=== PATIENT | female | born 1935 | race Caucasian/White ===

== ENCOUNTER 2020-08-24 15:41 | Inpatient (IN) ==
[2020-08-24] MEDS ORDERED: ONDANSETRON INJ 2 MG/ML 2 ML VIAL IV STA (16:42)
[2020-08-24] MEDS ORDERED: ACETAMINOPHEN 325 MG TAB PO STA (16:42)
[2020-08-24] MEDS ORDERED: SODIUM CHLORIDE 0.9% 1000ML 1,000 ML IV SCH (16:45)
[2020-08-24 17:00] LABS: Basophils # (auto) 0.01 K/uL (0-0.2); Basophils % (auto) 0.1 %; Eosinophils # (auto) 0.01 K/uL (0-0.5); Eosinophils % (auto) 0.1 %; Hematocrit (blood only) 38.6 % (37-47); Hemoglobin 11.7 g/dL (12.0-16.0); Immature Granulocytes # (auto) 0.02 K/uL (0.00-0.02); Immature Granulocytes % (auto) 0.2 %; Lymphocytes # (auto) 1.06 K/uL (1.2-3.4); Lymphocytes % (auto) 9.2 %; Mean Corpuscular Hemoglobin 29.3 pg (25-34); Mean Corpuscular Hgb Conc 30.3 g/dL (32-36); Mean Corpuscular Volume 96.7 fL (80-100); Mean Platelet Volume 11.4 fL (7.4-10.4); Monocytes # (auto) 2.38 K/uL (0.11-0.59); Monocytes % (auto) 20.6 %; Neutrophils # (auto) 8.05 K/uL (1.4-6.5); Neutrophils % (auto) 69.8 %; Platelet Count 205 K/uL (130-400); RDW Standard Deviation 49.8 fL (36.4-46.3); Red Blood Count 3.99 M/uL (4.2-5.4); White Blood Count 11.53 K/uL (4.8-10.8)
[2020-08-24 17:09] LABS: Albumin Level 3.1 gm/dl (3.4-5.0); BUN Creatinine Ratio 53.6 (10-20); Blood Urea Nitrogen 35 mg/dl (7-18); Calcium 8.6 mg/dl (8.5-10.1); Carbon Dioxide 35 mmol/L (21-32); Chloride 102 mmol/L (98-107); Creatinine Clr Calc Pharmacy 44.8 ml/min; Est GFR (African American) 93.4 ml/min; Est GFR (Non-African American) 80.6 ml/min; Glucose 103 mg/dl (70-99); Magnesium 2.4 mg/dl (1.8-2.4); Potassium 4.4 mmol/L (3.5-5.1); Sodium 139 mmol/L (136-145)
[2020-08-24 17:21] LABS: Alanine Aminotransferase 27 U/L (12-78); Albumin Globulin Ratio 0.7 (0.9-2); Alkaline Phosphatase 91 U/L (45-117); Aspartate Aminotransferase 29 U/L (15-37); Bilirubin,Total 0.4 mg/dl (0.2-1); Globulin 4.3 gm/dl (2.5-4.0); Thyroid Stimulating Hormone 0.439 uIu/ml (0.300-4.500); Total Protein 7.4 gm/dl (6.4-8.2); Troponin I < 0.015 ng/ml (0-0.045)
--- NOTE | 2020-08-24 17:33 | XRay Report ---
SINGLE VIEW CHEST CLINICAL HISTORY: Generalized weakness. FINDINGS: An AP, portable, upright chest radiograph is obtained. No prior studies are available for c omparison at the time of dictation. The heart is enlarged noting atherosclerotic calcification of th e thoracic aorta. There is prominence of the pulmonary vasculature. There is a large hiatal hernia. T here are small pleural effusions with bibasilar consolidation. Apical scarring is observed. No pneumo thorax is seen. The skeletal structures are osteopenic. The bony thorax is grossly intact. IMPRESSION: 1. Cardiomegaly with prominence of the pulmonary vasculature. Correlate clinically for mild congestiv e failure. 2. Small pleural effusions with bibasilar consolidation. This likely represents atelectasis and clini carlos alberto correlation will be required. ACT 112: Negative or not required by law. Electronically signed by: Brown Byers M.D. 08/24/2020 5:32 PM
[2020-08-24] MEDS ORDERED: OPTIRAY 350 500ml IV ONE (21:34)
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
[2020-08-24] MEDS ORDERED: NITROGLYCERIN SL 0.4 MG/TAB TAB SL PRN ×2 (22:52)
[2020-08-24] MEDS ORDERED: POLYETHYLENE (MIRALAX) 17 GM PACK PO PRN (22:52)
[2020-08-24] MEDS ORDERED: IPRATROPIUM BROMIDE HFA INHALER INH PRN (22:52)
[2020-08-24] MEDS ORDERED: ACETAMINOPHEN 325 MG TAB PO PRN (22:52)
[2020-08-25] MEDS: HEPARIN SOD 5,000 UNIT/0.5 ML VIAL SQ SCH ×4 (00:42→21:01)
[2020-08-25] MEDS: DOCUSATE SODIUM 100 MG CAP PO SCH ×3 (00:42→20:47)
[2020-08-25] MEDS: PROPRANOLOL HCL 20 MG TAB PO SCH ×3 (00:42→20:48)
[2020-08-25] MEDS: DICLOFENAC SOD 1% GEL 100 GM TUBE EXT SCH ×3 (00:49→20:49)
[2020-08-25 01:51] LABS: Appearance Urine Clear (Clear); Bilirubin Urine Negative (Negative); Blood Urine 1+ (Negative); Color Urine Yellow; Glucose Urine UA Negative (Negative); Ketones Urine Negative (Negative); Leukocyte Esterase Urine Negative (Negative); Nitrite Urine Negative (Negative); Protein Urine 1+ (Negative); Specific Gravity Urine <= 1.005 (1.000-1.030); Urobilinogen Urine Negative (Negative); pH Urine 5.5 (4.5-7.5)
[2020-08-25 02:01] LABS: Epithelial Cell Urine >30 /lpf (0-5)
[2020-08-25 02:02] LABS: RBC Urine 0-4 /hpf (0-4); WBC Urine 0-5 /hpf (0-5)
[2020-08-25 02:03] LABS: Bacteria Urine Negative (Negative)
--- NOTE | 2020-08-25 03:49 | History and Physical Report ---
DATE OF ADMISSION: 08/24/2020 CHIEF COMPLAINT: COVID positive. 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 The patient was seen in the PCP outpatient office yesterday for chest congestion for 3 weeks. The patient has 3 weeks of shortness of breath with thick phlegm production. She is on home oxygen, but she is more tired than usual as per the Epic notes. She has two caregivers at home. Outpatient labs showed BNP was elevated and also COVID came back positive, so she was sent to the hospital. With the COVID positive, she will not have any caregivers at home and so as she has to live alone at home, we were called for admission. The patient is a very poor historian, very hard of hearing. She complains of only some chest discomfort when taking deep breath. Denies any other complaints. Could not get any kind of history from the patient and tried to call the daughter twice and it is going to voicemail. The patient is saturating fine on [address] of the chest was done, there is no PE and there are no obvious infiltrates. Resting comfortably and hemodynamically stable. ALLERGIES: PENICILLINS. PAST MEDICAL HISTORY: As mentioned above. PAST SURGICAL HISTORY: No significant past surgical history. MEDICATIONS: The patient is on Tylenol 325 mg p.o. q.i.d. p.r.n., aspirin 81 mg p.o. daily, atorvastatin 80 mg p.o. daily, ____ as directed, vitamin D 25 mcg p.o. daily, diclofenac sodium 1 g topical b.i.d., Colace 100 mg p.o. b.i.d., ferrous sulfate 325 mg p.o. daily, Breo Ellipta 1 inhalation daily, Lasix 20 mg p.o. daily, ipratropium bromide 2 puffs inhalation q.i.d. p.r.n., DuoNebs q 6 hours p.r.n., isosorbide mononitrate 30 mg p.o. daily, nitroglycerin 0.4 mg sublingual p.r.n., MiraLax 17 grams p.o. daily, prednisone 5 mg p.o. daily, propranolol 20 mg p.o. b.i.d. FAMILY HISTORY: Significant for father had cancer, brother has diabetes. SOCIAL HISTORY: Currently lives alone, but has caregivers, . Former smoker, quit in 1996. No alcohol use, no drug use. REVIEW OF SYSTEMS: As per HPI. Rest of the review of systems could not be obtained as the patient is very hard of hearing, poor historian. PHYSICAL EXAMINATION: VITAL SIGNS: Temperature 36.5, pulse 87, respiratory rate 22, blood pressure 120/75, oxygen 94% on 2 liters. HEENT: Atraumatic. Pupils equal, round, reactive to light. Oral mucosa moist. NECK: No JVD, no neck masses. CARDIOVASCULAR: S1, S2 heard, regular rate and rhythm, no murmur, no gallop. RESPIRATORY SYSTEM: Normal AP diameter. No accessory muscle use. No wheezing, no crackles. ABDOMEN: Soft, bowel sounds present, nontender, nondistended. CENTRAL NERVOUS SYSTEM: Cranial nerves II-XII grossly intact, nonfocal. EXTREMITIES: Mild pedal edema present, no erythema seen. LABORATORY DATA: WBC 11.5, hemoglobin 11.7, hematocrit 38.6, platelets 205. Sodium 139, potassium 4.4, chloride 102, bicarbonate 35, BUN 35, creatinine 0.6, serum glucose 103, lactate 0.8, calcium 8.6, magnesium 2.4, total bilirubin 0.4, AST 29, ALT 27, alkaline phosphatase 91. Troponin I less than 0.015. TSH 0.4. IMAGING DATA: Chest x-ray, cardiomegaly with prominence of the pulmonary vasculature, small pleural effusion with bibasilar consolidation. CT of the chest, no PE, no obvious infiltrates. EKG: Normal sinus rhythm at a rate of 82, right bundle branch block seen. ASSESSMENT AND PLAN: This is an 85-year-old female who presents with ongoing shortness of breath and chest congestion, went to PCP's office because of ongoing chest congestion for 3 weeks and shortness of breath and was found to be COVID positive and elevated BNP. 1. COVID positive: The patient's respiratory status is baseline. CT chest, no PE, no obvious infiltrates. Will do COVID precautions and monitor. Currently does not meet criteria for any remdesivir or steroids.Will follow inflammatory markers. 2. Possible congestive heart failure: BNP elevated as outpatient. Lower extremity edema. Will repeat the BNP in the a.m. No obvious congestion on the chest x-ray or CT scan.Lasix was started out patient. Consult cardiology in the a.m. for further recommendations.Echo as per cardiology. 3. History of chronic obstructive pulmonary disease: Continue her home inhalers and home oxygenation. 4. History of coronary artery disease: Continue home medications of aspirin, statin. 5. History of rheumatoid arthritis: On chronic prednisone. 6. Hyperlipidemia: Continue statin. 7. 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 8. Deep venous thrombosis prophylaxis: , heparin subQ. DISPOSITION: Closely monitor in the tele floor. Level 1 full code. Expect to discharge home and PT and OT prior to discharge. Social service to help with discharge planning. CODE STATUS: Full code ____ as per the daughter. MTDTrae
[2020-08-25 06:39] LABS: D Dimer 880 ug/L FEU (0-500)
[2020-08-25 07:17] LABS: C Reactive Protein 4.26 mg/dl (0-0.29); Ferritin 1725.9 ng/ml (8-388); Troponin I 0.046 ng/ml (0-0.045)
--- NOTE | 2020-08-25 07:33 | CT Scan Report ---
CT ANGIOGRAM OF THE CHEST CLINICAL HISTORY: PE COMPARISON STUDY: No previous studies for comparison. TECHNIQUE: Following the IV administration of mL of Optiray, CT angiogram of the thorax was performed from the thoracic inlet to the lung bases utilizing the pulmonary embolus protocol. Images are revie wed in the axial, sagittal, and coronal planes. IV contrast was administered without complication. NH P imaging was performed. A dose lowering technique was utilized adhering to the principles of ALARA. CT DOSE: 253.51 mGy.cm FINDINGS: There is adequate opacification within main pulmonary artery however evaluation of the peripheral bra nches is limited due to respiratory motion artifact. No evidence of central pulmonary embolus. Minimal dilatation of the main pulmonary artery is seen. Fo ur-chamber cardiomegaly is seen. Right atrium is enlarged. There is flattening of the interventricula r septum which could be seen in elevated pressure within right ventricle. Heavy calcifications of the mitral annulus are seen. No pericardial effusion. Severe coronary calcifications No pathologically enlarged axillary mediastinal or hilar lymph nodes were visualized. There is mild ectasia of ascending and descending portion of thoracic aorta measuring up to 4 cm with in its ascending portion and up to 3.1 cm within its distending aspect. 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 Aorta is tortuous. Trachea, mainstem bronchi and right upper and lower lobes bronchi are patent. There is significant fo carlos alberto narrowing of the left upper lobe bronchus which might be due to expiratory phase. Mild diffuse pe ribronchial cuffing is seen bilaterally. Bilateral hemidiaphragms are elevated. No pleural effusions are visualized. Mild diffuse septal thickening is seen. Mild atelectasis is seen within left lower lobe. Right middle lobe almost completely collapsed. Few patchy groundglass opacities are seen within the right upper and lower lobes which might represen t infectious/inflammatory etiology. Limited evaluation of upper abdominal viscera shows mild dilatation of bilateral renal collecting sys tem. Osseous structures are diffusely demineralized. Multilevel compression fracture deformities of the T4 -L1, likely chronic. Deformity of the sternum likely related to old trauma. IMPRESSION: 1. No evidence of central pulmonary embolus. Evaluation of peripheral branches of the pulmonary cassie ry is slightly limited due to respiratory motion artifact. 2. Few patchy areas of groundglass attenuation within right lung might represent infectious/inflamma tory etiology. Follow-up evaluation with CT of the chest without IV contrast in 4-6 weeks is recommen ded to document resolution. 3. Atelectasis within right middle lobe and right lower lobe. 4. Four-chamber cardiomegaly. Flattened appearance of the interventricular septum could be seen in e levated pressure within the right ventricle. Please correlate above-mentioned findings with prior his tory of heart failure and cardiology evaluation. 5. Mild dilatation of bilateral renal collection system without definite hydronephrosis. Please maru elate above-mentioned findings was prior history. 6. Multilevel compression fracture deformity of the thoracic spine, severe osteopenia. 7. 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 Atherosclerosis. ACT 112: Positive. There are findings on this exam that require communication between the performing entity and the patient following Patient Test Result Information Act ([place] Act 112) guidelines. The above report was generated using voice recognition software. It may contain grammatical, syntax o r spelling errors. Electronically signed by: Alisson Escobar DO 08/25/2020 9:54 AM
[2020-08-25 08:38] LABS: Basophils # (auto) 0.01 K/uL (0-0.2); Basophils % (auto) 0.1 %; Eosinophils # (auto) 0.01 K/uL (0-0.5); Eosinophils % (auto) 0.1 %; Hematocrit (blood only) 41.2 % (37-47); Hemoglobin 12.1 g/dL (12.0-16.0); Immature Granulocytes # (auto) 0.08 K/uL (0.00-0.02); Immature Granulocytes % (auto) 0.9 %; Lymphocytes % (auto) 5.7 %; Mean Corpuscular Hemoglobin 29.7 pg (25-34); Mean Corpuscular Hgb Conc 29.4 g/dL (32-36); Mean Platelet Volume 11.5 fL (7.4-10.4); Monocytes # (auto) 1.28 K/uL (0.11-0.59); Monocytes % (auto) 14.6 %; Neutrophils % (auto) 78.6 %; Platelet Count 234 K/uL (130-400); RDW Coefficient of Variation 14.3 % (11.5-14.5); RDW Standard Deviation 53.4 fL (36.4-46.3); Red Blood Count 4.08 M/uL (4.2-5.4); White Blood Count 8.78 K/uL (4.8-10.8)
--- NOTE | 2020-08-25 09:07 | Pulmonary Consultation ---
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 I do not have PFTs or outpatient records available to review so I am unclear how the diagnosis of COPD was made. She was admitted with a positive Covid test but is not hypoxemic and CT scan does not demonstrate patchy infiltrates consistent with a viral pneumonia. Recommendations: 1. Positive Covid test: Continue current care. No indication for additional testing or adjuvants at this point time. 2. COPD: Again I am unclear if the patient actually has obstructive lung disease. There is no evidence of significant emphysematous changes on her CT scan. Can continue inhalers as long as they are offering her a clinical benefit. 3. Pulmonary hypertension: Recommend continued diuresis as long as assist kidney function. Defer to the primary service. Suspect this is WHO class II and III. Would not recommend pulmonary vasodilators. Given her advanced age, I do not think additional intervention other than diuresis is warranted at the current time. 4. Would strongly recommend addressing CODE STATUS. Her restrictive lung disease would place her at an increased risk for progressive respiratory failure sure that full code would be appropriate in this elderly kyphotic patient. Pulmonary will sign off at this point time. Feel free to contact us with any additional questions History of Present Illness Attending Physician: Kishor Culver MD History of Present Illness Asked by the hospitalist to evaluate with Covid pneumonia and chronic hypoxemic respiratory failure. History is obtained from review of electronic medical record. Patient is an 85-year-old female with severe kyphosis admitted with a positive Covid test. Patient likely has restrictive lung disease due to her thoracic cage abnormalities and is on oxygen reported history of COPD as well as pulmonary hypertension but I do not have records available to review from that. She was seen in her primary's office with complaints of chest congestion and 3 weeks of shortness of breath with chronic phlegm production. Outpatient labs showed an elevated BNP and a positive Covid test and the patient was referred to the hospital. She was not hypoxemic did not qualify for remdesivir dexamethasone. Pulmonary was consulted for management of her chronic respiratory issues. History from the patient is difficult to do to her hearing deficits Allergies Allergy/AdvReac Type Severity Reaction Status Date / Time Penicillins Allergy Unknown RASH Verified 08/24/20 16:19 Home Medications Medication Instructions Recorded Confirmed Type acetaminophen [Tylenol] 325 mg PO QID PRN 08/24/20 08/24/20 History aspirin [Aspir-Low] 81 mg PO DAILY 08/24/20 08/24/20 History atorvastatin 80 mg PO DAILY 08/24/20 08/24/20 History azithromycin 250 - 500 mg PO UD 08/24/20 08/24/20 History cholecalciferol (vitamin D3) 25 mcg PO DAILY 08/24/20 08/24/20 History [Vitamin D3] diclofenac sodium [Voltaren] 0 g TOPICAL BID 08/24/20 08/24/20 History docusate sodium 100 mg PO BID 08/24/20 08/24/20 History ferrous sulfate [iron] 325 mg PO DAILY 08/24/20 08/24/20 History fluticasone furoate-vilanterol 1 ea INHALATION DAILY 08/24/20 08/24/20 History [Breo Ellipta] furosemide 20 mg PO DAILY 08/24/20 08/24/20 History ipratropium bromide 2 puff INHALATION QID PRN 08/24/20 08/24/20 History ipratropium-albuterol 3 ml INHALATION Q6 PRN 08/24/20 08/24/20 History isosorbide mononitrate 30 mg PO DAILY 08/24/20 08/24/20 History nitroglycerin [Nitrostat] 0.4 mg SUBLINGUAL UD PRN 08/24/20 08/24/20 History polyethylene glycol 3350 [Miralax] 17 g PO DAILY PRN 08/24/20 08/24/20 History prednisone 5 mg PO DAILY 08/24/20 08/24/20 History prednisone 10 mg PO .TAPER UD 08/24/20 08/24/20 History propranolol 20 mg PO BID 08/24/20 08/24/20 History Patient History Medical History (Updated 08/25/20 @ 09:21 by Claudy Rees MD) CAD (coronary artery disease) Chronic respiratory failure with hypoxia, on home O2 therapy COPD (chronic obstructive pulmonary disease) Essential tremor Hearing loss Osteoporosis Overactive bladder Rheumatoid arthritis Vitamin D deficiency Social History (Updated 08/24/20 @ 21:50 by Vivian Seo MD) Preferred Language: Taiwanese Communication Ability: Very RED [employer]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 No additions or deletions Physical Exam Constitutional: + thin and + frail appearing Severe kyphosis Neck: trachea midline, no thyromegaly Respiratory: Coarse breath sounds bilaterally Cardiovascular: RRR, no murmur, no edema Gastrointestinal (Abdomen): normal bowel sounds, soft, nontender, no hepatosplenomegaly Musculoskeletal: Extremities: extremities normal to inspection Skin: no rashes, warm and dry Neurologic: Nonfocal exam Lymphatic: no cervical lymphadenopathy Results & Data Results & Data ([facility]) Vital Signs (Past 12 Hours) Vital Signs Temp Pulse Resp BP BP Pulse Ox 08/25/20 08:09 36.9 C 18 117/89 93 08/25/20 03:10 37.1 C 22 131/72 98 08/24/20 22:52 36.5 C 22 128/75 94 08/24/20 22:20 85 08/24/20 22:00 87 23 137/72 93 08/24/20 21:50 89 28 H 92 08/24/20 21:46 90 29 H 88 L 08/24/20 21:45 121/73 92 08/24/20 21:20 96 08/24/20 21:15 113/63 95 08/24/20 21:10 96 Laboratory Results 08/25/20 07:[address] of the chest 08/24/[address] ANGIOGRAM OF THE CHEST CLINICAL HISTORY: PE COMPARISON STUDY: No previous studies for comparison. TECHNIQUE: Following the IV administration of mL of Optiray, CT angiogram of the thorax was performed from the thoracic inlet to the lung bases utilizing the pulmonary embolus protocol. Images are reviewed in the axial, sagittal, and coronal planes. IV contrast was administered without complication. MIP imaging was performed. A dose lowering technique was utilized adhering to the principles of ALARA. CT DOSE: 253.51 mGy.cm FINDINGS: There is adequate opacification within main pulmonary artery however evaluation of the peripheral branches is limited due to respiratory motion artifact. No evidence of central pulmonary embolus. Minimal dilatation of the main pulmonary artery is seen. Four-chamber cardiomegaly is seen. Right atrium is enlarged. There is flattening of the interventricular septum which could be seen in elevated pressure within right ventricle. Heavy calcifications of the mitral annulus are seen. No pericardial effusion. Severe coronary calcifications No pathologically enlarged axillary mediastinal or hilar lymph nodes were visualized. There is mild ectasia of ascending and descending portion of thoracic aorta m easuring up to 4 cm within its ascending portion and up to 3.1 cm within its distending aspect. 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 Aorta is tortuous. Trachea, mainstem bronchi and right upper and lower lobes bronchi are patent. There is significant focal narrowing of the left upper lobe bronchus which might be due to expiratory phase. Mild diffuse peribronchial cuffing is seen bilaterally. Bilateral hemidiaphragms are elevated. No pleural effusions are visualized. Mild diffuse septal thickening is seen. Mild atelectasis is seen within left lower lobe. Right middle lobe almost completely collapsed. Few patchy groundglass opacities are seen within the right upper and lower lobes which might represent infectious/inflammatory etiology. Limited evaluation of upper abdominal viscera shows mild dilatation of bilateral renal collecting system. 1. Osseous structures are diffusely demineralized. Multilevel compression fracture deformities of the T4-L1, likely chronic. Deformity of the sternum likely related to old trauma. IMPRESSION: 1. No evidence of central pulmonary embolus. Evaluation of peripheral branches of the pulmonary artery is slightly limited due to respiratory motion artifact. 2. Few patchy areas of groundglass attenuation within right lung might represent infectious/inflammatory etiology. Follow-up evaluation with CT of the chest without IV contrast in 4-6 weeks is recommended to document resolution. 3. Atelectasis within right middle lobe and right lower lobe. 4. Four-chamber cardiomegaly. Flattened appearance of the interventricular septum could be seen in elevated pressure within the right ventricle. Please correlate above-mentioned findings with prior history of heart failure and cardiology evaluation. 5. Mild dilatation of bilateral renal collection system without definite hydronephrosis. Please correlate above-mentioned findings was prior history. 6. Multilevel compression fracture deformity of the thoracic spine, severe osteopenia. 7. 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 Atherosclerosis. PG Care Time/CCT Total # of Minutes Spent Total Time Spent with Patient: Total time spent is greater than 50% in coordination of care (as documented) at patient's floor/unit and/or counseling patient: Coding Level of Care Code 32816 Initial Inpt Care Lvl 3 Diagnoses Chronic respiratory failure with hypoxia, on home O2 therapy J96.11; Z99.81 COVID-19 U07.1 Pulmonary hypertension I27.20
[2020-08-25] MEDS: ATORVASTATIN 40 MG TAB PO SCH (09:15)
[2020-08-25] MEDS: FERROUS SULFATE 325 MG TAB PO SCH (09:16)
[2020-08-25] MEDS: FUROSEMIDE 20 MG TAB PO SCH (09:16)
[2020-08-25] MEDS: CHOLECALCIFEROL 1,000 UNITS 25 MCG TAB PO SCH (09:16)
[2020-08-25] MEDS: predniSONE 5 MG TAB PO SCH (09:16)
[2020-08-25] MEDS: ASPIRIN 81 MG ECTAB PO SCH (09:16)
[2020-08-25] MEDS: ISOSORBIDE MONO EXTENDED REL 30 MG TABCR PO SCH (09:16)
[2020-08-25] MEDS: FLUTICASONE/VILANTEROL 200/25MCG 14 PUFFS/INHALER INH SCH (09:17)
--- NOTE | 2020-08-25 09:21 | Ultrasound Report ---
BILATERAL LOWER EXTREMITY VENOUS DOPPLER HISTORY: Bilateral leg edema, r/o dvt COMPARISON STUDY: None. FINDINGS: There is normal compressibility, flow, and augmentation within the bilateral lower extremit y deep venous systems. IMPRESSION: No DVT within the right or left lower extremity. ACT 112: Negative or not required by law. Electronically signed by: Herbie Perkins M.D. 08/25/2020 9:20 AM
[2020-08-25 09:30] LABS: Albumin Level 3.2 gm/dl (3.4-5.0); BUN Creatinine Ratio 60.6 (10-20); Calcium 8.5 mg/dl (8.5-10.1); Creatinine Clr Calc Pharmacy 49.1 ml/min; Est GFR (African American) 96.9 ml/min; Est GFR (Non-African American) 83.6 ml/min; Potassium 4.8 mmol/L (3.5-5.1)
[2020-08-25 09:33] LABS: Albumin Globulin Ratio 0.8 (0.9-2); Bilirubin,Total 0.5 mg/dl (0.2-1); Globulin 3.9 gm/dl (2.5-4.0); Total Protein 7.1 gm/dl (6.4-8.2)
[2020-08-25] MEDS ORDERED: FUROSEMIDE 20 MG in SYRINGE 0 ML IV ONE (10:14)
--- NOTE | 2020-08-25 10:32 | Cardiology Consultation ---
Date of Consultation August 25, 2020 Assessment & Plan (1) Acute and chronic respiratory failure ([id number]): Patient is a very fragile elderly female admitted with worsening respiratory status and general decline times several weeks. Laboratory static disease now reflect elevated BNP and positive Covid testing Patient has underlying chronic obstructive lung disease O2 dependent with associated pulmonary hypertension Patient with complaints of orthopnea and increasing O2 demands, dyspnea. Oxygen increased to 3 L during examination Suspect mild congestive heart failure superimposed on acute respiratory issues. Echocardiogram will be completed to assess mitral insufficiency and overall LV systolic function Single dose of furosemide IV ordered ultimate goals maintain negative urine outs We will need treatment of underlying pulmonary issues Patient has nonrevascularized single-vessel coronary disease prior prior cardiac catheterization 2018. Will expect component of demand based ischemia, elevated troponin with current illness. We will continue propanolol as ordered for both tremor and cardioprotective effect. EKG without acute changes right bundle branch block chronically present Patient will need to be followed closely with realistic expectations given fragile condition (2) COVID-19: (3) CAD (coronary artery disease): (4) COPD (chronic obstructive pulmonary disease): History of Present Illness Reason for Consultation: Possible heart failure Requesting Physician: Dr Rivera Attending Physician: Kishor Culver MD History of Present Illness Patient is an 85-year-old elderly fragile female with underlying issues which include 1. Chronic obstructive lung disease O2 dependent (2 L nasal cannula) 2. Atherosclerotic coronary disease with acute inferior myocardial infarction 12/24/2017 with single-vessel disease and acute intervention of the proximal right coronary artery with residual severe disease mid vessel managed medically 3. Acute pulmonary embolus 09/10/2018, provoked following lower extremity fracture 4. Echocardiogram 2018 inferior posterior wall motion normality with preserved overall ejection fraction, moderate mitral insufficiency, pulmonary hypertension 5. Chronic right bundle branch block Patient is referred now after hospitalization with several week decline. Had traumatic injury to her chest in early August recent symptoms of increasing cough weakness and fatigue. Sputum production of thick secretions. Was initially begun on prednisone antibiotics and low-dose diuretic as an outpatient with laboratory studies however returning positive for Covid as well. BNP elevated Patient is referred now for further assessment. Patient fair historian with difficulties communicating due to hearing loss. Dyspneic this morning with orthopnea, shortness of breath when not sitting upright. Has mild chest tenderness but no chest tightness, or angina. Currently afebrile. No arrhythmias. No bleeding difficulties Chest x-ray reveals increased interstitial markings, CT scan without pulmonary embolus Does admit to poor appetite and at least 10 pound weight loss over the last years time Allergies Allergy/AdvReac Type Severity Reaction Status Date / Time Penicillins Allergy Unknown RASH Verified 08/24/20 16:19 Home Medications Medication Instructions Recorded Confirmed Type acetaminophen [Tylenol] 325 mg PO QID PRN 08/24/20 08/24/20 History aspirin [Aspir-Low] 81 mg PO DAILY 08/24/20 08/24/20 History atorvastatin 80 mg PO DAILY 08/24/20 08/24/20 History azithromycin 250 - 500 mg PO UD 08/24/20 08/24/20 History cholecalciferol (vitamin D3) 25 mcg PO DAILY 08/24/20 08/24/20 History [Vitamin D3] diclofenac sodium [Voltaren] 0 g TOPICAL BID 08/24/20 08/24/20 History docusate sodium 100 mg PO BID 08/24/20 08/24/20 History ferrous sulfate [iron] 325 mg PO DAILY 08/24/20 08/24/20 History fluticasone furoate-vilanterol 1 ea INHALATION DAILY 08/24/20 08/24/20 History [Breo Ellipta] furosemide 20 mg PO DAILY 08/24/20 08/24/20 History ipratropium bromide 2 puff INHALATION QID PRN 08/24/20 08/24/20 History ipratropium-albuterol 3 ml INHALATION Q6 PRN 08/24/20 08/24/20 History isosorbide mononitrate 30 mg PO DAILY 08/24/20 08/24/20 History nitroglycerin [Nitrostat] 0.4 mg SUBLINGUAL UD PRN 08/24/20 08/24/20 History polyethylene glycol 3350 [Miralax] 17 g PO DAILY PRN 08/24/20 08/24/20 History prednisone 5 mg PO DAILY 08/24/20 08/24/20 History prednisone 10 mg PO .TAPER UD 08/24/20 08/24/20 History propranolol 20 mg PO BID 08/24/20 08/24/20 History Patient History Medical History CAD (coronary artery disease) Chronic respiratory failure with hypoxia, on home O2 therapy COPD (chronic obstructive pulmonary disease) Essential tremor Hearing loss Osteoporosis Overactive bladder Rheumatoid arthritis Vitamin D deficiency Social History Preferred Language: Faroese Communication Ability: Very [place] [employer] Sales [employer] Required: No Beliefs That Will Affect Care: None marital status: / Current Living Situation: Alone Current Living Situation Comment: Pt states lives at assisted living apartment: [address] current occupational status: retired Other Information That Helps Us Care for You: No Feels Safe at Home: Yes Safety Concerns: Feels Safe At This Time Assistive Devices: Oxygen - Continuous and Walker Assistive Devices Comment: Walker Review of Systems Review of Systems: All systems reviewed & are unremarkable except as noted in HPI & below Physical Exam Constitutional: + thin, + cachectic and + frail appearing Eyes: PERRL, conjunctivae normal, anicteric sclerae ENMT: external ear and nose normal, oropharynx normal Neck: trachea midline, no thyromegaly Respiratory: + respiratory distress (Mild) Auscultation: + diminished lung sounds Cardiovascular: Rate/Rhythm: regular rate and regular rhythm Heart Sounds: normal S1 and normal S2; no gallop Palpation: normal PMI Vessels: normal carotid upstroke and radial pulses present; no JVD Extremities: + edema (1+) Chest (Breasts): Additional Comments: Ecchymosis across the left chest and breast Gastrointestinal (Abdomen): normal bowel sounds, soft, nontender, no hepatosplenomegaly Musculoskeletal: No cyanosis or clubbing Skin: Ecchymosis right middle fingertip Psychiatric: A+Ox3, euthymic affect Results & Data ([facility]) Vital Signs (Past 12 Hours) Vital Signs Temp Pulse Resp BP Pulse Ox 08/25/20 09:00 85 08/25/20 08:09 36.9 C 18 117/89 93 08/25/20 03:10 37.1 C 22 131/72 98 08/24/20 22:52 36.5 C 22 128/75 94 08/24/20 22:20 85 Laboratory Results Laboratory Results - last 24 hr 08/24/20 08/24/20 08/24/20 15:54 15:54 17:06 WBC 11.53 H RBC 3.99 L Hgb 11.7 L Hct 38.6 MCV 96.7 MCH 29.3 MCHC 30.3 L RDW Std Deviation 49.8 H RDW Coeff of Levi 14.0 Plt Count 205 MPV 11.4 H Immature Gran % (Auto) 0.2 Neut % (Auto) 69.8 Lymph % (Auto) 9.2 Levy % (Auto) 20.6 Eos % (Auto) 0.1 Baso % (Auto) 0.1 Neut # (Auto) 8.05 H Lymph # (Auto) 1.06 L Levy # (Auto) 2.38 H Eos # (Auto) 0.01 Baso # (Auto) 0.01 Immature Gran # (Auto) 0.02 D-Dimer Sodium 139 Potassium 4.4 Chloride 102 Carbon Dioxide 35 H Anion Gap 3.0 BUN 35 H Creatinine 0.66 Est Cr Clr Drug Dosing 44.8 Est GFR ( Amer) 93.4 Est GFR (Non-Af Amer) 80.6 BUN/Creatinine Ratio 53.6 H Glucose 103 H Lactate 0.8 Calcium 8.6 Magnesium 2.4 Ferritin Total Bilirubin 0.4 AST 29 ALT 27 Alkaline Phosphatase 91 Lactate Dehydrogenase Troponin I < 0.015 C-Reactive Protein NT-Pro-B Natriuret Pep Total Protein 7.4 Albumin 3.1 L Globulin 4.3 H Albumin/Globulin Ratio 0.7 L Procalcitonin TSH 0.439 Specimen Hemolysis Urine Color Urine Appearance Urine pH Ur Specific [place] Urine Protein Urine Glucose (UA) Urine Ketones Urine Blood Urine Nitrite Urine Bilirubin Urine Urobilinogen Ur Leukocyte Esterase Urine RBC Urine WBC Ur Epithelial Cells Urine Bacteria 08/25/20 08/25/20 08/25/20 05:51 05:51 05:51 WBC RBC Hgb Hct MCV MCH MCHC RDW Std Deviation RDW Coeff of Levi Plt Count MPV Immature Gran % (Auto) Neut % (Auto) Lymph % (Auto) Levy % (Auto) Eos % (Auto) Baso % (Auto) Neut # (Auto) Lymph # (Auto) Levy # (Auto) Eos # (Auto) Baso # (Auto) Immature Gran # (Auto) D-Dimer 880 H* Sodium Potassium Chloride Carbon Dioxide Anion Gap BUN Creatinine Est Cr Clr Drug Dosing Est GFR ( Amer) Est GFR (Non-Af Amer) BUN/Creatinine Ratio Glucose Lactate Calcium Magnesium Ferritin 1725.9 H Total Bilirubin AST ALT Alkaline Phosphatase Lactate Dehydrogenase 200 Troponin I 0.046 H* C-Reactive Protein 4.26 H NT-Pro-B Natriuret Pep 3741 H Total Protein Albumin Globulin Albumin/Globulin Ratio Procalcitonin TSH Specimen Hemolysis Urine Color Urine Appearance Urine pH Ur Specific [place] Urine Protein Urine Glucose (UA) Urine Ketones Urine Blood Urine Nitrite Urine Bilirubin Urine Urobilinogen Ur Leukocyte Esterase Urine RBC Urine WBC Ur Epithelial Cells Urine Bacteria 08/25/20 08/25/20 08/25/20 05:51 07:49 08:48 WBC 8.78 RBC 4.08 L Hgb 12.1 Hct 41.2 MCV 101.0 H MCH 29.7 MCHC 29.4 L RDW Std Deviation 53.4 H RDW Coeff of Levi 14.3 Plt Count 234 MPV 11.5 H Immature Gran % (Auto) 0.9 Neut % (Auto) 78.6 Lymph % (Auto) 5.7 Levy % (Auto) 14.6 Eos % (Auto) 0.1 Baso % (Auto) 0.1 Neut # (Auto) 6.90 H Lymph # (Auto) 0.50 L Levy # (Auto) 1.28 H Eos # (Auto) 0.01 Baso # (Auto) 0.01 Immature Gran # (Auto) 0.08 H D-Dimer Sodium 139 Potassium 4.8 Chloride 102 Carbon Dioxide 37 H Anion Gap 0 L BUN 36 H Creatinine 0.59 L Est Cr Clr Drug Dosing 49.1 Est GFR ( Amer) 96.9 Est GFR (Non-Af Amer) 83.6 BUN/Creatinine Ratio 60.6 H Glucose 164 H Lactate Calcium 8.5 Magnesium Ferritin Total Bilirubin 0.5 AST 48 H ALT 46 Alkaline Phosphatase 132 H Lactate Dehydrogenase Troponin I C-Reactive Protein NT-Pro-B Natriuret Pep Total Protein 7.1 Albumin 3.2 L Globulin 3.9 Albumin/Globulin Ratio 0.8 L Procalcitonin 0.10 TSH Specimen Hemolysis Urine Color Urine Appearance Urine pH Ur Specific [place] Urine Protein Urine Glucose (UA) Urine Ketones Urine Blood Urine Nitrite Urine Bilirubin Urine Urobilinogen Ur Leukocyte Esterase Urine RBC Urine WBC Ur Epithelial Cells Urine Bacteria 08/25/20 Unknown WBC RBC Hgb Hct MCV MCH MCHC RDW Std Deviation RDW Coeff of Levi Plt Count MPV Immature Gran % (Auto) Neut % (Auto) Lymph % (Auto) Levy % (Auto) Eos % (Auto) Baso % (Auto) Neut # (Auto) Lymph # (Auto) Levy # (Auto) Eos # (Auto) Baso # (Auto) Immature Gran # (Auto) D-Dimer Sodium Potassium Chloride Carbon Dioxide Anion Gap BUN Creatinine Est Cr Clr Drug Dosing Est GFR ( Amer) Est GFR (Non-Af Amer) BUN/Creatinine Ratio Glucose Lactate Calcium Magnesium Ferritin Total Bilirubin AST ALT Alkaline Phosphatase Lactate Dehydrogenase Troponin I C-Reactive Protein NT-Pro-B Natriuret Pep Total Protein Albumin Globulin Albumin/Globulin Ratio Procalcitonin TSH Specimen Hemolysis Urine Color Yellow Urine Appearance Clear Urine pH 5.5 Ur Specific [place] <= 1.005 Urine Protein 1+ H Urine Glucose (UA) Negative Urine Ketones Negative Urine Blood 1+ H Urine Nitrite Negative Urine Bilirubin Negative Urine Urobilinogen Negative Ur Leukocyte Esterase Negative Urine RBC 0-4 Urine WBC 0-5 Ur Epithelial Cells >30 H Urine Bacteria Negative ECG Additional Comments: 24-AUG-2020 15:49:30 [facility]-EDSTAT ROUTINE RETRIEVAL Normal sinus rhythm Right bundle branch block Inferior infarct , age undetermined Abnormal ECG In comparison to prior study is unchanged from 01/02/2019
[2020-08-25] MEDS: guaiFENesin 600 MG TABCR PO SCH ×2 (11:03→20:46)
--- NOTE | 2020-08-25 12:46 | Electrocardiogram Report ---
Test Reason : Blood Pressure : / mmHG Vent. Rate : 082 BPM Atrial Rate : 082 BPM P-R Int : 168 ms QRS Dur : 124 ms QT Int : 366 ms P-R-T Axes : 025 062 -16 degrees QTc Int : 427 ms Normal sinus rhythm Right bundle branch block Inferior infarct , age undetermined Abnormal ECG No previous ECGs available Confirmed by Robert Damon ([id number]) on 08/25/2020 12:46:30 PM Referred By: REFERRED SELF Confirmed By:Kang Damon
--- NOTE | 2020-08-25 17:29 | Hospitalist Progress Note ---
Date of Service August 25, 2020 Assessment & Plan (1) Acute and chronic respiratory failure ([id number]): per admitting service notes: ASSESSMENT AND PLAN: This is an 85-year-old female who presents with ongoing shortness of breath and chest congestion, went to PCP's office because of ongoing chest congestion for 3 weeks and shortness of breath and was found to be COVID positive and elevated BNP. 1. COVID positive: -- The patient's respiratory status is stable, at baseline [address] chest: Few patchy areas of groundglass attenuation within right lung might represent infectious/inflammatory etiology. Follow-up evaluation with CT of the chest without IV contrast in 4-6 weeks is recommended to document resolution. Atelectasis within right middle lobe and right lower lobe. -- Pulm consulted Decadron, Remdesivir not recommended at this time -- continue to monitor 2. 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 -- Lasix IV given monitor diuresis -- Echo: EF 60%, moderate to severe MR -- Cardiology SVC on board 3. History of chronic obstructive pulmonary disease: -- not in exacerbation Continue her home inhalers and home oxygenation. 4. History of coronary artery disease: Continue home medications of aspirin, statin. 5. History of rheumatoid arthritis: On chronic prednisone. 6. Hyperlipidemia: Continue statin. 7. 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 8. Deep venous thrombosis prophylaxis: , heparin subQ. DISPOSITION: pending may need to transition to SNF CODE STATUS: Full code as per the daughter. Admission and Anticipated Discharge Date Admission Date: August 24, 2020 Subjective ff up for Acute CHF, COVID 19 pneumonia, etc seen resting in bed, drowsy, occasionally open eyes and moves with verbal stimul i not in distress on 2 L NC discussed with RN patient oriented when alert today no other issues so far Review of Systems Review of Systems: All systems reviewed & are unremarkable except as noted in Subjective Physical Exam Physical Exam: General- drowsy, not in distress,breathing with no effort or accessory muscle use Eyes- anicteric Neck- no JVD Lungs- mild rales at the bases no wheezing Heart- normal rate, regular rhythm; no murmurs Abdomen- normal bowel sounds, nondistended, soft, nontender Extremities- mild pretibial edema, no calf tenderness Neuro- drowsy; no gross focal neurologic deficits Skin- warm & dry Results & Data Results & Data ([facility]) Vital Signs (Past 12 Hours) Vital Signs Temp Pulse Resp BP Pulse Ox 08/25/20 16:00 85 08/25/20 09:00 85 08/25/20 08:09 36.9 C 18 117/89 93 all noted and reviewed including below Laboratory Results Laboratory Results - last 24 hr 08/24/20 08/25/20 08/25/20 17:06 05:51 05:51 WBC RBC Hgb Hct MCV MCH MCHC RDW Std Deviation RDW Coeff of Levi Plt Count MPV Immature Gran % (Auto) Neut % (Auto) Lymph % (Auto) [place] % (Auto) Eos % (Auto) Baso % (Auto) Neut # (Auto) Lymph # (Auto) [place] # (Auto) Eos # (Auto) Baso # (Auto) Immature Gran # (Auto) D-Dimer 880 H* Sodium Potassium Chloride Carbon Dioxide Anion Gap BUN Creatinine Est Cr Clr Drug Dosing Est GFR ( Amer) Est GFR (Non-Af Amer) BUN/Creatinine Ratio Glucose Lactate 0.8 Calcium Ferritin 1725.9 H Total Bilirubin AST ALT Alkaline Phosphatase Lactate Dehydrogenase Troponin I 0.046 H* C-Reactive Protein 4.26 H NT-Pro-B Natriuret Pep 3741 H Total Protein Albumin Globulin Albumin/Globulin Ratio Procalcitonin Urine Color Urine Appearance Urine pH Ur Specific [place] Urine Protein Urine Glucose (UA) Urine Ketones Urine Blood Urine Nitrite Urine Bilirubin Urine Urobilinogen Ur Leukocyte Esterase Urine RBC Urine WBC Ur Epithelial Cells Urine Bacteria 08/25/20 08/25/20 08/25/20 05:51 05:51 07:49 WBC 8.78 RBC 4.08 L Hgb 12.1 Hct 41.2 MCV 101.0 H MCH 29.7 MCHC 29.4 L RDW Std Deviation 53.4 H RDW Coeff of Levi 14.3 Plt Count 234 MPV 11.5 H Immature Gran % (Auto) 0.9 Neut % (Auto) 78.6 Lymph % (Auto) 5.7 [place] % (Auto) 14.6 Eos % (Auto) 0.1 Baso % (Auto) 0.1 Neut # (Auto) 6.90 H Lymph # (Auto) 0.50 L [place] # (Auto) 1.28 H Eos # (Auto) 0.01 Baso # (Auto) 0.01 Immature Gran # (Auto) 0.08 H D-Dimer Sodium Potassium Chloride Carbon Dioxide Anion Gap BUN Creatinine Est Cr Clr Drug Dosing Est GFR ( Amer) Est GFR (Non-Af Amer) BUN/Creatinine Ratio Glucose Lactate Calcium Ferritin Total Bilirubin AST ALT Alkaline Phosphatase Lactate Dehydrogenase 200 Troponin I C-Reactive Protein NT-Pro-B Natriuret Pep Total Protein Albumin Globulin Albumin/Globulin Ratio Procalcitonin 0.10 Urine Color Urine Appearance Urine pH Ur Specific [place] Urine Protein Urine Glucose (UA) Urine Ketones Urine Blood Urine Nitrite Urine Bilirubin Urine Urobilinogen Ur Leukocyte Esterase Urine RBC Urine WBC Ur Epithelial Cells Urine Bacteria 08/25/20 08/25/20 08:48 Unknown WBC RBC Hgb Hct MCV MCH MCHC RDW Std Deviation RDW Coeff of Levi Plt Count MPV Immature Gran % (Auto) Neut % (Auto) Lymph % (Auto) [place] % (Auto) Eos % (Auto) Baso % (Auto) Neut # (Auto) Lymph # (Auto) [place] # (Auto) Eos # (Auto) Baso # (Auto) Immature Gran # (Auto) D-Dimer Sodium 139 Potassium 4.8 Chloride 102 Carbon Dioxide 37 H Anion Gap 0 L BUN 36 H Creatinine 0.59 L Est Cr Clr Drug Dosing 49.1 Est GFR ( Amer) 96.9 Est GFR (Non-Af Amer) 83.6 BUN/Creatinine Ratio 60.6 H Glucose 164 H Lactate Calcium 8.5 Ferritin Total Bilirubin 0.5 AST 48 H ALT 46 Alkaline Phosphatase 132 H Lactate Dehydrogenase Troponin I C-Reactive Protein NT-Pro-B Natriuret Pep Total Protein 7.1 Albumin 3.2 L Globulin 3.9 Albumin/Globulin Ratio 0.8 L Procalcitonin Urine Color Yellow Urine Appearance Clear Urine pH 5.5 Ur Specific [place] <= 1.005 Urine Protein 1+ H Urine Glucose (UA) Negative Urine Ketones Negative Urine Blood 1+ H Urine Nitrite Negative Urine Bilirubin Negative Urine Urobilinogen Negative Ur Leukocyte Esterase Negative Urine RBC 0-4 Urine WBC 0-5 Ur Epithelial Cells >30 H Urine Bacteria Negative
[2020-08-26] MEDS: ALBUT/IPRATROP 3MG/0.5MG NEB 3 ML VIAL INH PRN (04:58)
[2020-08-26] MEDS: HEPARIN SOD 5,000 UNIT/0.5 ML VIAL SQ SCH ×2 (06:30→21:01)
[2020-08-26 07:03] LABS: Basophils # (auto) 0.01 K/uL (0-0.2); Basophils % (auto) 0.1 %; Hematocrit (blood only) 41.1 % (37-47); Hemoglobin 11.8 g/dL (12.0-16.0); Immature Granulocytes # (auto) 0.03 K/uL (0.00-0.02); Immature Granulocytes % (auto) 0.4 %; Lymphocytes % (auto) 7.5 %; Mean Corpuscular Hemoglobin 28.8 pg (25-34); Mean Corpuscular Hgb Conc 28.7 g/dL (32-36); Mean Corpuscular Volume 100.2 fL (80-100); Mean Platelet Volume 10.8 fL (7.4-10.4); Monocytes # (auto) 1.53 K/uL (0.11-0.59); Monocytes % (auto) 19.2 %; Neutrophils % (auto) 72.8 %; Platelet Count 231 K/uL (130-400); RDW Coefficient of Variation 14.3 % (11.5-14.5); RDW Standard Deviation 52.5 fL (36.4-46.3); White Blood Count 7.97 K/uL (4.8-10.8)
[2020-08-26 07:20] LABS: Albumin Level 3.1 gm/dl (3.4-5.0); BUN Creatinine Ratio 71.1 (10-20); Calcium 8.6 mg/dl (8.5-10.1); Creatinine Clr Calc Pharmacy 53.1 ml/min; Est GFR (African American) 99.7 ml/min; Potassium 5.2 mmol/L (3.5-5.1)
[2020-08-26 07:23] LABS: Albumin Globulin Ratio 0.7 (0.9-2); Bilirubin,Total 0.7 mg/dl (0.2-1); Globulin 4.2 gm/dl (2.5-4.0); Total Protein 7.3 gm/dl (6.4-8.2)
[2020-08-26] MEDS: FUROSEMIDE 20 MG TAB PO SCH (08:43)
[2020-08-26] MEDS: guaiFENesin 600 MG TABCR PO SCH ×2 (08:43→21:01)
[2020-08-26] MEDS: predniSONE 5 MG TAB PO SCH (08:43)
[2020-08-26] MEDS: PROPRANOLOL HCL 20 MG TAB PO SCH ×2 (08:43→21:01)
[2020-08-26] MEDS: ATORVASTATIN 40 MG TAB PO SCH (08:43)
[2020-08-26] MEDS: ASPIRIN 81 MG ECTAB PO SCH (08:43)
[2020-08-26] MEDS: DOCUSATE SODIUM 100 MG CAP PO SCH ×2 (08:43→21:01)
[2020-08-26] MEDS: ISOSORBIDE MONO EXTENDED REL 30 MG TABCR PO SCH (08:43)
[2020-08-26] MEDS: FERROUS SULFATE 325 MG TAB PO SCH (08:43)
[2020-08-26] MEDS: CHOLECALCIFEROL 1,000 UNITS 25 MCG TAB PO SCH (08:43)
[2020-08-26] MEDS: DICLOFENAC SOD 1% GEL 100 GM TUBE EXT SCH ×2 (08:44→21:00)
[2020-08-26] MEDS: FLUTICASONE/VILANTEROL 200/25MCG 14 PUFFS/INHALER INH SCH (08:44)
--- NOTE | 2020-08-26 13:20 | Pulmonology Progress Note ---
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 I do not have PFTs or outpatient records available to review so I am unclear how the diagnosis of COPD was made. She was admitted with a positive Covid test but is not hypoxemic and CT scan does not demonstrate patchy infiltrates consistent with a viral pneumonia. Recommendations: 1. Positive Covid test: Continue current care. No indication for additional testing or adjuvants at this point time. 2. COPD: Again I am unclear if the patient actually has obstructive lung disease. There is no evidence of significant emphysematous changes on her CT scan. Can continue inhalers as long as they are offering her a clinical benefit. Suspect she may have more restrictive lung disease due to her thoracic cage abnormalities however I do not think diagnostic testing needs to be conducted as it is unlikely to roving changer. 3. Pulmonary hypertension: Recommend continued diuresis as long as supported by her kidney function. Defer to the primary service. Suspect this is WHO class II and III. Would not recommend pulmonary vasodilators. Given her advanced age, I do not think additional intervention other than diuresis is warranted at the current time. She also has moderate to severe severe MR noted on her echocardiogram which is likely contributing as well 4. Would strongly recommend addressing CODE STATUS. Per nursing, family has requested that should she deteriorate they would just want to bring her home and keep her comfortable. This is more in light with a palliative approach. I would agree with the family's assessment but will defer to the admitting hospitalist Pulmonary will sign off at this point time. Admission and Anticipated Discharge Date Admission Date: August 24, 2020 Subjective Patient is currently sleeping so I deferred waking her up. Please refer to hospitalist notes for details today. Discussed with the bedside nurse. The patient has been active previously. Apparently within the last several hours the patient was climbing over the bed rails and demanding that she be dismissed home. Her oxygen saturation on her baseline oxygen of 1 L/min was in the mid 90s. Review of Systems Review of Systems: Please refer to hospitalist note. Physical Exam Physical Exam: Exam was deferred as the patient is sleeping. She was observed for the window and appears to be sleeping comfortably without any respiratory distress. Results & Data Results & Data ([facility]) Vital Signs (Past 12 Hours) Vital Signs Temp Pulse Pulse Resp BP Pulse Ox 08/26/20 11:53 36.9 C 80 14 116/65 93 08/26/20 08:04 37.0 C 89 20 131/74 96 08/26/20 04:58 91 H 16 97 08/26/20 03:45 36.4 C L 87 35 H 129/76 96 Laboratory Results 08/26/20 06:28 08/26/20 06:28 Diagnostic Findings No new imaging PG Care Time/CCT Total # of Minutes Spent Total Time Spent with Patient: Total time spent is greater than 50% in coordination of care (as documented) at patient's floor/unit and/or counseling patient: Coding Level of Care Code 35896 Subseq Hosp Care Lvl 2 Diagnoses Chronic respiratory failure with hypoxia, on home O2 therapy J96.11; Z99.81 COVID-19 U07.1 Pulmonary hypertension I27.20
--- NOTE | 2020-08-26 19:07 | Hospitalist Progress Note ---
Date of Service August 26, 2020 Assessment & Plan (1) Acute and chronic respiratory failure ([id number]): per admitting service notes: ASSESSMENT AND PLAN: This is an 85-year-old female who presents with ongoing shortness of breath and chest congestion, went to PCP's office because of ongoing chest congestion for 3 weeks and shortness of breath and was found to be COVID positive and elevated BNP. 1. COVID positive: -- The patient's respiratory status is stable, at baseline [address] chest: Few patchy areas of groundglass attenuation within right lung might represent infectious/inflammatory etiology. Follow-up evaluation with CT of the chest without IV contrast in 4-6 weeks is recommended to document resolution. Atelectasis within right middle lobe and right lower lobe. -- Pulm consulted Decadron, Remdesivir not recommended at this time -- no respiratory distress at 3-4 L NC which is apparently her baseline 2. 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 -- Lasix IV given appears euvolemic now on Lasix 20mg PO daily -- Echo: EF 60%, moderate to severe MR -- Cardiology SVC on board 3. History of chronic obstructive pulmonary disease: -- not in exacerbation Continue her home inhalers and home oxygenation. 4. History of coronary artery disease: Continue home medications of aspirin, statin. 5. History of rheumatoid arthritis: On chronic prednisone. 6. Hyperlipidemia: Continue statin. 7. 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 8. Deep venous thrombosis prophylaxis: , heparin subQ. DISPOSITION: pending may need to transition to SNF CODE STATUS: Full code as per the daughter. Admission and Anticipated Discharge Date Admission Date: August 24, 2020 Subjective ff up for CHF exacerbation, COVID PNA discussed at length with SCAR Farrar patient had episodes of climbing out of bed, walking around bed, confused but would be reoriented at 3-4L NC poor appetite seen resting in bed, sleeping rousable with verbal stimuli but mostly opens eyes, turns to examiner not in respiratory distress no other issues per instrument maker and repairer of Systems Review of Systems: All systems reviewed & are unremarkable except as noted in Subjective Physical Exam Physical Exam: General- drowsy, not in distress, breathing with no effort or accessory muscle use Eyes- anicteric Neck- no JVD Lungs- clear BS Bilaterally Heart- normal rate, regular rhythm; no murmurs Abdomen- normal bowel sounds, nondistended, soft, nontender Extremities- no pretibial edema, no calf tenderness Neuro- drowsy; no gross focal neurologic deficits Skin- warm & dry Results & Data Results & Data ([facility]) Vital Signs (Past 12 Hours) Vital Signs Temp Pulse Resp BP Pulse Ox 08/26/20 15:10 36.8 C 87 18 146/72 H 96 08/26/20 11:53 36.9 C 80 14 116/65 93 08/26/20 08:04 37.0 C 89 20 131/74 96
[2020-08-27 07:21] LABS: Basophils # (auto) 0.01 K/uL (0-0.2); Basophils % (auto) 0.1 %; Hematocrit (blood only) 38.6 % (37-47); Hemoglobin 11.4 g/dL (12.0-16.0); Immature Granulocytes # (auto) 0.04 K/uL (0.00-0.02); Immature Granulocytes % (auto) 0.4 %; Lymphocytes # (auto) 0.67 K/uL (1.2-3.4); Mean Corpuscular Hemoglobin 29.2 pg (25-34); Mean Corpuscular Hgb Conc 29.5 g/dL (32-36); Mean Platelet Volume 10.7 fL (7.4-10.4); Monocytes % (auto) 15.6 %; Neutrophils # (auto) 7.38 K/uL (1.4-6.5); Neutrophils % (auto) 76.9 %; Platelet Count 233 K/uL (130-400); RDW Standard Deviation 50.8 fL (36.4-46.3)
[2020-08-27 08:18] LABS: Albumin Globulin Ratio 0.8 (0.9-2); BUN Creatinine Ratio 73.1 (10-20); Bilirubin,Total 0.9 mg/dl (0.2-1); Calcium 9.2 mg/dl (8.5-10.1); Creatinine Clr Calc Pharmacy 50.3 ml/min; Est GFR (Non-African American) 84.5 ml/min; Potassium 4.8 mmol/L (3.5-5.1)
[2020-08-27] MEDS ORDERED: Nursing to Pharmacy Communication SCH (09:00)
[2020-08-27] MEDS: DOCUSATE SODIUM 100 MG CAP PO SCH ×2 (09:12→20:30)
[2020-08-27] MEDS: ATORVASTATIN 40 MG TAB PO SCH (09:13)
[2020-08-27] MEDS: ASPIRIN 81 MG ECTAB PO SCH (09:13)
[2020-08-27] MEDS: CHOLECALCIFEROL 1,000 UNITS 25 MCG TAB PO SCH (09:13)
[2020-08-27] MEDS: guaiFENesin 600 MG TABCR PO SCH ×2 (09:14→20:31)
[2020-08-27] MEDS: FLUTICASONE/VILANTEROL 200/25MCG 14 PUFFS/INHALER INH SCH (09:14)
[2020-08-27] MEDS: HEPARIN SOD 5,000 UNIT/0.5 ML VIAL SQ SCH ×2 (09:14→20:31)
[2020-08-27] MEDS: FERROUS SULFATE 325 MG TAB PO SCH (09:14)
[2020-08-27] MEDS: ISOSORBIDE MONO EXTENDED REL 30 MG TABCR PO SCH (09:15)
[2020-08-27] MEDS: PROPRANOLOL HCL 20 MG TAB PO SCH ×2 (09:15→20:31)
[2020-08-27] MEDS: DICLOFENAC SOD 1% GEL 100 GM TUBE EXT SCH ×2 (09:15→20:30)
[2020-08-27] MEDS: predniSONE 5 MG TAB PO SCH (09:16)
--- NOTE | 2020-08-27 17:15 | Hospitalist Progress Note ---
Date of Service August 27, 2020 Assessment & Plan (1) Acute and chronic respiratory failure ([id number]): per admitting service notes: ASSESSMENT AND PLAN: This is an 85-year-old female who presents with ongoing shortness of breath and chest congestion, went to PCP's office because of ongoing chest congestion for 3 weeks and shortness of breath and was found to be COVID positive and elevated BNP. 1. COVID positive: -- The patient's respiratory status is stable overall CT chest: Few patchy areas of groundglass attenuation within right lung might represent infectious/inflammatory etiology. Follow-up evaluation with CT of the chest without IV contrast in 4-6 weeks is recommended to document resolution. Atelectasis within right middle lobe and right lower lobe. -- Pulm consulted Decadron, Remdesivir not recommended at this time -- no respiratory distress at 3-4 L NC but no respiratory distress, continue weaning efforts continue Incentive spirometer 2. 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 -- Lasix IV given appears euvolemic now on Lasix 20mg PO daily--> hold for now given elevated HCO3 -- Echo: EF 60%, moderate to severe MR -- Cardiology SVC on board 3. History of chronic obstructive pulmonary disease: -- not in exacerbation Continue her home inhalers and home oxygenation. 4. History of coronary artery disease: Continue home medications of aspirin, statin. 5. History of rheumatoid arthritis: On chronic prednisone. 6. Hyperlipidemia: Continue statin. 7. 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 8. Deep venous thrombosis prophylaxis: , heparin subQ. DISPOSITION: pending may need to transition to SNF CODE STATUS: Full code as per the daughter. Admission and Anticipated Discharge Date Admission Date: August 24, 2020 Subjective ff up for CHF, COVID 19 pneumonia etc seen sitting up in bed, comfortable, on 4L NC, not in distress alert, answers questions appropriately states she feels ok overall denies shortness of breath, has occasional cough no chest pain no other symptoms Review of Systems Review of Systems: All systems reviewed & are unremarkable except as noted in Subjective Physical Exam Physical Exam: General- oriented x 2, not in distress, speaks in sentences with no effort or accessory muscle use Eyes- anicteric Neck- no JVD Lungs- very mild rales at the bases no wheezing Heart- normal rate, regular rhythm; no murmurs Abdomen- normal bowel sounds, nondistended, soft, nontender Extremities- no pretibial edema, no calf tenderness Neuro- alert, oriented x 2; no gross focal neurologic deficits Skin- warm & dry Results & Data Results & Data ([facility]) Vital Signs (Past 12 Hours) Vital Signs Temp Pulse Pulse Resp BP Pulse Ox 08/27/20 16:00 84 08/27/20 15:14 37.1 C 76 18 113/64 98 08/27/20 11:30 36.6 C 86 20 131/60 90 08/27/20 08:14 36.9 C 88 18 126/68 936 H 08/27/20 07:49 85 08/27/20 07:08 37.4 C 71 16 94/49 L 94 all noted and reviewed including below Laboratory Results Laboratory Results - last 24 hr 08/27/20 08/27/20 07:00 07:00 WBC 9.60 RBC 3.90 L Hgb 11.4 L Hct 38.6 MCV 99.0 MCH 29.2 MCHC 29.5 L RDW Std Deviation 50.8 H RDW Coeff of Levi 14.0 Plt Count 233 MPV 10.7 H Immature Gran % (Auto) 0.4 Neut % (Auto) 76.9 Lymph % (Auto) 7.0 [place] % (Auto) 15.6 Eos % (Auto) 0.0 Baso % (Auto) 0.1 Neut # (Auto) 7.38 H Lymph # (Auto) 0.67 L [place] # (Auto) 1.50 H Eos # (Auto) 0.00 Baso # (Auto) 0.01 Immature Gran # (Auto) 0.04 H Sodium 140 Potassium 4.8 Chloride 98 Carbon Dioxide 41 H* Anion Gap 2.0 L BUN 41 H Creatinine 0.57 L Est Cr Clr Drug Dosing 50.3 Est GFR ( Amer) 98.0 Est GFR (Non-Af Amer) 84.5 BUN/Creatinine Ratio 73.1 H Glucose 109 H Calcium 9.2 Total Bilirubin 0.9 AST 25 ALT 27 Alkaline Phosphatase 109 Total Protein 7.0 Albumin 3.0 L Globulin 4.0 Albumin/Globulin Ratio 0.8 L
--- NOTE | 2020-08-27 18:02 | Electrocardiogram Report ---
Test Reason : Blood Pressure : / mmHG Vent. Rate : 092 BPM Atrial Rate : 092 BPM P-R Int : 166 ms QRS Dur : 122 ms QT Int : 374 ms P-R-T Axes : 022 106 -10 degrees QTc Int : 462 ms Normal sinus rhythm Right bundle branch block T wave abnormality, consider inferior ischemia Abnormal ECG When compared with ECG of 24-AUG-2020 15:49, QRS axis Shifted right Criteria for Inferior infarct are no longer Present Confirmed by Robert Damon ([id number]) on 08/27/2020 6:02:06 PM Referred By: REFERRED SELF Confirmed By:Kang Damon
[2020-08-28 06:50] LABS: Hematocrit (blood only) 40.5 % (37-47); Hemoglobin 11.8 g/dL (12.0-16.0); Immature Granulocytes # (auto) 0.02 K/uL (0.00-0.02); Immature Granulocytes % (auto) 0.2 %; Lymphocytes # (auto) 1.15 K/uL (1.2-3.4); Lymphocytes % (auto) 11.7 %; Mean Corpuscular Hemoglobin 29.6 pg (25-34); Mean Corpuscular Hgb Conc 29.1 g/dL (32-36); Mean Corpuscular Volume 101.8 fL (80-100); Mean Platelet Volume 10.5 fL (7.4-10.4); Monocytes # (auto) 0.63 K/uL (0.11-0.59); Monocytes % (auto) 6.4 %; Neutrophils # (auto) 8.07 K/uL (1.4-6.5); Neutrophils % (auto) 81.7 %; Platelet Count 245 K/uL (130-400); RDW Coefficient of Variation 14.1 % (11.5-14.5); RDW Standard Deviation 52.5 fL (36.4-46.3); Red Blood Count 3.98 M/uL (4.2-5.4); White Blood Count 9.87 K/uL (4.8-10.8)
[2020-08-28 07:18] LABS: Albumin Globulin Ratio 0.8 (0.9-2); Albumin Level 3.1 gm/dl (3.4-5.0); BUN Creatinine Ratio 83.8 (10-20); Bilirubin,Total 0.8 mg/dl (0.2-1); Calcium 9.2 mg/dl (8.5-10.1); Creatinine Clr Calc Pharmacy 54.8 ml/min; Est GFR (African American) 103.7 ml/min; Est GFR (Non-African American) 89.4 ml/min; Globulin 4.1 gm/dl (2.5-4.0); Potassium 5.1 mmol/L (3.5-5.1); Total Protein 7.2 gm/dl (6.4-8.2)
[2020-08-28] MEDS: FUROSEMIDE 20 MG TAB PO SCH (08:44)
[2020-08-28] MEDS: FLUTICASONE/VILANTEROL 200/25MCG 14 PUFFS/INHALER INH SCH (08:44)
[2020-08-28] MEDS: HEPARIN SOD 5,000 UNIT/0.5 ML VIAL SQ SCH ×2 (08:45→20:11)
[2020-08-28] MEDS: PROPRANOLOL HCL 20 MG TAB PO SCH ×2 (08:45→20:17)
[2020-08-28] MEDS: DOCUSATE SODIUM 100 MG CAP PO SCH ×2 (08:45→20:17)
[2020-08-28] MEDS: ATORVASTATIN 40 MG TAB PO SCH (08:46)
[2020-08-28] MEDS: predniSONE 5 MG TAB PO SCH (08:46)
[2020-08-28] MEDS: CHOLECALCIFEROL 1,000 UNITS 25 MCG TAB PO SCH (08:46)
[2020-08-28] MEDS: ASPIRIN 81 MG ECTAB PO SCH (08:46)
[2020-08-28] MEDS: FERROUS SULFATE 325 MG TAB PO SCH (08:47)
[2020-08-28] MEDS: guaiFENesin 600 MG TABCR PO SCH ×2 (08:47→20:17)
[2020-08-28] MEDS: ISOSORBIDE MONO EXTENDED REL 30 MG TABCR PO SCH (08:47)
[2020-08-28] MEDS: DICLOFENAC SOD 1% GEL 100 GM TUBE EXT SCH ×3 (08:47→20:19)
[2020-08-28] MEDS ORDERED: LEVALBUTEROL 1.25MG/0.5ML NEB NEB STA (16:48)
[2020-08-28] MEDS ORDERED: IPRATROPIUM BROMIDE NEB SOLN 0.02% 2.5 ML VIAL NEB STA (16:48)
--- NOTE | 2020-08-28 17:26 | XRay Report ---
XR chest 1V portable HISTORY: 85 years-old Female ff up for COVID pneumonia, CHF acute shortness of breath COMPARISON: Chest radiograph and CTA chest 08/24/2020 TECHNIQUE: Portable AP view the chest FINDINGS: Cardiac silhouette is enlarged. Calcified plaque with prominence of the thoracic aorta redemonstrated . Layering pleural effusions with right greater left bibasilar and right midlung consolidation. No pn eumothorax. Emphysema. Degenerative changes of the shoulders and spine. IMPRESSION: 1. Cardiomegaly with layering pleural effusions. 2. Right greater than left bibasilar and right midlung airspace opacities are new/progressed from com parison. Findings are suspicious for pneumonia. Asymmetric pulmonary edema considered less likely. ACT 112: Negative or not required by law. The above report was generated using voice recognition software. It may contain grammatical, syntax o r spelling errors. Electronically signed by: Jose Luis Velez M.D. 08/28/2020 5:25 PM
[2020-08-28] MEDS ORDERED: CONSULT PHARMACY STA (17:35)
[2020-08-28] MEDS ORDERED: FUROSEMIDE 40 MG in SYRINGE 0 ML IV ONE (17:45)
[2020-08-28] MEDS ORDERED: CEFEPIME CONSULT ACTIVE PRN (17:47)
--- NOTE | 2020-08-28 17:47 | Hospitalist Progress Note ---
Date of Service August 28, 2020 Assessment & Plan (1) Acute and chronic respiratory failure ([id number]): per admitting service notes: ASSESSMENT AND PLAN: This is an 85-year-old female who presents with ongoing shortness of breath and chest congestion, went to PCP's office because of ongoing chest congestion for 3 weeks and shortness of breath and was found to be COVID positive and elevated BNP. 1. COVID positive: CT chest: Few patchy areas of groundglass attenuation within right lung might represent infectious/inflammatory etiology. Follow-up evaluation with CT of the chest without IV contrast in 4-6 weeks is recommended to document resolution. Atelectasis within right middle lobe and right lower lobe. -- Pulm consulted Decadron, Remdesivir not recommended at this time -- remains at 3L NC repeat CXR showing increased pleural effusion--> lasix 40mg IV ordered, nebs ordered repeat CXR in AM, may need thoracentesis continue Incentive spirometer 2. 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 -- management of diuresis per above -- Echo: EF 60%, moderate to severe MR -- Cardiology SVC on board 3. History of chronic obstructive pulmonary disease: -- Continue her home inhalers 4. History of coronary artery disease: Continue home medications of aspirin, statin. 5. History of rheumatoid arthritis: On chronic prednisone. 6. Hyperlipidemia: Continue statin. 7. 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 8. Deep venous thrombosis prophylaxis: , heparin subQ. DISPOSITION: pending may need to transition to SNF CODE STATUS: Full code as per the daughter. Admission and Anticipated Discharge Date Admission Date: August 24, 2020 Subjective ff up for acute on chronic respiratory failure, etc seen sitting up in bed on 3 L NC 92% not in distress mostly confused but answers simple questions appropriately states breathing is ok no other symptoms per RN patient did not eat much breakfast and lunch no other symptoms Review of Systems Review of Systems: All systems reviewed & are unremarkable except as noted in Subjective Physical Exam Physical Exam: General- mostly confused, has very mild acc muscle use but not in distress, no effort when speaking Eyes- anicteric Neck- no JVD Lungs- (+) rales at the bases, no wheezing Heart- normal rate, regular rhythm; no murmurs Abdomen- normal bowel sounds, nondistended, soft, nontender Extremities- no pretibial edema, no calf tenderness Neuro- alert, not oriented; no new gross focal neurologic deficits Skin- warm & dry Results & Data Results & Data ([facility]) Vital Signs (Past 12 Hours) Vital Signs Temp Pulse Pulse Resp BP Pulse Ox 08/28/20 17:30 83 28 H 95 08/28/20 16:43 36.0 C L 84 25 H 119/67 94 08/28/20 12:46 36.6 C 87 18 136/75 99 08/28/20 11:30 37.1 C 86 20 134/67 94 08/28/20 07:57 37.4 C 89 20 143/73 H 98 all noted and reviewed including below Laboratory Results Laboratory Results - last 24 hr 08/28/20 08/28/20 06:25 06:25 WBC 9.87 RBC 3.98 L Hgb 11.8 L Hct 40.5 MCV 101.8 H MCH 29.6 MCHC 29.1 L RDW Std Deviation 52.5 H RDW Coeff of Levi 14.1 Plt Count 245 MPV 10.5 H Immature Gran % (Auto) 0.2 Neut % (Auto) 81.7 Lymph % (Auto) 11.7 [place] % (Auto) 6.4 Eos % (Auto) 0.0 Baso % (Auto) 0.0 Neut # (Auto) 8.07 H Lymph # (Auto) 1.15 L [place] # (Auto) 0.63 H Eos # (Auto) 0.00 Baso # (Auto) 0.00 Immature Gran # (Auto) 0.02 Sodium 142 Potassium 5.1 Chloride 100 Carbon Dioxide 42 H* Anion Gap 0 L BUN 40 H Creatinine 0.48 L Est Cr Clr Drug Dosing 54.8 Est GFR ( Amer) 103.7 Est GFR (Non-Af Amer) 89.4 BUN/Creatinine Ratio 83.8 H Glucose 100 H Calcium 9.2 Total Bilirubin 0.8 AST 24 ALT 25 Alkaline Phosphatase 110 Total Protein 7.2 Albumin 3.1 L Globulin 4.1 H Albumin/Globulin Ratio 0.8 L
[2020-08-28] MEDS: CEFEPIME 2,000 MG in SYRINGE 0 ML IV SCH (18:28)
[2020-08-28] MEDS ORDERED: NITROGLYCERIN SL 0.4 MG/TAB TAB SL STA (23:58)
[2020-08-29 00:50] LABS: Basophils # (auto) 0.01 K/uL (0-0.2); Basophils % (auto) 0.1 %; Eosinophils # (auto) 0.01 K/uL (0-0.5); Eosinophils % (auto) 0.1 %; Hemoglobin 12.2 g/dL (12.0-16.0); Immature Granulocytes # (auto) 0.04 K/uL (0.00-0.02); Immature Granulocytes % (auto) 0.5 %; Lymphocytes # (auto) 0.48 K/uL (1.2-3.4); Lymphocytes % (auto) 6.2 %; Mean Corpuscular Hemoglobin 29.6 pg (25-34); Mean Corpuscular Hgb Conc 29.8 g/dL (32-36); Mean Corpuscular Volume 99.5 fL (80-100); Mean Platelet Volume 10.5 fL (7.4-10.4); Monocytes # (auto) 1.07 K/uL (0.11-0.59); Monocytes % (auto) 13.9 %; Neutrophils # (auto) 6.08 K/uL (1.4-6.5); Neutrophils % (auto) 79.2 %; Platelet Count 242 K/uL (130-400); RDW Standard Deviation 50.9 fL (36.4-46.3); Red Blood Count 4.12 M/uL (4.2-5.4); White Blood Count 7.69 K/uL (4.8-10.8)
[2020-08-29 01:12] LABS: Partial Thromboplastin Ratio 3.2
[2020-08-29 01:22] LABS: Partial Thromboplastin Time 83.7 Seconds (21.0-31.0)
[2020-08-29 01:28] LABS: Albumin Globulin Ratio 0.8 (0.9-2); Albumin Level 3.1 gm/dl (3.4-5.0); BUN Creatinine Ratio 69.7 (10-20); Calcium 9.3 mg/dl (8.5-10.1); Creatinine Clr Calc Pharmacy 46.1 ml/min; Est GFR (Non-African American) 84.5 ml/min; Magnesium 2.1 mg/dl (1.8-2.4); Potassium 4.3 mmol/L (3.5-5.1); Total Protein 7.1 gm/dl (6.4-8.2); Troponin I 0.057 ng/ml (0-0.045)
--- NOTE | 2020-08-29 01:38 | Communication Note ---
Date of Service: August 29, 2020 Around midnight, patient complained of transient chest pain to RN. BP 130s, pulse rate 90s as per RN. EKG as per my interpretation: Rate 90, NSR, normal axis, RBBB, inferior infarct Troponin 0.057 AP NSTEMI History CAD as per records PCU transfer Initiate IV Heparin Continue patient's home aspirin, beta-lennie, nitro, statin Rx Notify cardiology of developments in a.m. Patient son updated of developments over the phone. ADDENDUM : 2:45 AM Patient noted to have difficulty of breathing by RN while waiting for PCU room availability. O2 sats 90s on 6 L Chest x-ray as per my interpretation : Pulmonary congestion right greater than left (increased from 08/28 film) AP Decompensated heart failure IV Lasix 1 dose now Will relay to AM provider.
[2020-08-29] MEDS ORDERED: LEVALBUTEROL TARTRATE 15 GM HFA.AER.AD INH STA (02:47)
[2020-08-29] MEDS ORDERED: dexAMETHasone 6 MG in SYRINGE 0 ML IV ONE (03:00)
[2020-08-29] MEDS ORDERED: FUROSEMIDE 20 MG in SYRINGE 0 ML IV ONE (03:00)
[2020-08-29 03:36] LABS: Base Excess ABG 17.3 mEq/L (-9-1.8); HCO3 ABG 47 mmol/L (19-24); Oxygen Saturation ABG 93.4 % (90-95); PCO2 ABG 83 mmHg (35-46); PO2 ABG 70 mmHg (80-95); pH ABG 7.37 (7.35-7.45)
[2020-08-29] MEDS ORDERED: Heparin IV Adult Wt-Based Low-Dose *NO* Bolus Protocol IV SCH (03:41)
[2020-08-29 04:03] LABS: Allen Test POS (Pos)
[2020-08-29 05:11] LABS: Hematocrit (blood only) 41.4 % (37-47); Hemoglobin 12.2 g/dL (12.0-16.0); Immature Granulocytes # (auto) 0.04 K/uL (0.00-0.02); Immature Granulocytes % (auto) 0.4 %; Lymphocytes # (auto) 0.71 K/uL (1.2-3.4); Lymphocytes % (auto) 6.9 %; Mean Corpuscular Hemoglobin 29.3 pg (25-34); Mean Corpuscular Volume 99.3 fL (80-100); Mean Platelet Volume 10.6 fL (7.4-10.4); Monocytes # (auto) 0.55 K/uL (0.11-0.59); Monocytes % (auto) 5.4 %; Neutrophils # (auto) 8.96 K/uL (1.4-6.5); Neutrophils % (auto) 87.3 %; Platelet Count 237 K/uL (130-400); RDW Standard Deviation 50.3 fL (36.4-46.3); Red Blood Count 4.17 M/uL (4.2-5.4); White Blood Count 10.26 K/uL (4.8-10.8)
[2020-08-29 05:14] LABS: Mean Corpuscular Hgb Conc 29.5 g/dL (32-36)
[2020-08-29 05:22] LABS: INR 1.1 (0.9-1.1); Partial Thromboplastin Ratio 1.2; Partial Thromboplastin Time 32.2 Seconds (21.0-31.0); Prothrombin Time 11.1 Seconds (9.0-12.0)
[2020-08-29] MEDS ORDERED: HEPARIN SODIUM/DEXTROSE 25,000 UNITS/500 ML BAG IV SCH (06:00)
[2020-08-29] MEDS: CEFEPIME 2,000 MG in SYRINGE 0 ML IV SCH ×2 (06:13→17:33)
[2020-08-29] MEDS ORDERED: LEVALBUTEROL TARTRATE 15 GM HFA.AER.AD INH SCH (07:00)
--- NOTE | 2020-08-29 09:08 | XRay Report ---
XR chest 1V portable HISTORY: Shortness of breath. COMPARISON: Chest 08/28/2020. FINDINGS: Slight progression of the bilateral perihilar airspace opacities, right greater than the le ft with diffuse interstitial/vascular thickening. Small bilateral pleural effusions are again noted. The heart remains enlarged. There are low lung volumes. No pneumothorax. IMPRESSION: 1. Slight progression of the bilateral airspace opacities which is concerning for a pneumonia. Asymme tric pulmonary edema could also have a similar appearance. 2. Cardiomegaly and small bilateral pleural effusions persist. ACT 112: Negative or not required by law. Electronically signed by: Herbie Perkins M.D. 08/29/2020 9:07 AM
[2020-08-29] MEDS: ATORVASTATIN 40 MG TAB PO SCH (09:36)
[2020-08-29] MEDS: ASPIRIN 81 MG ECTAB PO SCH (09:36)
[2020-08-29] MEDS: DICLOFENAC SOD 1% GEL 100 GM TUBE EXT SCH ×2 (09:37→21:24)
[2020-08-29] MEDS: CHOLECALCIFEROL 1,000 UNITS 25 MCG TAB PO SCH (09:37)
[2020-08-29] MEDS: DOCUSATE SODIUM 100 MG CAP PO SCH ×2 (09:38→21:23)
[2020-08-29] MEDS: FERROUS SULFATE 325 MG TAB PO SCH (09:38)
[2020-08-29] MEDS: FLUTICASONE/VILANTEROL 200/25MCG 14 PUFFS/INHALER INH SCH (09:39)
[2020-08-29] MEDS: guaiFENesin 600 MG TABCR PO SCH ×2 (09:40→21:22)
[2020-08-29] MEDS: ISOSORBIDE MONO EXTENDED REL 30 MG TABCR PO SCH (09:40)
[2020-08-29] MEDS: PROPRANOLOL HCL 20 MG TAB PO SCH ×2 (09:41→21:21)
[2020-08-29] MEDS ORDERED: FUROSEMIDE 40 MG in SYRINGE 0 ML IV ONE (10:00)
[2020-08-29] MEDS ORDERED: FUROSEMIDE 60 MG in SYRINGE 0 ML IV ONE (11:15)
--- NOTE | 2020-08-29 13:13 | Cardiology Progress Note ---
Date of Service August 29, 2020 Assessment & Plan (1) Acute and chronic respiratory failure ([id number]): Patient is a very fragile elderly female admitted with worsening respiratory status and general decline times several weeks. Laboratory static disease now reflect elevated BNP and positive Covid testing. Patient has underlying chronic obstructive lung disease O2 dependent with associated pulmonary hypertension. She has a severe kyphosis likely contributing to restrictive lung mechanics. EKG with findings of RBBB, anterior T wave inversions today unchanged compared to 08/24/20. Agree with stopping UF heparing infusion, I do not think she has suffered an acute thrombotic coronary event. CXR with increasing opacities, reflective of cardiac (or non cardiac) pulmonary edema. Increase furosemide to 60 mg IV daily. Continue positive pressure ventilation to help with CO2 retention. Consider resuming SQ heparin DVT prophylaxis dose. Prognosis is poor. Palliative care approach may be most prudent next step. (2) COVID-19: (3) CAD (coronary artery disease): (4) COPD (chronic obstructive pulmonary disease): Admission and Anticipated Discharge Date Admission Date: August 24, 2020 Subjective Patient seen in cardiology reassessment per the request of Dr Culver.She is somnolent, but not in acute distress. Review of Systems Review of Systems: Unobtainable due to reduced consciousness Physical Exam Physical Exam: Temp Pulse Resp BP Pulse Ox 36.5 C 85 20 131/69 93 08/29/20 11:37 08/29/20 11:37 08/29/20 11:37 08/29/20 11:37 08/29/20 11:37 Constitutional: + cachectic Respiratory: Auscultation: + diminished lung sounds (decreased BS bilatlerally to the mid lung govea ) Cardiovascular: Rate/Rhythm: regular rhythm Heart Sounds: no murmur Extremities: no edema Gastrointestinal (Abdomen): normal bowel sounds, soft, nontender, no hepatosplenomegaly Neurologic: lethargic Results & Data ([facility]) Vital Signs (Past 12 Hours) Vital Signs Temp Pulse Pulse Resp BP BP Pulse Ox 08/29/20 11:37 36.5 C 85 20 131/69 93 08/29/20 07:40 36.6 C 97 H 22 131/76 93 08/29/20 06:59 91 H 28 H 96 08/29/20 03:41 36.5 C 98 H 24 137/72 91 05/23/21 03:37 37.2 C 91 H 22 138/72 96 08/29/20 03:12 96 H 20 98 Pulse Ox 08/29/20 11:37 08/29/20 07:40 08/29/20 06:59 08/29/20 03:41 90 08/29/20 03:37 08/29/20 03:12 Laboratory Results Cardiac Enzymes 08/29/20 08/29/20 Range/Units 00:42 04:56 AST 22 (15-37) U/L Troponin I 0.057 H* 0.054 H* (0-0.045) ng/ml Coagulation 08/29/20 08/29/20 Range/Units 00:42 04:56 PT 11.1 (9.0-12.0) Seconds APTT 83.7 H* 32.2 H (21.0-31.0) Seconds CBC 08/29/20 08/29/20 Range/Units 00:42 04:56 WBC 7.69 10.26 (4.8-10.8) K/uL RBC 4.12 L 4.17 L (4.2-5.4) M/uL Hgb 12.2 12.2 (12.0-16.0) g/dL Hct 41.0 41.4 (37-47) % Plt Count 242 237 (130-400) K/uL Neut # (Auto) 6.08 8.96 H (1.4-6.5) K/uL Lymph # (Auto) 0.48 L 0.71 L (1.2-3.4) K/uL [place] # (Auto) 1.07 H 0.55 (0.11-0.59) K/uL Eos # (Auto) 0.01 0.00 (0-0.5) K/uL Baso # (Auto) 0.01 0.00 (0-0.2) K/uL Comprehensive Metabolic Panel 08/29/20 Range/Units 00:42 Sodium 140 (136-145) mmol/L Potassium 4.3 D (3.5-5.1) mmol/L Chloride 93 L (98-107) mmol/L Carbon Dioxide 48 H* (21-32) mmol/L BUN 40 H (7-18) mg/dl Creatinine 0.57 L (0.6-1.2) mg/dl Glucose 123 H (70-99) mg/dl Calcium 9.3 (8.5-10.1) mg/dl AST 22 (15-37) U/L ALT 23 (12-78) U/L Alkaline Phosphatase 107 (45-117) U/L Total Protein 7.1 (6.4-8.2) gm/dl Albumin 3.1 L (3.4-5.0) gm/dl Intake and Output 08/28/20 08/29/20 08/29/20 22:59 06:59 14:59 Intake Total 150 / 150 100.333 / 100.333 Output Total 1200 / 1851 350 / 1851 600 / 600 Balance -1050 / -1701 -350 / -1701 -499.667 / -499.667 Intake: IV 50.333 / 50.333 Heparin Sodium/Dextrose 25,000 50.333 / 50.333 units In 500 ml @ 500 UNITS/HR 10 mls/hr IV .Q24H [facility] Rx#: [id number] Oral 150 / 150 50 / 50 Output: Urine 350 / 650 Urine Amount (Catheter) 1200 / 1200 600 / 600 Cage/Indwelling 1200 / 1200 600 / 600
--- NOTE | 2020-08-29 16:36 | Hospitalist Progress Note ---
Date of Service August 29, 2020 Assessment & Plan (1) Acute and chronic respiratory failure ([id number]): per admitting service notes: ASSESSMENT AND PLAN: This is an 85-year-old female who presents with ongoing shortness of breath and chest congestion, went to PCP's office because of ongoing chest congestion for 3 weeks and shortness of breath and was found to be COVID positive and elevated BNP. 1. COVID positive: CT chest: Few patchy areas of groundglass attenuation within right lung might represent infectious/inflammatory etiology. Follow-up evaluation with CT of the chest without IV contrast in 4-6 weeks is recommended to document resolution. Atelectasis within right middle lobe and right lower lobe. -- Pulm consulted Decadron, Remdesivir not recommended at this time -- now on 5 L NC secondary to pleural effusion, CHF management per below 2. 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 -- management of diuresis per above -- Echo: EF 60%, moderate to severe MR -- Lasix 60mg IV one dose this AM ordered continue to monitor diuresis 3. History of chronic obstructive pulmonary disease: -- Continue her home inhalers 4. History of coronary artery disease: Continue home medications of aspirin, statin. 5. History of rheumatoid arthritis: On chronic prednisone. 6. Hyperlipidemia: Continue statin. 7. 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 8. Deep venous thrombosis prophylaxis: , heparin subQ. DISPOSITION: pending CODE STATUS: Full code as per the daughter. Admission and Anticipated Discharge Date Admission Date: August 24, 2020 Subjective ff up for acute on chronic respiratory failure, CHF, etc seen resting in chair, on 5 L NC, comfortable, speaking on her cellphone, talking to family member not in distress denies shortness of breath, chest pain ate most of breakfast per RN in charge no other symptoms Review of Systems Review of Systems: All systems reviewed & are unremarkable except as noted in Subjective Physical Exam Physical Exam: General- oriented x 2, not in distress, speaks in sentences with no effort or accessory muscle use Eyes- anicteric Neck- mild JVD Lungs- decreased breath sounds at the bases no wheezing Heart- normal rate, regular rhythm; no murmurs Abdomen- normal bowel sounds, nondistended, soft, nontender Extremities- no pretibial edema, no calf tenderness Neuro- alert, oriented x 1; no new gross focal neurologic deficits Skin- warm & dry Results & Data Results & Data ([facility]) Vital Signs (Past 12 Hours) Vital Signs Temp Pulse Resp BP Pulse Ox 08/29/20 16:30 36.5 C 89 20 144/68 H 93 08/29/20 11:37 36.5 C 85 20 131/69 93 08/29/20 07:40 36.6 C 97 H 22 131/76 93 08/29/20 06:59 91 H 28 H 96
--- NOTE | 2020-08-29 23:24 | Electrocardiogram Report ---
Test Reason : Blood Pressure : / mmHG Vent. Rate : 091 BPM Atrial Rate : 091 BPM P-R Int : 140 ms QRS Dur : 122 ms QT Int : 370 ms P-R-T Axes : 006 086 -30 degrees QTc Int : 455 ms Poor data quality, interpretation may be adversely affected Normal sinus rhythm Right bundle branch block Cannot rule out Inferior infarct , age undetermined T wave abnormality, consider inferior ischemia Abnormal ECG When compared with ECG of 25-AUG-2020 06:13, T wave inversion more evident in Anterior leads Confirmed by Ivan Zabala ([id number]) on 08/29/2020 11:23:48 PM Referred By: REFERRED SELF Confirmed By:Ivan Zabala
--- NOTE | 2020-08-29 23:48 | Electrocardiogram Report ---
Test Reason : Blood Pressure : / mmHG Vent. Rate : 083 BPM Atrial Rate : 083 BPM P-R Int : 152 ms QRS Dur : 144 ms QT Int : 384 ms P-R-T Axes : 013 069 -30 degrees QTc Int : 451 ms Normal sinus rhythm Right bundle branch block Cannot rule out Inferior infarct T wave abnormality, consider inferior ischemia Abnormal ECG When compared with ECG of 29-AUG-2020 00:25, No significant change Confirmed by Ivan Zabala ([id number]) on 08/29/2020 11:48:32 PM Referred By: REFERRED SELF Confirmed By:Ivan Zabala
[2020-08-30] MEDS ORDERED: METOPROLOL TARTRATE 1 MG/ML VIAL IV STA (01:39)
[2020-08-30] MEDS: CEFEPIME 2,000 MG in SYRINGE 0 ML IV SCH (05:14)
[2020-08-30 06:43] LABS: Calcium 8.9 mg/dl (8.5-10.1); Creatinine Clr Calc Pharmacy 48.1 ml/min; Est GFR (Non-African American) 87.1 ml/min; Magnesium 2.4 mg/dl (1.8-2.4); Potassium 4.6 mmol/L (3.5-5.1)
[2020-08-30 07:32] LABS: Basophils # (auto) 0.01 K/uL (0-0.2); Basophils % (auto) 0.1 %; Hematocrit (blood only) 39.5 % (37-47); Hemoglobin 12.2 g/dL (12.0-16.0); Immature Granulocytes # (auto) 0.03 K/uL (0.00-0.02); Immature Granulocytes % (auto) 0.3 %; Lymphocytes # (auto) 0.71 K/uL (1.2-3.4); Lymphocytes % (auto) 7.1 %; Mean Corpuscular Hemoglobin 29.3 pg (25-34); Mean Corpuscular Hgb Conc 30.9 g/dL (32-36); Mean Platelet Volume 11.1 fL (7.4-10.4); Monocytes # (auto) 0.84 K/uL (0.11-0.59); Monocytes % (auto) 8.4 %; Neutrophils # (auto) 8.38 K/uL (1.4-6.5); Neutrophils % (auto) 84.1 %; Platelet Count 220 K/uL (130-400); RDW Standard Deviation 48.3 fL (36.4-46.3); Red Blood Count 4.16 M/uL (4.2-5.4); White Blood Count 9.97 K/uL (4.8-10.8)
[2020-08-30] MEDS ORDERED: FUROSEMIDE 40 MG in SYRINGE 0 ML IV ONE (09:00)
[2020-08-30] MEDS: ATORVASTATIN 40 MG TAB PO SCH (09:47)
[2020-08-30] MEDS: ASPIRIN 81 MG ECTAB PO SCH (09:47)
[2020-08-30] MEDS: DOCUSATE SODIUM 100 MG CAP PO SCH ×2 (09:48→20:00)
[2020-08-30] MEDS: CHOLECALCIFEROL 1,000 UNITS 25 MCG TAB PO SCH (09:48)
[2020-08-30] MEDS: FERROUS SULFATE 325 MG TAB PO SCH (09:48)
[2020-08-30] MEDS: DICLOFENAC SOD 1% GEL 100 GM TUBE EXT SCH ×2 (09:48→20:00)
[2020-08-30] MEDS: ISOSORBIDE MONO EXTENDED REL 30 MG TABCR PO SCH (09:48)
[2020-08-30] MEDS: guaiFENesin 600 MG TABCR PO SCH ×2 (09:48→20:00)
[2020-08-30] MEDS: PROPRANOLOL HCL 20 MG TAB PO SCH ×2 (09:48→20:00)
[2020-08-30] MEDS: FLUTICASONE/VILANTEROL 200/25MCG 14 PUFFS/INHALER INH SCH (09:48)
--- NOTE | 2020-08-30 12:42 | XRay Report ---
XR chest 1V portable CLINICAL HISTORY: Pleural effusion. Follow-up study COMPARISON STUDY: 08/29/2020 FINDINGS: The heart remains enlarged. There is persistent aortic tortuosity/ectasia. There are persis tent bilateral pleural effusions with associated basilar airspace opacities, likely atelectatic.[Ther e are improving bilateral pulmonary airspace opacities. IMPRESSION: 1. Improving bilateral pulmonary airspace opacities 2. Persistent cardiomegaly and bilateral pleural effusions ACT 112: Negative or not required by law. Electronically signed by: Saud Chavez M.D. 08/30/2020 12:41 PM
--- NOTE | 2020-08-30 14:12 | Electrocardiogram Report ---
Test Reason : Blood Pressure : / mmHG Vent. Rate : 085 BPM Atrial Rate : 085 BPM P-R Int : 152 ms QRS Dur : 120 ms QT Int : 390 ms P-R-T Axes : 022 076 -28 degrees QTc Int : 464 ms Normal sinus rhythm Low voltage QRS Right bundle branch block Inferior infarct (cited on or before 24-AUG-2020) Abnormal ECG When compared with ECG of 29-AUG-2020 11:42, No significant change was found Confirmed by Ze Wynne ([id number]) on 08/30/2020 2:12:14 PM Referred By: REFERRED SELF Confirmed By:Ze Wynne
--- NOTE | 2020-08-30 17:42 | Hospitalist Progress Note ---
Date of Service August 30, 2020 Assessment & Plan (1) Acute and chronic respiratory failure ([id number]): per admitting service notes: ASSESSMENT AND PLAN: This is an 85-year-old female who presents with ongoing shortness of breath and chest congestion, went to PCP's office because of ongoing chest congestion for 3 weeks and shortness of breath and was found to be COVID positive and elevated BNP. 1. COVID positive: CT chest: Few patchy areas of groundglass attenuation within right lung might represent infectious/inflammatory etiology. Follow-up evaluation with CT of the chest without IV contrast in 4-6 weeks is recommended to document resolution. Atelectasis within right middle lobe and right lower lobe. -- Pulm consulted Decadron, Remdesivir not recommended at this time -- now on 5 L NC secondary to pleural effusion, CHF management per below 2. 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 -- management of diuresis per above -- Echo: EF 60%, moderate to severe MR -- seems to be responding to Lasix CXR with mild improvement -- Lasix 40mg IV one dose this AM ordered continue to monitor diuresis monitor renal function 3. History of chronic obstructive pulmonary disease: -- Continue her home inhalers 4. History of coronary artery disease: Continue home medications of aspirin, statin. 5. History of rheumatoid arthritis: On chronic prednisone. 6. Hyperlipidemia: Continue statin. 7. 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 8. Deep venous thrombosis prophylaxis: , heparin subQ. DISPOSITION: pending CODE STATUS: Full code as per the daughter. Admission and Anticipated Discharge Date Admission Date: August 24, 2020 Subjective ff up for CHF, COVID pneumonia seen resting in chair, not in distress on 5 L NC denies dyspnea, chest pain, cough has poor appetite today per RN no other symptoms Review of Systems Review of Systems: All systems reviewed & are unremarkable except as noted in Subjective Physical Exam Physical Exam: General- oriented x 2, not in distress, speaks in sentences with no effort or accessory muscle use Eyes- anicteric Neck- mild JVD Lungs- decreased breath sounds at the mid to base, R; decreased breath sounds at the base, L no wheezing Heart- normal rate, regular rhythm; (+) murmur Abdomen- normal bowel sounds, nondistended, soft, nontender Extremities- no pretibial edema, no calf tenderness Neuro- alert, oriented x 2; no gross focal neurologic deficits Skin- warm & dry Results & Data Results & Data ([facility]) Vital Signs (Past 12 Hours) Vital Signs Temp Pulse Pulse Pulse Resp BP Pulse Ox 08/30/20 17:10 90 08/30/20 16:27 36.6 C 90 19 129/65 90 08/30/20 11:44 36.5 C 84 22 118/74 92 08/30/20 08:00 36.5 C 77 85 18 135/72 90 all noted and reviewed including below Laboratory Results Laboratory Results - last 24 hr 08/30/20 08/30/20 08/30/20 05:45 05:45 05:45 WBC Cancelled 9.97 RBC Cancelled 4.16 L Hgb Cancelled 12.2 Hct Cancelled 39.5 MCV Cancelled 95.0 MCH Cancelled 29.3 MCHC Cancelled 30.9 L RDW Std Deviation Cancelled 48.3 H RDW Coeff of Levi Cancelled 14.0 Plt Count Cancelled 220 MPV Cancelled 11.1 H Immature Gran % (Auto) Cancelled 0.3 Neut % (Auto) Cancelled 84.1 Lymph % (Auto) Cancelled 7.1 Collier % (Auto) Cancelled 8.4 Eos % (Auto) Cancelled 0.0 Baso % (Auto) Cancelled 0.1 Neut # (Auto) Cancelled 8.38 H Lymph # (Auto) Cancelled 0.71 L Collier # (Auto) Cancelled 0.84 H Eos # (Auto) Cancelled 0.00 Baso # (Auto) Cancelled 0.01 Immature Gran # (Auto) Cancelled 0.03 H Absolute Nucleated RBC Cancelled Nucleated RBC % (auto) Cancelled Neutrophils % (Manual) Cancelled Band Neutrophils % Cancelled Lymphocytes % (Manual) Cancelled Prolymphocyte % Cancelled Reactive Lymphs % (Man) Cancelled Monocytes % (Manual) Cancelled Eosinophils % (Manual) Cancelled Basophils % (Manual) Cancelled Metamyelocytes % (Man) Cancelled Myelocytes % (Man) Cancelled Promyelocytes % (Man) Cancelled Blast Cells % (Manual) Cancelled Plasma Cell % (Manual) Cancelled Other Cells % Cancelled Nucleated RBC % Cancelled Neutrophils # (Manual) Cancelled Band Neutrophils # Cancelled Total Absolute Neuts Cancelled Lymphocytes # (Manual) Cancelled Prolymphocyte # Cancelled Reactive Lymphs # Cancelled Total Abs Lymphocytes Cancelled Monocytes # (Manual) Cancelled Eosinophils # (Manual) Cancelled Basophils # (Manual) Cancelled Metamyelocytes # (Man) Cancelled Myelocytes # (Manual) Cancelled Promyelocytes # (Man) Cancelled Blast Cells # (Man) Cancelled Plasma Cell # (Manual) Cancelled Other Cells # Cancelled Nucleated RBCs # (Man) Cancelled Hypersegmented Neuts Cancelled Hyposegmented Neuts Cancelled Hypogranular Neuts Cancelled Large Granular Lymphs Cancelled # Lrg Granular Lymphs Cancelled Hairy Cells Cancelled Smudge Cells Cancelled Toxic Granulation Cancelled Toxic Vacuolation Cancelled Dohle Bodies Cancelled Rika Rods Cancelled Platelet Estimate Cancelled Hypogranular Platelets Cancelled Clumped Platelets Cancelled Giant Platelets Cancelled Platelet Satelliting Cancelled RBC Morphology Cancelled Polychromasia Cancelled Hypochromasia Cancelled Poikilocytosis Cancelled Basophilic Stippling Cancelled Anisocytosis Cancelled Microcytosis Cancelled Macrocytosis Cancelled Spherocytes Cancelled Pappenheimer Bodies Cancelled Sickle Cells Cancelled Target Cells Cancelled Tear Drop Cells Cancelled Ovalocytes Cancelled Stomatocytes Cancelled [place] Bodies Cancelled Echinocytes Cancelled Acanthocytes (Spur) Cancelled Rouleaux Cancelled RBC Agglutinates Cancelled Schistocytes Cancelled RBC Morph Comment Cancelled Sezary Cell Cancelled Sodium 142 Potassium 4.6 Chloride 95 L Carbon Dioxide 43 H* Anion Gap 3.0 BUN 49 H Creatinine 0.52 L Est Cr Clr Drug Dosing 48.1 Est GFR ( Amer) 101.0 Est GFR (Non-Af Amer) 87.1 BUN/Creatinine Ratio 94.0 H Glucose 121 H Calcium 8.9 Magnesium 2.4 Procalcitonin 08/30/20 11:04 WBC RBC Hgb Hct MCV MCH MCHC RDW Std Deviation RDW Coeff of Levi Plt Count MPV Immature Gran % (Auto) Neut % (Auto) Lymph % (Auto) Collier % (Auto) Eos % (Auto) Baso % (Auto) Neut # (Auto) Lymph # (Auto) Collier # (Auto) Eos # (Auto) Baso # (Auto) Immature Gran # (Auto) Absolute Nucleated RBC Nucleated RBC % (auto) Neutrophils % (Manual) Band Neutrophils % Lymphocytes % (Manual) Prolymphocyte % Reactive Lymphs % (Man) Monocytes % (Manual) Eosinophils % (Manual) Basophils % (Manual) Metamyelocytes % (Man) Myelocytes % (Man) Promyelocytes % (Man) Blast Cells % (Manual) Plasma Cell % (Manual) Other Cells % Nucleated RBC % Neutrophils # (Manual) Band Neutrophils # Total Absolute Neuts Lymphocytes # (Manual) Prolymphocyte # Reactive Lymphs # Total Abs Lymphocytes Monocytes # (Manual) Eosinophils # (Manual) Basophils # (Manual) Metamyelocytes # (Man) Myelocytes # (Manual) Promyelocytes # (Man) Blast Cells # (Man) Plasma Cell # (Manual) Other Cells # Nucleated RBCs # (Man) Hypersegmented Neuts Hyposegmented Neuts Hypogranular Neuts Large Granular Lymphs # Lrg Granular Lymphs Hairy Cells Smudge Cells Toxic Granulation Toxic Vacuolation Dohle Bodies Rika Rods Platelet Estimate Hypogranular Platelets Clumped Platelets Giant Platelets Platelet Satelliting RBC Morphology Polychromasia Hypochromasia Poikilocytosis Basophilic Stippling Anisocytosis Microcytosis Macrocytosis Spherocytes Pappenheimer Bodies Sickle Cells Target Cells Tear Drop Cells Ovalocytes Stomatocytes [place] Bodies Echinocytes Acanthocytes (Spur) Rouleaux RBC Agglutinates Schistocytes RBC Morph Comment Sezary Cell Sodium Potassium Chloride Carbon Dioxide Anion Gap BUN Creatinine Est Cr Clr Drug Dosing Est GFR ( Amer) Est GFR (Non-Af Amer) BUN/Creatinine Ratio Glucose Calcium Magnesium Procalcitonin 0.13
[2020-08-31] MEDS ORDERED: ALBUMIN 25% 12.5 GM/50 ML VIAL IV ONE (06:08)
[2020-08-31 07:05] LABS: Basophils # (auto) 0.01 K/uL (0-0.2); Basophils % (auto) 0.1 %; Eosinophils # (auto) 0.01 K/uL (0-0.5); Eosinophils % (auto) 0.1 %; Hematocrit (blood only) 40.4 % (37-47); Hemoglobin 12.3 g/dL (12.0-16.0); Immature Granulocytes # (auto) 0.08 K/uL (0.00-0.02); Immature Granulocytes % (auto) 0.9 %; Lymphocytes # (auto) 0.49 K/uL (1.2-3.4); Lymphocytes % (auto) 5.4 %; Mean Corpuscular Hgb Conc 30.4 g/dL (32-36); Mean Corpuscular Volume 95.3 fL (80-100); Mean Platelet Volume 10.9 fL (7.4-10.4); Monocytes # (auto) 1.03 K/uL (0.11-0.59); Monocytes % (auto) 11.3 %; Neutrophils # (auto) 7.52 K/uL (1.4-6.5); Neutrophils % (auto) 82.2 %; Platelet Count 215 K/uL (130-400); RDW Coefficient of Variation 14.1 % (11.5-14.5); RDW Standard Deviation 48.6 fL (36.4-46.3); Red Blood Count 4.24 M/uL (4.2-5.4); White Blood Count 9.14 K/uL (4.8-10.8)
[2020-08-31 07:54] LABS: BUN Creatinine Ratio 109.2 (10-20); Calcium 9.1 mg/dl (8.5-10.1); Creatinine Clr Calc Pharmacy 56.4 ml/min; Est GFR (African American) 106.7 ml/min; Potassium 3.6 mmol/L (3.5-5.1)
[2020-08-31] MEDS: guaiFENesin 600 MG TABCR PO SCH ×2 (09:10→20:37)
[2020-08-31] MEDS: PROPRANOLOL HCL 20 MG TAB PO SCH ×2 (09:10→20:37)
[2020-08-31] MEDS: CHOLECALCIFEROL 1,000 UNITS 25 MCG TAB PO SCH (09:10)
[2020-08-31] MEDS: FERROUS SULFATE 325 MG TAB PO SCH (09:10)
[2020-08-31] MEDS: ATORVASTATIN 40 MG TAB PO SCH (09:10)
[2020-08-31] MEDS: DICLOFENAC SOD 1% GEL 100 GM TUBE EXT SCH ×2 (09:11→20:39)
[2020-08-31] MEDS: ASPIRIN 81 MG ECTAB PO SCH (09:11)
[2020-08-31] MEDS: FLUTICASONE/VILANTEROL 200/25MCG 14 PUFFS/INHALER INH SCH (09:11)
[2020-08-31] MEDS: ISOSORBIDE MONO EXTENDED REL 30 MG TABCR PO SCH (09:11)
[2020-08-31] MEDS: DOCUSATE SODIUM 100 MG CAP PO SCH ×2 (09:12→20:40)
[2020-08-31 15:22] LABS: Base Excess ABG 20.8 mEq/L (-9-1.8); HCO3 ABG 49 mmol/L (19-24); Oxygen Saturation ABG 88.1 % (90-95); PCO2 ABG 74 mmHg (35-46); PO2 ABG 49 mmHg (80-95); pH ABG 7.44 (7.35-7.45)
[2020-08-31 15:25] LABS: Allen Test Pos (Pos)
--- NOTE | 2020-08-31 17:39 | Hospitalist Progress Note ---
Date of Service August 31, 2020 Assessment & Plan (1) Acute and chronic respiratory failure ([id number]): per admitting service notes: ASSESSMENT AND PLAN: This is an 85-year-old female who presents with ongoing shortness of breath and chest congestion, went to PCP's office because of ongoing chest congestion for 3 weeks and shortness of breath and was found to be COVID positive and elevated BNP. 1. COVID positive: CT chest: Few patchy areas of groundglass attenuation within right lung might represent infectious/inflammatory etiology. Follow-up evaluation with CT of the chest without IV contrast in 4-6 weeks is recommended to document resolution. Atelectasis within right middle lobe and right lower lobe. -- Pulm consulted Decadron, Remdesivir not recommended -- now on 3 L NC secondary to pleural effusion, CHF management per below 2. 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 -- management of diuresis per above -- Echo: EF 60%, moderate to severe MR -- seems to be responding to Lasix CXR with mild improvement -- weaned off from 5 to 3L NC (uses 2L NC at home) -- Lasix 40mg IV daily ordered (3rd day) continue to monitor diuresis monitor renal function -- transition to PO Lasix once pleural effusion is better, back to 2L NC repeat CXR tomorrow 3. History of chronic obstructive pulmonary disease: -- Continue her home inhalers 4. History of coronary artery disease: Continue home medications of aspirin, statin. 5. History of rheumatoid arthritis: On chronic prednisone. 6. Hyperlipidemia: Continue statin. 7. 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 8. Deep venous thrombosis prophylaxis: , heparin subQ. DISPOSITION: pending may need to transition to SNF main specialty finishing utility person is patient's son Aren CODE STATUS: Full code plan of care discussed with patient's in detail and at length daily all questions answered he is understanding, agreeable, comfortable with the plan of care Admission and Anticipated Discharge Date Admission Date: August 24, 2020 Subjective Follow-up for COVID-19 pneumonia, pleural effusion, etc. Seen resting in bed side chair, on 3 L of nasal cannula Comfortable, not in distress, oriented x1-2 Denies shortness of breath, chest pain, headache, dizziness, palpitations Appetite is fair No other symptoms or issues per RN in charge Review of Systems Review of Systems: All systems reviewed & are unremarkable except as noted in Subjective Physical Exam Physical Exam: General- oriented x 1-2, not in distress, speaks in sentences with no effort or accessory muscle use Eyes- anicteric Neck-mild JVD Lungs-decreased breath sounds at the bases, no wheezing or crackles Good air entry Hematoma on the left chest wall improving Heart- normal rate, regular rhythm; no murmurs Abdomen- normal bowel sounds, nondistended, soft, nontender Extremities- no pretibial edema, no calf tenderness Neuro- alert, oriented x 1-2; no new gross focal neurologic deficits Skin- warm & dry Results & Data Results & Data ([facility]) Vital Signs (Past 12 Hours) Vital Signs Temp Pulse Pulse Pulse Resp BP Pulse Ox 08/31/20 15:23 36.5 C 83 18 114/68 95 08/31/20 14:15 80 148/72 H 95 08/31/20 11:33 36.6 C 75 18 108/58 L 97 08/31/20 07:57 36.6 C 76 26 H 133/73 94 08/31/20 07:05 74 all noted and reviewed including below
[2020-08-31] MEDS ORDERED: FUROSEMIDE 40 MG in SYRINGE 0 ML IV ONE (17:45)
[2020-09-01 07:13] LABS: BUN Creatinine Ratio 82.1 (10-20); Calcium 9.1 mg/dl (8.5-10.1); Creatinine Clr Calc Pharmacy 42.3 ml/min; Est GFR (African American) 96.9 ml/min; Est GFR (Non-African American) 83.6 ml/min; Potassium 3.4 mmol/L (3.5-5.1)
[2020-09-01] MEDS ORDERED: POTASSIUM CHLORIDE CRTAB 20 MEQ TABCR PO STA (08:21)
[2020-09-01] MEDS: CHOLECALCIFEROL 1,000 UNITS 25 MCG TAB PO SCH (08:32)
[2020-09-01] MEDS: guaiFENesin 600 MG TABCR PO SCH ×2 (08:32→21:31)
[2020-09-01] MEDS: FERROUS SULFATE 325 MG TAB PO SCH (08:32)
[2020-09-01] MEDS: ISOSORBIDE MONO EXTENDED REL 30 MG TABCR PO SCH (08:32)
[2020-09-01] MEDS: PROPRANOLOL HCL 20 MG TAB PO SCH ×2 (08:33→21:31)
[2020-09-01] MEDS: ATORVASTATIN 40 MG TAB PO SCH (08:33)
[2020-09-01] MEDS: DICLOFENAC SOD 1% GEL 100 GM TUBE EXT SCH ×2 (08:34→21:30)
[2020-09-01] MEDS: FLUTICASONE/VILANTEROL 200/25MCG 14 PUFFS/INHALER INH SCH (08:35)
[2020-09-01] MEDS: ASPIRIN 81 MG ECTAB PO SCH (08:36)
[2020-09-01] MEDS: DOCUSATE SODIUM 100 MG CAP PO SCH ×2 (08:37→21:31)
--- NOTE | 2020-09-01 11:23 | XRay Report ---
XR chest 1V portable CLINICAL HISTORY: ff up pleural effusion COMPARISON STUDY: August 30, 2020. FINDINGS: No definite pneumothorax seen however bilateral lung apices are not well seen due to overlying patien t's chin.. Bilateral pleural effusion is again seen, small to moderate and unchanged on the left. And slightly w orsened or redistributed on the right. Hazy opacities at the right hemithorax appears slightly worsened since prior. Cardiomediastinal silhouette is poorly seen due to surrounding opacities. Aorta is tortuous and calci fied. Severe calcifications of the mitral annulus are seen. Pulmonary vascular congestion are unchanged since prior.. Osseous structures: Severe diffuse osteopenia. Degenerative changes of the spine. IMPRESSION: 1. Interval worsening/redistribution of the right pleural effusion. 2. Small left pleural effusion associated with atelectasis/infiltrate at the left lower lung. 3. Unchanged pulmonary vascular congestion. 4. Atherosclerosis. ACT 112: Negative or not required by law. The above report was generated using voice recognition software. It may contain grammatical, syntax o r spelling errors. Electronically signed by: Alisson Escobar DO 09/01/2020 11:22 AM
[2020-09-01] MEDS: ALBUT/IPRATROP 3MG/0.5MG NEB 3 ML VIAL INH PRN (11:58)
--- NOTE | 2020-09-01 13:16 | Hospitalist Progress Note ---
Date of Service September 01, 2020 Assessment & Plan (1) Acute and chronic respiratory failure ([id number]): This is an 85-year-old female who presents with ongoing shortness of breath and chest congestion, Was sent in from PCP's office because of ongoing chest congestion for 3 weeks and shortness of breath and was found to be COVID positive and elevated BNP. 1. COVID positive: CT chest: Few patchy areas of groundglass attenuation within right lung might represent infectious/inflammatory etiology. Follow-up evaluation with CT of the chest without IV contrast in 4-6 weeks is recommended to document resolution. Atelectasis within right middle lobe and right lower lobe. Appreciate pulmonary input and recommendation No Decadron and/or remdesivir indicated Has been on 3 L NC secondary to pleural effusion, CHF 2. 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 Management of diuresis per above Echo: EF 60%, moderate to severe MR Appreciate cardiology input and recommendation Received intravenous Lasix While monitoring PRP Transition to PO Lasix once pleural effusion is better, back to 2L NC Repeat chest x-ray is showing worsening of the infection/CHF 3. History of chronic obstructive pulmonary disease: -- Continue her home inhalers 4. History of coronary artery disease: Continue home medications of aspirin, statin. 5. History of rheumatoid arthritis: On chronic prednisone. No acute arthritis 6. Hyperlipidemia: Continue statin. 7. 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 8. Deep venous thrombosis prophylaxis: , heparin subQ. 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 shortness of breath at rest She has been requiring 3 L of oxygen via nasal cannula to maintain saturation Denies any other symptoms Review of Systems Review of Systems: All systems reviewed and are unremarkable except as noted below Respiratory: + cough and + dyspnea Cardiovascular: no chest pain, no palpitations and no edema Physical Exam Physical Exam: Lying in bed with minimal shortness of breath at rest Constitutional: + ill appearing and + thin Eyes: PERRL, conjunctivae normal, anicteric sclerae ENMT: external ear and nose normal, oropharynx normal Neck: trachea midline, no thyromegaly Respiratory: + respiratory distress (Mild to moderate distress at rest) Auscultation: + diminished lung sounds (Right side more than the left), + crackles (Bibasilar crackles more on the right than the left) and + wheezes Cardiovascular: Rate/Rhythm: regular rate and regular rhythm Heart Sounds: + murmur (2/6 ESM over precordium) Extremities: no edema Gastrointestinal (Abdomen): Inspection/Auscultation: normal bowel sounds; abdomen not distended Percussion/Palpation: abdomen soft; abdomen nontender Musculoskeletal: No acute arthritis in any joint Neurologic: Generally weak and very deaf. Moving all limbs Lymphatic: no cervical or axillary lymphadenopathy Results & Data Results & Data ([facility]) Vital Signs (Past 12 Hours) Vital Signs Temp Pulse Pulse Pulse Resp BP Pulse Ox 09/01/20 11:59 88 18 93 09/01/20 11:16 28 H 09/01/20 11:11 36.7 C 87 22 101/57 L 90 09/01/20 08:00 78 09/01/20 07:25 36.4 C L 81 18 108/60 94 09/01/20 03:06 36.8 C 78 16 109/69 93 Laboratory Results [facility] 09/01/20 05:52 Sodium 139 Potassium 3.4 L Chloride 91 L Carbon Dioxide 51 H* BUN 48 H Creatinine 0.59 L Glucose 125 H Calcium 9.1 Medications Administered Current Inpatient Medications Acetaminophen (Acetaminophen 325 Mg Tab) 650 mg PO Q4H PRN PRN Reason: Pain or Fever Stop: 09/23/20 22:51 Albuterol (Albut/Ipratrop 3mg/0.5mg Neb 3 Ml Vial) 3 ml INH Q6 PRN PRN Reason: Shortness Of Breath Or Wheezing Stop: 09/23/20 22:51 Last Admin: 09/01/20 11:58 Dose: 3 ml Documented by: Aspirin (Aspirin 81 Mg Ectab) 81 mg PO DAILY [facility] Stop: 09/24/20 08:59 Last Admin: 09/01/20 08:36 Dose: 81 mg Documented by: Atorvastatin Calcium (Atorvastatin 40 Mg Tab) 80 mg PO DAILY [facility] Stop: 09/24/20 08:59 Last Admin: 09/01/20 08:33 Dose: 80 mg Documented by: Diclofenac Sodium (Diclofenac Sod 1% Gel 100 Gm Tube) 1 gm EXT BID [facility] Stop: 09/23/20 22:51 Last Admin: 09/01/20 08:34 Dose: 1 gm Documented by: Docusate Sodium (Docusate Sodium 100 Mg Cap) 100 mg PO BID [facility] Stop: 09/23/20 22:51 Last Admin: 09/01/20 08:37 Dose: 100 mg Documented by: Ferrous Sulfate (Ferrous Sulfate 325 Mg Tab) 325 mg PO DAILY [facility] Stop: 09/24/20 08:59 Last Admin: 09/01/20 08:32 Dose: 325 mg Documented by: Fluticasone/Vilanterol (Fluticasone/Vilanterol 200/25mcg 14 Puffs/Inhaler) 1 puffs INH DAILY [facility] Stop: 09/24/20 08:59 Last Admin: 09/01/20 08:35 Dose: 1 puffs Documented by: Guaifenesin (Guaifenesin 600 Mg Tabcr) 600 mg PO Q12 [facility] Stop: 09/24/20 08:59 Last Admin: 09/01/20 08:32 Dose: 600 mg Documented by: Ipratropium [place] (Ipratropium [place] Hfa Inhaler) 2 puffs INH QID PRN PRN Reason: Shortness Of Breath Or Wheezin Stop: 09/23/20 22:51 Isosorbide Mononitrate (Isosorbide [place] Extended Rel 30 Mg Tabcr) 30 mg PO DAILY [facility] Stop: 09/24/20 08:59 Last Admin: 09/01/20 08:32 Dose: 30 mg Documented by: Nitroglycerin (Nitroglycerin Sl 0.4 Mg/Tab Tab) 0.4 mg SL UD PRN PRN Reason: Chest Pain Stop: 09/23/20 22:51 Polyethylene Glycol (Polyethylene (Miralax) 17 Gm Pack) 17 gm PO DAILY PRN PRN Reason: Constipation Stop: 09/23/20 22:51 Propranolol HCl (Propranolol Hcl 20 Mg Tab) 20 mg PO BID [facility] Stop: 09/23/20 22:51 Last Admin: 09/01/20 08:33 Dose: 20 mg Documented by: Vitamin D (Cholecalciferol 1,000 Units 25 Mcg Tab) 1,000 units PO DAILY [facility] Stop: 09/24/20 08:59 Last Admin: 09/01/20 08:32 Dose: 1,000 units Documented by:
--- NOTE | 2020-09-01 17:18 | Pulmonology Progress Note ---
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 I do not have PFTs or outpatient records available to review so I am unclear how the diagnosis of COPD was made. She was admitted with a positive Covid test but is not hypoxemic and CT scan does not demonstrate patchy infiltrates consistent with a viral pneumonia. Chest x-ray 09/01/2020 personally viewed: Portable film, bilateral costophrenic and cardiophrenic angles are blunted, --Acute on chronic hypoxic hypercapnic respiratory failure Multifactorial Underlying severe MR and pulmonary hypertension also playing a role with bilateral pleural effusion Patient significant kyphoscoliosis may be leading to atelectasis lower lobes and VQ mismatch might be one of the lesion Hypercapnia is secondary to increased space ventilation as well as decrease in tidal volume again from kyphoscoliosis Continue with diuresis as tolerated Patient will clinically benefit from BiPAP/AVAPS machine given the severe kyphoscoliosis unrestrictive lung disease that the patient has Unfortunately I do not have PFTs. Continue with O2 supplementation to keep O2 saturation between 88-92% --Covid 19 PNA patient is out of the duration for remdesivir supportive care 2D echo 08/25/2020: EF 60-65%, moderate to severe MR, RVSP 41 -- Metabolic alkalosis Likely from diuresis Patient pH yesterday was 7.4 --Severe kyphoscoliosis Symptomatic treatment Patient likely restrictive lung disease from it as well Will benefit from BiPAP. 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 She refused to have any invasive procedures done. In a 85-year-old with severe kyphoscoliosis I do think doing any invasive procedure would be appropriate. Overall prognosis is guarded and would recommend palliative care consultation today please have goals of care and CODE STATUS Case was discussed with Dr. Ashutosh Pulmonary will follow peripherally. Please note the above document was generated using voice recognition software. It may contain grammatical, syntax or spelling errors.Any formal questions or concerns about the content, text or information contained within the body of t his dictation should be directly addressed to the provider for clarification. Admission and Anticipated Discharge Date Admission Date: August 24, 2020 Subjective Patient seen and examined at bedside. No acute distress. Patient was saturating 93% on 7 L nasal cannula at the time of examination. Please make note patient is very hard to hear. Review of Systems Review of Systems: All systems reviewed & are unremarkable except as noted in Subjective Physical Exam Physical Exam: Constitutional: No acute distress HEENT: EOMI, PERRLA, very hard to hear Respiratory system: Decreased air entry bilaterally, positive crackles bilateral lower lobes, no wheeze, no rhonchi CVS: S1-S2 positive, systolic murmur appreciated best at the apex. Abdomen: Soft, nontender, nondistended, positive bowel sounds x4 Extremities: +2 pulses bilaterally radialis/ dorsalis pedis, no cyanosis, +1 ankle edema Neuro: Awake alert oriented x3 Psych: Normal mood and affect G/U: Positive Cgae Musculoskeletal: Severe kyphoscoliosis Skin: no rashes, warm and dry Lymphatic: no cervical or axillary lymphadenopathy Results & Data Results & Data ([facility]) Vital Signs (Past 12 Hours) Vital Signs Temp Pulse Pulse Resp BP Pulse Ox 09/01/20 15:28 36.8 C 92 H 20 107/67 90 09/01/20 11:59 88 18 93 09/01/20 11:16 28 H 09/01/20 11:11 36.7 C 87 22 101/57 L 90 09/01/20 08:00 78 09/01/20 07:25 36.4 C L 81 18 108/60 94 08/31/20 06:44 09/01/20 05:52 PG Care Time/CCT Total # of Minutes Spent Total Time Spent with Patient: Total time spent is greater than 50% in coordination of care (as documented) at patient's floor/unit and/or counseling patient: Coding Level of Care Code 62446 Subseq Hosp Care Lvl 3 Diagnoses Chronic respiratory failure with hypoxia, on home O2 therapy J96.11; Z99.81 COVID-19 U07.1 Pulmonary hypertension I27.20
[2020-09-01] MEDS: acetaZOLAMIDE 250 MG in SYRINGE 0 ML IV SCH (18:39)
[2020-09-02] MEDS: acetaZOLAMIDE 250 MG in SYRINGE 0 ML IV SCH ×2 (06:27→17:53)
[2020-09-02] MEDS: metOLazone 5 MG TABLET PO SCH (07:19)
[2020-09-02] MEDS: FUROSEMIDE 20 MG in SYRINGE 0 ML IV SCH (07:19)
[2020-09-02] MEDS: PROPRANOLOL HCL 20 MG TAB PO SCH ×2 (07:20→22:10)
[2020-09-02] MEDS: ATORVASTATIN 40 MG TAB PO SCH (07:20)
[2020-09-02] MEDS: ISOSORBIDE MONO EXTENDED REL 30 MG TABCR PO SCH (07:20)
[2020-09-02] MEDS: guaiFENesin 600 MG TABCR PO SCH ×2 (07:20→22:04)
[2020-09-02] MEDS: ASPIRIN 81 MG ECTAB PO SCH (07:20)
[2020-09-02] MEDS: DICLOFENAC SOD 1% GEL 100 GM TUBE EXT SCH ×2 (07:21→22:03)
[2020-09-02] MEDS: FERROUS SULFATE 325 MG TAB PO SCH (07:21)
[2020-09-02] MEDS: CHOLECALCIFEROL 1,000 UNITS 25 MCG TAB PO SCH (07:21)
[2020-09-02] MEDS: DOCUSATE SODIUM 100 MG CAP PO SCH ×2 (07:22→23:01)
[2020-09-02] MEDS: FLUTICASONE/VILANTEROL 200/25MCG 14 PUFFS/INHALER INH SCH (07:22)
[2020-09-02 07:51] LABS: BUN Creatinine Ratio 68.8 (10-20); Calcium 9.2 mg/dl (8.5-10.1); Est GFR (African American) 79.1 ml/min; Est GFR (Non-African American) 68.3 ml/min; Potassium 3.9 mmol/L (3.5-5.1)
--- NOTE | 2020-09-02 09:55 | Pulmonology Progress Note ---
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 I do not have PFTs or outpatient records available to review so I am unclear how the diagnosis of COPD was made. She was admitted with a positive Covid test but is not hypoxemic and CT scan does not demonstrate patchy infiltrates consistent with a viral pneumonia. Chest x-ray 09/01/2020 personally viewed: Portable film, bilateral costophrenic and cardiophrenic angles are blunted, --Acute on chronic hypoxic hypercapnic respiratory failure Multifactorial Underlying severe MR and pulmonary hypertension also playing a role with bilateral pleural effusion Patient significant kyphoscoliosis may be leading to atelectasis lower lobes and VQ mismatch might be one of the lesion Hypercapnia is secondary to increased space ventilation as well as decrease in tidal volume again from kyphoscoliosis Continue with diuresis as tolerated Patient will clinically benefit from BiPAP/AVAPS machine given the severe kyphoscoliosis unrestrictive lung disease that the patient has Unfortunately I do not have PFTs. Continue with O2 supplementation to keep O2 saturation between 88-92% --Covid 19 PNA patient is out of the duration for remdesivir supportive care 2D echo 08/25/2020: EF 60-65%, moderate to severe MR, RVSP 41 -- Metabolic alkalosis Likely from diuresis Patient pH yesterday was 7.4 --Severe kyphoscoliosis Symptomatic treatment Patient likely restrictive lung disease from it as well Will benefit from BiPAP. 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 Recommend not to over oxygenate the patient. Patient is usually at 2-3 L O2 at home. I did speak with the patient regarding possible thoracentesis. She refused to have any invasive procedures done. In a 85-year-old with severe kyphoscoliosis I do think doing any invasive procedure would be appropriate. No further recommendations from pulmonary perspective. Please call directly with any questions. Please note the above document was generated using voice recognition software. It may contain grammatical, syntax or spelling errors.Any formal questions or concerns about the content, text or information contained within the body of this dictation should be directly addressed to the provider for clarification. Admission and Anticipated Discharge Date Admission Date: August 24, 2020 Subjective Patient seen and examined at bedside. No acute distress. No adverse events overnight. Patient was saturating 94% on 5 L nasal cannula went down to 4 L. Patient is very hard to hear. She denied any significant chest pain. Shortness of breath is improving. Denies any headache or dizziness. She was sleeping prior to examination. Review of Systems Review of Systems: All systems reviewed & are unremarkable except as noted in Subjective Physical Exam Physical Exam: Constitutional: No acute distress HEENT: EOMI, PERRLA, very hard to hear Respiratory system: Decreased air entry bilaterally, positive crackles bilateral lower lobes, no wheeze, no rhonchi CVS: S1-S2 positive, systolic murmur appreciated best at the apex. Abdomen: Soft, nontender, nondistended, positive bowel sounds x4 Extremities: +2 pulses bilaterally radialis/ dorsalis pedis, no cyanosis, +1 ankle edema Neuro: Awake alert oriented x3 Psych: Normal mood and affect G/U: Positive Cage Musculoskeletal: Severe kyphoscoliosis Skin: no rashes, warm and dry Lymphatic: no cervical or axillary lymphadenopathy Results & Data Results & Data ([facility]) Vital Signs (Past 12 Hours) Vital Signs Temp Pulse Pulse Resp BP BP Pulse Ox 09/02/20 08:00 82 09/02/20 07:18 36.8 C 82 22 105/67 97 09/02/20 04:01 36.4 C L 80 20 118/67 97 09/02/20 00:00 36.3 C L 81 16 114/68 98 08/31/20 06:44 09/02/20 06:51 PG Care Time/CCT Total # of Minutes Spent Total Time Spent with Patient: Total time spent is greater than 50% in coordination of care (as documented) at patient's floor/unit and/or counseling patient: Coding Level of Care Code 40220 Subseq Hosp Care Lvl 3 Diagnoses Chronic respiratory failure with hypoxia, on home O2 therapy J96.11; Z99.81 COVID-19 U07.1 Pulmonary hypertension I27.20
--- NOTE | 2020-09-02 17:14 | Hospitalist Progress Note ---
Date of Service September 02, 2020 Assessment & Plan (1) Acute and chronic respiratory failure ([id number]): This is an 85-year-old female who presents with ongoing shortness of breath and chest congestion, Was sent in from PCP's office because of ongoing chest congestion for 3 weeks and shortness of breath and was found to be COVID positive and elevated BNP. 1. COVID positive: CT chest: Few patchy areas of groundglass attenuation within right lung might represent infectious/inflammatory etiology. Follow-up evaluation with CT of the chest without IV contrast in 4-6 weeks is recommended to document resolution. Atelectasis within right middle lobe and right lower lobe. Appreciate pulmonary input and recommendation No Decadron and/or remdesivir indicated Has been receiving intravenous acetazolamide for high CO2 level likely secondary to use of diuretics Required more oxygen this morning but flow rate has been reduced since then 2. 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 Management of diuresis per above Echo: EF 60%, moderate to severe MR Appreciate cardiology input and recommendation Received intravenous Lasix While monitoring PRP Transition to PO Lasix once pleural effusion is better, back to 2L NC Repeat chest x-ray is showing worsening of the infection/CHF Has pleural effusion and the patient refused to have any aspiration Has been getting metolazone and Lasix for diuresis 3. History of chronic obstructive pulmonary disease: -- Continue her home inhalers 4. History of coronary artery disease: Continue home medications of aspirin, statin. 5. History of rheumatoid arthritis: On chronic prednisone. No acute arthritis 6. Hyperlipidemia: Continue statin. 7. 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 8. Deep venous thrombosis prophylaxis: , heparin subQ. 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 She has been requiring 3 L of oxygen via nasal cannula to maintain saturation Denies any other symptoms 09/02/2020 The patient was seen and examined in telemetry unit She has been stable and requiring less oxygen today She is very deaf and weak Denies any increase in symptoms Review of Systems Review of Systems: Other (Not obtainable due to severe deafness) Physical Exam Physical Exam: Lying in bed comfortably Constitutional: + ill appearing and + thin Eyes: PERRL, conjunctivae normal, anicteric sclerae ENMT: external ear and nose normal, oropharynx normal Neck: trachea midline, no thyromegaly Respiratory: + respiratory distress (Mild to moderate distress at rest) Auscultation: + diminished lung sounds (Right side more than the left), + crackles (Bibasilar crackles more on the right than the left) and + wheezes Cardiovascular: Rate/Rhythm: regular rate and regular rhythm Heart Sounds: + murmur (2/6 ESM over precordium) Extremities: no edema Gastrointestinal (Abdomen): Inspection/Auscultation: normal bowel sounds; abdomen not distended Percussion/Palpation: abdomen soft; abdomen nontender Musculoskeletal: No acute arthritis involving any joint Neurologic: Alert and awake and is very deaf. Generally very weak and lethargic. Has been moving all extremities Lymphatic: no cervical or axillary lymphadenopathy Results & Data Results & Data ([facility]) Vital Signs (Past 12 Hours) Vital Signs Temp Pulse Pulse Resp BP Pulse Ox 09/02/20 16:14 36.5 C 90 17 101/63 92 09/02/20 16:00 86 09/02/20 11:54 36.4 C L 83 18 101/57 L 95 09/02/20 08:00 82 09/02/20 07:18 36.8 C 82 22 105/67 97 Laboratory Results [facility] 09/02/20 06:51 Sodium 138 Potassium 3.9 Chloride 93 L Carbon Dioxide 50 H* BUN 54 H Creatinine 0.79 Glucose 128 H Calcium 9.2 Medications Administered Current Inpatient Medications Acetaminophen (Acetaminophen 325 Mg Tab) 650 mg PO Q4H PRN PRN Reason: Pain or Fever Stop: 09/23/20 22:51 Albuterol (Albut/Ipratrop 3mg/0.5mg Neb 3 Ml Vial) 3 ml INH Q6 PRN PRN Reason: Shortness Of Breath Or Wheezing Stop: 09/23/20 22:51 Last Admin: 09/01/20 11:58 Dose: 3 ml Documented by: Aspirin (Aspirin 81 Mg Ectab) 81 mg PO DAILY [facility] Stop: 09/24/20 08:59 Last Admin: 09/02/20 07:20 Dose: 81 mg Documented by: Atorvastatin Calcium (Atorvastatin 40 Mg Tab) 80 mg PO DAILY [facility] Stop: 09/24/20 08:59 Last Admin: 09/02/20 07:20 Dose: 80 mg Documented by: Diclofenac Sodium (Diclofenac Sod 1% Gel 100 Gm Tube) 1 gm EXT BID [facility] Stop: 09/23/20 22:51 Last Admin: 09/02/20 07:21 Dose: 1 gm Documented by: Docusate Sodium (Docusate Sodium 100 Mg Cap) 100 mg PO BID [facility] Stop: 09/23/20 22:51 Last Admin: 09/02/20 07:22 Dose: 100 mg Documented by: Ferrous Sulfate (Ferrous Sulfate 325 Mg Tab) 325 mg PO DAILY [facility] Stop: 09/24/20 08:59 Last Admin: 09/02/20 07:21 Dose: 325 mg Documented by: Fluticasone/Vilanterol (Fluticasone/Vilanterol 200/25mcg 14 Puffs/Inhaler) 1 puffs INH DAILY [facility] Stop: 09/24/20 08:59 Last Admin: 09/02/20 07:22 Dose: 1 puffs Documented by: Guaifenesin (Guaifenesin 600 Mg Tabcr) 600 mg PO Q12 [facility] Stop: 09/24/20 08:59 Last Admin: 09/02/20 07:20 Dose: 600 mg Documented by: Acetazolamide 250 mg/ Syringe 2.5 mls @ 5 mls/min IV Q12H [facility] Stop: 09/04/20 06:01 Last Admin: 09/02/20 06:27 Dose: 5 mls/min Documented by: Furosemide 20 mg/ Syringe 2 mls @ 4 mls/min IV DAILY [facility] Stop: 10/02/20 08:59 Last Admin: 09/02/20 07:19 Dose: 4 mls/min Documented by: Ipratropium [place] (Ipratropium [place] Hfa Inhaler) 2 puffs INH QID PRN PRN Reason: Shortness Of Breath Or Wheezin Stop: 09/23/20 22:51 Isosorbide Mononitrate (Isosorbide [place] Extended Rel 30 Mg Tabcr) 30 mg PO DAILY [facility] Stop: 09/24/20 08:59 Last Admin: 09/02/20 07:20 Dose: 30 mg Documented by: Metolazone (Metolazone 5 Mg Tablet) 5 mg PO DAILY@0830 [facility] Stop: 10/02/20 08:29 Last Admin: 09/02/20 07:19 Dose: 5 mg Documented by: Nitroglycerin (Nitroglycerin Sl 0.4 Mg/Tab Tab) 0.4 mg SL UD PRN PRN Reason: Chest Pain Stop: 09/23/20 22:51 Polyethylene Glycol (Polyethylene (Miralax) 17 Gm Pack) 17 gm PO DAILY PRN PRN Reason: Constipation Stop: 09/23/20 22:51 Propranolol HCl (Propranolol Hcl 20 Mg Tab) 20 mg PO BID [facility] Stop: 09/23/20 22:51 Last Admin: 09/02/20 07:20 Dose: 20 mg Documented by: Vitamin D (Cholecalciferol 1,000 Units 25 Mcg Tab) 1,000 units PO DAILY [facility] Stop: 09/24/20 08:59 Last Admin: 09/02/20 07:21 Dose: 1,000 units Documented by:
[2020-09-03 06:03] LABS: Basophils # (auto) 0.01 K/uL (0-0.2); Basophils % (auto) 0.1 %; Eosinophils # (auto) 0.07 K/uL (0-0.5); Eosinophils % (auto) 0.5 %; Immature Granulocytes # (auto) 0.09 K/uL (0.00-0.02); Immature Granulocytes % (auto) 0.7 %; Lymphocytes # (auto) 0.96 K/uL (1.2-3.4); Lymphocytes % (auto) 7.4 %; Mean Corpuscular Hemoglobin 28.8 pg (25-34); Mean Corpuscular Hgb Conc 29.3 g/dL (32-36); Mean Corpuscular Volume 98.6 fL (80-100); Mean Platelet Volume 11.5 fL (7.4-10.4); Monocytes % (auto) 12.3 %; Neutrophils # (auto) 10.33 K/uL (1.4-6.5); Platelet Count 211 K/uL (130-400); RDW Coefficient of Variation 13.9 % (11.5-14.5); RDW Standard Deviation 50.1 fL (36.4-46.3); Red Blood Count 4.16 M/uL (4.2-5.4); White Blood Count 13.06 K/uL (4.8-10.8)
[2020-09-03 06:40] LABS: BUN Creatinine Ratio 68.7 (10-20); Blood Urea Nitrogen 62 mg/dl (7-18); Calcium 9.4 mg/dl (8.5-10.1); Chloride 91 mmol/L (98-107); Creatinine Clr Calc Pharmacy 27.2 ml/min; Est GFR (African American) 67.6 ml/min; Est GFR (Non-African American) 58.3 ml/min; Glucose 129 mg/dl (70-99); Magnesium 2.6 mg/dl (1.8-2.4); Phosphorus 4.1 mg/dl (2.5-4.9); Potassium 3.8 mmol/L (3.5-5.1); Sodium 138 mmol/L (136-145)
[2020-09-03] MEDS: acetaZOLAMIDE 250 MG in SYRINGE 0 ML IV SCH ×2 (06:47→17:49)
[2020-09-03 06:54] LABS: Carbon Dioxide 49 mmol/L (21-32)
[2020-09-03] MEDS: guaiFENesin 600 MG TABCR PO SCH ×2 (09:08→20:44)
[2020-09-03] MEDS: PROPRANOLOL HCL 20 MG TAB PO SCH ×3 (09:08→20:51)
[2020-09-03] MEDS: ISOSORBIDE MONO EXTENDED REL 30 MG TABCR PO SCH (09:09)
[2020-09-03] MEDS: CHOLECALCIFEROL 1,000 UNITS 25 MCG TAB PO SCH (09:09)
[2020-09-03] MEDS: ATORVASTATIN 40 MG TAB PO SCH (09:09)
[2020-09-03] MEDS: ASPIRIN 81 MG ECTAB PO SCH (09:09)
[2020-09-03] MEDS: metOLazone 5 MG TABLET PO SCH (09:09)
[2020-09-03] MEDS: FERROUS SULFATE 325 MG TAB PO SCH (09:10)
[2020-09-03] MEDS: DICLOFENAC SOD 1% GEL 100 GM TUBE EXT SCH ×2 (09:10→20:41)
[2020-09-03] MEDS: FLUTICASONE/VILANTEROL 200/25MCG 14 PUFFS/INHALER INH SCH (09:12)
[2020-09-03] MEDS: DOCUSATE SODIUM 100 MG CAP PO SCH ×2 (09:13→20:44)
[2020-09-03] MEDS: FUROSEMIDE 20 MG in SYRINGE 0 ML IV SCH (09:58)
--- NOTE | 2020-09-03 16:25 | Hospitalist Progress Note ---
Date of Service September 03, 2020 Assessment & Plan (1) Acute and chronic respiratory failure ([id number]): This is an 85-year-old female who presents with ongoing shortness of breath and chest congestion, Was sent in from PCP's office because of ongoing chest congestion for 3 weeks and shortness of breath and was found to be COVID positive and elevated BNP. 1. COVID positive: CT chest: Few patchy areas of groundglass attenuation within right lung might represent infectious/inflammatory etiology. Follow-up evaluation with CT of the chest without IV contrast in 4-6 weeks is recommended to document resolution. Atelectasis within right middle lobe and right lower lobe. Appreciate pulmonary input and recommendation No Decadron and/or remdesivir indicated Has been receiving intravenous acetazolamide for high CO2 level likely secondary to use of diuretics Clinically little better today and requiring about 4 L of oxygen via nasal cannula to maintain saturation 2. 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 Management of diuresis per above Echo: EF 60%, moderate to severe MR Appreciate cardiology input and recommendation Received intravenous Lasix While monitoring PRP Transition to PO Lasix once pleural effusion is better, back to 2L NC Repeat chest x-ray is showing worsening of the infection/CHF Has pleural effusion and the patient refused to have any aspiration Has been getting metolazone and Lasix for diuresis We will continue current doses of Lasix and metolazone 3. History of chronic obstructive pulmonary disease: -- Continue her home inhalers 4. History of coronary artery disease: Continue home medications of aspirin, statin. 5. History of rheumatoid arthritis: On chronic prednisone. No acute arthritis 6. Hyperlipidemia: Continue statin. 7. 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 8. Deep venous thrombosis prophylaxis: , heparin subQ. 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 breath at rest She has been requiring 3 L of oxygen via nasal cannula to maintain saturation Denies any other symptoms 09/02/2020 The patient was seen and examined in telemetry unit She has been stable and requiring less oxygen today She is very deaf and weak Denies any increase in symptoms 09/03/2020 The patient was seen and examined in telemetry unit She remains stable and has been feeling a little better today She denies any more increasing shortness of breath Denies any pain and/or fever Review of Systems Review of Systems: Unobtainable due to cognitive status Physical Exam Physical Exam: Lying in bed comfortably Constitutional: + ill appearing and + thin Eyes: PERRL, conjunctivae normal, anicteric sclerae ENMT: external ear and nose normal, oropharynx normal Neck: trachea midline, no thyromegaly Respiratory: + respiratory distress (Mild to moderate distress at rest) Auscultation: + diminished lung sounds (Right side more than the left), + crackles (Bibasilar crackles more on the right than the left) and + wheezes Cardiovascular: Rate/Rhythm: regular rate and regular rhythm Heart Sounds: + murmur (2/6 ESM over precordium) Extremities: no edema Gastrointestinal (Abdomen): Inspection/Auscultation: normal bowel sounds; abdomen not distended Percussion/Palpation: abdomen soft; abdomen nontender Musculoskeletal: No acute arthritis in any joint Neurologic: Alert and awake. Very deaf, moving all extremities Lymphatic: no cervical or axillary lymphadenopathy Results & Data Results & Data ([facility]) Vital Signs (Past 12 Hours) Vital Signs Temp Pulse Pulse Pulse Resp BP Pulse Ox 09/03/20 16:19 36.6 C 77 20 88/53 L 91 09/03/20 16:16 94/56 L 09/03/20 10:49 36.8 C 77 19 124/67 97 09/03/20 07:58 36.5 C 82 19 113/65 98 09/03/20 07:00 73 09/03/20 06:43 82 104/63 Laboratory Results Short CBC 09/03/20 Range/Units 05:32 WBC 13.06 H (4.8-10.8) K/uL Hgb 12.0 (12.0-16.0) g/dL Hct 41.0 (37-47) % Plt Count 211 (130-400) K/uL BMP 09/03/20 05:32 Sodium 138 Potassium 3.8 Chloride 91 L Carbon Dioxide 49 H* BUN 62 H Creatinine 0.90 Glucose 129 H Calcium 9.4 Medications Administered Current Inpatient Medications Acetaminophen (Acetaminophen 325 Mg Tab) 650 mg PO Q4H PRN PRN Reason: Pain or Fever Stop: 09/23/20 22:51 Albuterol (Albut/Ipratrop 3mg/0.5mg Neb 3 Ml Vial) 3 ml INH Q6 PRN PRN Reason: Shortness Of Breath Or Wheezing Stop: 09/23/20 22:51 Last Admin: 09/01/20 11:58 Dose: 3 ml Documented by: Aspirin (Aspirin 81 Mg Ectab) 81 mg PO DAILY [facility] Stop: 09/24/20 08:59 Last Admin: 09/03/20 09:09 Dose: 81 mg Documented by: Atorvastatin Calcium (Atorvastatin 40 Mg Tab) 80 mg PO DAILY [facility] Stop: 09/24/20 08:59 Last Admin: 09/03/20 09:09 Dose: 80 mg Documented by: Diclofenac Sodium (Diclofenac Sod 1% Gel 100 Gm Tube) 1 gm EXT BID [facility] Stop: 09/23/20 22:51 Last Admin: 09/03/20 09:10 Dose: 1 gm Documented by: Docusate Sodium (Docusate Sodium 100 Mg Cap) 100 mg PO BID [facility] Stop: 09/23/20 22:51 Last Admin: 09/03/20 09:13 Dose: Not Given Documented by: Ferrous Sulfate (Ferrous Sulfate 325 Mg Tab) 325 mg PO DAILY [facility] Stop: 09/24/20 08:59 Last Admin: 09/03/20 09:10 Dose: 325 mg Documented by: Fluticasone/Vilanterol (Fluticasone/Vilanterol 200/25mcg 14 Puffs/Inhaler) 1 puffs INH DAILY [facility] Stop: 09/24/20 08:59 Last Admin: 09/03/20 09:12 Dose: 1 puffs Documented by: Guaifenesin (Guaifenesin 600 Mg Tabcr) 600 mg PO Q12 [facility] Stop: 09/24/20 08:59 Last Admin: 09/03/20 09:08 Dose: 600 mg Documented by: Acetazolamide 250 mg/ Syringe 2.5 mls @ 5 mls/min IV Q12H [facility] Stop: 09/04/20 06:01 Last Admin: 09/03/20 06:47 Dose: 5 mls/min Documented by: Furosemide 20 mg/ Syringe 2 mls @ 4 mls/min IV DAILY [facility] Stop: 10/02/20 08:59 Last Admin: 09/03/20 09:58 Dose: 4 mls/min Documented by: Ipratropium [place] (Ipratropium [place] Hfa Inhaler) 2 puffs INH QID PRN PRN Reason: Shortness Of Breath Or Wheezin Stop: 09/23/20 22:51 Isosorbide Mononitrate (Isosorbide [place] Extended Rel 30 Mg Tabcr) 30 mg PO DAILY [facility] Stop: 09/24/20 08:59 Last Admin: 09/03/20 09:09 Dose: 30 mg Documented by: Metolazone (Metolazone 5 Mg Tablet) 5 mg PO DAILY@0830 [facility] Stop: 10/02/20 08:29 Last Admin: 09/03/20 09:09 Dose: 5 mg Documented by: Nitroglycerin (Nitroglycerin Sl 0.4 Mg/Tab Tab) 0.4 mg SL UD PRN PRN Reason: Chest Pain Stop: 09/23/20 22:51 Polyethylene Glycol (Polyethylene (Miralax) 17 Gm Pack) 17 gm PO DAILY PRN PRN Reason: Constipation Stop: 09/23/20 22:51 Propranolol HCl (Propranolol Hcl 20 Mg Tab) 20 mg PO BID [facility] Stop: 09/23/20 22:51 Last Admin: 09/03/20 09:08 Dose: 20 mg Documented by: Vitamin D (Cholecalciferol 1,000 Units 25 Mcg Tab) 1,000 units PO DAILY [facility] Stop: 09/24/20 08:59 Last Admin: 09/03/20 09:09 Dose: 1,000 units Documented by:
[2020-09-04] MEDS ORDERED: Heparin IV Adult Wt-Based Low-Dose *NO* Bolus Protocol IV SCH (05:20)
[2020-09-04] MEDS ORDERED: SODIUM CHLORIDE 0.9% 500 ML IV SCH ×2 (05:30→06:00)
[2020-09-04] MEDS ORDERED: DIGOXIN 125 MCG in SYRINGE 9.5 ML IV SCH (05:45)
[2020-09-04 07:19] LABS: Hematocrit (blood only) 41.4 % (37-47); Hemoglobin 12.5 g/dL (12.0-16.0); Mean Corpuscular Hemoglobin 29.7 pg (25-34); Mean Corpuscular Hgb Conc 30.2 g/dL (32-36); Mean Corpuscular Volume 98.3 fL (80-100); Mean Platelet Volume 11.7 fL (7.4-10.4); Platelet Count 251 K/uL (130-400); RDW Coefficient of Variation 13.8 % (11.5-14.5); RDW Standard Deviation 49.3 fL (36.4-46.3); Red Blood Count 4.21 M/uL (4.2-5.4); White Blood Count 18.41 K/uL (4.8-10.8)
[2020-09-04 07:22] LABS: BUN Creatinine Ratio 86.1 (10-20); Calcium 9.6 mg/dl (8.5-10.1); Creatinine Clr Calc Pharmacy 35.1 ml/min; Est GFR (Non-African American) 77.7 ml/min; Magnesium 2.6 mg/dl (1.8-2.4); Potassium 2.9 mmol/L (3.5-5.1)
[2020-09-04 07:31] LABS: Bilirubin,Total 0.8 mg/dl (0.2-1)
[2020-09-04] MEDS: acetaZOLAMIDE 250 MG in SYRINGE 0 ML IV SCH (07:33)
[2020-09-04 07:39] LABS: Albumin Globulin Ratio 0.6 (0.9-2); Albumin Level 2.7 gm/dl (3.4-5.0); Globulin 4.3 gm/dl (2.5-4.0); Troponin I 0.047 ng/ml (0-0.045)
[2020-09-04 07:45] LABS: Basophils # (auto) 0.02 K/uL (0-0.2); Basophils % (auto) 0.1 %; Eosinophils # (auto) 0.12 K/uL (0-0.5); Eosinophils % (auto) 0.7 %; Immature Granulocytes # (auto) 0.11 K/uL (0.00-0.02); Immature Granulocytes % (auto) 0.6 %; Lymphocytes # (auto) 1.62 K/uL (1.2-3.4); Lymphocytes % (auto) 8.8 %; Monocytes # (auto) 1.16 K/uL (0.11-0.59); Monocytes % (auto) 6.3 %; Neutrophils # (auto) 15.38 K/uL (1.4-6.5); Neutrophils % (auto) 83.5 %
[2020-09-04] MEDS: HEPARIN SODIUM/DEXTROSE 25,000 UNITS/500 ML BAG IV SCH (08:04)
[2020-09-04 08:18] LABS: Partial Thromboplastin Ratio 0.9; Partial Thromboplastin Time 24.5 Seconds (21.0-31.0)
[2020-09-04] MEDS: POTASSIUM CHLORIDE / WTR 10 MEQ/100 ML PLCT IV SCH ×4 (08:25→11:34)
[2020-09-04] MEDS ORDERED: dilTIAZem HCl 5 MG/ML 5 ML VIAL IV STA (09:33)
[2020-09-04] MEDS: ASPIRIN 81 MG ECTAB PO SCH (11:20)
[2020-09-04] MEDS: CHOLECALCIFEROL 1,000 UNITS 25 MCG TAB PO SCH (11:21)
[2020-09-04] MEDS: ISOSORBIDE MONO EXTENDED REL 30 MG TABCR PO SCH (11:21)
[2020-09-04] MEDS: ATORVASTATIN 40 MG TAB PO SCH (11:21)
[2020-09-04] MEDS: FLUTICASONE/VILANTEROL 200/25MCG 14 PUFFS/INHALER INH SCH (11:21)
[2020-09-04] MEDS: DICLOFENAC SOD 1% GEL 100 GM TUBE EXT SCH ×2 (11:21→21:13)
[2020-09-04] MEDS: guaiFENesin 600 MG TABCR PO SCH ×2 (11:21→21:13)
[2020-09-04] MEDS: FERROUS SULFATE 325 MG TAB PO SCH (11:21)
[2020-09-04] MEDS: DOCUSATE SODIUM 100 MG CAP PO SCH ×2 (11:21→21:14)
[2020-09-04] MEDS ORDERED: METOPROLOL TARTRATE 1 MG/ML VIAL IV SCH (12:00)
--- NOTE | 2020-09-04 13:47 | Hospitalist Progress Note ---
Date of Service September 04, 2020 Assessment & Plan (1) Acute and chronic respiratory failure ([id number]): This is an 85-year-old female who presents with ongoing shortness of breath and chest congestion, Was sent in from PCP's office because of ongoing chest congestion for 3 weeks and shortness of breath and was found to be COVID positive and elevated BNP. 1. COVID positive: CT chest: Few patchy areas of groundglass attenuation within right lung might represent infectious/inflammatory etiology. Follow-up evaluation with CT of the chest without IV contrast in 4-6 weeks is recommended to document resolution. Atelectasis within right middle lobe and right lower lobe. Appreciate pulmonary input and recommendation No Decadron and/or remdesivir indicated Has been receiving intravenous acetazolamide for high CO2 level likely secondary to use of diuretics Clinically little better today and requiring about 4 L of oxygen via nasal cannula to maintain saturation Discussed with the infectious disease nurse and she can be out of isolation after 12 days of quarantine She will be taken out of quarantine tomorrow morning and will be visited by her granddaughter tomorrow at 2 PM 2. 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 She went into A. fib with RVR early this morning She has been started with intravenous heparin Received 1 dose of intravenous digoxin without any improvement of her heart rate Later on she received 10 mg of IV Cardizem and 2.5 mg of intravenous Lopressor Heart rate seems to be around 110s Her propranolol will be discontinued and replaced with Lopressor orally when appropriate 3. History of chronic obstructive pulmonary disease: -- Continue her home inhalers 4. History of coronary artery disease: Continue home medications of aspirin, statin. 5. History of rheumatoid arthritis: On chronic prednisone. No acute arthritis 6. Hyperlipidemia: Continue statin. 7. 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 8. Deep venous thrombosis prophylaxis: She was supposed to be on subcu heparin as a DVT prophylaxis but unfortunately she did not receive it for the last few days. She does not have any calf swelling to suggest any deep venous thrombosis She was started with intravenous heparin for atrial fibrillation Further anticoagulation will be discussed with the granddaughter tomorrow CODE STATUS: Full code DISPOSITION: pending may need to transition to SNF Discussed with the granddaughter and explained the current condition in detail The family members and the patient wants to go home pending further PT and OT evaluation She will be out of isolation on Sunday and the granddaughter can come and see her on Sunday morning Will take of the isolation tomorrow morning and the granddaughter will be visiting her from [place] at around 2 PM tomorrow We will discuss further management of her condition Admission and Anticipated Discharge Date Admission Date: August 24, 2020 Subjective 09/01/2020 The patient was seen and examined in telemetry and Covid room 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 fib with RVR last night and was noted to be very shortness of breath She was a started with intravenous heparin and received a dose of digoxin and her propranolol was continued This morning when I saw her she was not having any acute distress She was not able to hear anything and try to talk to Karie She complains to have some pain in the left forearm at the IV site which was taken care of Review of Systems Review of Systems: Unobtainable due to cognitive status Physical Exam Physical Exam: Lying in bed with minimal distress and shortness of breath Constitutional: + ill appearing and + thin Eyes: PERRL, conjunctivae normal, anicteric sclerae ENMT: external ear and nose normal, oropharynx normal Neck: trachea midline, no thyromegaly Respiratory: + respiratory distress (Mild to moderate distress at rest) Auscultation: + diminished lung sounds (Right side more than the left), + crackles (Bibasilar crackles more on the right than the left) and + wheezes Cardiovascular: Rate/Rhythm: + tachycardic and + irregularly irregular Heart Sounds: + murmur (2/6 ESM over precordium) Extremities: no edema Gastrointestinal (Abdomen): Inspection/Auscultation: normal bowel sounds; abdomen not distended Percussion/Palpation: abdomen soft; abdomen nontender Musculoskeletal: No acute arthritis in any joint Neurologic: Alert and awake. Very deaf. Responding to usual visual commands Lymphatic: no cervical or axillary lymphadenopathy Results & Data Results & Data ([facility]) Vital Signs (Past 12 Hours) Vital Signs Temp Pulse Pulse Pulse Resp BP BP 09/04/20 12:26 112 H 102/61 09/04/20 11:55 36.4 C L 115 H 20 104/62 09/04/20 11:45 132 H 103/56 L 09/04/20 11:37 126 H 20 103/56 L 09/04/20 11:00 111 H 22 105/67 09/04/20 10:49 102 H 09/04/20 08:51 37.0 C 148 H 22 109/62 09/04/20 07:00 144 H 09/04/20 04:50 147 H 94/52 L 09/04/20 04:35 36.7 C 161 H 24 90/42 L 09/04/20 04:11 36.9 C 89 22 109/68 Pulse Ox 09/04/20 12:26 94 09/04/20 11:55 95 09/04/20 11:45 09/04/20 11:37 94 09/04/20 11:00 93 09/04/20 10:49 09/04/20 08:51 95 09/04/20 07:00 09/04/20 04:50 92 09/04/20 04:35 83 L 09/04/20 04:11 90 Laboratory Results Short CBC 09/04/20 Range/Units 06:00 WBC 18.41 H (4.8-10.8) K/uL Hgb 12.5 (12.0-16.0) g/dL Hct 41.4 (37-47) % Plt Count 251 (130-400) K/uL BMP 09/04/20 06:00 Sodium 138 Potassium 2.9 L D Chloride 90 L Carbon Dioxide 43 H* BUN 61 H Creatinine 0.71 Glucose 136 H Calcium 9.6 Cardiac Enzymes 09/04/20 09/04/20 Range/Units 06:00 12:18 Troponin I 0.047 H* 0.512 H* (0-0.045) ng/ml Liver Function 09/04/20 Range/Units 06:00 Total Bilirubin 0.8 (0.2-1) mg/dl AST 32 (15-37) U/L ALT 21 (12-78) U/L Alkaline Phosphatase 108 (45-117) U/L Albumin 2.7 L (3.4-5.0) gm/dl Medications Administered Current Inpatient Medications Acetaminophen (Acetaminophen 325 Mg Tab) 650 mg PO Q4H PRN PRN Reason: Pain or Fever Stop: 09/23/20 22:51 Albuterol (Albut/Ipratrop 3mg/0.5mg Neb 3 Ml Vial) 3 ml INH Q6 PRN PRN Reason: Shortness Of Breath Or Wheezing Stop: 09/23/20 22:51 Last Admin: 09/01/20 11:58 Dose: 3 ml Documented by: Aspirin (Aspirin 81 Mg Ectab) 81 mg PO DAILY [facility] Stop: 09/24/20 08:59 Last Admin: 09/04/20 11:20 Dose: Not Given Documented by: Atorvastatin Calcium (Atorvastatin 40 Mg Tab) 80 mg PO DAILY [facility] Stop: 09/24/20 08:59 Last Admin: 09/04/20 11:21 Dose: Not Given Documented by: Diclofenac Sodium (Diclofenac Sod 1% Gel 100 Gm Tube) 1 gm EXT BID [facility] Stop: 09/23/20 22:51 Last Admin: 09/04/20 11:21 Dose: Not Given Documented by: Docusate Sodium (Docusate Sodium 100 Mg Cap) 100 mg PO BID [facility] Stop: 09/23/20 22:51 Last Admin: 09/04/20 11:21 Dose: Not Given Documented by: Ferrous Sulfate (Ferrous Sulfate 325 Mg Tab) 325 mg PO DAILY [facility] Stop: 09/24/20 08:59 Last Admin: 09/04/20 11:21 Dose: Not Given Documented by: Fluticasone/Vilanterol (Fluticasone/Vilanterol 200/25mcg 14 Puffs/Inhaler) 1 puffs INH DAILY [facility] Stop: 09/24/20 08:59 Last Admin: 09/04/20 11:21 Dose: Not Given Documented by: Guaifenesin (Guaifenesin 600 Mg Tabcr) 600 mg PO Q12 [facility] Stop: 09/24/20 08:59 Last Admin: 09/04/20 11:21 Dose: Not Given Documented by: Heparin Sodium/Dextrose (Heparin Sodium/Dextrose) 25,000 units in 500 mls @ 9 mls/hr IV .Q24H [facility]; Protocol Stop: 10/04/20 05:29 Last Admin: 09/04/20 08:04 Dose: 450 units/hr, 9 mls/hr Documented by: Ipratropium [place] (Ipratropium [place] Hfa Inhaler) 2 puffs INH QID PRN PRN Reason: Shortness Of Breath Or Wheezin Stop: 09/23/20 22:51 Isosorbide Mononitrate (Isosorbide [place] Extended Rel 30 Mg Tabcr) 30 mg PO DAILY [facility] Stop: 09/24/20 08:59 Last Admin: 09/04/20 11:21 Dose: Not Given Documented by: Metoprolol Tartrate (Metoprolol Tartrate 1 Mg/Ml Vial) 2.5 mg IV Q6 [facility] Stop: 10/04/20 11:59 Last Admin: 09/04/20 11:45 Dose: 2.5 mg Documented by: Nitroglycerin (Nitroglycerin Sl 0.4 Mg/Tab Tab) 0.4 mg SL UD PRN PRN Reason: Chest Pain Stop: 09/23/20 22:51 Polyethylene Glycol (Polyethylene (Miralax) 17 Gm Pack) 17 gm PO DAILY PRN PRN Reason: Constipation Stop: 09/23/20 22:51 Vitamin D (Cholecalciferol 1,000 Units 25 Mcg Tab) 1,000 units PO DAILY [facility] Stop: 09/24/20 08:59 Last Admin: 09/04/20 11:21 Dose: Not Given Documented by:
--- NOTE | 2020-09-04 15:09 | XRay Report ---
XR chest 1V portable CLINICAL HISTORY: CHF COMPARISON STUDY: Chest radiograph September 01, 2020. Chest CT August 24, 2020. FINDINGS: Cardiomegaly is noted with extensive mitral annular calcifications. Bilateral pleural effus ions persist. Evaluation is difficult given kyphotic positioning. There is no pneumothorax. Asymmetri c right lung airspace opacities persist. There is persistent pulmonary edema. IMPRESSION: No significant change in appearance of the chest. Persistent pulmonary edema, bilateral pleural effusions and asymmetric right lung airspace opacities. ACT 112: Negative or not required by law. Electronically signed by: Kamar Love M.D. 09/04/2020 3:08 PM
[2020-09-04 15:10] LABS: Partial Thromboplastin Ratio 1.3
--- NOTE | 2020-09-04 15:17 | Electrocardiogram Report ---
Test Reason : Blood Pressure : / mmHG Vent. Rate : 146 BPM Atrial Rate : 170 BPM P-R Int : 000 ms QRS Dur : 126 ms QT Int : 334 ms P-R-T Axes : 000 118 -72 degrees QTc Int : 520 ms Atrial fibrillation with rapid ventricular response Right bundle branch block Left posterior fascicular block Bifascicular block Inferior infarct (cited on or before 24-AUG-2020) ST and T wave abnormality, consider lateral ischemia and anterolateral ischemia Abnormal ECG When compared with ECG of 30-AUG-2020 05:27, Atrial fibrillation has replaced Sinus rhythm Vent. rate has increased BY 61 BPM Left posterior fascicular block is now Present ST now depressed in Anterolateral leads Confirmed by Yadiel Ramirez ([id number]) on 09/04/2020 3:17:14 PM Referred By: REFERRED SELF Confirmed By:Yadiel Ramirez
[2020-09-04] MEDS ORDERED: HEPARIN SOD (PORCINE) 1000 UNIT/ML IV ONE (15:28)
[2020-09-04] MEDS ORDERED: HEPARIN IV BOLUS 2,000 UNITS in SYRINGE 0 ML IV ONE (15:45)
[2020-09-04] MEDS ORDERED: cefTRIAXone SODIUM 1,000 MG in DEXTROSE 5% 50 ML IV SCH (16:00)
[2020-09-04] MEDS: DOXYCYCLINE HYCLATE 100 MG in DEXTROSE 5% 100 ML IV SCH (17:24)
[2020-09-04] MEDS: METOPROLOL TARTRATE 1 MG/ML VIAL IV SCH ×2 (17:35→23:05)
[2020-09-04 20:16] LABS: BUN Creatinine Ratio 84.1 (10-20); Creatinine Clr Calc Pharmacy 47.9 ml/min; Est GFR (Non-African American) 87.1 ml/min; Magnesium 2.3 mg/dl (1.8-2.4); Potassium 3.5 mmol/L (3.5-5.1); Troponin I 0.403 ng/ml (0-0.045)
[2020-09-04 22:01] LABS: Partial Thromboplastin Ratio 2.1
[2020-09-04 22:02] LABS: Partial Thromboplastin Time 55.7 Seconds (21.0-31.0)
[2020-09-05 05:06] LABS: BUN Creatinine Ratio 69.7 (10-20); Creatinine Clr Calc Pharmacy 41.6 ml/min; Est GFR (African American) 96.3 ml/min; Est GFR (Non-African American) 83.1 ml/min; Potassium 3.7 mmol/L (3.5-5.1)
[2020-09-05 05:10] LABS: Partial Thromboplastin Ratio 1.9
[2020-09-05 05:14] LABS: Partial Thromboplastin Time 50.7 Seconds (21.0-31.0)
[2020-09-05] MEDS: DOXYCYCLINE HYCLATE 100 MG in DEXTROSE 5% 100 ML IV SCH ×2 (05:44→17:58)
[2020-09-05] MEDS: METOPROLOL TARTRATE 1 MG/ML VIAL IV SCH ×2 (05:47→11:46)
[2020-09-05 07:18] LABS: Microcytosis Present
[2020-09-05] MEDS: HEPARIN SODIUM/DEXTROSE 25,000 UNITS/500 ML BAG IV SCH (08:11)
[2020-09-05] MEDS: ASPIRIN 81 MG ECTAB PO SCH (08:20)
[2020-09-05] MEDS: CHOLECALCIFEROL 1,000 UNITS 25 MCG TAB PO SCH (08:20)
[2020-09-05] MEDS: ATORVASTATIN 40 MG TAB PO SCH (08:20)
[2020-09-05] MEDS: FERROUS SULFATE 325 MG TAB PO SCH (08:20)
[2020-09-05] MEDS: ISOSORBIDE MONO EXTENDED REL 30 MG TABCR PO SCH (08:21)
[2020-09-05] MEDS: guaiFENesin 600 MG TABCR PO SCH ×2 (08:21→21:51)
[2020-09-05] MEDS: DICLOFENAC SOD 1% GEL 100 GM TUBE EXT SCH ×2 (08:22→21:50)
[2020-09-05] MEDS: FLUTICASONE/VILANTEROL 200/25MCG 14 PUFFS/INHALER INH SCH (08:23)
[2020-09-05] MEDS: DOCUSATE SODIUM 100 MG CAP PO SCH ×2 (08:24→21:51)
--- NOTE | 2020-09-05 10:04 | Hospitalist Progress Note ---
Date of Service September 05, 2020 Assessment & Plan (1) Acute and chronic respiratory failure ([id number]): This is an 85-year-old female who presents with ongoing shortness of breath and chest congestion, Was sent in from PCP's office because of ongoing chest congestion for 3 weeks and shortness of breath and was found to be COVID positive and elevated BNP. 1. COVID positive: CT chest: Few patchy areas of groundglass attenuation within right lung might represent infectious/inflammatory etiology. Follow-up evaluation with CT of the chest without IV contrast in 4-6 weeks is recommended to document resolution. Atelectasis within right middle lobe and right lower lobe. Appreciate pulmonary input and recommendation No Decadron and/or remdesivir indicated Has been receiving intravenous acetazolamide for high CO2 level likely secondary to use of diuretics Clinically little better today and requiring about 4 L of oxygen via nasal cannula to maintain saturation Discussed with the infectious disease nurse and she can be out of isolation after 12 days of quarantine She will be taken out of quarantine tomorrow morning and will be visited by her granddaughter tomorrow at 2 PM Symptomatically better and requiring 4 L of oxygen to maintain saturation 2. 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 Management of diuresis per above Echo: EF 60%, moderate to severe MR Appreciate cardiology input and recommendation Received intravenous Lasix Transition to PO Lasix once pleural effusion is better, back to 2L NC Repeat chest x-ray is showing worsening of the infection/CHF Has pleural effusion and the patient refused to have any aspiration Has been getting metolazone and Lasix for diuresis We will continue current doses of Lasix and metolazone She has had enough diuresis for the last couple of days-we will stop any metolazone and Lasix for now Chest x-ray showed persistent pulmonary edema, bilateral effusion and asymmetric right lung airspace opacities-same as before Will give small dose of intravenous Lasix today 2a. She went into A. fib with RVR early this morning She has been started with intravenous heparin Received 1 dose of intravenous digoxin without any improvement of her heart rate Later on she received 10 mg of IV Cardizem and 2.5 mg of intravenous Lopressor Heart rate seems to be around 110 Her troponin was mildly elevated at 0.5 likely secondary to demand ischemia with A. fib RVR and the third set came back with improvement at 0.4 She is back to sinus rhythm We will continue with her home dose of Inderal as before Plan to continue intravenous heparin for 48 hours then with regular prophylaxis 2b.Possible Pneumonia Intravenous ceftriaxone and doxycycline were added yesterday 09/04/2020 No fever and no chills Clinically a little bit better and chest x-ray did not show any lobar pneumonia Will change Ceftriaxone to Cefepime for broader overage Monitor CBC 3. History of chronic obstructive pulmonary disease: -- Continue her home inhalers 4. History of coronary artery disease: Continue home medications of aspirin, statin. 5. History of rheumatoid arthritis: On chronic prednisone. No acute arthritis 6. Hyperlipidemia: Continue statin. 7. 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 8. Deep venous thrombosis prophylaxis: She was supposed to be on subcu heparin as a DVT prophylaxis but unfortunately she did not receive it for the last few days. She does not have any calf swelling to suggest any deep venous thrombosis She was started with intravenous heparin for atrial fibrillation Further anticoagulation will be discussed with the granddaughter tomorrow Plan to continue intravenous heparin for 48 hours in total and then with regular prophylaxis CODE STATUS: Full code DISPOSITION: pending may need to transition to SNF Discussed with the granddaughter and explained the current condition in detail The family members and the patient wants to go home pending further PT and OT evaluation She is off the Covid precaution isolation as per CDC guideline Will be visited by her granddaughter sometime this afternoon Discussed with the daughter in detail-discussed about DNR and she will discuss this with the family members The patient wants to go home and the family members want her to be home Awaiting further improvement Admission and Anticipated Discharge Date Admission Date: August 24, 2020 Subjective 09/01/2020 The patient was seen and examined in telemetry and Covid room 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 fib with RVR last night and was noted to be very shortness of breath She was a started with intravenous heparin and received a dose of digoxin and her propranolol was continued This morning when I saw her she was not having any acute distress She was not able to hear anything and try to talk to Karie She complains to have some pain in the left forearm at the IV site which was taken care of 09/05/2020 The patient was seen and examined in telemetry unit She has been feeling much better today and ate her breakfast reasonably Remains deaf and asking when she can go home Minimal shortness of breath at rest Review of Systems Review of Systems: Unobtainable due to cognitive status Physical Exam Physical Exam: Lying in bed with minimal distress and shortness of breath Constitutional: + ill appearing and + thin Eyes: PERRL, conjunctivae normal, anicteric sclerae ENMT: external ear and nose normal, oropharynx normal Neck: trachea midline, no thyromegaly Respiratory: + respiratory distress (Mild to moderate distress at rest) Auscultation: + diminished lung sounds (Right side more than the left), + crac kles (Coarse crackles in the right lung mainly) and + wheezes Cardiovascular: Rate/Rhythm: regular rate and regular rhythm; not tachycardic Heart Sounds: + murmur (2/6 ESM over precordium) Extremities: no edema Gastrointestinal (Abdomen): Inspection/Auscultation: normal bowel sounds; abdomen not distended Percussion/Palpation: abdomen soft; abdomen nontender Musculoskeletal: No acute arthritis in any joint Neurologic: Alert and awake. Remains deaf. Generally weak and lethargic Lymphatic: no cervical or axillary lymphadenopathy Results & Data Results & Data ([facility]) Vital Signs (Past 12 Hours) Vital Signs Temp Pulse Pulse Pulse Pulse Resp BP 09/05/20 07:43 36.6 C 83 20 09/05/20 05:47 95 H 101/60 09/05/20 05:43 95 H 09/05/20 02:43 36.2 C L 82 19 09/04/20 23:05 93 H 124/60 09/04/20 22:54 37.0 C 93 H 22 09/04/20 22:20 86 BP Pulse Ox 09/05/20 07:43 102/59 L 96 09/05/20 05:47 05/30/21 05:43 101/60 93 09/05/20 02:43 108/58 L 96 09/04/20 23:05 09/04/20 22:54 124/60 90 09/04/20 22:20 Laboratory Results BMP 09/04/20 09/04/20 09/05/20 19:34 19:34 04:30 Sodium 135 L Cancelled 139 Potassium 3.5 D Cancelled 3.7 Chloride 95 L Cancelled 98 Carbon Dioxide 37 H Cancelled 40 H BUN 44 H Cancelled 42 H Creatinine 0.52 L Cancelled 0.60 Glucose 179 H Cancelled 121 H Calcium 9.0 Cancelled 9.0 Cardiac Enzymes 09/04/20 09/04/20 Range/Units 12:18 19:34 Troponin I 0.512 H* 0.403 H* (0-0.045) ng/ml Medications Administered Current Inpatient Medications Acetaminophen (Acetaminophen 325 Mg Tab) 650 mg PO Q4H PRN PRN Reason: Pain or Fever Stop: 09/23/20 22:51 Albuterol (Albut/Ipratrop 3mg/0.5mg Neb 3 Ml Vial) 3 ml INH Q6 PRN PRN Reason: Shortness Of Breath Or Wheezing Stop: 09/23/20 22:51 Last Admin: 09/01/20 11:58 Dose: 3 ml Documented by: Aspirin (Aspirin 81 Mg Ectab) 81 mg PO DAILY [facility] Stop: 09/24/20 08:59 Last Admin: 09/05/20 08:20 Dose: 81 mg Documented by: Atorvastatin Calcium (Atorvastatin 40 Mg Tab) 80 mg PO DAILY [facility] Stop: 09/24/20 08:59 Last Admin: 09/05/20 08:20 Dose: 80 mg Documented by: Diclofenac Sodium (Diclofenac Sod 1% Gel 100 Gm Tube) 1 gm EXT BID [facility] Stop: 09/23/20 22:51 Last Admin: 09/05/20 08:22 Dose: 1 gm Documented by: Docusate Sodium (Docusate Sodium 100 Mg Cap) 100 mg PO BID [facility] Stop: 09/23/20 22:51 Last Admin: 09/05/20 08:24 Dose: 100 mg Documented by: Ferrous Sulfate (Ferrous Sulfate 325 Mg Tab) 325 mg PO DAILY [facility] Stop: 09/24/20 08:59 Last Admin: 09/05/20 08:20 Dose: 325 mg Documented by: Fluticasone/Vilanterol (Fluticasone/Vilanterol 200/25mcg 14 Puffs/Inhaler) 1 puffs INH DAILY [facility] Stop: 09/24/20 08:59 Last Admin: 09/05/20 08:23 Dose: 1 puffs Documented by: Guaifenesin (Guaifenesin 600 Mg Tabcr) 600 mg PO Q12 [facility] Stop: 09/24/20 08:59 Last Admin: 09/05/20 08:21 Dose: 600 mg Documented by: Heparin Sodium/Dextrose (Heparin Sodium/Dextrose) 25,000 units in 500 mls @ 11 mls/hr IV .Q24H [facility]; Protocol Stop: 10/04/20 05:29 Last Titration: 09/05/20 08:12 Dose: 550 units/hr, 11 mls/hr Documented by: Ceftriaxone Sodium 1,000 mg/ (Dextrose) 50 mls @ 100 mls/hr IV Q24H [facility]; Protocol Stop: 09/11/20 15:59 Last Infusion: 09/04/20 16:59 Dose: Infused Documented by: Doxycycline Hyclate 100 mg/ (Dextrose) 110 mls @ 50 mls/hr IV Q12H [facility]; Protocol Stop: 09/11/20 16:59 Last Infusion: 09/05/20 08:00 Dose: Infused Documented by: Furosemide 20 mg/ Syringe 2 mls @ 4 mls/min IV 1030 [facility] Stop: 09/05/20 12:00 Ipratropium [place] (Ipratropium [place] Hfa Inhaler) 2 puffs INH QID PRN PRN Reason: Shortness Of Breath Or Wheezin Stop: 09/23/20 22:51 Isosorbide Mononitrate (Isosorbide [place] Extended Rel 30 Mg Tabcr) 30 mg PO DAILY [facility] Stop: 09/24/20 08:59 Last Admin: 09/05/20 08:21 Dose: 30 mg Documented by: Metoprolol Tartrate (Metoprolol Tartrate 1 Mg/Ml Vial) 5 mg IV Q6 [facility] Stop: 10/04/20 17:59 Last Admin: 09/05/20 05:47 Dose: 5 mg Documented by: Nitroglycerin (Nitroglycerin Sl 0.4 Mg/Tab Tab) 0.4 mg SL UD PRN PRN Reason: Chest Pain Stop: 09/23/20 22:51 Polyethylene Glycol (Polyethylene (Miralax) 17 Gm Pack) 17 gm PO DAILY PRN PRN Reason: Constipation Stop: 09/23/20 22:51 Vitamin D (Cholecalciferol 1,000 Units 25 Mcg Tab) 1,000 units PO DAILY [facility] Stop: 09/24/20 08:59 Last Admin: 09/05/20 08:20 Dose: 1,000 units Documented by:
[2020-09-05] MEDS ORDERED: FUROSEMIDE 20 MG in SYRINGE 0 ML IV SCH (10:30)
[2020-09-05] MEDS: CEFEPIME 1,000 MG in SYRINGE 0 ML IV SCH ×2 (11:35→18:29)
[2020-09-05] MEDS: PROPRANOLOL HCL 20 MG TAB PO SCH ×2 (11:49→21:51)
[2020-09-05] MEDS ORDERED: POTASSIUM CHLORIDE 20 MEQ/15 ML UDC PO STA (12:14)
[2020-09-06] MEDS: CEFEPIME 1,000 MG in SYRINGE 0 ML IV SCH ×2 (02:10→13:07)
[2020-09-06] MEDS: DOXYCYCLINE HYCLATE 100 MG in DEXTROSE 5% 100 ML IV SCH ×2 (04:33→18:19)
[2020-09-06 06:10] LABS: Basophils # (auto) 0.02 K/uL (0-0.2); Basophils % (auto) 0.1 %; Eosinophils % (auto) 0.7 %; Hematocrit (blood only) 35.4 % (37-47); Hemoglobin 10.7 g/dL (12.0-16.0); Immature Granulocytes # (auto) 0.24 K/uL (0.00-0.02); Immature Granulocytes % (auto) 1.6 %; Lymphocytes # (auto) 0.77 K/uL (1.2-3.4); Lymphocytes % (auto) 5.1 %; Mean Corpuscular Hemoglobin 28.8 pg (25-34); Mean Corpuscular Hgb Conc 30.2 g/dL (32-36); Mean Corpuscular Volume 95.2 fL (80-100); Mean Platelet Volume 11.4 fL (7.4-10.4); Monocytes # (auto) 1.97 K/uL (0.11-0.59); Monocytes % (auto) 13.1 %; Neutrophils # (auto) 11.95 K/uL (1.4-6.5); Neutrophils % (auto) 79.4 %; Platelet Count 261 K/uL (130-400); RDW Coefficient of Variation 13.9 % (11.5-14.5); RDW Standard Deviation 48.4 fL (36.4-46.3); Red Blood Count 3.72 M/uL (4.2-5.4); White Blood Count 15.05 K/uL (4.8-10.8)
[2020-09-06 06:32] LABS: Partial Thromboplastin Ratio 1.9
[2020-09-06 06:38] LABS: Partial Thromboplastin Time 49.5 Seconds (21.0-31.0)
[2020-09-06 06:45] LABS: BUN Creatinine Ratio 65.9 (10-20); Calcium 8.9 mg/dl (8.5-10.1); Creatinine Clr Calc Pharmacy 45.1 ml/min; Est GFR (African American) 96.3 ml/min; Est GFR (Non-African American) 83.1 ml/min; Magnesium 2.4 mg/dl (1.8-2.4); Phosphorus 2.5 mg/dl (2.5-4.9); Potassium 3.9 mmol/L (3.5-5.1)
[2020-09-06] MEDS: PROPRANOLOL HCL 20 MG TAB PO SCH ×2 (09:38→20:36)
[2020-09-06] MEDS: ASPIRIN 81 MG ECTAB PO SCH (09:38)
[2020-09-06] MEDS: CHOLECALCIFEROL 1,000 UNITS 25 MCG TAB PO SCH (09:39)
[2020-09-06] MEDS: ISOSORBIDE MONO EXTENDED REL 30 MG TABCR PO SCH (09:39)
[2020-09-06] MEDS: guaiFENesin 600 MG TABCR PO SCH ×2 (09:39→20:30)
[2020-09-06] MEDS: FERROUS SULFATE 325 MG TAB PO SCH (09:39)
[2020-09-06] MEDS: DICLOFENAC SOD 1% GEL 100 GM TUBE EXT SCH ×2 (09:39→20:30)
[2020-09-06] MEDS: ATORVASTATIN 40 MG TAB PO SCH (09:39)
[2020-09-06] MEDS: FLUTICASONE/VILANTEROL 200/25MCG 14 PUFFS/INHALER INH SCH (09:40)
[2020-09-06] MEDS: DOCUSATE SODIUM 100 MG CAP PO SCH ×2 (09:43→20:35)
--- NOTE | 2020-09-06 13:12 | Hospitalist Progress Note ---
Date of Service September 06, 2020 Assessment & Plan (1) Acute and chronic respiratory failure ([id number]): This is an 85-year-old female who presents with ongoing shortness of breath and chest congestion, Was sent in from PCP's office because of ongoing chest congestion for 3 weeks and shortness of breath and was found to be COVID positive and elevated BNP. 1. COVID positive: CT chest: Few patchy areas of groundglass attenuation within right lung might represent infectious/inflammatory etiology. Follow-up evaluation with CT of the chest without IV contrast in 4-6 weeks is recommended to document resolution. Atelectasis within right middle lobe and right lower lobe. Appreciate pulmonary input and recommendation No Decadron and/or remdesivir indicated Has been receiving intravenous acetazolamide for high CO2 level likely secondary to use of diuretics Clinically little better today and requiring about 4 L of oxygen via nasal cannula to maintain saturation Discussed with the infectious disease nurse and she can be out of isolation after 12 days of quarantine She will be taken out of quarantine tomorrow morning and will be visited by her granddaughter tomorrow at 2 PM Symptomatically better and requiring 4 L of oxygen to maintain saturation She is back to her baseline and requirement of oxygen 2. 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 Management of diuresis per above Echo: EF 60%, moderate to severe MR Appreciate cardiology input and recommendation Received intravenous Lasix Transition to PO Lasix once pleural effusion is better, back to 2L NC Repeat chest x-ray is showing worsening of the infection/CHF Has pleural effusion and the patient refused to have any aspiration Has been getting metolazone and Lasix for diuresis We will continue current doses of Lasix and metolazone She has had enough diuresis for the last couple of days-we will stop any m etolazone and Lasix for now Chest x-ray showed persistent pulmonary edema, bilateral effusion and asymmetric right lung airspace opacities-same as before Has been on negative balance and will not give any more Lasix today 2a. She went into A. fib with RVR early this morning She has been started with intravenous heparin Received 1 dose of intravenous digoxin without any improvement of her heart rate Later on she received 10 mg of IV Cardizem and 2.5 mg of intravenous Lopressor Heart rate seems to be around 110 Her troponin was mildly elevated at 0.5 likely secondary to demand ischemia with A. fib RVR and the third set came back with improvement at 0.4 She is back to sinus rhythm We will continue with her home dose of Inderal as before Plan to continue intravenous heparin for 48 hours then with regular prophylaxis Remains in sinus rhythm 2b.Possible Pneumonia Intravenous ceftriaxone and doxycycline were added yesterday 09/04/2020 No fever and no chills Clinically a little bit better and chest x-ray did not show any lobar pneumonia Will change Ceftriaxone to Cefepime for broader overage Monitor CBC-white cell count has been improving We will continue current antibiotic with cefepime and this doxycycline 3. History of chronic obstructive pulmonary disease: -- Continue her home inhalers 4. History of coronary artery disease: Continue home medications of aspirin, statin. 5. History of rheumatoid arthritis: On chronic prednisone. No acute arthritis 6. Hyperlipidemia: Continue statin. 7. 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 8. Deep venous thrombosis prophylaxis: She was supposed to be on subcu heparin as a DVT prophylaxis but unfortunately she did not receive it for the last few days. She does not have any calf swelling to suggest any deep venous thrombosis She was started with intravenous heparin for atrial fibrillation Further anticoagulation will be discussed with the granddaughter tomorrow Plan to continue intravenous heparin for 48 hours in total and then with regular prophylaxis Discussed about continued anticoagulation with the daughter-she will be deciding on that CODE STATUS: Full code Discussed about resuscitation status with the daughter and talked about possible DNR given her overall medical and physical condition DISPOSITION: pending may need to transition to SNF Discussed with the granddaughter and explained the current condition in detail The family members and the patient wants to go home pending further PT and OT evaluation She is off the Covid precaution isolation as per CDC guideline Will be visited by her granddaughter sometime this afternoon Discussed with the daughter in detail-discussed about DNR and she will discuss this with the family members The patient wants to go home and the family members want her to be home Awaiting further improvement Admission and Anticipated Discharge Date Admission Date: August 24, 2020 Subjective 09/01/2020 The patient was seen and examined in telemetry and Covid room 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 fib with RVR last night and was noted to be very shortness of breath She was a started with intravenous heparin and received a dose of digoxin and her propranolol was continued This morning when I saw her she was not having any acute distress She was not able to hear anything and try to talk to Karie She complains to have some pain in the left forearm at the IV site which was taken care of 09/05/2020 The patient was seen and examined in telemetry unit She has been feeling much better today and ate her breakfast reasonably Remains deaf and asking when she can go home Minimal shortness of breath at rest 09/06/2020 The patient was seen and examined in telemetry unit She remains weak and lethargic but does not have any acute distress Denies any significant symptoms Review of Systems Review of Systems: Unobtainable due to cognitive status Physical Exam Physical Exam: Lying in bed with minimal distress and shortness of breath Constitutional: + ill appearing and + thin Eyes: PERRL, conjunctivae normal, anicteric sclerae ENMT: external ear and nose normal, oropharynx normal Neck: trachea midline, no thyromegaly Respiratory: + respiratory distress (Mild to moderate distress at rest) Auscultation: + diminished lung sounds (Right side more than the left), + crackles (Coarse crackles in the right lung mainly) and + wheezes Cardiovascular: Rate/Rhythm: regular rate and regular rhythm; not tachycardic Heart Sounds: + murmur (2/6 ESM over precordium) Extremities: no edema Gastrointestinal (Abdomen): Inspection/Auscultation: normal bowel sounds; abdomen not distended Percussion/Palpation: abdomen soft; abdomen nontender Musculoskeletal: No acute arthritis in any joint Neurologic: Alert and awake. Extremely deaf Lymphatic: no cervical or axillary lymphadenopathy Results & Data Results & Data ([facility]) Vital Signs (Past 12 Hours) Vital Signs Temp Pulse Resp BP BP Pulse Ox 09/06/20 11:43 36.6 C 69 18 91/53 L 93 09/06/20 07:21 36.8 C 78 18 107/63 93 09/06/20 03:47 36.9 C 71 18 113/72 94 Laboratory Results Short CBC 09/06/20 Range/Units 05:28 WBC 15.05 H (4.8-10.8) K/uL Hgb 10.7 L (12.0-16.0) g/dL Hct 35.4 L (37-47) % Plt Count 261 (130-400) K/uL BMP 09/06/20 05:28 Sodium 137 Potassium 3.9 Chloride 95 L Carbon Dioxide 42 H* BUN 39 H Creatinine 0.60 Glucose 130 H Calcium 8.9 Medications Administered Current Inpatient Medications Acetaminophen (Acetaminophen 325 Mg Tab) 650 mg PO Q4H PRN PRN Reason: Pain or Fever Stop: 09/23/20 22:51 Albuterol (Albut/Ipratrop 3mg/0.5mg Neb 3 Ml Vial) 3 ml INH Q6 PRN PRN Reason: Shortness Of Breath Or Wheezing Stop: 09/23/20 22:51 Last Admin: 09/01/20 11:58 Dose: 3 ml Documented by: Aspirin (Aspirin 81 Mg Ectab) 81 mg PO QAM [facility] Stop: 10/06/20 08:59 Last Admin: 09/06/20 09:38 Dose: 81 mg Documented by: Atorvastatin Calcium (Atorvastatin 40 Mg Tab) 80 mg PO DAILY [facility] Stop: 09/24/20 08:59 Last Admin: 09/06/20 09:39 Dose: 80 mg Documented by: Diclofenac Sodium (Diclofenac Sod 1% Gel 100 Gm Tube) 1 gm EXT BID [facility] Stop: 09/23/20 22:51 Last Admin: 09/06/20 09:39 Dose: 1 gm Documented by: Docusate Sodium (Docusate Sodium 100 Mg Cap) 100 mg PO BID [facility] Stop: 09/23/20 22:51 Last Admin: 09/06/20 09:43 Dose: 100 mg Documented by: Ferrous Sulfate (Ferrous Sulfate 325 Mg Tab) 325 mg PO DAILY [facility] Stop: 09/24/20 08:59 Last Admin: 09/06/20 09:39 Dose: 325 mg Documented by: Fluticasone/Vilanterol (Fluticasone/Vilanterol 200/25mcg 14 Puffs/Inhaler) 1 puffs INH DAILY [facility] Stop: 09/24/20 08:59 Last Admin: 09/06/20 09:40 Dose: 1 puffs Documented by: Guaifenesin (Guaifenesin 600 Mg Tabcr) 600 mg PO Q12 [facility] Stop: 09/24/20 08:59 Last Admin: 09/06/20 09:39 Dose: 600 mg Documented by: Heparin Sodium/Dextrose (Heparin Sodium/Dextrose) 25,000 units in 500 mls @ 11 mls/hr IV .Q24H [facility]; Protocol Stop: 10/04/20 05:29 Last Titration: 09/06/20 06:44 Dose: 550 units/hr, 11 mls/hr Documented by: Doxycycline Hyclate 100 mg/ (Dextrose) 110 mls @ 50 mls/hr IV Q12H [facility]; Prot ocol Stop: 09/11/20 16:59 Last Infusion: 09/06/20 06:46 Dose: Infused Documented by: Cefepime HCl 1,000 mg/ Syringe 11.3 mls @ 5.5 mls/min IV Q8H [facility]; Protocol Stop: 09/12/20 10:59 Last Admin: 09/06/20 13:07 Dose: 5.5 mls/min Documented by: Ipratropium [place] (Ipratropium [place] Hfa Inhaler) 2 puffs INH QID PRN PRN Reason: Shortness Of Breath Or Wheezin Stop: 09/23/20 22:51 Isosorbide Mononitrate (Isosorbide [place] Extended Rel 30 Mg Tabcr) 30 mg PO DAILY [facility] Stop: 09/24/20 08:59 Last Admin: 09/06/20 09:39 Dose: 30 mg Documented by: Nitroglycerin (Nitroglycerin Sl 0.4 Mg/Tab Tab) 0.4 mg SL UD PRN PRN Reason: Chest Pain Stop: 09/23/20 22:51 Polyethylene Glycol (Polyethylene (Miralax) 17 Gm Pack) 17 gm PO DAILY PRN PRN Reason: Constipation Stop: 09/23/20 22:51 Propranolol HCl (Propranolol Hcl 20 Mg Tab) 20 mg PO BID [facility] Stop: 10/05/20 11:44 Last Admin: 09/06/20 09:38 Dose: 20 mg Documented by: Vitamin D (Cholecalciferol 1,000 Units 25 Mcg Tab) 1,000 units PO DAILY [facility] Stop: 09/24/20 08:59 Last Admin: 09/06/20 09:39 Dose: 1,000 units Documented by:
[2020-09-06] MEDS: ALBUT/IPRATROP 3MG/0.5MG NEB 3 ML VIAL INH PRN (16:25)
[2020-09-06] MEDS: HEPARIN SODIUM/DEXTROSE 25,000 UNITS/500 ML BAG IV SCH (18:47)
[2020-09-07] MEDS: DOXYCYCLINE HYCLATE 100 MG in DEXTROSE 5% 100 ML IV SCH (05:18)
[2020-09-07] MEDS ORDERED: CEFEPIME 1,000 MG in SYRINGE 0 ML IV SCH (06:00)
[2020-09-07 07:22] LABS: Partial Thromboplastin Ratio 1.7; Partial Thromboplastin Time 44.7 Seconds (21.0-31.0)
[2020-09-07 07:43] LABS: BUN Creatinine Ratio 57.1 (10-20); Creatinine Clr Calc Pharmacy 46.6 ml/min; Est GFR (African American) 97.4 ml/min; Potassium 3.8 mmol/L (3.5-5.1)
[2020-09-07] MEDS: PROPRANOLOL HCL 20 MG TAB PO SCH (08:51)
[2020-09-07] MEDS: guaiFENesin 600 MG TABCR PO SCH (08:51)
[2020-09-07] MEDS: CHOLECALCIFEROL 1,000 UNITS 25 MCG TAB PO SCH (08:51)
[2020-09-07] MEDS: ASPIRIN 81 MG ECTAB PO SCH (08:51)
[2020-09-07] MEDS: DICLOFENAC SOD 1% GEL 100 GM TUBE EXT SCH (08:51)
[2020-09-07] MEDS: ATORVASTATIN 40 MG TAB PO SCH (08:51)
[2020-09-07] MEDS: FERROUS SULFATE 325 MG TAB PO SCH (08:51)
[2020-09-07] MEDS: ISOSORBIDE MONO EXTENDED REL 30 MG TABCR PO SCH (08:51)
[2020-09-07] MEDS: FLUTICASONE/VILANTEROL 200/25MCG 14 PUFFS/INHALER INH SCH (08:52)
[2020-09-07] MEDS: DOCUSATE SODIUM 100 MG CAP PO SCH (09:09)
--- NOTE | 2020-09-07 11:50 | XRay Report ---
XR chest 1V portable CLINICAL HISTORY: pneumonia COMPARISON STUDY: 09/04/2020 FINDINGS: The heart remains enlarged. There are persistent bilateral pleural effusions with associate d right lung opacities.[ IMPRESSION: Stable findings. Persistent cardiomegaly, bilateral pleural effusions, and right lung opa [place] 112: Negative or not required by law. Electronically signed by: Saud Chavez M.D. 09/07/2020 11:49 AM
[2020-09-07 14:30] LABS: Partial Thromboplastin Ratio 1.5; Partial Thromboplastin Time 39.3 Seconds (21.0-31.0)
--- NOTE | 2020-09-07 15:07 | Hospitalist Progress Note ---
Date of Service September 07, 2020 Assessment & Plan (1) Acute and chronic respiratory failure ([id number]): This is an 85-year-old female who presents with ongoing shortness of breath and chest congestion, Was sent in from PCP's office because of ongoing chest congestion for 3 weeks and shortness of breath and was found to be COVID positive and elevated BNP. 1. COVID positive: CT chest: Few patchy areas of groundglass attenuation within right lung might represent infectious/inflammatory etiology. Follow-up evaluation with CT of the chest without IV contrast in 4-6 weeks is recommended to document resolution. Atelectasis within right middle lobe and right lower lobe. Appreciate pulmonary input and recommendation No Decadron and/or remdesivir indicated Has been receiving intravenous acetazolamide for high CO2 level likely secondary to use of diuretics Clinically little better today and requiring about 4 L of oxygen via nasal cannula to maintain saturation Discussed with the infectious disease nurse and she can be out of isolation after 12 days of quarantine She will be taken out of quarantine tomorrow morning and will be visited by her granddaughter tomorrow at 2 PM Symptomatically better and requiring 4 L of oxygen to maintain saturation She is back to her baseline and requirement of oxygen 2. 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 Management of diuresis per above Echo: EF 60%, moderate to severe MR Appreciate cardiology input and recommendation Received intravenous Lasix Transition to PO Lasix once pleural effusion is better, back to 2L [place] Repeat chest x-ray is showing worsening of the infection/CHF Has pleural effusion and the patient refused to have any aspiration Received metolazone and Lasix for diuresis She has had enough diuresis for the last couple of days She has had hypotension with A. fib and RVR and metolazone plus Lasix were discontinued Chest x-ray showed persistent pulmonary edema, bilateral effusion and asymmetric right lung airspace opacities-same as before She has been feeling much better and repeat x-ray today did show minimal improvement She will be discharged home this afternoon 2a. She went into A. fib with RVR early this morning She has been started with intravenous heparin Received 1 dose of intravenous digoxin without any improvement of her heart rate Later on she received 10 mg of IV Cardizem and 2.5 mg of intravenous Lopressor Heart rate seems to be around 110 Her troponin was mildly elevated at 0.5 likely secondary to demand ischemia with A. fib RVR and the third set came back with improvement at 0.4 She is back to sinus rhythm We will continue with her home dose of Inderal as before Plan to continue intravenous heparin for 48 hours then with regular prophylaxis Remains in sinus rhythm Discussed with medical office technician will give minimal dose of Eliquis of 2.5 mg twice daily on discharge 2b.Possible Pneumonia Intravenous ceftriaxone and doxycycline were added yesterday 09/04/2020 No fever and no chills Clinically a little bit better and chest x-ray did not show any lobar pneumonia Will change Ceftriaxone to Cefepime for broader overage Monitor CBC-white cell count has been improving We will continue current antibiotic with cefepime and this doxycycline She will be given Ceftin need and doxycycline suspension to finish the course of antibiotic 3. History of chronic obstructive pulmonary disease: -- Continue her home inhalers 4. History of coronary artery disease: Continue home medications of aspirin, statin. 5. History of rheumatoid arthritis: On chronic prednisone. No acute arthritis 6. Hyperlipidemia: Continue statin. 7. 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 8. Deep venous thrombosis prophylaxis: She was supposed to be on subcu heparin as a DVT prophylaxis but unfortunately she did not receive it for the last few days. She does not have any calf swelling to suggest any deep venous thrombosis She was started with intravenous heparin for atrial fibrillation Further anticoagulation will be discussed with the granddaughter tomorrow Plan to continue intravenous heparin for 48 hours in total and then with regular prophylaxis Discussed about continued anticoagulation with the daughter-she will be deciding on that She was given Eliquis 2.5 mg twice daily on discharge CODE STATUS: Full code Discussed about resuscitation status with the daughter and talked about possible DNR given her overall medical and physical condition DISPOSITION: pending may need to transition to SNF Discussed with the granddaughter and explained the current condition in detail The family members and the patient wants to go home pending further PT and OT evaluation She is off the Covid precaution isolation as per CDC guideline Will be visited by her granddaughter sometime this afternoon Discussed with the daughter in detail-discussed about DNR and she will discuss this with the family members The patient wants to go home and the family members want her to be home 09/07/2020 Detailed discussion about her condition was discussed with the daughter and the caregiver again today All of their relevant questions were answered Her condition seems to be stable to be discharged home today Admission and Anticipated Discharge Date Admission Date: August 24, 2020 Subjective 09/01/2020 The patient was seen and examined in telemetry and Covid room 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 fib with RVR last night and was noted to be very shortness of breath She was a started with intravenous heparin and received a dose of digoxin and her propranolol was continued This morning when I saw her she was not having any acute distress She was not able to hear anything and try to talk to Karie She complains to have some pain in the left forearm at the IV site which was taken care of 09/05/2020 The patient was seen and examined in telemetry unit She has been feeling much better today and ate her breakfast reasonably Remains deaf and asking when she can go home Minimal shortness of breath at rest 09/06/2020 The patient was seen and examined in telemetry unit She remains weak and lethargic but does not have any acute distress Denies any significant symptoms 09/07/2020 The patient was seen and examined in telemetry unit in presence of the senior web analyst and the daughter She is the best in her now She is out of bed on a chair without any acute distress She wants to go home Review of Systems Review of Systems: Unobtainable due to cognitive status Physical Exam Physical Exam: Sitting on a chair without any acute distress Constitutional: + ill appearing and + thin Eyes: PERRL, conjunctivae normal, anicteric sclerae ENMT: external ear and nose normal, oropharynx normal Neck: trachea midline, no thyromegaly Respiratory: + respiratory distress (Mild to moderate distress at rest) Auscultation: + diminished lung sounds (Right side more than the left), + crackles (Coarse crackles in the right lung mainly) and + wheezes Cardiovascular: Rate/Rhythm: regular rate and regular rhythm; not tachycardic Heart Sounds: + murmur (2/6 ESM over precordium) Extremities: no edema Gastrointestinal (Abdomen): Inspection/Auscultation: normal bowel sounds; abdomen not distended Percussion/Palpation: abdomen soft; abdomen nontender Musculoskeletal: No acute distress at rest Neurologic: Generally weak but remains very deaf Lymphatic: no cervical or axillary lymphadenopathy Results & Data Results & Data ([facility]) Vital Signs (Past 12 Hours) Vital Signs Temp Pulse Pulse Resp BP Pulse Ox 09/07/20 11:46 36.5 C 80 18 159/74 H 95 09/07/20 07:56 36.8 C 84 16 120/59 L 99 09/07/20 03:26 37.2 C 76 19 110/67 100 Laboratory Results [facility] 09/07/20 06:47 Sodium 135 L Potassium 3.8 Chloride 93 L Carbon Dioxide 42 H* BUN 33 H Creatinine 0.58 L Glucose 117 H Calcium 9.0 Medications Administered Current Inpatient Medications Acetaminophen (Acetaminophen 325 Mg Tab) 650 mg PO Q4H PRN PRN Reason: Pain or Fever Stop: 09/23/20 22:51 Last Admin: 09/06/20 20:35 Dose: 650 mg Documented by: Albuterol (Albut/Ipratrop 3mg/0.5mg Neb 3 Ml Vial) 3 ml INH Q6 PRN PRN Reason: Shortness Of Breath Or Wheezing Stop: 09/23/20 22:51 Last Admin: 09/06/20 16:25 Dose: 3 ml Documented by: Apixaban (Apixaban 2.5 Mg Tab) 2.5 mg PO BID [facility] Stop: 10/07/20 20:59 Aspirin (Aspirin 81 Mg Ectab) 81 mg PO QAM [facility] Stop: 10/06/20 08:59 Last Admin: 09/07/20 08:51 Dose: 81 mg Documented by: Atorvastatin Calcium (Atorvastatin 40 Mg Tab) 80 mg PO DAILY [facility] Stop: 09/24/20 08:59 Last Admin: 09/07/20 08:51 Dose: 80 mg Documented by: Carbamide Peroxide (Carbamide Peroxide 6.5% 15 Ml Btl) 2 drops OT BID [facility] Stop: 09/11/20 20:59 Cefdinir (Cefdinir 125 Mg/5 Ml 60 Ml Btl) 300 mg PO Q12 [facility] Stop: 09/14/20 20:59 Diclofenac Sodium (Diclofenac Sod 1% Gel 100 Gm Tube) 1 gm EXT BID [facility] Stop: 09/23/20 22:51 Last Admin: 09/07/20 08:51 Dose: 1 gm Documented by: Docusate Sodium (Docusate Sodium 100 Mg Cap) 100 mg PO BID [facility] Stop: 09/23/20 22:51 Last Admin: 09/07/20 09:09 Dose: 100 mg Documented by: Doxycycline Monohydrate (Doxycycline Susp 25 Mg/5 Ml 60ml) 100 mg PO BID [facility] Stop: 09/14/20 20:59 Ferrous Sulfate (Ferrous Sulfate 325 Mg Tab) 325 mg PO DAILY [facility] Stop: 09/24/20 08:59 Last Admin: 09/07/20 08:51 Dose: 325 mg Documented by: Fluticasone/Vilanterol (Fluticasone/Vilanterol 200/25mcg 14 Puffs/Inhaler) 1 puffs INH DAILY [facility] Stop: 09/24/20 08:59 Last Admin: 09/07/20 08:52 Dose: 1 puffs Documented by: Guaifenesin (Guaifenesin 600 Mg Tabcr) 600 mg PO Q12 [facility] Stop: 09/24/20 08:59 Last Admin: 09/07/20 08:51 Dose: 600 mg Documented by: Ipratropium [place] (Ipratropium [place] Hfa Inhaler) 2 puffs INH QID PRN PRN Reason: Shortness Of Breath Or Wheezin Stop: 09/23/20 22:51 Isosorbide Mononitrate (Isosorbide [place] Extended Rel 30 Mg Tabcr) 30 mg PO DAILY [facility] Stop: 09/24/20 08:59 Last Admin: 09/07/20 08:51 Dose: 30 mg Documented by: Nitroglycerin (Nitroglycerin Sl 0.4 Mg/Tab Tab) 0.4 mg SL UD PRN PRN Reason: Chest Pain Stop: 09/23/20 22:51 Polyethylene Glycol (Polyethylene (Miralax) 17 Gm Pack) 17 gm PO DAILY PRN PRN Reason: Constipation Stop: 09/23/20 22:51 Propranolol HCl (Propranolol Hcl 20 Mg Tab) 20 mg PO BID [facility] Stop: 10/05/20 11:44 Last Admin: 09/07/20 08:51 Dose: 20 mg Documented by: Vitamin D (Cholecalciferol 1,000 Units 25 Mcg Tab) 1,000 units PO DAILY [facility] Stop: 09/24/20 08:59 Last Admin: 09/07/20 08:51 Dose: 1,000 units Documented by:
[2020-09-07] MEDS: HEPARIN SODIUM/DEXTROSE 25,000 UNITS/500 ML BAG IV SCH (15:34)
[2020-09-07] MEDS ORDERED: DOXYCYCLINE SUSP 25 MG/5 ML 60ML PO SCH (18:00)
--- NOTE | 2020-09-07 18:34 | Discharge Summary ---
Date of Service September 07, 2020 Admission HPI Per Admitting Provider DICTATED BY: Paddy Rivera MD DATE OF ADMISSION: 08/24/2020 CHIEF COMPLAINT: COVID positive. 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 The patient was seen in the PCP outpatient office yesterday for chest congestion for 3 weeks. The patient has 3 weeks of shortness of breath with thick phlegm production. She is on home oxygen, but she is more tired than usual as per the [facility] notes. She has two caregivers at home. Outpatient labs showed BNP was elevated and also COVID came back positive, so she was sent to the hospital. With the COVID positive, she will not have any caregivers at home and so as she has to live alone at home, we were called for admission. The patient is a very poor historian, very hard of hearing. She complains of only some chest discomfort when taking deep breath. Denies any other complaints. Could not get any kind of history from the patient and tried to call the daughter twice and it is going to voicemail. The patient is saturating fine on [address] of the chest was done, there is no PE and there are no obvious infiltrates. Resting comfortably and hemodynamically stable. Admission Exam Per Admitting Provider VITAL SIGNS: Temperature 36.5, pulse 87, respiratory rate 22, blood pressure 120/75, oxygen 94% on 2 liters. HEENT: Atraumatic. Pupils equal, round, reactive to light. Oral mucosa moist. NECK: No JVD, no neck masses. CARDIOVASCULAR: S1, S2 heard, regular rate and rhythm, no murmur, no gallop. RESPIRATORY SYSTEM: Normal AP diameter. No accessory muscle use. No wheezing, no crackles. ABDOMEN: Soft, bowel sounds present, nontender, nondistended. CENTRAL NERVOUS SYSTEM: Cranial nerves II-XII grossly intact, nonfocal. EXTREMITIES: Mild pedal edema present, no erythema seen. Principal Diagnosis Acute on chronic respiratory failure, Covid 19 infection, possible bacterial pneumonia, COPD, acute on chronic diastolic CHF, paroxysmal atrial fibrillation, history of rheumatoid arthritis Discharge Exam Constitutional + ill appearing and + thin Eyes PERRL, conjunctivae normal, anicteric sclerae ENMT external ear and nose normal, oropharynx normal Neck trachea midline, no thyromegaly Respiratory + respiratory distress (Mild to moderate distress at rest) Auscultation: + diminished lung sounds (Right side more than the left), + crackles (Coarse crackles in the right lung mainly) and + wheezes Cardiovascular Rate/Rhythm: regular rate and regular rhythm; not tachycardic Heart Sounds: + murmur (2/6 ESM over precordium) Extremities: no edema Gastrointestinal (Abdomen) Inspection/Auscultation: normal bowel sounds; abdomen not distended Percussion/Palpation: abdomen soft; abdomen nontender Lymphatic no cervical or axillary lymphadenopathy Discharge Data Allergies Allergy/AdvReac Type Severity Reaction Status Date / Time Penicillins Allergy Unknown RASH Verified 08/24/20 16:19 Consultations 08/24/20 19:11 ED Decision to Admit Stat 08/25/20 08:00 Consult Cardiology Routine 08/25/20 08:02 Consult Pulmonology Routine Ordered Studies 08/24/20 20:13 CT angio chest PE protocol Urgent 08/25/20 07:48 US venous doppler [facility] Hospital Course (1) Acute and chronic respiratory failure ([id number]): This is an 85-year-old female who presents with ongoing shortness of breath and chest congestion, Was sent in from PCP's office because of ongoing chest congestion for 3 weeks and shortness of breath and was found to be COVID positive and elevated BNP. 1. COVID positive: CT chest: Few patchy areas of groundglass attenuation within right lung might represent infectious/inflammatory etiology. Follow-up evaluation with CT of the chest without IV contrast in 4-6 weeks is recommended to document resolution. Atelectasis within right middle lobe and right lower lobe. Appreciate pulmonary input and recommendation No Decadron and/or remdesivir indicated Has been receiving intravenous acetazolamide for high CO2 level likely secondary to use of diuretics Clinically little better today and requiring about 4 L of oxygen via nasal cannula to maintain saturation Discussed with the infectious disease nurse and she can be out of isolation after 12 days of quarantine She will be taken out of quarantine tomorrow morning and will be visited by her granddaughter tomorrow at 2 PM Symptomatically better and requiring 4 L of oxygen to maintain saturation She is back to her baseline and requirement of oxygen 2. 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 Management of diuresis per above Echo: EF 60%, moderate to severe MR Appreciate cardiology input and recommendation Received intravenous Lasix Transition to PO Lasix once pleural effusion is better, back to 2L NC Repeat chest x-ray is showing worsening of the infection/CHF Has pleural effusion and the patient refused to have any aspiration Received metolazone and Lasix for diuresis She has had enough diuresis for the last couple of days She has had hypotension with A. fib and RVR and metolazone plus Lasix were dis continued Chest x-ray showed persistent pulmonary edema, bilateral effusion and asymmetric right lung airspace opacities-same as before She has been feeling much better and repeat x-ray today did show minimal improvement She will be discharged home this afternoon 2a. She went into A. fib with RVR early this morning She has been started with intravenous heparin Received 1 dose of intravenous digoxin without any improvement of her heart rate Later on she received 10 mg of IV Cardizem and 2.5 mg of intravenous Lopressor Heart rate seems to be around 110 Her troponin was mildly elevated at 0.5 likely secondary to demand ischemia with A. fib RVR and the third set came back with improvement at 0.4 She is back to sinus rhythm We will continue with her home dose of Inderal as before Plan to continue intravenous heparin for 48 hours then with regular prophylaxis Remains in sinus rhythm Discussed with environmental restoration planner will give minimal dose of Eliquis of 2.5 mg twice daily on discharge 2b.Possible Pneumonia Intravenous ceftriaxone and doxycycline were added yesterday 09/04/2020 No fever and no chills Clinically a little bit better and chest x-ray did not show any lobar pneumonia Will change Ceftriaxone to Cefepime for broader overage Monitor CBC-white cell count has been improving We will continue current antibiotic with cefepime and this doxycycline She will be given Ceftin need and doxycycline suspension to finish the course of antibiotic 3. History of chronic obstructive pulmonary disease: -- Continue her home inhalers 4. History of coronary artery disease: Continue home medications of aspirin, statin. 5. History of rheumatoid arthritis: On chronic prednisone. No acute arthritis 6. Hyperlipidemia: Continue statin. 7. 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 8. Deep venous thrombosis prophylaxis: She was supposed to be on subcu heparin as a DVT prophylaxis but unfortunately she did not receive it for the last few days. She does not have any calf swelling to suggest any deep venous thrombosis She was started with intravenous heparin for atrial fibrillation Further anticoagulation will be discussed with the granddaughter tomorrow Plan to continue intravenous heparin for 48 hours in total and then with regular prophylaxis Discussed about continued anticoagulation with the daughter-she will be deciding on that She was given Eliquis 2.5 mg twice daily on discharge CODE STATUS: Full code Discussed about resuscitation status with the daughter and talked about possible DNR given her overall medical and physical condition DISPOSITION: pending may need to transition to SNF Discussed with the granddaughter and explained the current condition in detail The family members and the patient wants to go home pending further PT and OT evaluation She is off the Covid precaution isolation as per CDC guideline Will be visited by her granddaughter sometime this afternoon Discussed with the daughter in detail-discussed about DNR and she will discuss this with the family members The patient wants to go home and the family members want her to be home 09/07/2020 Detailed discussion about her condition was discussed with the daughter and the caregiver again today All of their relevant questions were answered Her condition seems to be stable to be discharged home today Total Time Total Time Spent Total Time Spent (In Minutes): 45 mnutes Total Time Includes: Examination of the Patient, Discharge Planning, Medication Reconciliation and Communication With Other Providers Discharge Plan Discharge Items Patient Disposition: Home - Home Health Services Reason For Visit: COVID ELEVATED BNP Discharge Diagnosis: Acute on chronic respiratory failure, Covid 19 infection, possible bacterial pneumonia, COPD, acute on chronic diastolic CHF, paroxysmal atrial fibrillation, history of rheumatoid arthritis Condition on Discharge: Fair Activity: As commented below Activity Comment: Needs assistance with ADL S Non-emergency contact: Primary Care Provider Call non-emergency contact if: you have any medication questions and your s ymptoms worsen Follow-up/Referrals: Brandy Camejo MD [Outside Practitioners] - (Date & Time 09/13/2020 12:00 PM Provider Ej Monsalve MD Department Family Medicine [facility] PLEASE NOTE THAT THIS IS A TELEPHONE APPOINTMENT. YOUR PROVIDER WILL CALL YOU AT YOUR APPOINTMENT TIME. IF YOU HAVE ANY QUESTIONS REGARDING THIS APPOINTMENT, PLEASE CALL ) Diet: Regular Fluids: 1500ml (6 cups) Addtl Attending Provider Instructions: Please take extreme precaution to avoid fall Concentrate on swallowing and take your time while eating Take your medications as prescribed Keep up with your follow-up appointments with your primary care doctor and other specialist Pending Studies at Discharge: No Stand-Alone Forms: My [facility] [employer], Smoking Cessation Medications and DC Order Prescriptions: New carbamide peroxide [Ear Drops (carbamide peroxide)] 6.5 % Drops 2 drp otic (ear) BID 5 Days Qty: 1 RF: 0 Eliquis 2.5 mg Tablet 2.5 mg PO BID 30 Days Qty: 60 RF: 0 cefdinir 125 mg/5 mL suspension for reconstitution 300 mg PO BID 7 Days Qty: 168 RF: 0 doxycycline calcium 50 mg/5 mL syrup 10 ml PO BID 7 Days Qty: 140 RF: 0 Continued acetaminophen [Tylenol] 325 mg Tablet 325 mg PO QID PRN (Reason: MOD PAIN) RF: 0 prednisone 10 mg tablet 10 mg PO .TAPER UD RF: 0 ipratropium-albuterol 0.5 mg-3 mg(2.5 mg base)/3 mL solution for nebulization 3 ml INHALATION Q6 PRN (Reason: Shortness Of Breath Or Wheezing) RF: 0 azithromycin 250 mg tablet 250 - 500 mg PO UD RF: 0 prednisone 5 mg tablet 5 mg PO DAILY RF: 0 ferrous sulfate [iron] 325 mg (65 mg iron) Tablet 325 mg PO DAILY RF: 0 diclofenac sodium [Voltaren] 1 % Gel 0 g TOPICAL BID RF: 0 atorvastatin 80 mg tablet 80 mg PO DAILY RF: 0 polyethylene glycol 3350 [Miralax] 17 gram Powder In Packet 17 g PO DAILY PRN (Reason: Constipation) RF: 0 isosorbide mononitrate 30 mg tablet extended release 24 hr 30 mg PO DAILY RF: 0 aspirin 81 mg Tablet,Delayed Release (Dr/Ec) 81 mg PO DAILY RF: 0 nitroglycerin [Nitrostat] 0.4 mg Tablet, Sublingual 0.4 mg sublingual UD PRN (Reason: Chest Pain) RF: 0 propranolol 20 mg tablet 20 mg PO BID RF: 0 docusate sodium 100 mg Tablet 100 mg PO BID RF: 0 ipratropium bromide 17 mcg/actuation Hfa Aerosol Inhaler 2 puff INHALATION QID PRN (Reason: Shortness Of Breath Or Wheezing) RF: 0 cholecalciferol (vitamin D3) [Vitamin D3] 25 mcg (1,000 unit) Tablet 25 mcg PO DAILY RF: 0 Breo Ellipta 200-25 mcg/dose blister with device 1 ea INHALATION DAILY RF: 0 furosemide 20 mg tablet 20 mg PO DAILY RF: 0 Discharge Orders: Discharge Order (Routine); Ordered 09/07/20 Ordered By: Tino Dumont/Other Patient Handouts: Chest and Lung Problems, Using an Oxygen Tank at Home Admission Data Admit Date/Time: 08/24/20 20:13 Attending Provider: Tino Boykin Admit Provider: Paddy Rievra Primary Care Provider: PCP,NO Other Providers: Shreya Segura I. ; Vanessa, ; Paddy Rivera ; Bigg Shankar ; Ezequiel Kelly ; Jakub Lizarraga ; Storm Mckeon ; Skyler Ambrocio ; Cuate Cordova ; Laney Sol ; Viviana Triplett ; Laxmi Johnson ; Bebeto Zarco ; Claudy Rees ; Kishor Culver ; Angelito Amos [facility] Other Interventions: Discharge Summary Assessment (RN) Last Done: 09/07/20 18:05
[2020-09-07] MEDS ORDERED: CEFDINIR 125 MG/5 ML 60 ML BTL PO SCH ×2 (21:00)
[2020-09-07] MEDS ORDERED: APIXABAN 2.5 MG TAB PO SCH (21:00)
[2020-09-07] MEDS ORDERED: CARBAMIDE PEROXIDE 6.5% 15 ML BTL OT SCH (21:00)
--- NOTE | 2020-09-15 08:34 | Coding Query ---
CODING QUERY To promote full compliance with coding requirements relating to patient care, provider participation is requested in all cases of lap machine tender uncertainty. Please assist us with the question(s) below: Coding Question(s): "COVID Pneumonia" is documented on chart but does not make Discharge Summary. Please clarify below: ( ) Patient with COVID Pneumonia ( ) COVID Pneumonia Ruled Out ( +) Other Please Explain Covid pneumonia was not ruled out ,considered but did not require any treatment. Thank you Raphael Jordan Principal Diagnosis: "that condition established after study, to be chiefly responsible for occasioning the admission of the patient to the hospital for care." Co-Existing Principal Diagnosis: "when two or more diagnoses equally meet the criteria for principal diagnosis as determined by the circumstances of admission, diagnostic work up, and/or therapy provided, and the Alphabetic Index, Tabular List, or another coding guideline does not provide sequencing direction, any one of the diagnoses may be sequenced first." "When the physician has documented what appears to be a current diagnosis in the body of the record, but has not included the diagnosis in the final diagnostic statement, the physician should be asked whether the diagnosis should be added." (Source Coding [facility] 2 QTR90. p3-4) FISH
--- NOTE | 2020-09-15 08:37 | Coding Query ---
PRESENT ON ADMISSION QUERY To promote full compliance with coding requirements relating to patient care, physician participation is requested in all cases of marketing proposal specialist uncertainty. Please assist us with the question(s) below: Please place an X within the parenthesis (x). The following diagnosis listed in this patient's medical record requires physician assistance to determine if they were present on admission (POA) or not. Please advise whether diagnosis was present on admission, not present on admission, or if it was clinically undetermined. 1. Possible Bacterial Pneumonia (on Discharge Summary) (+ ) Present On Admission ( ) Not Present On Admission ( ) Clinically Undetermined Documented in the chart. Thank you Raphael Jordan *Definition of the present on admission (POA)-Present on admission is defined as present at the time the order for inpatient admission occurs. Conditions that develop during an outpatient encounter prior to a written order for inpatient admission (including emergency department, observation, or outpatient surgery) are considered present on admission. FISH
== END 2020-09-07 18:29 | disposition home health service (06) | DRG 177 ==
LOC: ED 15:41 → 2S 20:13 → SUATTDRO 20:13 → 2S 22:07 → 3E 08-28 10:39 → 2S 08-29 03:40

== ENCOUNTER 2020-09-07 19:20 | Inpatient (IN) ==
--- NOTE | 2020-09-07 20:28 | Emergency Department Note ---
Impression & Plan Acute and chronic respiratory failure ([id number]), Breathlessness, COVID-19, COPD (chronic obstructive pulmonary disease) ED Provider Note Provider: Rodríguez Hoffman MD DATE OF SERVICE: 09/07/2020 CHIEF COMPLAINT: Hypoxia HISTORY OF PRESENT ILLNESS: Patient is a 85-year-old female history of pulmonary hypertension, COVID-19, COPD on chronic oxygen, recently discharged from here within the past 1 to 2 hours made with family on her 3 L nasal cannula oxygen to the car which became hypoxic. Family state her heart rate went in the 1 teens and her pulse ox went to the 60s and she appeared quite ill. Was immediately brought here to the emergency department. Patient was placed on oxygen mask in her pulse ox improved. Patient did not syncopized or actually fall. Denies any chest pain. Family and caregiver report that the patient appeared quite ill earlier. They are unsure that the portable oxygen is working well but they do here at making a whooshing sound. Reportedly the patient had done well at PT today. Patient states he is feeling better at this time. She was eager to go home she has been here in the hospital for 2 weeks and wishes to see her dog. No confusion is reported. REVIEW OF SYSTEMS: A total of 10 review of systems was obtained and negative except as stated above in the HPI. PAST MEDICAL HISTORY: As noted above MEDICATIONS: Reviewed medication list SOCIAL HISTORY: Lives at home in apartment with her Nate dog PHYSICAL EXAM: GENERAL: Patient here somewhat fatigued on the stretcher oxymask in place with family and nursing at bedside Head: normocephalic and atraumatic EYES: No injection, discharge or icterus. NECK: Trachea midline. Supple. ENT: Mucous membranes pink and moist. Pharynx without erythema or exudate. LUNGS: Airway patent. Diminished lower breath sounds with occasional wheeze, mild tachypnea HEART: Regular rate and rhythm. No significant tenderness. Some findings almost like pectus excavatum noted. ABDOMEN: Soft and non-tender, without guarding or rebound. SKIN: Acyanotic, warm, dry. EXTREMITIES: Without tenderness or swelling of the lower extremities. NEUROLOGICAL: No focal deficits although she is somewhat hard of hearing. No aphasia. No facial droop or slurred speech. EK bpm normal sinus rhythm without acute ST segment elevation. Inferior T wave inversions are noted with a QTC of 460. In comparison to September 04 of this year no longer in rapid atrial fibrillation and no longer with a right bundle branch block. CONTINUOUS CARDIAC MONITORING: was ordered and showed a heart rate of 70s and 80s bpm in normal sinus rhythm 1 view chest x-ray: No evidence of pneumothorax. Bilateral pleural effusion with cardiomegaly. Right-sided lung opacities are noted in comparison. Some earlier today given the rotation of this evening's x-ray do not see significant changes. Patient's laboratory studies and imaging reviewed. Differential includes Reactive airway disease, pneumonia, pneumothorax, COPD, CHF, infections, cardiac ischemia, pulmonary embolism, musculoskeletal, g astrointestinal, as well as other pathologies. IMPRESSION/MEDICAL DECISION MAKING: Reviewed medical record and associated extensive testing during admission with discharge this evening including chest x-ray from this morning (similar given rotation to repeat this evening). Patient is on 4 L nasal cannula oxygen and she desats into the high 80s but on a oxymask at 3 L the patient does better. Some component of mouth breathing may be contributing. Significant desaturations reported in the car and hypoxic in triage. Patient luckily did not suffer a fall. Patient denies chest pain. Low suspicion for acute PE or ACS. EKG does not show rapid A. fib or acute STEMI. Question if some of the exertion trying to transfer into the car because some desaturations and possible transient mucous plugging. Family does states that she did well in PT today per her report on her nasal cannula oxygen. Discussed with patient and family and caregiver at bedside that given her significant desaturation do not feel the going home at this time of night with this current event tonight would be in her best interest. Repeat blood work x- ray and testing was completed here but they were in agreement given the clinical history for further observation here overnight in the hospital. Stable anemia a nd white blood cell count. VBG shows hypercarbia but compensated and likely chronic. Not acidotic. Renal function is stable. Troponin slightly elevated but less than before and proBNP is also down trended from recent high at the beginning of last admission. Continues to be Covid positive likely contributing to some degree given her initial diagnosis just over 2 weeks ago. Patient with some coughing and secretion care by family was at bedside on later evaluation did desaturate quickly into the low 80s while her mask was briefly removed. Quickly replaced and she rebounded but seems quite brittle regarding her hypoxia. Hospitalist was contacted for further care in the hospital DIAGNOSIS: Shortness of breath, acute on chronic respiratory failure, COPD, COVID-19 DISPOSITION: Hospitalist will evaluate Patient was agreeable with this plan. Past Med/Surg History Medical History CAD (coronary artery disease) Chronic respiratory failure with hypoxia, on home O2 therapy COPD (chronic obstructive pulmonary disease) Essential tremor Hearing loss Osteoporosis Overactive bladder Rheumatoid arthritis Vitamin D deficiency Social History Smoking Status: Smoker, status unknown Hx Alcohol Use: No Hx Substance Use: No Preferred Language: Setswana Communication Ability: Effective Communication Ability Comment: [facility] [employer] Worker Required: No Beliefs That Will Affect Care: None marital status: / Current Living Situation: Alone Current Living Situation Comment: Lives in assisted living apartment ([place]) current occupational status: retired How many Children do You have: 3 Other Information That Helps Us Care for You: No Feels Safe at Home: Yes Safety Concerns: Feels Safe At This Time Assistive Devices: Oxygen - Continuous and Walker Allergies Allergies Allergy/AdvReac Type Severity Reaction Status Date / Time Penicillins Allergy Unknown RASH Verified 09/07/20 21:42 Home Meds Home Medications Medication Instructions Recorded Confirmed Breo Ellipta 1 ea INHALATION DAILY 08/24/20 09/07/20 acetaminophen [Tylenol] 325 mg PO QID PRN 08/24/20 09/07/20 aspirin 81 mg PO DAILY 08/24/20 09/07/20 atorvastatin 80 mg PO DAILY 08/24/20 09/07/20 cholecalciferol (vitamin D3) 25 mcg PO DAILY 08/24/20 09/07/20 [Vitamin D3] diclofenac sodium [Voltaren] 0 g TOPICAL BID 08/24/20 09/07/20 docusate sodium 100 mg PO BID 08/24/20 09/07/20 ferrous sulfate [iron] 325 mg PO DAILY 08/24/20 09/07/20 furosemide 20 mg PO DAILY 08/24/20 09/07/20 ipratropium bromide 2 puff INHALATION QID PRN 08/24/20 09/07/20 ipratropium-albuterol 3 ml INHALATION Q6 PRN 08/24/20 09/07/20 isosorbide mononitrate 30 mg PO DAILY 08/24/20 09/07/20 nitroglycerin [Nitrostat] 0.4 mg SUBLINGUAL UD PRN 08/24/20 09/07/20 polyethylene glycol 3350 [Miralax] 17 g PO DAILY PRN 08/24/20 09/07/20 prednisone 5 mg PO DAILY 08/24/20 09/07/20 prednisone 10 mg PO .TAPER UD 08/24/20 09/07/20 propranolol 20 mg PO BID 08/24/20 09/07/20 Previous Rx's Medication Instructions Recorded apixaban [Eliquis] 2.5 mg PO BID 30 Days #60 tab 09/07/20 carbamide peroxide [Ear Drops 2 drp OTIC (EAR) BID 5 Days #1 ea 09/07/20 (carbamide peroxide)] cefdinir 300 mg PO BID 7 Days #168 ml 09/07/20 doxycycline calcium 10 ml PO BID 7 Days #140 ml 09/07/20 Results & Data (ED) Vital Signs Vital Signs - 24 hr 09/07/20 19:29 09/07/20 20:34 09/07/20 21:00 Temperature 36.9 C Temperature Source Temporal Artery Scan Pulse Rate 85 90 83 Pulse Rate from SpO2 Sensor 91 H 83 Respiratory Rate 33 H 24 23 Respiratory Effort / Characteristics Labored Respiratory Depth Normal Blood Pressure 110/63 Blood Pressure Mean 78 Pulse Oximetry 74 L 93 93 Oxygen Delivery Method Nasal Cannula Oxygen Flow Rate 3 Sepsis Recent Fever Within 48 Hours No Sepsis New/Unexplained Change in Mental Status N/A Sepsis Action Taken by Nursing No Action Required 09/07/20 21:30 09/07/20 22:00 09/07/20 22:03 Temperature Temperature Source Pulse Rate 86 86 83 Pulse Rate from SpO2 Sensor 86 83 84 Respiratory Rate 22 24 20 Respiratory Effort / Characteristics Respiratory Depth Blood Pressure 124/67 Blood Pressure Mean 86 Pulse Oximetry 90 96 96 Oxygen Delivery Method Oxygen Flow Rate Sepsis Recent Fever Within 48 Hours Sepsis New/Unexplained Change in Mental Status Sepsis Action Taken by Nursing 09/07/20 22:30 09/07/20 23:00 09/07/20 23:25 Temperature Temperature Source Pulse Rate 87 86 Pulse Rate from SpO2 Sensor 84 83 Respiratory Rate 20 22 Respiratory Effort / Characteristics Respiratory Depth Blood Pressure Blood Pressure Mean Pulse Oximetry 95 93 Oxygen Delivery Method Oxymask Oxygen Flow Rate 3 Sepsis Recent Fever Within 48 Hours Sepsis New/Unexplained Change in Mental Status Sepsis Action Taken by Nursing 09/07/20 23:30 09/08/20 00:00 09/08/20 00:09 Temperature Temperature Source Pulse Rate 83 82 84 Pulse Rate from SpO2 Sensor 80 82 82 Respiratory Rate 23 Respiratory Effort / Characteristics Respiratory Depth Blood Pressure 112/64 Blood Pressure Mean 80 Pulse Oximetry 96 97 97 Oxygen Delivery Method Oxymask Oxymask Oxymask Oxygen Flow Rate 3 3 3 Sepsis Recent Fever Within 48 Hours Sepsis New/Unexplained Change in Mental Status Sepsis Action Taken by Nursing 09/08/20 01:00 09/08/20 01:25 09/08/20 01:38 Temperature Temperature Source Pulse Rate 79 77 Pulse Rate from SpO2 Sensor 79 77 Respiratory Rate 21 19 Respiratory Effort / Characteristics Respiratory Depth Blood Pressure 112/56 L 109/54 L Blood Pressure Mean 74 72 Pulse Oximetry 96 96 Oxygen Delivery Method Room Air Oxymask Oxymask Oxygen Flow Rate 3 3 Sepsis Recent Fever Within 48 Hours Sepsis New/Unexplained Change in Mental Status Sepsis Action Taken by Nursing Laboratory Data Result diagrams: 09/07/20 20:44 09/07/20 20:44 Lab Results 09/07/20 09/07/20 09/07/20 Range/Units 20:44 20:44 20:44 WBC 13.27 H (4.8-10.8) K/uL RBC 3.81 L (4.2-5.4) M/uL Hgb 11.3 L (12.0-16.0) g/dL Hct 36.2 L (37-47) % MCV 95.0 (80-100) fL MCH 29.7 (25-34) pg MCHC 31.2 L (32-36) g/dL RDW Std Deviation 47.4 H (36.4-46.3) fL RDW Coeff of Levi 13.7 (11.5-14.5) % Plt Count 333 (130-400) K/uL MPV 11.2 H (7.4-10.4) fL Immature Gran % (Auto) 1.8 % Neut % (Auto) 75.5 % Lymph % (Auto) 7.6 % Mclennan % (Auto) 14.1 % Eos % (Auto) 0.8 % Baso % (Auto) 0.2 % Neut # (Auto) 10.01 H (1.4-6.5) K/uL Lymph # (Auto) 1.01 L (1.2-3.4) K/uL Mclennan # (Auto) 1.87 H (0.11-0.59) K/uL Eos # (Auto) 0.11 (0-0.5) K/uL Baso # (Auto) 0.03 (0-0.2) K/uL Immature Gran # (Auto) 0.24 H (0.00-0.02) K/uL VBG pH (7.36-7.41) VBG pCO2 (38-50) mmHg VBG pO2 mmHg VBG HCO3 mmol/L VBG O2 Saturation % VBG Base Excess mEq/L Barometric Pressure mm/Hg Sodium 136 (136-145) mmol/L Potassium 4.3 (3.5-5.1) mmol/L Chloride 92 L (98-107) mmol/L Carbon Dioxide 41 H* (21-32) mmol/L Anion Gap 3.0 (3-11) BUN 41 H (7-18) mg/dl Creatinine 0.44 L (0.6-1.2) mg/dl Est Cr Clr Drug Dosing Not Reportable Est GFR ( Amer) 106.7 ml/min Est GFR (Non-Af Amer) 92.0 ml/min BUN/Creatinine Ratio 94.1 H (10-20) Glucose 114 H (70-99) mg/dl Lactate 1.2 (0.4-2.0) mmol/L Calcium 9.9 (8.5-10.1) mg/dl Magnesium 2.2 (1.8-2.4) mg/dl Total Bilirubin 0.7 (0.2-1) mg/dl AST 42 H (15-37) U/L ALT 31 (12-78) U/L Alkaline Phosphatase 115 (45-117) U/L Troponin I 0.077 H* (0-0.045) ng/ml NT-Pro-B Natriuret Pep 3338 H (0-1800) pg/ml Total Protein 7.0 (6.4-8.2) gm/dl Albumin 2.5 L (3.4-5.0) gm/dl Globulin 4.5 H (2.5-4.0) gm/dl Albumin/Globulin Ratio 0.6 L (0.9-2) Urine Color Urine Appearance (Clear) Urine pH (4.5-7.5) Ur Specific [place] (1.000-1.030) Urine Protein (Negative) Urine Glucose (UA) (Negative) Urine Ketones (Negative) Urine Blood (Negative) Urine Nitrite (Negative) Urine Bilirubin (Negative) Urine Urobilinogen (Negative) Ur Leukocyte Esterase (Negative) Urine WBC (Auto) (0-5) /hpf Urine RBC (Auto) (0-4) /hpf U Hyaline Cast (Auto) (0-5) /lpf U Epithel Cells (Auto) (0-5) /lpf Urine Bacteria (Auto) (Negative) COVID-19 Eval Order SARS-CoV-2 (PCR) (Negative) 09/07/20 09/07/20 09/07/20 Range/Units 20:44 21:00 22:04 WBC (4.8-10.8) K/uL RBC (4.2-5.4) M/uL Hgb (12.0-16.0) g/dL Hct (37-47) % MCV (80-100) fL MCH (25-34) pg MCHC (32-36) g/dL RDW Std Deviation (36.4-46.3) fL RDW Coeff of Levi (11.5-14.5) % Plt Count (130-400) K/uL MPV (7.4-10.4) fL Immature Gran % (Auto) % Neut % (Auto) % Lymph % (Auto) % Mclennan % (Auto) % Eos % (Auto) % Baso % (Auto) % Neut # (Auto) (1.4-6.5) K/uL Lymph # (Auto) (1.2-3.4) K/uL Mclennan # (Auto) (0.11-0.59) K/uL Eos # (Auto) (0-0.5) K/uL Baso # (Auto) (0-0.2) K/uL Immature Gran # (Auto) (0.00-0.02) K/uL VBG pH 7.43 H (7.36-7.41) VBG pCO2 71 H (38-50) mmHg VBG pO2 29 mmHg VBG HCO3 46 mmol/L VBG O2 Saturation 61.8 % VBG Base Excess 18.4 mEq/L Barometric Pressure 737.0 mm/Hg Sodium (136-145) mmol/L Potassium (3.5-5.1) mmol/L Chloride (98-107) mmol/L Carbon Dioxide (21-32) mmol/L Anion Gap (3-11) BUN (7-18) mg/dl Creatinine (0.6-1.2) mg/dl Est Cr Clr Drug Dosing Est GFR ( Amer) ml/min Est GFR (Non-Af Amer) ml/min BUN/Creatinine Ratio (10-20) Glucose (70-99) mg/dl Lactate (0.4-2.0) mmol/L Calcium (8.5-10.1) mg/dl Magnesium (1.8-2.4) mg/dl Total Bilirubin (0.2-1) mg/dl AST (15-37) U/L ALT (12-78) U/L Alkaline Phosphatase (45-117) U/L Troponin I (0-0.045) ng/ml NT-Pro-B Natriuret Pep (0-1800) pg/ml Total Protein (6.4-8.2) gm/dl Albumin (3.4-5.0) gm/dl Globulin (2.5-4.0) gm/dl Albumin/Globulin Ratio (0.9-2) Urine Color Yellow Urine Appearance Clear (Clear) Urine pH 7.5 (4.5-7.5) Ur Specific [place] 1.010 (1.000-1.030) Urine Protein Trace H (Negative) Urine Glucose (UA) Negative (Negative) Urine Ketones Negative (Negative) Urine Blood Negative (Negative) Urine Nitrite Negative (Negative) Urine Bilirubin Negative (Negative) Urine Urobilinogen Negative (Negative) Ur Leukocyte Esterase 2+ H (Negative) Urine WBC (Auto) 10-30 H (0-5) /hpf Urine RBC (Auto) 5-10 H (0-4) /hpf U Hyaline Cast (Auto) 1-5 (0-5) /lpf U Epithel Cells (Auto) >30 H (0-5) /lpf Urine Bacteria (Auto) Negative (Negative) COVID-19 Eval Order Covid19 at [facility] SARS-CoV-2 (PCR) (Negative) 09/07/20 Range/Units 22:04 WBC (4.8-10.8) K/uL RBC (4.2-5.4) M/uL Hgb (12.0-16.0) g/dL Hct (37-47) % MCV (80-100) fL MCH (25-34) pg MCHC (32-36) g/dL RDW Std Deviation (36.4-46.3) fL RDW Coeff of Levi (11.5-14.5) % Plt Count (130-400) K/uL MPV (7.4-10.4) fL Immature Gran % (Auto) % Neut % (Auto) % Lymph % (Auto) % Mclennan % (Auto) % Eos % (Auto) % Baso % (Auto) % Neut # (Auto) (1.4-6.5) K/uL Lymph # (Auto) (1.2-3.4) K/uL Mclennan # (Auto) (0.11-0.59) K/uL Eos # (Auto) (0-0.5) K/uL Baso # (Auto) (0-0.2) K/uL Immature Gran # (Auto) (0.00-0.02) K/uL VBG pH (7.36-7.41) VBG pCO2 (38-50) mmHg VBG pO2 mmHg VBG HCO3 mmol/L VBG O2 Saturation % VBG Base Excess mEq/L Barometric Pressure mm/Hg Sodium (136-145) mmol/L Potassium (3.5-5.1) mmol/L Chloride (98-107) mmol/L Carbon Dioxide (21-32) mmol/L Anion Gap (3-11) BUN (7-18) mg/dl Creatinine (0.6-1.2) mg/dl Est Cr Clr Drug Dosing Est GFR ( Amer) ml/min Est GFR (Non-Af Amer) ml/min BUN/Creatinine Ratio (10-20) Glucose (70-99) mg/dl Lactate (0.4-2.0) mmol/L Calcium (8.5-10.1) mg/dl Magnesium (1.8-2.4) mg/dl Total Bilirubin (0.2-1) mg/dl AST (15-37) U/L ALT (12-78) U/L Alkaline Phosphatase (45-117) U/L Troponin I (0-0.045) ng/ml NT-Pro-B Natriuret Pep (0-1800) pg/ml Total Protein (6.4-8.2) gm/dl Albumin (3.4-5.0) gm/dl Globulin (2.5-4.0) gm/dl Albumin/Globulin Ratio (0.9-2) Urine Color Urine Appearance (Clear) Urine pH (4.5-7.5) Ur Specific [place] (1.000-1.030) Urine Protein (Negative) Urine Glucose (UA) (Negative) Urine Ketones (Negative) Urine Blood (Negative) Urine Nitrite (Negative) Urine Bilirubin (Negative) Urine Urobilinogen (Negative) Ur Leukocyte Esterase (Negative) Urine WBC (Auto) (0-5) /hpf Urine RBC (Auto) (0-4) /hpf U Hyaline Cast (Auto) (0-5) /lpf U Epithel Cells (Auto) (0-5) /lpf Urine Bacteria (Auto) (Negative) COVID-19 Eval Order SARS-CoV-2 (PCR) POSITIVE A* (Negative) Discharge Plan Visit Data Chief Complaint: Respiratory Distress Stated Complaint: LOW O2 LEVELS ED Provider: Rodríguez Hoffman Discharge Problem: Acute and chronic respiratory failure ([id number]), Breathlessness, COVID-19, COPD (chronic obstructive pulmonary disease) Patient Disposition: Being Evaluated by Hospitalist Discharge Instructions Interventions: ED Discharge Assessment Last Done: 09/08/20 01:25 Discharge Problem: Acute and chronic respiratory failure ([id number]) Qualifiers: Respiratory failure complication: hypoxia Qualified Code(s): J96.21 - Acute and chronic respiratory failure with hypoxia COPD (chronic obstructive pulmonary disease) Qualifiers: COPD type: unspecified COPD Qualified Code(s): J44.9 - Chronic obstructive pulmonary disease, unspecified
[2020-09-07 20:55] LABS: Basophils # (auto) 0.03 K/uL (0-0.2); Basophils % (auto) 0.2 %; Eosinophils # (auto) 0.11 K/uL (0-0.5); Eosinophils % (auto) 0.8 %; Hematocrit (blood only) 36.2 % (37-47); Hemoglobin 11.3 g/dL (12.0-16.0); Immature Granulocytes # (auto) 0.24 K/uL (0.00-0.02); Immature Granulocytes % (auto) 1.8 %; Lymphocytes # (auto) 1.01 K/uL (1.2-3.4); Lymphocytes % (auto) 7.6 %; Mean Corpuscular Hemoglobin 29.7 pg (25-34); Mean Corpuscular Hgb Conc 31.2 g/dL (32-36); Mean Platelet Volume 11.2 fL (7.4-10.4); Monocytes # (auto) 1.87 K/uL (0.11-0.59); Monocytes % (auto) 14.1 %; Neutrophils # (auto) 10.01 K/uL (1.4-6.5); Neutrophils % (auto) 75.5 %; Platelet Count 333 K/uL (130-400); RDW Coefficient of Variation 13.7 % (11.5-14.5); RDW Standard Deviation 47.4 fL (36.4-46.3); Red Blood Count 3.81 M/uL (4.2-5.4); White Blood Count 13.27 K/uL (4.8-10.8)
[2020-09-07 21:02] LABS: Base Excess VBG 18.4 mEq/L; Oxygen Saturation VBG 61.8 %; pH VBG 7.43 (7.36-7.41)
[2020-09-07 21:17] LABS: Appearance Urine Clear (Clear); Bacteria Urine Automated Negative (Negative); Bilirubin Urine Negative (Negative); Blood Urine Negative (Negative); Color Urine Yellow; Epithelial Cell Urine Auto >30 /lpf (0-5); Glucose Urine UA Negative (Negative); Ketones Urine Negative (Negative); Leukocyte Esterase Urine 2+ (Negative); Nitrite Urine Negative (Negative); Urobilinogen Urine Negative (Negative); pH Urine 7.5 (4.5-7.5)
[2020-09-07 21:18] LABS: Protein Urine Trace (Negative)
[2020-09-07 21:19] LABS: Alanine Aminotransferase 31 U/L (12-78); Albumin Globulin Ratio 0.6 (0.9-2); Albumin Level 2.5 gm/dl (3.4-5.0); Alkaline Phosphatase 115 U/L (45-117); Aspartate Aminotransferase 42 U/L (15-37); BUN Creatinine Ratio 94.1 (10-20); Bilirubin,Total 0.7 mg/dl (0.2-1); Blood Urea Nitrogen 41 mg/dl (7-18); Calcium 9.9 mg/dl (8.5-10.1); Chloride 92 mmol/L (98-107); Est GFR (African American) 106.7 ml/min; Globulin 4.5 gm/dl (2.5-4.0); Glucose 114 mg/dl (70-99); Magnesium 2.2 mg/dl (1.8-2.4); NT Pro B Type Natriuretic Pept 3338 pg/ml (0-1800); Potassium 4.3 mmol/L (3.5-5.1); Sodium 136 mmol/L (136-145)
[2020-09-07 21:21] LABS: Carbon Dioxide 41 mmol/L (21-32); Troponin I 0.077 ng/ml (0-0.045)
[2020-09-08] MEDS ORDERED: ONDANSETRON INJ 2 MG/ML 2 ML VIAL IV PRN (02:23)
[2020-09-08] MEDS ORDERED: predniSONE 20 MG TAB PO STA (02:23)
[2020-09-08] MEDS ORDERED: POLYETHYLENE (MIRALAX) 17 GM PACK PO PRN (02:23)
[2020-09-08] MEDS ORDERED: IPRATROPIUM BROMIDE HFA INHALER INH PRN (02:23)
[2020-09-08] MEDS ORDERED: NITROGLYCERIN SL 0.4 MG/TAB TAB SL PRN ×2 (02:23)
--- NOTE | 2020-09-08 02:31 | History and Physical Report ---
DATE OF ADMISSION: 09/07/2020 CHIEF COMPLAINT: Hypoxia, respiratory distress. HISTORY OF PRESENT ILLNESS: This is an 85-year-old female with past medical history significant for chronic respiratory failure, on home oxygen, moderate COPD, hyperlipidemia, CAD, pulmonary hypertension, vitamin D deficiency, protein-calorie malnutrition, overactive bladder, female stress incontinence, senile osteoporosis, essential tremor, sensorineural hearing loss in both ears, rheumatoid arthritis involving multiple sites, history of PE, who was recently in the hospital for COVID pneumonia and also pneumonia. She was not treated with any remdesivir or Decadron as it was not indicated and after 12 days of quarantine, COVID restrictions were taken out. She was also treated for acute exacerbation of valvular CHF and she also went into rapid AFib, and diuretics were stopped and she was also treated for pneumonia with antibiotics Cefepime and discharged on Ceftin and doxycycline today .She was placed on Eliquis.But as soon as she went out of the hospital, as per daughter oxygen went down to 70s and never came up to 80s, so she was brought into the hospital. Currently saturating okay on 3 liters OxyMask. Hemodynamically stable. White count is 13.2, which was like 15 yesterday. Venous blood gas was okay. Rest of the labs were okay. Troponin 0.07, which is better than before. BNP is better than before. SARS-CoV-2 PCR is again positive. Chest x-ray is showing worsening infiltrates in the left lung. ALLERGIES: PENICILLIN. PAST MEDICAL HISTORY: As mentioned above. PAST SURGICAL HISTORY: No significant past surgical history. MEDICATIONS: The patient was discharged today on carbamide peroxide ear drops 2 drops b.i.d. for 5 days, Eliquis 2.5 mg p.o. b.i.d., cefdinir 300 mg p.o. b.i.d., doxycycline 10o mg p.o. b.i.d., Tylenol 325 mg p.o. t.i.d. p.r.n., prednisone 10 mg taper, DuoNebs q. 6 hours p.r.n., azithromycin 500 mg as directed, prednisone 5 mg daily, ferrous sulfate 325 mg p.o. daily, Voltaren b.i.d., atorvastatin 80 mg p.o. daily, MiraLax 17 g p.o. daily p.r.n., isosorbide mononitrate 30 mg p.o. daily, aspirin 81 mg p.o. daily, Nitrostat 0.4 mg sublingual p.r.n., propranolol 20 mg p.o. b.i.d., Colace 100 mg p.o. b.i.d., ipratropium bromide 2 puffs inhalation q.i.d. p.r.n., vitamin D 25 mcg p.o. daily, Breo Ellipta 1 inhalation daily, Lasix 20 mg p.o. daily. FAMILY HISTORY: Significant for father had cancer, brother has diabetes. SOCIAL HISTORY: , lives alone, has caregivers at home. Quit smoking in 1996. No alcohol use, no drug use. REVIEW OF SYSTEMS: As per HPI. Could not get complete review of systems as the patient is very hard of hearing. PHYSICAL EXAMINATION: GENERAL: The patient is alert and awake and oriented, not in acute distress. VITAL SIGNS: Temperature 36.9, pulse 86, respiratory rate 22, blood pressure 124/67, oxygen 93% on 3 liters OxyMask, she was 75% when she came in to the ER. HEENT: Pupils equal, round, and reactive to light. Oral mucosa moist. NECK: No JVD, no neck masses. CARDIOVASCULAR: S1, S2 heard, regular rate and rhythm, no murmur, no gallop. RESPIRATORY SYSTEM: Normal AP diameter. No accessory muscle use. Mild bibasilar crackles. ABDOMEN: Soft, bowel sounds present, nontender. No distention. CENTRAL NERVOUS SYSTEM: Cranial nerves II-XII grossly intact, nonfocal. EXTREMITIES: No edema, no erythema. LABORATORY DATA: WBC 13.2, hemoglobin 11.3, hematocrit 36.2, platelets 333. Venous blood gas, pH of 7.4, pCO2 of 71, pO2 of 29, bicarbonate of 46. Sodium 136, potassium 4.3, chloride 92, bicarbonate 41, BUN 41, creatinine 0.4, serum glucose 114, lactate 1.2, calcium 9.9, magnesium 2.2, total bilirubin 0.7, AST 42, ALT 31, alkaline phosphatase 115. Troponin 1 of 0.07. BNP 3300. Urinalysis, +2 leukocyte esterase. SARS-CoV-2 PCR positive. IMAGING DATA: Chest x-ray, bilateral pleural effusions and right lung opacities. EKG: Normal sinus rhythm at the rate of 83, no acute ST changes seen. ASSESSMENT AND PLAN: This is an 85-year-old female who was recently with COVID and also chronic respiratory failure and chronic obstructive pulmonary disease, who on discharge on driving home, she was hypoxic and brought in. 1. [id number] respiratory failure: Most likely secondary to ongoing pneumonia, recent COVID. Empirically started on cefepime and doxycycline. Follow the CT chest. Continue supportive care and monitor in the tele floor. 2. 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 On p.o. Lasix, which will continue. Will follow the CT scan results. If Significant pleural effusion will consider pulmonary for thoracocentesis. 3. History of atrial fibrillation: Last admission she went to rapid atrial fibrillation. We will monitor. Will continue her home dose propronolol and Eliquis. 4. History of chronic obstructive pulmonary disease: Continue home inhalers. 5. History of coronary artery disease: Continue home medication of aspirin and statin. 6. History of rheumatoid arthritis: On chronic prednisone. Currently placed on prednisone 20 mg, taper back to 5 mg home dose. 7. Hyperlipidemia: Continue statin. 8. History of tremors : On propranolol. 9. Deep venous thrombosis prophylaxis: On Eliquis. 10. Disposition: Closely monitor in the tele floor. Code status: Full code for now as daughter is freeman decided yet.. Disposition to be determined. Addendum: ct chest preliminary report possible aspiration. Changed abx to invanz. speech evaluation FISH
[2020-09-08] MEDS ORDERED: CONSULT PHARMACY PRN (02:41)
[2020-09-08] MEDS ORDERED: CEFEPIME 2,000 MG in SYRINGE 0 ML IV SCH ×2 (03:00→11:00)
[2020-09-08] MEDS: APIXABAN 2.5 MG TAB PO SCH ×3 (03:06→20:13)
[2020-09-08] MEDS: DOXYCYCLINE HYCLATE 100 MG in DEXTROSE 5% 100 ML IV SCH ×2 (03:06→15:51)
[2020-09-08] MEDS ORDERED: CEFEPIME CONSULT ACTIVE PRN ×2 (05:26→08:26)
[2020-09-08 06:46] LABS: Creatinine Clr Calc Pharmacy 71.2 ml/min; Est GFR (Non-African American) 98.3 ml/min
--- NOTE | 2020-09-08 07:01 | XRay Report ---
XR chest 1V portable CLINICAL HISTORY: Dyspnea COMPARISON STUDY: September 07, 2020 FINDINGS: Study is limited due to mild rotation and angulation. No definite pneumothorax seen however evaluation is limited because bilateral lung apices are obscure d by patient's chin.. Bilateral pleural effusion associated with atelectasis/infiltrates at bilateral bases are unchanged since recent prior study. Mild interval improvement in aeration of the right upp er lung. Cardiac silhouette is obscured by surrounding opacities and poorly seen. Pulmonary vasculature is indistinct.. Aorta is tortuous and calcified. Osseous structures: Diffuse osteopenia. Degenerative changes of the spine. IMPRESSION: 1. Stable bilateral pleural effusion associated with atelectasis/infiltrates at bilateral lower lung s. 2. Interval improvement in aeration of the right upper lung which could be due to improvement of the recently seen opacity/atelectasis. 3. Osteopenia 4. Atherosclerosis 5. Limited exam as detailed above. ACT 112: Negative or not required by law. The above report was generated using voice recognition software. It may contain grammatical, syntax o r spelling errors. Electronically signed by: Alisson Escobar DO 09/08/2020 7:00 AM
[2020-09-08] MEDS ORDERED: ERTAPENEM CONSULT ACTIVE PRN (07:29)
--- NOTE | 2020-09-08 08:00 | CT Scan Report ---
CT chest diagnostic wo con CLINICAL HISTORY: Pneumonia, congestive failure. COMPARISON STUDY: 08/24/2020 CT DOSE: 285.04 mGycm TECHNIQUE: CT of the thorax was performed from the thoracic inlet to the lung bases. Images are revi ewed in the axial, sagittal, and coronal planes. IV contrast was not administered for this examinatio n. A dose lowering technique was utilized adhering to the principles of ALARA. FINDINGS: Thyroid: There is a 19 mm right lobe thyroid nodule, similar to the prior study. Thoracic aorta: The thoracic aorta is normal in course and caliber, noting standard 3 vessel arch ananya justin. Heart: The heart is enlarged with coronary calcifications. Lungs and pleural spaces: There is no pneumothorax. There is right middle lobe and lower lobe atelect asis/consolidation. There is narrowing of the bronchus intermedius.. There is a small right pleural e ffusion. There are minor airspace opacities within the base the right upper lobe. Mediastinum: There is no evidence of pathologic mediastinal lymphadenopathy. Danielle: There is no evidence of pathologic hilar adenopathy given the limitations of a noncontrast stud y. Axilla: There is no evidence of pathologic axillary lymphadenopathy. Upper abdomen: There are bilateral renal cysts. There is nonspecific fullness of both renal collecti ng systems. The gallbladder appears mildly distended Skeletal structures: The bones are osteopenic. There are multiple thoracic vertebral body compression fractures. There is an old sternal fracture. IMPRESSION: 1. Narrowing of the bronchus intermedius with right middle lobe and right lower lobe atelectasis/cons olidation. 2. Minor airspace opacities within the base the right upper lobe 3. Small right pleural effusion 4. No evidence of pathologic adenopathy 5. Osteopenia with multiple thoracic vertebral body compression fractures. Old sternal fracture.. ACT 112: Negative or not required by law. Electronically signed by: Saud Chavez M.D. 09/08/2020 7:58 AM
[2020-09-08] MEDS: ERTAPENEM SODIUM 1,000 MG in SODIUM CHLORIDE 0.9% 50 ML IV SCH ×2 (08:21→08:26)
[2020-09-08] MEDS: ASPIRIN 81 MG ECTAB PO SCH (08:22)
[2020-09-08] MEDS: ATORVASTATIN 40 MG TAB PO SCH (08:22)
[2020-09-08] MEDS: CARBAMIDE PEROXIDE 6.5% 15 ML BTL OT SCH ×2 (08:22→20:13)
[2020-09-08] MEDS: CHOLECALCIFEROL 1,000 UNITS 25 MCG TAB PO SCH (08:23)
[2020-09-08] MEDS: DICLOFENAC SOD 1% GEL 100 GM TUBE EXT SCH ×2 (08:23→20:14)
[2020-09-08] MEDS: FLUTICASONE/VILANTEROL 200/25MCG 14 PUFFS/INHALER INH SCH (08:24)
[2020-09-08] MEDS: DOCUSATE SODIUM 100 MG CAP PO SCH ×2 (08:24→20:12)
[2020-09-08] MEDS: FERROUS SULFATE 325 MG TAB PO SCH (08:24)
[2020-09-08] MEDS: ISOSORBIDE MONO EXTENDED REL 30 MG TABCR PO SCH (08:24)
[2020-09-08] MEDS: FUROSEMIDE 20 MG TAB PO SCH (08:24)
[2020-09-08] MEDS: PROPRANOLOL HCL 20 MG TAB PO SCH ×2 (08:25→20:11)
[2020-09-08] MEDS: predniSONE 20 MG TAB PO SCH (08:25)
--- NOTE | 2020-09-08 08:51 | Electrocardiogram Report ---
Test Reason : Blood Pressure : / mmHG Vent. Rate : 083 BPM Atrial Rate : 083 BPM P-R Int : 162 ms QRS Dur : 122 ms QT Int : 392 ms P-R-T Axes : 060 034 -25 degrees QTc Int : 460 ms Poor data quality, interpretation may be adversely affected Normal sinus rhythm Right bundle branch block Old Inferior infarct (cited on or before 24-AUG-2020) Abnormal ECG When compared with ECG of 04-SEP-2020 05:01, Sinus rhythm has replaced Atrial fibrillation Vent. rate has decreased BY 63 BPM Left posterior fascicular block is no longer Present Confirmed by Vicente Wlash ([id number]) on 09/08/2020 8:50:56 AM Referred By: REFERRED SELF Confirmed By:Vicente Walsh
--- NOTE | 2020-09-08 15:11 | Fluoroscopy Report ---
FL video swallow HISTORY: assess for aspiration TECHNIQUE: Video fluoroscopic evaluation of swallowing was performed in the AP and lateral projection s by the speech pathology staff. The patient is fed nectar-thick and thin liquid barium, a barium coa diana wafer, and barium pudding. FLUOROSCOPY TIME: . NUMBER OF FLUOROSCOPY IMAGES: COMPARISON STUDY: None. FINDINGS: Prolonged retention of the contrast material is seen without definite aspiration. IMPRESSION: 1. No definite aspiration identified. 2. Please see the speech pathologist report for detailed findings and recommendations. ACT 112: Negative or not required by law. The above report was generated using voice recognition software. It may contain grammatical, syntax o r spelling errors. Electronically signed by: Alisson Escobar DO 09/08/2020 3:10 PM
[2020-09-08] MEDS: CEFEPIME 2,000 MG in SYRINGE 0 ML IV SCH (15:53)
--- NOTE | 2020-09-08 16:01 | Hospitalist Progress Note ---
Date of Service September 08, 2020 Assessment & Plan (1) Acute and chronic respiratory failure (pmnjv-po-fghjxfz): (2) COVID-19: (3) Pneumonia: per admitting service notes: ASSESSMENT AND PLAN: This is an 85-year-old female who was recently with COVID and also chronic respiratory failure and chronic obstructive pulmonary disease, who on discharge on driving home, she was hypoxic and brought in. 1. Hngjr-ev-pykqtan respiratory failure: Most likely secondary to ongoing pneumonia, recent COVID. Empirically started on cefepime and doxycycline. -- CT chest noted mostly pneumonia small pleural effusion -- continue Cefepime IV + Doxy PO Day 2 -- monitor closely 2. History of diastolic congestive heart failure with valvular heart disease: Last echo, EF of 60%, gxvvxygf-ne-amjeqa MR. -- continue PO Lasix 3. History of atrial fibrillation: Last admission she went to rapid atrial fibrillation. -- continue her home dose propronolol and Eliquis. 4. History of chronic obstructive pulmonary disease: Continue home inhalers. 5. History of coronary artery disease: Continue home medication of aspirin and statin. 6. History of rheumatoid arthritis: On chronic prednisone. Currently placed on prednisone 20 mg, taper back to 5 mg home dose. 7. Hyperlipidemia: Continue statin. 8. History of tremors : On propranolol. 9. Deep venous thrombosis prophylaxis: On Eliquis. 10. Disposition: Closely monitor in the tele floor. Code status: Full code for now as daughter is not decided yet. -- family deciding on transitioning to Rehab Admission and Anticipated Discharge Date Admission Date: September 07, 2020 Subjective ff up for hypoxia, COVID pneumonia, etc seen resting in bed, comfortable on 3 L nasal cannula not in distress denies dyspnea, cough, chest pain no other symptoms Review of Systems Review of Systems: All systems reviewed & are unremarkable except as noted in Subjective Physical Exam Physical Exam: General- oriented x 2, not in distress, speaks in sentences with no effort or accessory muscle use Head- atraumatic Eyes- PERRL, EOMI, anicteric ENT- oropharynx clear Neck- supple, no JVD, no adenopathy, no thyromegaly; carotids +2/2, no bruits appreciated Lungs- mild decreased breath sounds on the right mid to base clear on the left no wheezing Heart- normal rate, regular rhythm; (+) murmur holosystolic Abdomen- normal bowel sounds, nondistended, soft, nontender, no masses or hepatosplenomegaly Extremities- no pretibial edema, no calf tenderness; peripheral pulses intact Neuro- alert, oriented x 1; no new gross focal deficit compared to last admission Skin- warm & dry Results & Data Results & Data ([facility]) Vital Signs (Past 12 Hours) Vital Signs Temp Pulse Pulse Resp BP Pulse Ox 09/08/20 15:31 36.7 C 83 18 106/70 93 09/08/20 11:25 36.5 C 78 18 106/66 95 09/08/20 09:13 76 09/08/20 08:16 36.9 C 93 H 18 125/77 96 Laboratory Results Laboratory Results - last 24 hr 09/07/20 09/07/20 09/07/20 20:44 20:44 20:44 WBC 13.27 H RBC 3.81 L Hgb 11.3 L Hct 36.2 L MCV 95.0 MCH 29.7 MCHC 31.2 L RDW Std Deviation 47.4 H RDW Coeff of Levi 13.7 Plt Count 333 MPV 11.2 H Immature Gran % (Auto) 1.8 Neut % (Auto) 75.5 Lymph % (Auto) 7.6 Tyler % (Auto) 14.1 Eos % (Auto) 0.8 Baso % (Auto) 0.2 Neut # (Auto) 10.01 H Lymph # (Auto) 1.01 L Tyler # (Auto) 1.87 H Eos # (Auto) 0.11 Baso # (Auto) 0.03 Immature Gran # (Auto) 0.24 H VBG pH VBG pCO2 VBG pO2 VBG HCO3 VBG O2 Saturation VBG Base Excess Barometric Pressure Sodium 136 Potassium 4.3 Chloride 92 L Carbon Dioxide 41 H* Anion Gap 3.0 BUN 41 H Creatinine 0.44 L Est Cr Clr Drug Dosing Not Reportable Est GFR ( Amer) 106.7 Est GFR (Non-Af Amer) 92.0 BUN/Creatinine Ratio 94.1 H Glucose 114 H Lactate 1.2 Calcium 9.9 Magnesium 2.2 Total Bilirubin 0.7 AST 42 H ALT 31 Alkaline Phosphatase 115 Troponin I 0.077 H* NT-Pro-B Natriuret Pep 3338 H Total Protein 7.0 Albumin 2.5 L Globulin 4.5 H Albumin/Globulin Ratio 0.6 L Urine Color Urine Appearance Urine pH Ur Specific [place] Urine Protein Urine Glucose (UA) Urine Ketones Urine Blood Urine Nitrite Urine Bilirubin Urine Urobilinogen Ur Leukocyte Esterase Urine WBC (Auto) Urine RBC (Auto) U Hyaline Cast (Auto) U Epithel Cells (Auto) Urine Bacteria (Auto) COVID-19 Eval Order SARS-CoV-2 (PCR) 09/07/20 09/07/20 09/07/20 20:44 21:00 22:04 WBC RBC Hgb Hct MCV MCH MCHC RDW Std Deviation RDW Coeff of Levi Plt Count MPV Immature Gran % (Auto) Neut % (Auto) Lymph % (Auto) Tyler % (Auto) Eos % (Auto) Baso % (Auto) Neut # (Auto) Lymph # (Auto) Tyler # (Auto) Eos # (Auto) Baso # (Auto) Immature Gran # (Auto) VBG pH 7.43 H VBG pCO2 71 H VBG pO2 29 VBG HCO3 46 VBG O2 Saturation 61.8 VBG Base Excess 18.4 Barometric Pressure 737.0 Sodium Potassium Chloride Carbon Dioxide Anion Gap BUN Creatinine Est Cr Clr Drug Dosing Est GFR ( Amer) Est GFR (Non-Af Amer) BUN/Creatinine Ratio Glucose Lactate Calcium Magnesium Total Bilirubin AST ALT Alkaline Phosphatase Troponin I NT-Pro-B Natriuret Pep Total Protein Albumin Globulin Albumin/Globulin Ratio Urine Color Yellow Urine Appearance Clear Urine pH 7.5 Ur Specific [place] 1.010 Urine Protein Trace H Urine Glucose (UA) Negative Urine Ketones Negative Urine Blood Negative Urine Nitrite Negative Urine Bilirubin Negative Urine Urobilinogen Negative Ur Leukocyte Esterase 2+ H Urine WBC (Auto) 10-30 H Urine RBC (Auto) 5-10 H U Hyaline Cast (Auto) 1-5 U Epithel Cells (Auto) >30 H Urine Bacteria (Auto) Negative COVID-19 Eval Order Covid19 at [facility] SARS-CoV-2 (PCR) 09/07/20 09/08/20 22:04 06:03 WBC RBC Hgb Hct MCV MCH MCHC RDW Std Deviation RDW Coeff of Levi Plt Count MPV Immature Gran % (Auto) Neut % (Auto) Lymph % (Auto) Tyler % (Auto) Eos % (Auto) Baso % (Auto) Neut # (Auto) Lymph # (Auto) Tyler # (Auto) Eos # (Auto) Baso # (Auto) Immature Gran # (Auto) VBG pH VBG pCO2 VBG pO2 VBG HCO3 VBG O2 Saturation VBG Base Excess Barometric Pressure Sodium Potassium Chloride Carbon Dioxide Anion Gap BUN Creatinine 0.36 L Est Cr Clr Drug Dosing 71.2 Est GFR ( Amer) 114.0 Est GFR (Non-Af Amer) 98.3 BUN/Creatinine Ratio Glucose Lactate Calcium Magnesium Total Bilirubin AST ALT Alkaline Phosphatase Troponin I NT-Pro-B Natriuret Pep Total Protein Albumin Globulin Albumin/Globulin Ratio Urine Color Urine Appearance Urine pH Ur Specific [place] Urine Protein Urine Glucose (UA) Urine Ketones Urine Blood Urine Nitrite Urine Bilirubin Urine Urobilinogen Ur Leukocyte Esterase Urine WBC (Auto) Urine RBC (Auto) U Hyaline Cast (Auto) U Epithel Cells (Auto) Urine Bacteria (Auto) COVID-19 Eval Order SARS-CoV-2 (PCR) POSITIVE A* (1) Acute and chronic respiratory failure (hjqlp-io-jrcuxmi) Respiratory failure complication: hypoxia Qualified Code(s): J96.21 - Acute and chronic respiratory failure with hypoxia
[2020-09-09] MEDS: CEFEPIME 2,000 MG in SYRINGE 0 ML IV SCH ×2 (03:21→16:16)
[2020-09-09 07:38] LABS: Creatinine Clr Calc Pharmacy 39.1 ml/min; Est GFR (African American) 93.4 ml/min; Est GFR (Non-African American) 80.6 ml/min
[2020-09-09] MEDS: CHOLECALCIFEROL 1,000 UNITS 25 MCG TAB PO SCH (08:57)
[2020-09-09] MEDS: ATORVASTATIN 40 MG TAB PO SCH (08:57)
[2020-09-09] MEDS: ISOSORBIDE MONO EXTENDED REL 30 MG TABCR PO SCH (08:57)
[2020-09-09] MEDS: predniSONE 20 MG TAB PO SCH (08:57)
[2020-09-09] MEDS: APIXABAN 2.5 MG TAB PO SCH ×2 (08:57→21:18)
[2020-09-09] MEDS: DOXYCYCLINE HYCLATE 100 MG CAP PO SCH ×2 (08:57→21:17)
[2020-09-09] MEDS: ASPIRIN 81 MG ECTAB PO SCH (08:58)
[2020-09-09] MEDS: FUROSEMIDE 20 MG TAB PO SCH (08:58)
[2020-09-09] MEDS: FERROUS SULFATE 325 MG TAB PO SCH (08:58)
[2020-09-09] MEDS: DOCUSATE SODIUM 100 MG CAP PO SCH ×2 (08:58→21:16)
[2020-09-09] MEDS: CARBAMIDE PEROXIDE 6.5% 15 ML BTL OT SCH ×2 (08:58→21:18)
[2020-09-09] MEDS: PROPRANOLOL HCL 20 MG TAB PO SCH ×2 (08:58→21:17)
[2020-09-09] MEDS: DICLOFENAC SOD 1% GEL 100 GM TUBE EXT SCH ×2 (08:59→21:19)
[2020-09-09] MEDS: FLUTICASONE/VILANTEROL 200/25MCG 14 PUFFS/INHALER INH SCH (09:02)
--- NOTE | 2020-09-09 10:25 | Hospitalist Progress Note ---
Date of Service September 09, 2020 Assessment & Plan (1) Acute and chronic respiratory failure (sxitd-ny-xlkfvbn): (2) COVID-19: (3) Pneumonia: per admitting service notes: ASSESSMENT AND PLAN: This is an 85-year-old female who was recently with COVID and also chronic respiratory failure and chronic obstructive pulmonary disease, who on discharge on driving home, she was hypoxic and brought in. 1. Vzhyi-rv-berylqw respiratory failure: Most likely secondary to ongoing pneumonia, recent COVID. Empirically started on cefepime and doxycycline. -- CT chest noted mostly pneumonia small pleural effusion -- continue Cefepime IV + Doxy PO Day 3 -- monitor closely 2. History of diastolic congestive heart failure with valvular heart disease: Last echo, EF of 60%, klnhntkt-bl-pibrya MR. -- continue PO Lasix 3. History of atrial fibrillation: Last admission she went to rapid atrial fibrillation. -- continue her home dose propronolol and Eliquis. 4. History of chronic obstructive pulmonary disease: Continue home inhalers. 5. History of coronary artery disease: Continue home medication of aspirin and statin. 6. History of rheumatoid arthritis: On chronic prednisone. Currently placed on prednisone 20 mg, taper back to 5 mg home dose. 7. Hyperlipidemia: Continue statin. 8. History of tremors : On propranolol. 9. Deep venous thrombosis prophylaxis: On Eliquis. 10. Disposition: Closely monitor in the tele floor. Code status: Full code for now as daughter is not decided yet. -- family deciding on transitioning to Rehab Labs checked ROS-No Headache, No Visual Changes, No Nausea, No Vomiting, No Fever, No Chills, No Neck Pain or Stiffness, No Chest Pain, No Palpitations, No SOB, No HERNANDEZ, No Cough, No Sputum, No Wheezing, No Abdominal Pain, No Diarrhea, No Hematemesis, No Hemoptysis, No Unexpected Weight Loss, No Flank pain, No Melena, No Hematochezia, No Frequency, No Urgency, No Burning, No Hematuria, No Rashes, No Diaphoresis. Appetite is Normal Physical Exam Gen-AAO x 3, NAD, Afebrile, NISQUALLY Head-NCAT, EOMI, PERRLA, Anicteric Sclera, No Posterior Pharyngeal Erythema Neck-Supple, No JVD, No Thyromegaly, No Masses, No LAD, No Bruits Lungs-Clear to Auscultation Bilaterally, No Rales, No Rhonchi, No Wheezing, No Crepitus Chest-No S4, +S1, +S2, No S3, No Murmurs, No Rubs, No Gallops, No Ectopy Abdomen-Soft, Bowel Sounds Present, Non Tender, Non Distended, No Hepatomegaly, No Splenomegaly, No Palpable Masses, No Rebound, No Rigidity, No Guarding Musculoskeletal-Full Range of Motion Bilaterally, No CVAT Extremities-No Cyanosis, No Clubbing, No Edema Nuero-Cranial Nerves II-XII grossly intact, Motor WNL, DTRs WNL, Strength WNL, Non Focal Psych-Normal Mood Admission and Anticipated Discharge Date Admission Date: September 07, 2020 Results & Data Results & Data ([facility]) Vital Signs (Past 12 Hours) Vital Signs Temp Pulse Pulse Resp BP Pulse Ox 09/09/20 09:23 92 09/09/20 08:00 78 09/09/20 07:53 36.4 C L 79 20 118/64 100 09/09/20 03:30 36.4 C L 79 18 123/73 100 09/08/20 23:49 36.7 C 72 16 117/70 98 (1) Acute and chronic respiratory failure (ivkvp-cn-tokuind) Respiratory failure complication: hypoxia Qualified Code(s): J96.21 - Acute and chronic respiratory failure with hypoxia
[2020-09-09] MEDS: ACETAMINOPHEN 325 MG TAB PO PRN (21:30)
[2020-09-10] MEDS: CEFEPIME 2,000 MG in SYRINGE 0 ML IV SCH ×2 (04:00→15:45)
[2020-09-10 06:26] LABS: Basophils # (auto) 0.03 K/uL (0-0.2); Basophils % (auto) 0.3 %; Eosinophils # (auto) 0.07 K/uL (0-0.5); Eosinophils % (auto) 0.6 %; Hematocrit (blood only) 32.8 % (37-47); Immature Granulocytes # (auto) 0.14 K/uL (0.00-0.02); Immature Granulocytes % (auto) 1.2 %; Lymphocytes # (auto) 1.06 K/uL (1.2-3.4); Lymphocytes % (auto) 9.2 %; Mean Corpuscular Hemoglobin 28.9 pg (25-34); Mean Corpuscular Hgb Conc 30.5 g/dL (32-36); Mean Corpuscular Volume 94.8 fL (80-100); Mean Platelet Volume 11.2 fL (7.4-10.4); Monocytes # (auto) 1.94 K/uL (0.11-0.59); Monocytes % (auto) 16.8 %; Neutrophils # (auto) 8.34 K/uL (1.4-6.5); Neutrophils % (auto) 71.9 %; Platelet Count 293 K/uL (130-400); RDW Standard Deviation 48.1 fL (36.4-46.3); Red Blood Count 3.46 M/uL (4.2-5.4); White Blood Count 11.58 K/uL (4.8-10.8)
[2020-09-10 07:43] LABS: Albumin Globulin Ratio 0.5 (0.9-2); Albumin Level 2.3 gm/dl (3.4-5.0); Bilirubin,Total 0.5 mg/dl (0.2-1); Calcium 9.4 mg/dl (8.5-10.1); Creatinine Clr Calc Pharmacy 41.4 ml/min; Est GFR (African American) 94.3 ml/min; Est GFR (Non-African American) 81.4 ml/min; Globulin 4.3 gm/dl (2.5-4.0); Potassium 4.3 mmol/L (3.5-5.1); Total Protein 6.6 gm/dl (6.4-8.2)
[2020-09-10] MEDS: CARBAMIDE PEROXIDE 6.5% 15 ML BTL OT SCH ×2 (09:31→20:29)
[2020-09-10] MEDS: predniSONE 20 MG TAB PO SCH (09:32)
[2020-09-10] MEDS: ISOSORBIDE MONO EXTENDED REL 30 MG TABCR PO SCH (09:32)
[2020-09-10] MEDS: ATORVASTATIN 40 MG TAB PO SCH (09:32)
[2020-09-10] MEDS: ASPIRIN 81 MG ECTAB PO SCH (09:32)
[2020-09-10] MEDS: APIXABAN 2.5 MG TAB PO SCH ×2 (09:32→20:28)
[2020-09-10] MEDS: CHOLECALCIFEROL 1,000 UNITS 25 MCG TAB PO SCH (09:32)
[2020-09-10] MEDS: FUROSEMIDE 20 MG TAB PO SCH (09:32)
[2020-09-10] MEDS: DOXYCYCLINE HYCLATE 100 MG CAP PO SCH ×2 (09:32→20:27)
[2020-09-10] MEDS: FERROUS SULFATE 325 MG TAB PO SCH (09:32)
[2020-09-10] MEDS: DOCUSATE SODIUM 100 MG CAP PO SCH ×2 (09:33→20:28)
[2020-09-10] MEDS: PROPRANOLOL HCL 20 MG TAB PO SCH ×2 (09:33→20:27)
[2020-09-10] MEDS: FLUTICASONE/VILANTEROL 200/25MCG 14 PUFFS/INHALER INH SCH (09:33)
[2020-09-10] MEDS: DICLOFENAC SOD 1% GEL 100 GM TUBE EXT SCH ×2 (09:34→20:29)
[2020-09-10] MEDS: ACETAMINOPHEN 325 MG TAB PO PRN (10:06)
--- NOTE | 2020-09-10 16:02 | Critical Care Consultation ---
Date of Consultation September 10, 2020 Assessment & Plan (1) Acute and chronic respiratory failure (vakqg-ws-znrobtt): 85-year-old female with a past medical history of COPD, chronic hypoxic respiratory failure, rheumatoid arthritis on chronic prednisone and coronary artery disease presenting to the hospital due to right lower lobe pneumonia and hypoxemic respiratory failure. Right lower lobe pneumonia: Likely a component of aspiration pneumonia. Agree with continuing cefepime. Doxycycline can be discontinued. Recommend aspiration precautions. This was discussed with the patient's granddaughter at bedside. Recommend repositioning frequently to help promote mucociliary lucy milan. I do not think the patient would tolerate vest therapy and she would not be able to utilize a flutter valve effectively. Acute on chronic hypercapnic respiratory failure: Agree with BiPAP to be utilized anytime when sleeping. Patient was discussed with the granddaughter at bedside. 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 No PFTs available for review, but she does have an extensive smoking history of roughly 40 to 45 years. She is chronically on oxygen at home. Recent COVID-19 illness: No specific interventions required for this. Recommend a palliative care consultation. I had a lengthy discussion with the patient's granddaughter at bedside regarding her CODE STATUS. She indicated that she would like the patient to be a DNR/DNI in the event of worsening respiratory failure or cardiac arrest. We also discussed steps if the patient's condition were to worsen over time. The granddaughter is in agreement that the best approach would be to focus on the patient's comfort. She would like a phone call if this were to occur. Continue IV antibiotics through the weekend and reevaluate on Sunday. Thank you for the consultation. Please call with questions. (2) Pneumonia: (3) Pulmonary hypertension: (4) History of COVID-19: (5) Mitral regurgitation: History of Present Illness Reason for Consultation: Aspiration pneumonia Attending Physician: Elsa Taylor DO History of Present Illness 85-year-old female with a past medical history of chronic respiratory failure on oxygen, rheumatoid arthritis, history of pulmonary embolism and recent COVID-19 illness presenting to the hospital on 09/08/2020 due to hypoxia. She was discharged from the hospital on 09/07/2020 due to COVID-19 illness and a cute on chronic hypoxemic respiratory failure. She was seen by my colleague Dr. Ford on 09/02/2020. She is noted to have severe mitral regurgitation which is leading to secondary pulmonary hypertension. She has significant kyphoscoliosis. Palliative care consultation was recommended at that time. A CT of her chest was completed this admission which demonstrated narrowing of the bronchus intermedius with right middle lobe atelectasis/consolidation. Small right pleural effusion was noted. Videofluoroscopic swallow study completed without definitive evidence of aspiration. She is currently on cefepime and doxycycline. Patient was seen and examined today. The patient's granddaughter was available at bedside. The patient appears comfortable on 2 L of oxygen. She does have a mild, occasionally productive cough. She denies any fevers at present. Most of the history is obtained from the patient's granddaughter. Currently upon discharge from the hospital, she was desaturating in the parking lot and was brought back to the ER. She is fairly functional at baseline. She lives alone with limited assistance. She does have an extensive smoking history and quit smoking roughly 20 to 25 years ago. She started smoking at the age of 16. VBG completed this admission was as follows: 7.3/71. ABG 08/31/2020: 7.44/74/49 on 3 L of oxygen. Allergies Allergy/AdvReac Type Severity Reaction Status Date / Time Penicillins Allergy Unknown RASH Verified 09/07/20 21:42 Home Medications Medication Instructions Recorded Confirmed Type Breo Ellipta 1 ea INHALATION DAILY 08/24/20 09/07/20 History acetaminophen [Tylenol] 325 mg PO QID PRN 08/24/20 09/07/20 History aspirin 81 mg PO DAILY 08/24/20 09/07/20 History atorvastatin 80 mg PO DAILY 08/24/20 09/07/20 History cholecalciferol (vitamin D3) 25 mcg PO DAILY 08/24/20 09/07/20 History [Vitamin D3] diclofenac sodium [Voltaren] 0 g TOPICAL BID 08/24/20 09/07/20 History docusate sodium 100 mg PO BID 08/24/20 09/07/20 History ferrous sulfate [iron] 325 mg PO DAILY 08/24/20 09/07/20 History furosemide 20 mg PO DAILY 08/24/20 09/07/20 History ipratropium bromide 2 puff INHALATION QID PRN 08/24/20 09/07/20 History ipratropium-albuterol 3 ml INHALATION Q6 PRN 08/24/20 09/07/20 History isosorbide mononitrate 30 mg PO DAILY 08/24/20 09/07/20 History nitroglycerin [Nitrostat] 0.4 mg SUBLINGUAL UD PRN 08/24/20 09/07/20 History polyethylene glycol 3350 [Miralax] 17 g PO DAILY PRN 08/24/20 09/07/20 History prednisone 5 mg PO DAILY 08/24/20 09/07/20 History prednisone 10 mg PO .TAPER UD 08/24/20 09/07/20 History propranolol 20 mg PO BID 08/24/20 09/07/20 History apixaban [Eliquis] 2.5 mg PO BID 30 Days #60 tab 09/07/20 09/07/20 Rx carbamide peroxide [Ear Drops 2 drp OTIC (EAR) BID 5 Days #1 ea 09/07/20 09/07/20 Rx (carbamide peroxide)] cefdinir 300 mg PO BID 7 Days #168 ml 09/07/20 09/07/20 Rx doxycycline calcium 10 ml PO BID 7 Days #140 ml 09/07/20 09/07/20 Rx Patient History Medical History CAD (coronary artery disease) Chronic respiratory failure with hypoxia, on home O2 therapy COPD (chronic obstructive pulmonary disease) Essential tremor Hearing loss Osteoporosis Overactive bladder Rheumatoid arthritis Vitamin D deficiency Social History Smoking Status: Smoker, status unknown Hx Alcohol Use: No Hx Substance Use: No Preferred Language: Marshallese Communication Ability: Impaired Communication Ability Comment: [facility] Probate Judge Required: No Beliefs That Will Affect Care: None marital status: / Current Living Situation: Alone Current Living Situation Comment: Lives in assisted living apartment ([place]) current occupational status: retired How many Children do You have: 3 Other Information That Helps Us Care for You: No Feels Safe at Home: Yes Safety Concerns: Feels Safe At This Time Assistive Devices: Oxygen - Continuous and Walker Physical Exam Constitutional: + ill appearing and + frail appearing Respiratory: Decreased lung sounds in the right lower lobe. Cardiovascular: Rate/Rhythm: regular rate and regular rhythm Heart Sounds: + murmur Extremities: no edema Gastrointestinal (Abdomen): normal bowel sounds, soft, nontender, no hepatos plenomegaly Musculoskeletal: no cyanosis or clubbing, extremities motor strength 5/5 Skin: no rashes, warm and dry Neurologic: PERRL, EOMI, accommodation nl, no face palsy, no dysarthria Psychiatric: A+Ox3, euthymic affect Results & Data Results & Data ([facility]) Vital Signs (Past 12 Hours) Vital Signs Temp Pulse Pulse Resp BP Pulse Ox 09/10/20 12:05 97.7 F 72 18 93/55 L 97 09/10/20 08:12 97.7 F 76 18 110/64 100 09/10/20 08:00 71 09/10/20 05:07 97.5 F L 80 18 111/65 100 echo from 08/25/2020 with evidence of moderate to severe mitral regurgitation. Normal LVEF. Left atrium moderately dilated. Aortic valve sclerosis of moderate degree. Mild aortic regurgitation. RVSP pressures of 41 mmHg. Coding Level of Care Code 14428 Inpt Consult Level 5 Diagnoses Acute and chronic respiratory failure (emepf-qs-osngbat) J96.21 Respiratory failure complication: hypoxia Pneumonia J18.9 Pulmonary hypertension I27.20 History of COVID-19 Z86.16 Mitral regurgitation I34.0 (1) Acute and chronic respiratory failure (omudp-qt-ierngbl) Respiratory failure complication: hypoxia Qualified Code(s): J96.21 - Acute and chronic respiratory failure with hypoxia
--- NOTE | 2020-09-10 22:37 | Hospitalist Progress Note ---
Date of Service September 10, 2020 Assessment & Plan (1) Acute and chronic respiratory failure ([id number]): multifactorial etiology. BIPAP qHS. Cont cefepime in poss setting of aspiration. Appreciate pulmonology thoughts. (2) COVID-19: recently completed therapy and is at her baseline from an oxygen need standpint. (3) Pneumonia: Right lower lung pneumonia where despite recent covid status, this was considered to be partly aspiration pneumonia. Aspiration precautions. Cont cefepime and stop doxy based on pulmonary recommendations. Monitor clincial progress throughout the weekend. (4) PAF (paroxysmal atrial fibrillation): Cont Eliquis and propranolol per home regimen. Stable. (5) COPD (chronic obstructive pulmonary disease): chronic, stable, cont home inhalers., Has pulmonary hypertension. Cont chronic home oxygen at 2-3 LPM (6) Rheumatoid arthritis: chronic prednisone. (7) DVT prophylaxis: Eliquis DNR Dispo-uncertain at this time. Elsa Taylor DO [facility] Hospitalist. Admission and Anticipated Discharge Date Admission Date: September 07, 2020 Subjective 85 yo F s/p COVID-19 pneumonia, currently off isolation. Granddaughter is in the room. Patient is altered and somewhat [place]. Review of Systems Review of Systems: Unobtainable due to mental health condition Physical Exam Physical Exam: CONSTITUTIONAL: frail, elderly,, vitals as above, generally well-appearing EYES: normal conjunctivae, no scleral icterus ENT: external ear and nose normal, MMM RESPIRATORY: decreased breath sounds at the right base and some rhonchi on the left base. No rales or wheezes, normal respiratory effort CARDIOVASCULAR: regular rate and rhythm, S1 and 2 heard without murmurs, gallops or rubs, no JVD, no peripheral edema, GASTROINTESTINAL: soft, nontender, nondistended. MUSCULOSKELETAL: strength 5/5 throughout, head is normocephalic and atraumatic, neck supple, normal palpation of chest wall without tenderness SKIN: warm and dry NEUROLOGIC: CN 2-12 grossly intact, awake, no tremor PSYCHIATRIC: alert, somewhat cooperative but also very [place]. Results & Data Results & Data ([facility]) Vital Signs (Past 12 Hours) Vital Signs Temp Pulse Pulse Resp BP Pulse Ox 09/10/20 19:24 36.6 C 67 16 107/63 98 09/10/20 16:16 36.5 C 77 18 118/67 91 09/10/20 16:00 71 09/10/20 15:46 92 09/10/20 12:05 36.5 C 72 18 93/55 L 97 Laboratory Results Short CBC 09/10/20 Range/Units 05:48 WBC 11.58 H (4.8-10.8) K/uL Hgb 10.0 L (12.0-16.0) g/dL Hct 32.8 L (37-47) % Plt Count 293 (130-400) K/uL BMP 09/10/20 05:48 Sodium 139 Potassium 4.3 Chloride 94 L Carbon Dioxide 44 H* BUN 43 H Creatinine 0.64 Glucose 96 Calcium 9.4 Liver Function 09/10/20 Range/Units 05:48 Total Bilirubin 0.5 (0.2-1) mg/dl AST 66 H (15-37) U/L ALT 54 (12-78) U/L Alkaline Phosphatase 102 (45-117) U/L Albumin 2.3 L (3.4-5.0) gm/dl Medications Administered Current Inpatient Medications Acetaminophen (Acetaminophen 325 Mg Tab) 650 mg PO Q4H PRN PRN Reason: Pain or Fever Stop: 10/08/20 02:22 Last Admin: 09/10/20 10:06 Dose: 650 mg Documented by: Albuterol (Albut/Ipratrop 3mg/0.5mg Neb 3 Ml Vial) 3 ml INH Q6 PRN PRN Reason: Shortness Of Breath Or Wheezing Stop: 10/08/20 02:22 Apixaban (Apixaban 2.5 Mg Tab) 2.5 mg PO BID [facility] Stop: 10/08/20 02:22 Last Admin: 09/10/20 20:28 Dose: 2.5 mg Documented by: Aspirin (Aspirin 81 Mg Ectab) 81 mg PO DAILY [facility] Stop: 10/08/20 08:59 Last Admin: 09/10/20 09:32 Dose: 81 mg Documented by: Atorvastatin Calcium (Atorvastatin 40 Mg Tab) 80 mg PO DAILY [facility] Stop: 10/08/20 08:59 Last Admin: 09/10/20 09:32 Dose: 80 mg Documented by: Carbamide Peroxide (Carbamide Peroxide 6.5% 15 Ml Btl) 2 drops OT BID [facility] Stop: 09/12/20 08:59 Last Admin: 09/10/20 20:29 Dose: 2 drops Documented by: Diclofenac Sodium (Diclofenac Sod 1% Gel 100 Gm Tube) 1 gm EXT BID [facility] Stop: 10/08/20 08:59 Last Admin: 09/10/20 20:29 Dose: Not Given Documented by: Docusate Sodium (Docusate Sodium 100 Mg Cap) 100 mg PO BID [facility] Stop: 10/08/20 08:59 Last Admin: 09/10/20 20:28 Dose: 100 mg Documented by: Doxycycline Hyclate (Doxycycline Hyclate 100 Mg Cap) 100 mg PO BID [facility] Stop: 09/23/20 08:59 Last Admin: 09/10/20 20:27 Dose: 100 mg Documented by: Ferrous Sulfate (Ferrous Sulfate 325 Mg Tab) 325 mg PO DAILY [facility] Stop: 10/08/20 08:59 Last Admin: 09/10/20 09:32 Dose: 325 mg Documented by: Fluticasone/Vilanterol (Fluticasone/Vilanterol 200/25mcg 14 Puffs/Inhaler) 1 puffs INH DAILY [facility] Stop: 10/08/20 08:59 Last Admin: 09/10/20 09:33 Dose: 1 puffs Documented by: Furosemide (Furosemide 20 Mg Tab) 20 mg PO DAILY [facility] Stop: 10/08/20 08:59 Last Admin: 09/10/20 09:32 Dose: 20 mg Documented by: Cefepime HCl 2,000 mg/ Syringe 20 mls @ 5 mls/min IV Q12H [facility] Stop: 09/15/20 10:59 Last Admin: 09/10/20 15:45 Dose: 5 mls/min Documented by: Ipratropium [place] (Ipratropium [place] Hfa Inhaler) 2 puffs INH QID PRN PRN Reason: Shortness Of Breath Or Wheezing Stop: 10/08/20 02:22 Isosorbide Mononitrate (Isosorbide [place] Extended Rel 30 Mg Tabcr) 30 mg PO DAILY [facility] Stop: 10/08/20 08:59 Last Admin: 09/10/20 09:32 Dose: 30 mg Documented by: Miscellaneous Information (Cefepime Consult Active) 1 ea N/A UD PRN PRN Reason: Consult Stop: 10/08/20 08:25 Nitroglycerin (Nitroglycerin Sl 0.4 Mg/Tab Tab) 0.4 mg SL UD PRN PRN Reason: Chest Pain Stop: 10/08/20 02:22 Ondansetron HCl (Ondansetron Inj 2 Mg/Ml 2 Ml Vial) 4 mg IV Q6H PRN PRN Reason: Nausea Stop: 10/08/20 02:22 Polyethylene Glycol (Polyethylene (Miralax) 17 Gm Pack) 17 gm PO DAILY PRN PRN Reason: Constipation Stop: 10/08/20 02:22 Prednisone (Prednisone 20 Mg Tab) 20 mg PO DAILY [facility] Stop: 10/08/20 08:59 Last Admin: 09/10/20 09:32 Dose: 20 mg Documented by: Propranolol HCl (Propranolol Hcl 20 Mg Tab) 20 mg PO BID [facility] Stop: 10/08/20 08:59 Last Admin: 09/10/20 20:27 Dose: 20 mg Documented by: Vitamin D (Cholecalciferol 1,000 Units 25 Mcg Tab) 1,000 units PO DAILY [facility] Stop: 10/08/20 08:59 Last Admin: 09/10/20 09:32 Dose: 1,000 units Documented by: (1) Acute and chronic respiratory failure ([id number]) Respiratory failure complication: hypoxia Qualified Code(s): J96.21 - Acute and chronic respiratory failure with hypoxia (2) COPD (chronic obstructive pulmonary disease) COPD type: unspecified COPD Qualified Code(s): J44.9 - Chronic obstructive pulmonary disease, unspecified
[2020-09-11] MEDS: CEFEPIME 2,000 MG in SYRINGE 0 ML IV SCH ×2 (03:32→15:11)
[2020-09-11 05:50] LABS: Hematocrit (blood only) 31.5 % (37-47); Hemoglobin 9.5 g/dL (12.0-16.0); Mean Corpuscular Hgb Conc 30.2 g/dL (32-36); Platelet Count 267 K/uL (130-400); RDW Standard Deviation 49.1 fL (36.4-46.3); Red Blood Count 3.28 M/uL (4.2-5.4)
[2020-09-11 06:38] LABS: BUN Creatinine Ratio 77.4 (10-20); C Reactive Protein 1.07 mg/dl (0-0.29); Calcium 8.9 mg/dl (8.5-10.1); Creatinine Clr Calc Pharmacy 58.9 ml/min; Est GFR (African American) 105.9 ml/min; Est GFR (Non-African American) 91.4 ml/min; Potassium 4.4 mmol/L (3.5-5.1)
[2020-09-11] MEDS: ASPIRIN 81 MG ECTAB PO SCH (08:58)
[2020-09-11] MEDS: CHOLECALCIFEROL 1,000 UNITS 25 MCG TAB PO SCH (08:58)
[2020-09-11] MEDS: DOCUSATE SODIUM 100 MG CAP PO SCH ×2 (08:58→21:10)
[2020-09-11] MEDS: FERROUS SULFATE 325 MG TAB PO SCH (08:58)
[2020-09-11] MEDS: CARBAMIDE PEROXIDE 6.5% 15 ML BTL OT SCH ×2 (08:58→21:10)
[2020-09-11] MEDS: PROPRANOLOL HCL 20 MG TAB PO SCH ×2 (08:59→21:10)
[2020-09-11] MEDS: predniSONE 20 MG TAB PO SCH (08:59)
[2020-09-11] MEDS: DICLOFENAC SOD 1% GEL 100 GM TUBE EXT SCH ×3 (08:59→21:14)
[2020-09-11] MEDS: DOXYCYCLINE HYCLATE 100 MG CAP PO SCH (08:59)
[2020-09-11] MEDS: FUROSEMIDE 20 MG TAB PO SCH (08:59)
[2020-09-11] MEDS: ATORVASTATIN 40 MG TAB PO SCH (09:00)
[2020-09-11] MEDS: FLUTICASONE/VILANTEROL 200/25MCG 14 PUFFS/INHALER INH SCH (09:15)
[2020-09-11] MEDS: APIXABAN 2.5 MG TAB PO SCH ×2 (13:19→21:10)
[2020-09-11] MEDS: ISOSORBIDE MONO EXTENDED REL 30 MG TABCR PO SCH (13:19)
--- NOTE | 2020-09-11 22:15 | Hospitalist Progress Note ---
Date of Service September 11, 2020 Assessment & Plan (1) Acute and chronic respiratory failure ([id number]): multifactorial etiology-resolved to baseline oxygen needs. BIPAP qHS. Cont cefepime in poss setting of aspiration. Doxy stopped per pulmonary recommendations. (2) COVID-19: recently completed therapy and is at her baseline from an oxygen need standpoint. Cont supportive care and mobilizing her out of bed as able. (3) Pneumonia: Right lower lung pneumonia where despite recent covid status, this was considered to be partly aspiration pneumonia. Aspiration precautions. Cont abx. Monitor clinical progress throughout the weekend. (4) PAF (paroxysmal atrial fibrillation): Cont Eliquis and propranolol per home regimen. Stable. (5) COPD (chronic obstructive pulmonary disease): chronic, stable, cont home inhalers., Has pulmonary hypertension. Cont chronic home oxygen at 2-3 LPM (6) Rheumatoid arthritis: chronic prednisone. She was placed on 20mg daily and has been on this for several days, will taper her back to her home dose of 5mg PO daily. (7) DVT prophylaxis: Bryan DNR Dispo-uncertain at this time. She was evaluated by therapy and OK to retunr home with 30/10 care-no further PT services needed at this time. Appreciate nursing ambulating her TID as able. Elsa Taylor DO [facility] Hospitalist. Admission and Anticipated Discharge Date Admission Date: September 07, 2020 Subjective 85 yo F s/p COVID-19 pneumonia, currently off isolation. She is doing well overall and is not having any pain or other issues. She is on her baseline oxygen per home settings and denies any respiratory issues today. Still very weak and deconditioned and [place]. Oriented. Review of Systems Review of Systems: All systems reviewed & are unremarkable except as noted in Subjective Physical Exam Physical Exam: CONSTITUTIONAL: frail, elderly, vitals as above, generally well-appearing EYES: normal conjunctivae, no scleral icterus ENT: external ear and nose normal, MMM RESPIRATORY: Clear lungs to auscultation throughout. No rales or wheezes, normal respiratory effort CARDIOVASCULAR: regular rate and rhythm, S1 and 2 heard without murmurs, gallops or rubs, no JVD, no peripheral edema, GASTROINTESTINAL: soft, nontender, nondistended. MUSCULOSKELETAL: strength 5/5 throughout, head is normocephalic and atraumatic, neck supple, normal palpation of chest wall without tenderness SKIN: warm and dry NEUROLOGIC: CN 2-12 grossly intact, awake, no tremor PSYCHIATRIC: alert, oriented to person, place and time. Cooperative and hard of hearing. Results & Data Results & Data ([facility]) Vital Signs (Past 12 Hours) Vital Signs Temp Pulse Pulse Resp BP BP Pulse Ox 09/11/20 22:13 36.7 C 76 18 101/64 98 09/11/20 18:38 36.8 C 85 18 104/64 95 09/11/20 15:52 76 09/11/20 15:20 36.9 C 79 18 106/57 L 96 09/11/20 11:38 36.7 C 77 18 103/61 100 Laboratory Results Short CBC 09/11/20 Range/Units 05:23 WBC 12.20 H (4.8-10.8) K/uL Hgb 9.5 L (12.0-16.0) g/dL Hct 31.5 L (37-47) % Plt Count 267 (130-400) K/uL BMP 09/11/20 05:23 Sodium 138 Potassium 4.4 Chloride 96 L Carbon Dioxide 41 H* BUN 35 H Creatinine 0.45 L Glucose 94 Calcium 8.9 Medications Administered Current Inpatient Medications Acetaminophen (Acetaminophen 325 Mg Tab) 650 mg PO Q4H PRN PRN Reason: Pain or Fever Stop: 10/08/20 02:22 Last Admin: 09/10/20 10:06 Dose: 650 mg Documented by: Albuterol (Albut/Ipratrop 3mg/0.5mg Neb 3 Ml Vial) 3 ml INH Q6 PRN PRN Reason: Shortness Of Breath Or Wheezing Stop: 10/08/20 02:22 Apixaban (Apixaban 2.5 Mg Tab) 2.5 mg PO BID [facility] Stop: 10/08/20 02:22 Last Admin: 09/11/20 21:10 Dose: 2.5 mg Documented by: Aspirin (Aspirin 81 Mg Ectab) 81 mg PO DAILY [facility] Stop: 10/08/20 08:59 Last Admin: 09/11/20 08:58 Dose: 81 mg Documented by: Atorvastatin Calcium (Atorvastatin 40 Mg Tab) 80 mg PO DAILY [facility] Stop: 10/08/20 08:59 Last Admin: 09/11/20 09:00 Dose: 80 mg Documented by: Carbamide Peroxide (Carbamide Peroxide 6.5% 15 Ml Btl) 2 drops OT BID [facility] Stop: 09/12/20 08:59 Last Admin: 09/11/20 21:10 Dose: 2 drops Documented by: Diclofenac Sodium (Diclofenac Sod 1% Gel 100 Gm Tube) 1 gm EXT BID [facility] Stop: 10/08/20 08:59 Last Admin: 09/11/20 21:14 Dose: Not Given Documented by: Docusate Sodium (Docusate Sodium 100 Mg Cap) 100 mg PO BID [facility] Stop: 10/08/20 08:59 Last Admin: 09/11/20 21:10 Dose: 100 mg Documented by: Ferrous Sulfate (Ferrous Sulfate 325 Mg Tab) 325 mg PO DAILY [facility] Stop: 10/08/20 08:59 Last Admin: 09/11/20 08:58 Dose: 325 mg Documented by: Fluticasone/Vilanterol (Fluticasone/Vilanterol 200/25mcg 14 Puffs/Inhaler) 1 puffs INH DAILY [facility] Stop: 10/08/20 08:59 Last Admin: 09/11/20 09:15 Dose: 1 puffs Documented by: Furosemide (Furosemide 20 Mg Tab) 20 mg PO DAILY [facility] Stop: 10/08/20 08:59 Last Admin: 09/11/20 08:59 Dose: 20 mg Documented by: Cefepime HCl 2,000 mg/ Syringe 20 mls @ 5 mls/min IV Q12H [facility] Stop: 09/15/20 10:59 Last Admin: 09/11/20 15:11 Dose: 5 mls/min Documented by: Ipratropium [place] (Ipratropium [place] Hfa Inhaler) 2 puffs INH QID PRN PRN Reason: Shortness Of Breath Or Wheezing Stop: 10/08/20 02:22 Isosorbide Mononitrate (Isosorbide [place] Extended Rel 30 Mg Tabcr) 30 mg PO DAILY [facility] Stop: 10/08/20 08:59 Last Admin: 09/11/20 13:19 Dose: 30 mg Documented by: Miscellaneous Information (Cefepime Consult Active) 1 ea N/A UD PRN PRN Reason: Consult Stop: 10/08/20 08:25 Nitroglycerin (Nitroglycerin Sl 0.4 Mg/Tab Tab) 0.4 mg SL UD PRN PRN Reason: Chest Pain Stop: 10/08/20 02:22 Ondansetron HCl (Ondansetron Inj 2 Mg/Ml 2 Ml Vial) 4 mg IV Q6H PRN PRN Reason: Nausea Stop: 10/08/20 02:22 Polyethylene Glycol (Polyethylene (Miralax) 17 Gm Pack) 17 gm PO DAILY PRN PRN Reason: Constipation Stop: 10/08/20 02:22 Prednisone (Prednisone 20 Mg Tab) 20 mg PO DAILY [facility] Stop: 10/08/20 08:59 Last Admin: 09/11/20 08:59 Dose: 20 mg Documented by: Propranolol HCl (Propranolol Hcl 20 Mg Tab) 20 mg PO BID [facility] Stop: 10/08/20 08:59 Last Admin: 09/11/20 21:10 Dose: 20 mg Documented by: Vitamin D (Cholecalciferol 1,000 Units 25 Mcg Tab) 1,000 units PO DAILY [facility] Stop: 10/08/20 08:59 Last Admin: 09/11/20 08:58 Dose: 1,000 units Documented by: (1) Acute and chronic respiratory failure ([id number]) Respiratory failure complication: hypoxia Qualified Code(s): J96.21 - Acute and chronic respiratory failure with hypoxia (2) COPD (chronic obstructive pulmonary disease) COPD type: unspecified COPD Qualified Code(s): J44.9 - Chronic obstructive pulmonary disease, unspecified
[2020-09-12] MEDS: CEFEPIME 2,000 MG in SYRINGE 0 ML IV SCH ×2 (03:39→15:55)
[2020-09-12] MEDS: FLUTICASONE/VILANTEROL 200/25MCG 14 PUFFS/INHALER INH SCH (09:06)
[2020-09-12] MEDS: PROPRANOLOL HCL 20 MG TAB PO SCH ×2 (09:06→21:01)
[2020-09-12] MEDS: APIXABAN 2.5 MG TAB PO SCH ×2 (09:06→20:58)
[2020-09-12] MEDS: ASPIRIN 81 MG ECTAB PO SCH (09:07)
[2020-09-12] MEDS: ATORVASTATIN 40 MG TAB PO SCH (09:07)
[2020-09-12] MEDS: FUROSEMIDE 20 MG TAB PO SCH (09:08)
[2020-09-12] MEDS: ISOSORBIDE MONO EXTENDED REL 30 MG TABCR PO SCH (09:08)
[2020-09-12] MEDS: CHOLECALCIFEROL 1,000 UNITS 25 MCG TAB PO SCH (09:09)
[2020-09-12] MEDS: predniSONE 20 MG TAB PO SCH (09:09)
[2020-09-12] MEDS: FERROUS SULFATE 325 MG TAB PO SCH (09:09)
[2020-09-12] MEDS: DICLOFENAC SOD 1% GEL 100 GM TUBE EXT SCH ×2 (09:10→21:06)
[2020-09-12] MEDS: DOCUSATE SODIUM 100 MG CAP PO SCH ×2 (09:12→21:05)
--- NOTE | 2020-09-12 12:09 | Hospitalist Progress Note ---
Date of Service September 12, 2020 Assessment & Plan (1) Acute and chronic respiratory failure ([id number]): multifactorial etiology-resolved to baseline oxygen needs. BIPAP qHS-may consider discharge on Trilogy if family would like to pursue this as an option. Cont cefepime in poss setting of aspiration. Doxy stopped per pulmonary recommendations. (2) COVID-19: recently completed therapy and is at her baseline from an oxygen need standpoint. Cont supportive care and mobilizing her out of bed as able. (3) Pneumonia: Right lower lung pneumonia where despite recent covid status, this was considered to be partly aspiration pneumonia. Aspiration precautions. Cont abx for 7 day course. Monitor clinical progress throughout the weekend. Improved overall. (4) PAF (paroxysmal atrial fibrillation): Cont Eliquis and propranolol per home regimen. Stable. (5) COPD (chronic obstructive pulmonary disease): chronic, stable, cont home inhalers., Has pulmonary hypertension. Cont chronic home oxygen at 2-3 LPM (6) Rheumatoid arthritis: chronic prednisone. She was placed on 20mg daily and has been on this for several days, will taper her back to her home dose of 5mg PO daily. (7) DVT prophylaxis: Bryan DNR Dispo-uncertain at this time. She was evaluated by therapy and OK to return home with 24/7 care-no further PT services needed at this time. I did speak with her granddaughter by phone for about 30 minutes, who states that although she has multiple children they are unreliable to help. She is not POA. she lives in [place], it is difficult to provide 24/7 care. She is coming up with gaps in nursing care ordered for home. It may be a better and safer option to proceed with SNF placement with possible long-term transition into a fpc environment or other personal care. Appreciate case management assistance with this. Elsa Taylor DO [facility] Hospitalist. Admission and Anticipated Discharge Date Admission Date: September 07, 2020 Subjective 85 yo F s/p COVID-19 pneumonia, currently off isolation. She is doing well overall and is not having any pain or other issues. She is on her baseline oxygen per home settings and denies any respiratory issues today. Still very weak and deconditioned and [place]. Oriented. Review of Systems Review of Systems: Other most systems reviewed and negative, however, questioning is limited because of hearing issues. Physical Exam Physical Exam: CONSTITUTIONAL: frail, elderly, vitals as above, generally well-appearing EYES: normal conjunctivae, no scleral icterus ENT: external ear and nose normal, MMM RESPIRATORY: Clear lungs to auscultation throughout. No rales or wheezes, normal respiratory effort CARDIOVASCULAR: regular rate and rhythm, S1 and 2 heard without murmurs, gallops or rubs, no JVD, no peripheral edema, GASTROINTESTINAL: soft, nontender, nondistended. MUSCULOSKELETAL: strength 5/5 throughout, head is normocephalic and atraumatic, neck supple, normal palpation of chest wall without tenderness SKIN: warm and dry NEUROLOGIC: CN 2-12 grossly intact, awake, no tremor PSYCHIATRIC: alert, oriented to person, place and time. Cooperative and hard of hearing. Results & Data Results & Data ([facility]) Vital Signs (Past 12 Hours) Vital Signs Temp Pulse Pulse Resp BP Pulse Ox 09/12/20 11:10 36.5 C 76 18 106/63 96 09/12/20 07:27 73 09/12/20 06:44 36.6 C 73 16 120/58 L 98 09/12/20 03:50 36.6 C 73 16 113/67 98 Medications Administered Current Inpatient Medications Acetaminophen (Acetaminophen 325 Mg Tab) 650 mg PO Q4H PRN PRN Reason: Pain or Fever Stop: 10/08/20 02:22 Last Admin: 09/10/20 10:06 Dose: 650 mg Documented by: Albuterol (Albut/Ipratrop 3mg/0.5mg Neb 3 Ml Vial) 3 ml INH Q6 PRN PRN Reason: Shortness Of Breath Or Wheezing Stop: 10/08/20 02:22 Apixaban (Apixaban 2.5 Mg Tab) 2.5 mg PO BID [facility] Stop: 10/08/20 02:22 Last Admin: 09/12/20 09:06 Dose: 2.5 mg Documented by: Aspirin (Aspirin 81 Mg Ectab) 81 mg PO DAILY [facility] Stop: 10/08/20 08:59 Last Admin: 09/12/20 09:07 Dose: 81 mg Documented by: Atorvastatin Calcium (Atorvastatin 40 Mg Tab) 80 mg PO DAILY [facility] Stop: 10/08/20 08:59 Last Admin: 09/12/20 09:07 Dose: 80 mg Documented by: Diclofenac Sodium (Diclofenac Sod 1% Gel 100 Gm Tube) 1 gm EXT BID [facility] Stop: 10/08/20 08:59 Last Admin: 09/12/20 09:10 Dose: 1 gm Documented by: Docusate Sodium (Docusate Sodium 100 Mg Cap) 100 mg PO BID [facility] Stop: 10/08/20 08:59 Last Admin: 09/12/20 09:12 Dose: 100 mg Documented by: Ferrous Sulfate (Ferrous Sulfate 325 Mg Tab) 325 mg PO DAILY [facility] Stop: 10/08/20 08:59 Last Admin: 09/12/20 09:09 Dose: 325 mg Documented by: Fluticasone/Vilanterol (Fluticasone/Vilanterol 200/25mcg 14 Puffs/Inhaler) 1 puffs INH DAILY [facility] Stop: 10/08/20 08:59 Last Admin: 09/12/20 09:06 Dose: 1 puffs Documented by: Furosemide (Furosemide 20 Mg Tab) 20 mg PO DAILY [facility] Stop: 10/08/20 08:59 Last Admin: 09/12/20 09:08 Dose: 20 mg Documented by: Cefepime HCl 2,000 mg/ Syringe 20 mls @ 5 mls/min IV Q12H [facility] Stop: 09/15/20 10:59 Last Admin: 09/12/20 03:39 Dose: 5 mls/min Documented by: Ipratropium [place] (Ipratropium [place] Hfa Inhaler) 2 puffs INH QID PRN PRN Reason: Shortness Of Breath Or Wheezing Stop: 10/08/20 02:22 Isosorbide Mononitrate (Isosorbide [place] Extended Rel 30 Mg Tabcr) 30 mg PO DAILY [facility] Stop: 10/08/20 08:59 Last Admin: 09/12/20 09:08 Dose: 30 mg Documented by: Miscellaneous Information (Cefepime Consult Active) 1 ea N/A UD PRN PRN Reason: Consult Stop: 10/08/20 08:25 Nitroglycerin (Nitroglycerin Sl 0.4 Mg/Tab Tab) 0.4 mg SL UD PRN PRN Reason: Chest Pain Stop: 10/08/20 02:22 Ondansetron HCl (Ondansetron Inj 2 Mg/Ml 2 Ml Vial) 4 mg IV Q6H PRN PRN Reason: Nausea Stop: 10/08/20 02:22 Polyethylene Glycol (Polyethylene (Miralax) 17 Gm Pack) 17 gm PO DAILY PRN PRN Reason: Constipation Stop: 10/08/20 02:22 Prednisone (Prednisone 5 Mg Tab) 10 mg PO DAILY@1000 GRISELDA; Taper Stop: 10/16/20 09:59 Propranolol HCl (Propranolol Hcl 20 Mg Tab) 20 mg PO BID [facility] Stop: 10/08/20 08:59 Last Admin: 09/12/20 09:06 Dose: 20 mg Documented by: Vitamin D (Cholecalciferol 1,000 Units 25 Mcg Tab) 1,000 units PO DAILY [facility] Stop: 10/08/20 08:59 Last Admin: 09/12/20 09:09 Dose: 1,000 units Documented by: (1) Acute and chronic respiratory failure ([id number]) Respiratory failure complication: hypoxia Qualified Code(s): J96.21 - Acute and chronic respiratory failure with hypoxia (2) COPD (chronic obstructive pulmonary disease) COPD type: unspecified COPD Qualified Code(s): J44.9 - Chronic obstructive pulmonary disease, unspecified
--- NOTE | 2020-09-12 12:23 | Pulmonology Progress Note ---
Date of Service September 12, 2020 Assessment & Plan (1) Acute and chronic respiratory failure ([id number]): 85-year-old female with a past medical history of COPD, chronic hypoxic respiratory failure, rheumatoid arthritis on chronic prednisone and coronary artery disease presenting to the hospital due to right lower lobe pneumonia and hypoxemic respiratory failure. Right lower lobe pneumonia: Likely a component of aspiration pneumonia. Agree with continuing cefepime. Can transition to p.o. Augmentin upon discharge for a total of 7 days. Recommend aspiration precautions. Recommend repositioning frequently to help promote mucociliary clearance. I do not think the patient would tolerate vest therapy and she would not be able to utilize a flutter valve effectively. There is narrowing noted in the bronchus intermedius with atelectasis in the right middle lobe. Do not think that she would tolerate bronchoscopy at this time her advanced age, hypoxia and propensity towards delirium. Pleural effusion: The right pleural effusion is small and likely a simple parapneumonic pleural effusion. No indication for thoracentesis at this time. Acute on chronic hypercapnic respiratory failure: Agree with BiPAP to be utilized anytime when sleeping. Trilogy ventilator can be considered upon discharge. 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 No PFTs available for review, but she does have an extensive smoking history of roughly 40 to 45 years. She is chronically on oxygen at home. Recent COVID-19 illness: No specific interventions required for this. Recommend a palliative care consultation. Pulmonary will sign off. Please call with questions. Respiratory failure complication: hypoxia Qualified Code(s): J96.21 - Acute and chronic respiratory failure with hypoxia (2) Pneumonia: (3) Pulmonary hypertension: (4) History of COVID-19: (5) Mitral regurgitation: (6) Pleural effusion: Admission and Anticipated Discharge Date Admission Date: September 07, 2020 Subjective Patient seen and examined at bedside. Is intermittently confused. She is profoundly hard of hearing and thus review of systems is limited. She denies any shortness of breath at present. She would like to go home. She is asking for her granddaughter. Review of Systems Review of Systems: All systems reviewed & are unremarkable except as noted in HPI & below Physical Exam Constitutional: + ill appearing and + frail appearing Respiratory: Decreased lung sounds in the right lower lobe. Cardiovascular: Rate/Rhythm: regular rate and regular rhythm Heart Sounds: + murmur Extremities: no edema Gastrointestinal (Abdomen): normal bowel sounds, soft, nontender, no hepa tosplenomegaly Musculoskeletal: no cyanosis or clubbing, extremities motor strength 5/5 Skin: no rashes, warm and dry Neurologic: PERRL, EOMI, accommodation nl, no face palsy, no dysarthria Psychiatric: A+Ox3, euthymic affect Results & Data Results & Data ([facility]) Vital Signs (Past 12 Hours) Vital Signs Temp Pulse Pulse Resp BP Pulse Ox 09/12/20 11:10 97.7 F 76 18 106/63 96 09/12/20 07:27 73 09/12/20 06:44 97.9 F 73 16 120/58 L 98 09/12/20 03:50 97.9 F 73 16 113/67 98 Vital signs, labs and imaging. PG Care Time/CCT Total # of Minutes Spent Total Time Spent with Patient: Total time spent is greater than 50% in coordination of care (as documented) at patient's floor/unit and/or counseling patient: Coding Level of Care Code 80220 Subseq Hosp Care Lvl 3 Diagnoses Acute and chronic respiratory failure ([id number]) J96.21 Respiratory failure complication: hypoxia Pneumonia J18.9 Pulmonary hypertension I27.20 History of COVID-19 Z86.16 Mitral regurgitation I34.0 Pleural effusion J90
[2020-09-13] MEDS: CEFEPIME 2,000 MG in SYRINGE 0 ML IV SCH ×2 (03:45→15:18)
[2020-09-13] MEDS: PROPRANOLOL HCL 20 MG TAB PO SCH ×2 (08:00→21:02)
[2020-09-13] MEDS: CHOLECALCIFEROL 1,000 UNITS 25 MCG TAB PO SCH (08:00)
[2020-09-13] MEDS: ATORVASTATIN 40 MG TAB PO SCH (08:00)
[2020-09-13] MEDS: FUROSEMIDE 20 MG TAB PO SCH (08:00)
[2020-09-13] MEDS: ISOSORBIDE MONO EXTENDED REL 30 MG TABCR PO SCH (08:01)
[2020-09-13] MEDS: FLUTICASONE/VILANTEROL 200/25MCG 14 PUFFS/INHALER INH SCH (08:01)
[2020-09-13] MEDS: ASPIRIN 81 MG ECTAB PO SCH (08:01)
[2020-09-13] MEDS: FERROUS SULFATE 325 MG TAB PO SCH (08:01)
[2020-09-13] MEDS: APIXABAN 2.5 MG TAB PO SCH ×2 (08:02→21:03)
[2020-09-13] MEDS: DICLOFENAC SOD 1% GEL 100 GM TUBE EXT SCH ×2 (08:06→21:03)
[2020-09-13] MEDS: DOCUSATE SODIUM 100 MG CAP PO SCH ×2 (08:06→21:04)
[2020-09-13 08:12] LABS: Hematocrit (blood only) 31.9 % (37-47); Hemoglobin 9.7 g/dL (12.0-16.0); Mean Corpuscular Hemoglobin 28.8 pg (25-34); Mean Corpuscular Hgb Conc 30.4 g/dL (32-36); Mean Corpuscular Volume 94.7 fL (80-100); Mean Platelet Volume 10.8 fL (7.4-10.4); Platelet Count 255 K/uL (130-400); RDW Coefficient of Variation 14.2 % (11.5-14.5); RDW Standard Deviation 48.6 fL (36.4-46.3); Red Blood Count 3.37 M/uL (4.2-5.4); White Blood Count 13.77 K/uL (4.8-10.8)
[2020-09-13 08:46] LABS: BUN Creatinine Ratio 69.1 (10-20); C Reactive Protein 0.73 mg/dl (0-0.29); Calcium 8.8 mg/dl (8.5-10.1); Creatinine Clr Calc Pharmacy 60.9 ml/min; Est GFR (African American) 107.5 ml/min; Est GFR (Non-African American) 92.7 ml/min; Potassium 4.4 mmol/L (3.5-5.1)
--- NOTE | 2020-09-13 10:15 | Palliative Care Consultation ---
Date of Consultation September 13, 2020 Assessment & Plan (1) Palliative care encounter: I met with Sahra at bedside along with Trinity from [facility]. We talked about who she would want to make decisions for her if she were too sick to do that. She was very clear that she would want her granddaughter, Karie, to be her healthcare POA. She tells me that she would want Karie to take care of her. Sahra asked me if she was going to be ok. We talked about her having had some improvement but overall, she is still very sick. She said to me "When I go, I don't want needles or things, I want it to be quiet." She is DNR/DNI. She has said that she would like to return home after discharge. She does have caregivers at home though Karie says that there are gaps in care and that it is difficult for her to coordinate from her home in [place]. Karie and I discussed overall goal of her care being comfort. She would like her to be able to remain at home and possibly have antibiotics or fluids at home if indicated but overall goal is comfort. We discussed hospice care as additional support for Sahra at home. She would like to have hospice for her. We discussed POLST form and POLST completed per this discussion for DNR/DNI, comfort measures, determine antibiotics at time, trial of hydration if indicated. She will review and sign when she comes to visit Sahra later today. (2) Acute and chronic respiratory failure (wboat-cq-dhkiyga): Respiratory failure complication: hypoxia Qualified Code(s): J96.21 - Acute and chronic respiratory failure with hypoxia (3) COPD (chronic obstructive pulmonary disease): COPD type: unspecified COPD Qualified Code(s): J44.9 - Chronic obstructive pulmonary disease, unspecified (4) CAD (coronary artery disease): (5) History of COVID-19: (6) Pulmonary hypertension: History of Present Illness Reason for Consultation: goals of care Requesting Physician: Dr. Taylor Attending Physician: Solis Nayak MD History of Present Illness 85 yo lady who had been living on her own with caregivers. She has a history of COPD, CAD and pulmonary hypertension. She had been hospitalized previously with Covid 19 infection and pneumonia. She was discharged but returned with hypoxia which appears to be aspiration in addition to her previous covid infection and chronic respiratory failure with COPD. She was evaluated by speech therapy and is on a pureed diet with no straws. She is currently at her baseline O2 requirement of 2-3 LPM and denies feeling short of breath at rest. She is quite frail but has been evaluated by PT and is able to stand and pivot to commode with assistance. Allergies Allergy/AdvReac Type Severity Reaction Status Date / Time Penicillins Allergy Unknown RASH Verified 09/07/20 21:42 Home Medications Medication Instructions Recorded Confirmed Type Breo Ellipta 1 ea INHALATION DAILY 08/24/20 09/07/20 History acetaminophen [Tylenol] 325 mg PO QID PRN 08/24/20 09/07/20 History aspirin 81 mg PO DAILY 08/24/20 09/07/20 History atorvastatin 80 mg PO DAILY 08/24/20 09/07/20 History cholecalciferol (vitamin D3) 25 mcg PO DAILY 08/24/20 09/07/20 History [Vitamin D3] diclofenac sodium [Voltaren] 0 g TOPICAL BID 08/24/20 09/07/20 History docusate sodium 100 mg PO BID 08/24/20 09/07/20 History ferrous sulfate [iron] 325 mg PO DAILY 08/24/20 09/07/20 History furosemide 20 mg PO DAILY 08/24/20 09/07/20 History ipratropium bromide 2 puff INHALATION QID PRN 08/24/20 09/07/20 History ipratropium-albuterol 3 ml INHALATION Q6 PRN 08/24/20 09/07/20 History isosorbide mononitrate 30 mg PO DAILY 08/24/20 09/07/20 History nitroglycerin [Nitrostat] 0.4 mg SUBLINGUAL UD PRN 08/24/20 09/07/20 History polyethylene glycol 3350 [Miralax] 17 g PO DAILY PRN 08/24/20 09/07/20 History prednisone 5 mg PO DAILY 08/24/20 09/07/20 History prednisone 10 mg PO .TAPER UD 08/24/20 09/07/20 History propranolol 20 mg PO BID 08/24/20 09/07/20 History apixaban [Eliquis] 2.5 mg PO BID 30 Days #60 tab 09/07/20 09/07/20 Rx carbamide peroxide [Ear Drops 2 drp OTIC (EAR) BID 5 Days #1 ea 09/07/20 09/07/20 Rx (carbamide peroxide)] cefdinir 300 mg PO BID 7 Days #168 ml 09/07/20 09/07/20 Rx doxycycline calcium 10 ml PO BID 7 Days #140 ml 09/07/20 09/07/20 Rx Patient History Medical History CAD (coronary artery disease) Chronic respiratory failure with hypoxia, on home O2 therapy COPD (chronic obstructive pulmonary disease) Essential tremor Hearing loss History of COVID-19 Mitral regurgitation Osteoporosis Overactive bladder Pleural effusion Rheumatoid arthritis Vitamin D deficiency Social History Smoking Status: Smoker, status unknown Hx Alcohol Use: No Hx Substance Use: No Preferred Language: Tajik Communication Ability: Impaired Communication Ability Comment: [facility] [employer] Required: No Beliefs That Will Affect Care: None marital status: / Current Living Situation: Alone Current Living Situation Comment: Lives in assisted living apartment ([facility]) current occupational status: retired How many Children do You have: 3 Other Information That Helps Us Care for You: No Feels Safe at Home: Yes Safety Concerns: Feels Safe At This Time Assistive Devices: Walker Review of Systems Review of Systems: Bryan Symptom Assessment Scale Pain 0/3 Dyspnea 1/3 Nausea 0/3 Anorexia 2/3 Fatigue 2/3 Drowsiness 0/3 Palliative Performance Score 40% Physical Exam Constitutional: + cachectic and + frail appearing Eyes: visual impairment ENMT: Ears: + hearing impairment Respiratory: normal respiratory effort; no labored breathing Gastrointestinal (Abdomen): Percussion/Palpation: abdomen nontender Musculoskeletal: Extremities: + muscle atrophy Skin: warm and dry Neurologic: awake; not confused Psychiatric: Orientation: alert, oriented to person and oriented to place Results & Data ([facility]) Vital Signs (Past 12 Hours) Vital Signs Temp Pulse Resp BP BP Pulse Ox 09/13/20 07:35 98.1 F 88 18 118/60 97 09/12/20 22:22 97.7 F 71 16 100/58 L 98 PG Care Time/CCT Total # of Minutes Spent Total Time Spent with Patient: Total time spent is greater than 50% in coordination of care (as documented) at patient's floor/unit and/or counseling patient: total time 60 minutes with more than 50% of time spent on goals of care, POA, POLST, hospice, family education and support. Coding Level of Care Code 12377 Inpt Consult Level 3 Diagnoses Palliative care encounter Z51.5 Acute and chronic respiratory failure (qkhrw-dc-cwloigx) J96.21 Respiratory failure complication: hypoxia COPD (chronic obstructive pulmonary disease) J44.9 COPD type: unspecified COPD CAD (coronary artery disease) I25.10 History of COVID-19 Z86.16 Pulmonary hypertension I27.20
[2020-09-13] MEDS: predniSONE 5 MG TAB PO SCH (10:48)
--- NOTE | 2020-09-13 16:21 | Hospitalist Progress Note ---
Date of Service September 13, 2020 Assessment & Plan (1) Acute and chronic respiratory failure (dgobz-ec-iwnogez): Likely multifactorial. Patient is currently on 2 L of nasal cannula. Currently on cefepime for possible aspiration. Possibly needs trilogy at discharge. Palliative medicine has been consulted to discuss overall goals of care. (2) COVID-19: Remains afebrile. Currently on 2 L of nasal cannula. No significant respiratory symptoms. (3) Pneumonia: Right lower lung pneumonia where despite recent covid status, this was considered to be partly aspiration pneumonia. Aspiration precautions. Cont abx for 7 day course. (4) PAF (paroxysmal atrial fibrillation): Cont Eliquis and propranolol per home regimen. Stable. (5) COPD (chronic obstructive pulmonary disease): chronic, stable, cont home inhalers., Has pulmonary hypertension. Cont chronic home oxygen at 2-3 LPM (6) Rheumatoid arthritis: chronic prednisone. She was placed on 20mg daily and has been on this for several days, will taper her back to her home dose of 5mg PO daily. (7) DVT prophylaxis: Bryan DNR Dispo-uncertain at this time. Initially family wanted her to be placed. Now they are thinking possibly she can come home with 30/10 supervision. Admission and Anticipated Discharge Date Admission Date: September 07, 2020 Subjective Patient is awake and alert. Does not appear to be in any distress. She is very hard of hearing. Could not obtain full review of system. Denies any chest pain or shortness of breath. Review of Systems Review of Systems: Other Physical Exam Physical Exam: General: awake and alert HENT: NCAT, MMM, EOMI Eyes: PERRLA Neck: Supple, normal range of motion CVS: normal rate and rhythm Resp: b/l good breath sounds Abdomen: Soft, ND/NT, +BS Extremities: No c/c/e Neuro: face symmetric, no focal deficit Skin: warm and dry, no rashes/lesions/errythema MSK: normal ROM, no joint swelling/erythema Results & Data Results & Data ([facility]) Vital Signs (Past 12 Hours) Vital Signs Temp Pulse Resp BP BP Pulse Ox 09/13/20 15:27 37.2 C 86 18 117/67 95 09/13/20 07:35 36.7 C 88 18 118/60 97 (1) Acute and chronic respiratory failure (eoocl-km-cyhcajg) Respiratory failure complication: hypoxia Qualified Code(s): J96.21 - Acute and chronic respiratory failure with hypoxia (2) COPD (chronic obstructive pulmonary disease) COPD type: unspecified COPD Qualified Code(s): J44.9 - Chronic obstructive pulmonary disease, unspecified
[2020-09-14] MEDS: CEFEPIME 2,000 MG in SYRINGE 0 ML IV SCH ×2 (03:26→14:38)
[2020-09-14] MEDS: DOCUSATE SODIUM 100 MG CAP PO SCH ×2 (07:18→20:14)
[2020-09-14] MEDS: FLUTICASONE/VILANTEROL 200/25MCG 14 PUFFS/INHALER INH SCH (07:18)
[2020-09-14] MEDS: DICLOFENAC SOD 1% GEL 100 GM TUBE EXT SCH ×2 (07:18→20:12)
[2020-09-14] MEDS: predniSONE 5 MG TAB PO SCH (07:18)
[2020-09-14] MEDS: ISOSORBIDE MONO EXTENDED REL 30 MG TABCR PO SCH (07:18)
[2020-09-14] MEDS: ASPIRIN 81 MG ECTAB PO SCH (07:19)
[2020-09-14] MEDS: CHOLECALCIFEROL 1,000 UNITS 25 MCG TAB PO SCH (07:19)
[2020-09-14] MEDS: APIXABAN 2.5 MG TAB PO SCH ×2 (07:19→20:12)
[2020-09-14] MEDS: FUROSEMIDE 20 MG TAB PO SCH (07:19)
[2020-09-14] MEDS: PROPRANOLOL HCL 20 MG TAB PO SCH ×2 (07:19→20:12)
[2020-09-14] MEDS: ATORVASTATIN 40 MG TAB PO SCH (07:19)
[2020-09-14] MEDS: FERROUS SULFATE 325 MG TAB PO SCH (07:19)
--- NOTE | 2020-09-14 12:34 | Hospitalist Progress Note ---
Date of Service September 14, 2020 Assessment & Plan (1) Acute and chronic respiratory failure (vqkdh-cx-rixlhxe): Likely multifactorial. Patient is currently on 2 L of nasal cannula. Currently on cefepime for possible aspiration. Palliative medicine has been consulted and patient is to be discharged on comfort measures. As per care management, patient can be discharged tomorrow between 4-5 PM so home care can assist. (2) COVID-19: Remains afebrile. Currently on 2 L of nasal cannula. No significant respiratory symptoms. (3) Pneumonia: Right lower lung pneumonia where despite recent covid status, this was considered to be partly aspiration pneumonia. Aspiration precautions. Cont abx with 7 day course. (4) PAF (paroxysmal atrial fibrillation): Cont Eliquis and propranolol per home regimen. Stable. (5) COPD (chronic obstructive pulmonary disease): chronic, stable, cont home inhalers., Has pulmonary hypertension. Cont chronic home oxygen at 2-3 LPM (6) Rheumatoid arthritis: chronic prednisone. She was placed on 20mg daily and has been on this for several days, will taper her back to her home dose of 5mg PO daily. (7) DVT prophylaxis: Bryan DNR Dispo-patient to be discharged home tomorrow under comfort care. Admission and Anticipated Discharge Date Admission Date: September 07, 2020 Subjective Patient is resting comfortably. She is on 2 L of nasal cannula. Patient is very hard of hearing. Denies shortness of breath, chest pain, abdominal pain or any cough. Review of Systems Review of Systems: All systems reviewed & are unremarkable except as noted in HPI & below Physical Exam Physical Exam: General: awake and alert HENT: NCAT, MMM, EOMI Eyes: PERRLA Neck: Supple, normal range of motion CVS: normal rate and rhythm Resp: b/l good breath sounds Abdomen: Soft, ND/NT, +BS Extremities: No c/c/e Neuro: face symmetric, no focal deficit Skin: warm and dry, no rashes/lesions/errythema MSK: normal ROM, no joint swelling/erythema Results & Data Results & Data ([facility]) Vital Signs (Past 12 Hours) Vital Signs Temp Pulse Resp BP Pulse Ox 09/14/20 07:50 36.7 C 99 H 18 122/76 93 09/14/20 02:39 36.6 C 68 19 96/57 L 95 (1) Acute and chronic respiratory failure (wvjgc-ip-rhfksfg) Respiratory failure complication: hypoxia Qualified Code(s): J96.21 - Acute and chronic respiratory failure with hypoxia (2) COPD (chronic obstructive pulmonary disease) COPD type: unspecified COPD Qualified Code(s): J44.9 - Chronic obstructive pulmonary disease, unspecified
[2020-09-14] MEDS: ALBUT/IPRATROP 3MG/0.5MG NEB 3 ML VIAL INH PRN (18:23)
[2020-09-15] MEDS: CEFEPIME 2,000 MG in SYRINGE 0 ML IV SCH (03:55)
[2020-09-15] MEDS: DOCUSATE SODIUM 100 MG CAP PO SCH (07:17)
[2020-09-15] MEDS: PROPRANOLOL HCL 20 MG TAB PO SCH (07:17)
[2020-09-15] MEDS: FLUTICASONE/VILANTEROL 200/25MCG 14 PUFFS/INHALER INH SCH (07:17)
[2020-09-15] MEDS: predniSONE 5 MG TAB PO SCH (07:17)
[2020-09-15] MEDS: DICLOFENAC SOD 1% GEL 100 GM TUBE EXT SCH (07:17)
[2020-09-15] MEDS: FERROUS SULFATE 325 MG TAB PO SCH (07:18)
[2020-09-15] MEDS: FUROSEMIDE 20 MG TAB PO SCH (07:18)
[2020-09-15] MEDS: CHOLECALCIFEROL 1,000 UNITS 25 MCG TAB PO SCH (07:18)
[2020-09-15] MEDS: APIXABAN 2.5 MG TAB PO SCH (07:18)
[2020-09-15] MEDS: ASPIRIN 81 MG ECTAB PO SCH (07:18)
[2020-09-15] MEDS: ATORVASTATIN 40 MG TAB PO SCH (07:18)
[2020-09-15] MEDS: ISOSORBIDE MONO EXTENDED REL 30 MG TABCR PO SCH (07:19)
[2020-09-15] MEDS: ALBUT/IPRATROP 3MG/0.5MG NEB 3 ML VIAL INH PRN (09:09)
--- NOTE | 2020-09-15 11:23 | Discharge Summary ---
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 She was not treated with any remdesivir or Decadron as it was not indicated and after 12 days of quarantine, COVID restrictions were taken out. She was also treated for acute exacerbation of valvular CHF and she also went into rapid AFib, and diuretics were stopped and she was also treated for pneumonia with antibiotics Cefepime and discharged on Ceftin and doxycycline today .She was placed on Eliquis.But as soon as she went out of the hospital, as per daughter oxygen went down to 70s and never came up to 80s, so she was brought into the hospital. Currently saturating okay on 3 liters OxyMask. Hemodynamically stable. White count is 13.2, which was like 15 yesterday. Venous blood gas was okay. Rest of the labs were okay. Troponin 0.07, which is better than before. BNP is better than before. SARS-CoV-2 PCR is again positive. Chest x-ray is showing worsening infiltrates in the left lung. Admission Exam Per Admitting Provider GENERAL: The patient is alert and awake and oriented, not in acute distress. VITAL SIGNS: Temperature 36.9, pulse 86, respiratory rate 22, blood pressure 124/67, oxygen 93% on 3 liters OxyMask, she was 75% when she came in to the ER. HEENT: Pupils equal, round, and reactive to light. Oral mucosa moist. NECK: No JVD, no neck masses. CARDIOVASCULAR: S1, S2 heard, regular rate and rhythm, no murmur, no gallop. RESPIRATORY SYSTEM: Normal AP diameter. No accessory muscle use. Mild bibasilar crackles. ABDOMEN: Soft, bowel sounds present, nontender. No distention. CENTRAL NERVOUS SYSTEM: Cranial nerves II-XII grossly intact, nonfocal. EXTREMITIES: No edema, no erythema. Principal Diagnosis Acute on chronic hypoxic respiratory failure Recent COVID 19 infection Pneumonia, likely aspiration Paroxysmal Atrial Fibrillation Discharge Exam Constitutional + well hydrated; no acute distress Elderly woman Eyes PERRL, conjunctivae normal, anicteric sclerae ENMT +hearing deficits Respiratory On nasal oxygen at 2l/min Globally reduced breath sounds Cardiovascular Rate/Rhythm: regular rate and regular rhythm S1 S2 Gastrointestinal (Abdomen) normal bowel sounds, soft, nontender, no hepatosplenomegaly Musculoskeletal no cyanosis or clubbing, extremities motor strength 5/5 Neurologic PERRL, EOMI, accommodation nl, no face palsy, no dysarthria Psychiatric A+Ox3, euthymic affect Discharge Data Allergies Allergy/AdvReac Type Severity Reaction Status Date / Time Penicillins Allergy Unknown RASH Verified 09/07/20 21:42 Consultations 09/07/20 20:30 ED Decision to Admit Stat 09/10/20 11:55 Consult Pulmonology Routine 09/10/20 22:49 Consult Palliative Care Routine Ordered Studies 09/08/20 02:23 CT chest diagnostic wo con Urgent Thyroid: There is a 19 mm right lobe thyroid nodule, similar to the prior study. Thoracic aorta: The thoracic aorta is normal in course and caliber, noting standard 3 vessel arch anatomy. Heart: The heart is enlarged with coronary calcifications. Lungs and pleural spaces: There is no pneumothorax. There is right middle lobe and lower lobe atelectasis/consolidation. There is narrowing of the bronchus intermedius.. There is a small right pleural effusion. There are minor airspace opacities within the base the right upper lobe. Mediastinum: There is no evidence of pathologic mediastinal lymphadenopathy. Danielle: There is no evidence of pathologic hilar adenopathy given the limitations of a noncontrast study. Axilla: There is no evidence of pathologic axillary lymphadenopathy. Upper abdomen: There are bilateral renal cysts. There is nonspecific fullness of both renal collecting systems. The gallbladder appears mildly distended Skeletal structures: The bones are osteopenic. There are multiple thoracic vertebral body compression fractures. There is an old sternal fracture. IMPRESSION: 1. Narrowing of the bronchus intermedius with right middle lobe and right lower lobe atelectasis/consolidation. 2. Minor airspace opacities within the base the right upper lobe 3. Small right pleural effusion 4. No evidence of pathologic adenopathy 5. Osteopenia with multiple thoracic vertebral body compression fractures. Old sternal fracture. 09/08/20 14:00 FL video swallow Routine Prolonged retention of the contrast material is seen without definite aspiration. IMPRESSION: 1. No definite aspiration identified. 2. Please see the speech pathologist report for detailed findings and recommendations. Hospital Course (1) Acute and chronic respiratory failure (vdcwm-cy-abavfot): Likely multifactorial. Patient is currently on 2 L of nasal cannula. Completed antibiotic for aspiration pneumonia Was seen by Palliative medicine while inpatient and patient wants to be discharged on home hospice Discharged on home hospice (2) COVID-19: Recent COVID 19 pneumonia (3) Pneumonia: Right lower lung pneumonia This was considered to be partly aspiration pneumonia. Continue aspiration precautions. Completed antibiotics (4) PAF (paroxysmal atrial fibrillation): Cont Eliquis and propranolol per home regimen. Stable (5) COPD (chronic obstructive pulmonary disease): Chronic Cont home inhalers. Has pulmonary hypertension. Cont chronic home oxygen at 2-3 LPM (6) Rheumatoid arthritis: Chronic prednisone. Currently on 10mg daily. Taper to 5mg PO daily on discharge. Total Time Total Time Spent Total Time Spent (In Minutes): 40 Total Time Includes: Examination of the Patient, Discharge Planning, Medication Reconciliation and Communication With Other Providers Discharge Plan Discharge Items Patient Disposition: Hospice - Home Reason For Visit: Shortness of breath Discharge Diagnosis: Acute on chronic respiratory failure COVID 19 infection Pneumonia, likely aspiration Activity: As commented below Activity Comment: As tolerated Non-emergency contact: Primary Care Provider and [employer] Equipment Repairer Call non-emergency contact if: you have any medication questions and your symptoms worsen Follow-up/Referrals: Brandy Camejo MD [Primary Care Provider] - (Date & Time 09/20/2020 11:20 AM Provider Ej Monsalve MD Department Family Medicine [facility] ) Diet: Heart Healthy Diet Texture: Pureed (blended smooth) Diet Comment: With aspiration precautions Addtl Attending Provider Instructions: Mrs Sheldon. You came to the hospital for low oxygen level shortly after discharge for COVID 19 pneumonia. You were being managed for this. You have completed antibiotics treatment. You are being discharged on home hospice according to your request. Please follow up with Hospice agency for any healthcare concerns. It was a pleasure taking care of you. Pending Studies at Discharge: No Stand-Alone Forms: [facility] Medications and DC Order Prescriptions: Continued acetaminophen [Tylenol] 325 mg Tablet 325 mg PO QID PRN (Reason: MOD PAIN) RF: 0 ipratropium-albuterol 0.5 mg-3 mg(2.5 mg base)/3 mL solution for nebulization 3 ml INHALATION Q6 PRN (Reason: Shortness Of Breath Or Wheezing) RF: 0 prednisone 5 mg tablet 5 mg PO DAILY RF: 0 ferrous sulfate [iron] 325 mg (65 mg iron) Tablet 325 mg PO DAILY RF: 0 diclofenac sodium [Voltaren] 1 % Gel 0 g TOPICAL BID RF: 0 atorvastatin 80 mg tablet 80 mg PO DAILY RF: 0 polyethylene glycol 3350 [Miralax] 17 gram Powder In Packet 17 g PO DAILY PRN (Reason: Constipation) RF: 0 isosorbide mononitrate 30 mg tablet extended release 24 hr 30 mg PO DAILY RF: 0 aspirin 81 mg Tablet,Delayed Release (Dr/Ec) 81 mg PO DAILY RF: 0 nitroglycerin [Nitrostat] 0.4 mg Tablet, Sublingual 0.4 mg sublingual UD PRN (Reason: Chest Pain) RF: 0 propranolol 20 mg tablet 20 mg PO BID RF: 0 docusate sodium 100 mg Tablet 100 mg PO BID RF: 0 ipratropium bromide 17 mcg/actuation Hfa Aerosol Inhaler 2 puff INHALATION QID PRN (Reason: Shortness Of Breath Or Wheezing) RF: 0 cholecalciferol (vitamin D3) [Vitamin D3] 25 mcg (1,000 unit) Tablet 25 mcg PO DAILY RF: 0 Breo Ellipta 200-25 mcg/dose blister with device 1 ea INHALATION DAILY RF: 0 furosemide 20 mg tablet 20 mg PO DAILY RF: 0 carbamide peroxide [Ear Drops (carbamide peroxide)] 6.5 % Drops 2 drp otic (ear) BID 5 Days Qty: 1 RF: 0 Eliquis 2.5 mg Tablet 2.5 mg PO BID 30 Days Qty: 60 RF: 0 Discontinued prednisone 10 mg tablet 10 mg PO .TAPER UD RF: 0 cefdinir 125 mg/5 mL suspension for reconstitution 300 mg PO BID 7 Days Qty: 168 RF: 0 doxycycline calcium 50 mg/5 mL syrup 10 ml PO BID 7 Days Qty: 140 RF: 0 Discharge Orders: Discharge Order (Routine); Ordered 09/15/20 Ordered By: Shreya Dumont/Other Patient Handouts: Hospice The Importance of ..., Preventing Falls in the Home Admission Data Admit Date/Time: 09/07/20 22:51 Attending Provider: Shreya Segura I. Admit Provider: Paddy Rivera Primary Care Provider: Brandy Camejo Other Providers: Angelito Amos [facility] ; Paddy Rivera ; Blair Rubalcava ; Constance Jimenez ; [facility] ; Solis Nayak Other Interventions: Discharge Summary Assessment (RN) Last Done: 09/15/20 11:29
== END 2020-09-15 17:01 | disposition hospice, home (50) | DRG 177 ==
LOC: ED 19:20 → SUATTDRO 22:51 → 2S 22:51 → 2N 09-11 05:02 → 3N 09-15 09:56

== ENCOUNTER 2020-11-21 10:15 | Inpatient (IN) ==
[2020-11-21 10:38] LABS: Basophils # (auto) 0.01 K/uL (0-0.2); Basophils % (auto) 0.1 %; Eosinophils # (auto) 0.06 K/uL (0-0.5); Eosinophils % (auto) 0.6 %; Hematocrit (blood only) 32.5 % (37-47); Hemoglobin 9.8 g/dL (12.0-16.0); Immature Granulocytes # (auto) 0.03 K/uL (0.00-0.02); Immature Granulocytes % (auto) 0.3 %; Lymphocytes # (auto) 0.91 K/uL (1.2-3.4); Lymphocytes % (auto) 8.6 %; Mean Corpuscular Hemoglobin 28.9 pg (25-34); Mean Corpuscular Hgb Conc 30.2 g/dL (32-36); Mean Corpuscular Volume 95.9 fL (80-100); Mean Platelet Volume 10.4 fL (7.4-10.4); Monocytes # (auto) 1.29 K/uL (0.11-0.59); Monocytes % (auto) 12.2 %; Neutrophils # (auto) 8.27 K/uL (1.4-6.5); Neutrophils % (auto) 78.2 %; Platelet Count 288 K/uL (130-400); RDW Coefficient of Variation 13.6 % (11.5-14.5); RDW Standard Deviation 48.1 fL (36.4-46.3); Red Blood Count 3.39 M/uL (4.2-5.4); White Blood Count 10.57 K/uL (4.8-10.8)
[2020-11-21 10:49] LABS: INR 1.1 (0.9-1.1); Partial Thromboplastin Time 25.9 Seconds (21.0-31.0)
[2020-11-21 10:54] LABS: Albumin Level 2.6 gm/dl (3.4-5.0); BUN Creatinine Ratio 40.7 (10-20); Calcium 8.8 mg/dl (8.5-10.1); Creatinine Clr Calc Pharmacy 66.8 ml/min; Est GFR (Non-African American) 95.8 ml/min; Potassium 3.8 mmol/L (3.5-5.1)
--- NOTE | 2020-11-21 10:58 | XRay Report ---
XR chest 1V portable HISTORY: Atypical Chest Pain COMPARISON: Chest 09/07/2020. FINDINGS: No pneumothorax. There are low lung volumes. The heart remains enlarged. Mild elevation of the right hemidiaphragm, unchanged. Small bilateral pleural fusions bibasilar densities have improved . There is diffuse chronic interstitial thickening. No new focal lung consolidations. There is a tort uous and calcified thoracic aorta, unchanged. IMPRESSION: 1. Improvement in the bilateral pleural effusions and bibasilar densities. 2. Chronic interstitial thickening persists. ACT 112: Negative or not required by law. Electronically signed by: Herbie Perkins M.D. 11/21/2020 10:56 AM
[2020-11-21 11:05] LABS: Albumin Globulin Ratio 0.6 (0.9-2); Bilirubin,Total 0.5 mg/dl (0.2-1); Total Protein 6.6 gm/dl (6.4-8.2); Troponin I 0.083 ng/ml (0-0.045)
[2020-11-21] MEDS ORDERED: METOPROLOL TARTRATE 1 MG/ML VIAL IV STA ×2 (11:10→12:26)
[2020-11-21] MEDS ORDERED: SODIUM CHLORIDE 0.9% 1000ML 250 ML IV ONE (11:10)
[2020-11-21 11:54] LABS: Appearance Urine Clear (Clear); Bilirubin Urine Negative (Negative); Blood Urine Negative (Negative); Color Urine Yellow; Glucose Urine UA Negative (Negative); Ketones Urine Negative (Negative); Leukocyte Esterase Urine Negative (Negative); Nitrite Urine Negative (Negative); Protein Urine Negative (Negative); Specific Gravity Urine 1.009 (1.000-1.030); Urobilinogen Urine Negative (Negative)
[2020-11-21] MEDS: dilTIAZem HCl 5 MG/ML 5 ML VIAL IV STA ×2 (13:23→13:35)
[2020-11-21] MEDS ORDERED: STAT IV Infusion **Titration per Protocol STA (13:37)
[2020-11-21] MEDS ORDERED: dilTIAZem HCl 5 MG/ML 5 ML VIAL IV STA (13:37)
[2020-11-21] MEDS: dilTIAZem HCL 125 MG in DEXTROSE 5% 100 ML IV SCH (14:01)
[2020-11-21] MEDS ORDERED: ACETAMINOPHEN 325 MG TAB PO PRN (16:13)
[2020-11-21] MEDS ORDERED: POLYETHYLENE (MIRALAX) 17 GM PACK PO PRN (16:13)
--- NOTE | 2020-11-21 16:27 | History & Physical Report ---
Date of Service November 21, 2020 Assessment & Plan (1) Atrial fibrillation with RVR: Plan: -Admit to telemetry -Patient presenting from home with reports of worsening shortness of breath and lower extremity edema. Home health nurse found patient's heart rate to be el evated this morning. -In the ED, found to be in atrial fibrillation with RVR, rates in the 120s -Received Cardizem 10 mg IV and adenosine by EMS, metoprolol 5 mg IV x 2 doses in the ED -Heart rates remain elevated with borderline hypotension -Case discussed with cardiology, Dr. Shankar - will give additional Cardizem 10mg IV bolus followed by a drip -Patient anticoagulated on Eliquis -Electrolytes acceptable, check TSH -Update echo (2) Acute CHF: Plan: -Has lower extremity edema on exam -Likely secondary to A. fib with RVR -Hold on diuresing for now until BP improves -Echo 08/2020-EF 60 to 65%, mild aortic regurgitation, moderate to severe mitral regurgitation, mild tricuspid regurgitation (3) Elevated troponin: (4) CAD (coronary artery disease): Plan: -Appears stable, no reports of chest pain -Plan elevation likely demand ischemia in the setting of A. fib with RVR -Trend troponin -Continue statin -Hold isosorbide due to borderline hypotension (5) History of pulmonary embolism: Plan: -Anticoagulated on Eliquis (6) COPD (chronic obstructive pulmonary disease): (7) Chronic respiratory failure with hypoxia, on home O2 therapy: Plan: -No signs of acute exacerbation -Saturating well on chronic 1.5L O2 -Continue home inhalers (8) Rheumatoid arthritis: Plan: -On chronic prednisone (9) DVT prophylaxis: Plan: -Anticoagulated on Eliquis Admission and Anticipated Discharge Date Admission Date: November 21, 2020 History of Present Illness Chief Complaint: Shortness of breath Primary Care Provider: Brandy Hua MD 85-year-old female with PMH COPD, chronic hypoxic respiratory failure on 1.5L O2, CAD, pulmonary hypertension, regurgitation, rheumatoid arthritis on chronic prednisone, and other problems to below who presents the ED for evaluation of shortness of breath. Patient reports worsening shortness of breath for the past few days. She also has noted increasing lower extremity edema over the past couple of weeks. Patient's home health nurse evaluated her today and found her heart rate to be elevated, EMS was called and patient was brought to the ED for further evaluation. Patient denies chest pain and palpitations. No lightheadedness, dizziness, diaphoresis, syncopal events. She denies abdominal pain, nausea, vomiting, diarrhea. No other recent illnesses, fevers, chills. She denies urinary symptoms. Patient was found to be in atrial fibrillation with RVR. She received adenosine and Cardizem 10 mg IV by EMS. In the ED, she was given metoprolol 5 mg IV 2 doses. Heart rate remains elevated in the 120s. Troponin 0.083. Other labs unremarkable/at patient's baseline. Allergies Allergy/AdvReac Type Severity Reaction Status Date / Time Penicillins Allergy Unknown RASH Verified 11/21/20 12:08 Home Medications Medication Instructions Recorded Confirmed Type acetaminophen 325 mg tablet 325 mg PO QID PRN 08/24/20 11/21/20 History (Tylenol) atorvastatin 80 mg tablet 40 mg PO QPM 08/24/20 11/21/20 History cholecalciferol (vitamin D3) 25 25 mcg PO DAILY 08/24/20 11/21/20 History mcg (1,000 unit) tablet (Vitamin D3) docusate sodium 100 mg tablet 100 mg PO BID 08/24/20 11/21/20 History ferrous sulfate 325 mg (65 mg 325 mg PO DAILY 08/24/20 11/21/20 History iron) tablet (iron) fluticasone furoate 200 1 ea INHALATION DAILY 08/24/20 11/21/20 History mcg-vilanterol 25 mcg/dose inhalation powder (Breo Ellipta) furosemide 20 mg tablet 20 mg PO DAILY 08/24/20 11/21/20 History ipratropium 0.5 mg-albuterol 3 mg 3 ml INHALATION Q6 PRN 08/24/20 11/21/20 History (2.5 mg base)/3 mL nebulization soln ipratropium bromide 17 2 puff INHALATION QID PRN 08/24/20 11/21/20 History mcg/actuation HFA aerosol inhaler isosorbide mononitrate 30 mg 30 mg PO DAILY 08/24/20 11/21/20 History tablet,extended release 24 hr nitroglycerin 0.4 mg sublingual 0.4 mg SUBLINGUAL UD PRN 08/24/20 11/21/20 History tablet (Nitrostat) polyethylene glycol 3350 17 gram 17 g PO DAILY PRN 08/24/20 11/21/20 History oral powder packet (Miralax) prednisone 5 mg tablet 5 mg PO DAILY 08/24/20 11/21/20 History propranolol 20 mg tablet 20 mg PO BID 08/24/20 11/21/20 History apixaban 2.5 mg tablet (Eliquis) 2.5 mg PO BID 11/21/20 11/21/20 History Past Med/Surg History Medical History CAD (coronary artery disease) Chronic anticoagulation Chronic respiratory failure with hypoxia, on home O2 therapy COPD (chronic obstructive pulmonary disease) Essential tremor Hearing loss History of COVID-19 History of pulmonary embolism Mitral regurgitation Osteoporosis Overactive bladder PAF (paroxysmal atrial fibrillation) Pulmonary hypertension Rheumatoid arthritis Vitamin D deficiency Family History Brother Diabetes Social History Smoking Status: Former smoker Hx Alcohol Use: No Hx Substance Use: No Preferred Language: Moldovan Communication Ability: Effective Building Rental Manager Required: No Beliefs That Will Affect Care: None marital status: / Current Living Situation: Alone Current Living Situation Comment: Has personal care aids current occupational status: retired How many Children do You have: 3 Other Information That Helps Us Care for You: No Feels Safe at Home: Yes Safety Concerns: Feels Safe At This Time Assistive Devices: Oxygen - Continuous Review of Systems Review of Systems: ROS per HPI, all other systems reviewed and negative Physical Exam Constitutional: + ill appearing (Chronically) and + frail appearing Vitals as above Eyes: Left eye cataract ENMT: external ear and nose normal, oropharynx normal Ears: + hearing impairment Respiratory: normal respiratory effort; no respiratory distress Auscultation: + diminished lung sounds (Bilaterally) Cardiovascular: Rate/Rhythm: + tachycardic and + irregularly irregular Vessels: normal peripheral pulses Extremities: + edema (+2 pitting edema BLE) Gastrointestinal (Abdomen): normal bowel sounds, soft, nontender, no hepatosplenomegaly Musculoskeletal: no cyanosis or clubbing, extremities motor strength 5/5 Skin: no rashes, warm and dry Neurologic: PERRL, EOMI, accommodation nl, no face palsy, no dysarthria Psychiatric: A+Ox3, euthymic affect Results & Data Results & Data ([facility]) Vital Signs (Past 12 Hours) Vital Signs Temp Pulse Resp BP Pulse Ox 11/21/20 15:30 105 H 21 79/58 L 98 11/21/20 15:15 94 H 18 78/52 L 11/21/20 15:00 87 13 92/54 L 97 11/21/20 14:45 98 H 13 87/57 L 97 11/21/20 14:30 104 H 29 H 101/64 97 11/21/20 14:28 110 H 27 H 93/51 L 96 11/21/20 14:15 113 H 7 L 86/55 L 97 11/21/20 14:00 122 H 27 H 91/47 L 98 11/21/20 13:45 115 H 7 L 90/53 L 97 11/21/20 13:30 121 H 19 101/62 97 11/21/20 13:15 137 H 26 H 91/60 L 97 11/21/20 13:00 117 H 14 89/61 L 97 11/21/20 12:45 123 H 17 91/62 L 99 11/21/20 12:00 114 H 18 91/62 L 92 11/21/20 11:30 105 H 13 92/61 L 99 11/21/20 11:17 142 H 101/58 L 11/21/20 11:16 130 H 32 H 101/58 L 11/21/20 10:23 37.0 C 144 H 22 114/53 L 98 11/21/20 10:22 144 H 21 114/53 L 98 Laboratory Results Short CBC 11/21/20 Range/Units 10:29 WBC 10.57 (4.8-10.8) K/uL Hgb 9.8 L (12.0-16.0) g/dL Hct 32.5 L (37-47) % Plt Count 288 (130-400) K/uL BMP 11/21/20 10:29 Sodium 139 Potassium 3.8 Chloride 102 Carbon Dioxide 35 H BUN 16 Creatinine 0.39 L Glucose 115 H Calcium 8.8 Cardiac Enzymes 11/21/20 Range/Units 10:29 Troponin I 0.083 H* (0-0.045) ng/ml Liver Function 11/21/20 Range/Units 10:29 Total Bilirubin 0.5 (0.2-1) mg/dl AST 16 (15-37) U/L ALT 18 (12-78) U/L Alkaline Phosphatase 98 (45-117) U/L Albumin 2.6 L (3.4-5.0) gm/dl Urine 11/21/20 Range/Units 11:34 Urine Color Yellow Urine Appearance Clear (Clear) Urine pH 6.0 (4.5-7.5) Ur Specific Reading 1.009 (1.000-1.030) Urine Protein Negative (Negative) Urine Glucose (UA) Negative (Negative) Diagnostic Findings Chest X-Ray 11/21/20 10:29 XR chest 1V portable HISTORY: Atypical Chest Pain COMPARISON: Chest 09/07/2020. FINDINGS: No pneumothorax. There are low lung volumes. The heart remains enlarged. Mild elevation of the right hemidiaphragm, unchanged. Small bilateral pleural fusions bibasilar densities have improved. There is diffuse chronic int erstitial thickening. No new focal lung consolidations. There is a tortuous and calcified thoracic aorta, unchanged. IMPRESSION: 1. Improvement in the bilateral pleural effusions and bibasilar densities. 2. Chronic interstitial thickening persists. ACT 112: Negative or not required by law. Electronically signed by: Herbie Perkins M.D. 11/21/2020 10:56 AM Code Status & VTE Plan Code Status Patient is a DNR as per my discussion with her. VTE Prophylaxis Plan VTE Prophylaxis will be ordered: No Supervising Physician Co-Signing Physician Notes 85-year-old female with PMH of chronic hypoxic respiratory failure on 1.5 L oxygen at home, COPD, CAD, P HTN, RA on chronic prednisone presented to the ED 11/21 for evaluation of shortness of breath associated with bilateral lower leg swelling and found to have new onset A. fib with RVR. She is being managed in the floor for the following #. A. fib with RVRtelemetry, cardiology consult, trend troponin, echo, TSH, continue with Cardizem. Patient already on Eliquis for history of PE. #. Acute CHF: Clinically crackles and BLE 1-2+ edema, cardiology on board, evaluate for diuresis after she is out of hypertension secondary to A. fib. #. Elevated troponin, trend #. Chronic conditions: Resume home meds Upon examination: GENERAL: Alert and oriented x3. NAD, on RA. Frail looking, cachectic. HEENT: No pallor, no icterus. Pupils equal, round and reactive to light. Oral mucosa moist. NECK: No JVD, no neck masses. HEART: S1 and S2 heard. Regular rate and rhythm. No murmur, no gallop. RESPIRATORY SYSTEM: Normal AP diameter. No accessory muscle use. No wheezing, diffuse crackles more prominent bibasilarly ABDOMEN: Soft, bowel sounds present, nontender, no distention. CENTRAL NERVOUS SYSTEM: Alert and oriented x3. No facial droop. Speech is clear. Obeys simple commands. Moves extremities. EXTREMITIES: 1-2+ edema, no erythema seen. I have seen and examined the patient and have discussed the case with the provider above. I agree with the assessment and plan as stated. (1) COPD (chronic obstructive pulmonary disease) COPD type: unspecified COPD Qualified Code(s): J44.9 - Chronic obstructive pulmonary disease, unspecified
[2020-11-21 18:28] LABS: Thyroid Stimulating Hormone 1.06 uIu/ml (0.300-4.500); Troponin I 0.918 ng/ml (0-0.045)
[2020-11-21] MEDS: APIXABAN 2.5 MG TAB PO SCH (20:35)
[2020-11-21] MEDS: DOCUSATE SODIUM 100 MG CAP PO SCH (20:35)
[2020-11-21] MEDS: ATORVASTATIN 40 MG TAB PO SCH (20:35)
[2020-11-21 23:15] LABS: Troponin I 0.728 ng/ml (0-0.045)
[2020-11-21] MEDS ORDERED: FUROSEMIDE 20 MG in SYRINGE 0 ML IV ONE (23:52)
[2020-11-21] MEDS ORDERED: FUROSEMIDE 40 MG/4 ML VIAL IV ONE (23:53)
[2020-11-21] MEDS ORDERED: ALBUMIN 25% 12.5 GM/50 ML VIAL IV ONE (23:53)
[2020-11-21] MEDS ORDERED: POTASSIUM CHLORIDE CRTAB 20 MEQ TABCR PO STA (23:53)
[2020-11-22] MEDS: dilTIAZem HCL 125 MG in DEXTROSE 5% 100 ML IV SCH ×2 (02:08→12:45)
[2020-11-22 07:25] LABS: Hematocrit (blood only) 31.6 % (37-47); Hemoglobin 9.4 g/dL (12.0-16.0); Mean Corpuscular Hemoglobin 28.4 pg (25-34); Mean Corpuscular Hgb Conc 29.7 g/dL (32-36); Mean Corpuscular Volume 95.5 fL (80-100); Mean Platelet Volume 10.3 fL (7.4-10.4); Platelet Count 301 K/uL (130-400); RDW Coefficient of Variation 13.6 % (11.5-14.5); RDW Standard Deviation 47.9 fL (36.4-46.3); Red Blood Count 3.31 M/uL (4.2-5.4); White Blood Count 13.07 K/uL (4.8-10.8)
[2020-11-22 08:04] LABS: BUN Creatinine Ratio 40.2 (10-20); Calcium 8.7 mg/dl (8.5-10.1); Creatinine Clr Calc Pharmacy 67.1 ml/min; Est GFR (African American) 106.7 ml/min; Magnesium 2.1 mg/dl (1.8-2.4); Potassium 4.3 mmol/L (3.5-5.1)
--- NOTE | 2020-11-22 08:04 | Emergency Department Note ---
History of Present Illness General Chief complaint: Cardiac Assessment Source: patient, EMS and RN notes reviewed Mode of arrival: EMS Limitations: no limitations History of Present Illness Provider complaint: Chest tightness, shortness of breath This patient is an eight 5-year-old female who presents the emergency department with planes of chest pain and shortness of breath. Patient took her pulse at the time and it was noted to be greater than 130. She contacted her home health nurse who referred her to the emergency department for further evaluation. Patient was sent in by EMS. Paramedics gave the patient IV adenosine which "slow the heart rate enough to see the A. fib." Per my medical command, the p atient was given IV Cardizem 10 mg. The patient remained in rapid atrial fibrillation but is a noted to be somewhat hypotensive. She did receive IV normal saline solution 250 mL bolus x2 in route. She has a history of atrial fibrillation, COPD, CAD, PE and is on home oxygen. Patient denies any recent fevers, chills, abdominal pain, vomiting or diarrhea. She denies any urinary symptoms. Patient states she did choke on her rice crispies this morning, but this is not uncommon. Home Medications Medication Instructions Recorded Confirmed Type acetaminophen 325 mg tablet 325 mg PO QID PRN 08/24/20 11/21/20 History (Tylenol) atorvastatin 80 mg tablet 40 mg PO QPM 08/24/20 11/21/20 History cholecalciferol (vitamin D3) 25 25 mcg PO DAILY 08/24/20 11/21/20 History mcg (1,000 unit) tablet (Vitamin D3) docusate sodium 100 mg tablet 100 mg PO BID 08/24/20 11/21/20 History ferrous sulfate 325 mg (65 mg 325 mg PO DAILY 08/24/20 11/21/20 History iron) tablet (iron) fluticasone furoate 200 1 ea INHALATION DAILY 08/24/20 11/21/20 History mcg-vilanterol 25 mcg/dose inhalation powder (Breo Ellipta) furosemide 20 mg tablet 20 mg PO DAILY 08/24/20 11/21/20 History ipratropium 0.5 mg-albuterol 3 mg 3 ml INHALATION Q6 PRN 08/24/20 11/21/20 History (2.5 mg base)/3 mL nebulization soln ipratropium bromide 17 2 puff INHALATION QID PRN 08/24/20 11/21/20 History mcg/actuation HFA aerosol inhaler isosorbide mononitrate 30 mg 30 mg PO DAILY 08/24/20 11/21/20 History tablet,extended release 24 hr nitroglycerin 0.4 mg sublingual 0.4 mg SUBLINGUAL UD PRN 08/24/20 11/21/20 History tablet (Nitrostat) polyethylene glycol 3350 17 gram 17 g PO DAILY PRN 08/24/20 11/21/20 History oral powder packet (Miralax) prednisone 5 mg tablet 5 mg PO DAILY 08/24/20 11/21/20 History propranolol 20 mg tablet 20 mg PO BID 08/24/20 11/21/20 History apixaban 2.5 mg tablet (Eliquis) 2.5 mg PO BID 11/21/20 11/21/20 History Allergies Allergy/AdvReac Type Severity Reaction Status Date / Time Penicillins Allergy Unknown RASH Verified 11/21/20 12:08 Past Med/Surg History Medical History CAD (coronary artery disease) Chronic anticoagulation Chronic respiratory failure with hypoxia, on home O2 therapy COPD (chronic obstructive pulmonary disease) Essential tremor Hearing loss History of COVID-19 History of pulmonary embolism Mitral regurgitation Osteoporosis Overactive bladder PAF (paroxysmal atrial fibrillation) Pulmonary hypertension Rheumatoid arthritis Vitamin D deficiency Family History Brother Diabetes Social History Smoking Status: Former smoker Hx Alcohol Use: No Hx Substance Use: No Preferred Language: Japanese Communication Ability: Effective Frame Bander Required: No Beliefs That Will Affect Care: None marital status: / Current Living Situation: Alone Current Living Situation Comment: Has personal care aids current occupational status: retired How many Children do You have: 5 Other Information That Helps Us Care for You: No Feels Safe at Home: Yes Safety Concerns: Feels Safe At This Time Assistive Devices: Walker Review of Systems See HPI for pertinent positives & negatives. and A total of 10 systems reviewed and were otherwise negative Physical Exam Vital Signs Vital Signs - 24 hr 11/21/20 10:22 11/21/20 10:23 11/21/20 11:16 Temperature 37.0 C Temperature Source Oral Pulse Rate 144 H 144 H 130 H Pulse Rate from SpO2 Sensor 153 H Pulse Rhythm Regular Pulse Strength Normal Respiratory Rate 21 22 32 H Respiratory Effort / Characteristics Labored Respiratory Pattern Regular Blood Pressure 114/53 L 114/53 L 101/58 L Blood Pressure Mean 73 73 72 Blood Pressure Position Sitting Pulse Oximetry 98 98 Oxygen Delivery Method Nasal Cannula Oxygen Flow Rate 2 Sepsis Recent Fever Within 48 Hours No Sepsis New/Unexplained Change in Mental Status No Sepsis Action Taken by Nursing No Action Required 11/21/20 11:17 11/21/20 11:30 11/21/20 12:00 Temperature Temperature Source Pulse Rate 142 H 105 H 114 H Pulse Rate from SpO2 Sensor 115 H 103 H Pulse Rhythm Pulse Strength Respiratory Rate 13 18 Respiratory Effort / Characteristics Respiratory Pattern Blood Pressure 101/58 L 92/61 L 91/62 L Blood Pressure Mean 71 71 Blood Pressure Position Pulse Oximetry 99 92 Oxygen Delivery Method Oxygen Flow Rate Sepsis Recent Fever Within 48 Hours Sepsis New/Unexplained Change in Mental Status Sepsis Action Taken by Nursing 11/21/20 12:45 11/21/20 13:00 Temperature Temperature Source Pulse Rate 123 H 117 H Pulse Rate from SpO2 Sensor 121 H 129 H Pulse Rhythm Pulse Strength Respiratory Rate 17 14 Respiratory Effort / Characteristics Respiratory Pattern Blood Pressure 91/62 L 89/61 L Blood Pressure Mean 71 70 Blood Pressure Position Pulse Oximetry 99 97 Oxygen Delivery Method Nasal Cannula Oxygen Flow Rate 2 Sepsis Recent Fever Within 48 Hours Sepsis New/Unexplained Change in Mental Status Sepsis Action Taken by Nursing Vital signs reviewed. General: Well-appearing 85 yo female, in no significant distress. HEENT: No scleral icterus, PERRLA, neck supple. Atraumatic. Cardiovascular: Rapid and irregular, systolic ejection murmur Pulmonary: Clear to auscultation bilaterally, normal work of breathing. Abdomen: Soft, nontender, nondistended, positive bowel sounds. Musculoskeletal: Atraumatic, no peripheral edema. Neurologic: Patient awake alert and oriented x 3 Skin: Warm, dry, no rash Course Administered Medications Amiodarone HCl (Amiodarone 200 Mg Tab) 200 mg PO TIDM [facility] Stop: 12/24/20 11:59 Last Admin: 11/25/20 15:56 Dose: 200 mg Documented by: [id number] Admin: 11/25/20 11:45 Dose: 200 mg Documented by: [id number] Admin: 11/25/20 07:19 Dose: 200 mg Documented by: [id number] Admin: 11/24/20 17:01 Dose: 200 mg Documented by: [id number] Admin: 11/24/20 10:44 Dose: 200 mg Documented by: [id number] Apixaban (Apixaban 2.5 Mg Tab) 2.5 mg PO BID [facility] Stop: 12/21/20 20:59 Last Admin: 11/25/20 20:41 Dose: 2.5 mg Documented by: [id number] Admin: 11/25/20 07:21 Dose: 2.5 mg Documented by: [id number] Admin: 11/24/20 21:08 Dose: 2.5 mg Documented by: [id number] Admin: 11/24/20 07:16 Dose: 2.5 mg Documented by: [id number] Admin: 11/23/20 20:24 Dose: 2.5 mg Documented by: [id number] Admin: 11/23/20 08:37 Dose: 2.5 mg Documented by: [id number] Admin: 11/22/20 20:59 Dose: 2.5 mg Documented by: [id number] Admin: 11/22/20 08:37 Dose: 2.5 mg Documented by: [id number] Admin: 11/21/20 20:35 Dose: 2.5 mg Documented by: [id number] Atorvastatin Calcium (Atorvastatin 40 Mg Tab) 40 mg PO QPM [facility] Stop: 12/21/20 20:59 Last Admin: 11/25/20 20:41 Dose: 40 mg Documented by: [id number] Admin: 11/24/20 21:08 Dose: 40 mg Documented by: [id number] Admin: 11/23/20 20:24 Dose: 40 mg Documented by: [id number] Admin: 11/22/20 20:59 Dose: 40 mg Documented by: [id number] Admin: 11/21/20 20:35 Dose: 40 mg Documented by: [id number] Clindamycin HCl (Clindamycin Hcl 150 Mg Cap) 150 mg PO Q6 [facility] Stop: 11/26/20 17:59 Last Admin: 11/26/20 05:09 Dose: Not Given Documented by: [id number] Admin: 11/25/20 23:39 Dose: 150 mg Documented by: [id number] Admin: 11/25/20 11:45 Dose: 150 mg Documented by: [id number] Admin: 11/25/20 11:45 Dose: 150 mg Documented by: [id number] Admin: 11/25/20 06:11 Dose: 150 mg Documented by: [id number] Admin: 11/25/20 02:37 Dose: 150 mg Documented by: [id number] Admin: 11/24/20 17:01 Dose: 150 mg Documented by: [id number] Docusate Sodium (Docusate Sodium 100 Mg Cap) 100 mg PO BID GRISELDA Stop: 12/21/20 20:59 Last Admin: 11/25/20 20:41 Dose: 100 mg Documented by: [id number] Admin: 11/25/20 07:22 Dose: 100 mg Documented by: [id number] Admin: 11/24/20 21:08 Dose: 100 mg Documented by: [id number] Admin: 11/24/20 07:17 Dose: 100 mg Documented by: [id number] Admin: 11/23/20 20:24 Dose: 100 mg Documented by: [id number] Admin: 11/23/20 08:37 Dose: 100 mg Documented by: [id number] Admin: 11/22/20 20:59 Dose: 100 mg Documented by: [id number] Admin: 11/22/20 08:41 Dose: 100 mg Documented by: [id number] Admin: 11/21/20 20:35 Dose: 100 mg Documented by: [id number] Ferrous Sulfate (Ferrous Sulfate 325 Mg Tab) 325 mg PO DAILY [facility] Stop: 12/22/20 08:59 Last Admin: 11/25/20 07:20 Dose: 325 mg Documented by: [id number] Admin: 11/24/20 07:18 Dose: 325 mg Documented by: [id number] Admin: 11/23/20 08:37 Dose: 325 mg Documented by: [id number] Admin: 11/22/20 08:37 Dose: 325 mg Documented by: [id number] Fluticasone/Vilanterol (Fluticasone/Vilanterol 200/25mcg 14 Puffs/Inhaler) 1 p uffs INH DAILY GR[facility]ELDA Stop: 12/22/20 08:59 Last Admin: 11/25/20 07:22 Dose: 1 puffs Documented by: [id number] Admin: 11/24/20 07:19 Dose: 1 puffs Documented by: [id number] Admin: 11/23/20 08:37 Dose: 1 puffs Documented by: [id number] Admin: 11/22/20 08:37 Dose: 1 puffs Documented by: [id number] Lactobacillus Acidoph/Casei/Rhamnos (Advanced Probiotic 1250 Mg Capsule) 2 cap PO DAILY GR[facility]ELDA Stop: 12/24/20 12:59 Last Admin: 11/25/20 07:23 Dose: 2 cap Documented by: [id number] Admin: 11/24/20 13:54 Dose: 2 cap Documented by: [id number] Metoprolol Tartrate (Metoprolol Tartrate 25 Mg Tab) 25 mg PO BID GRISELDA Stop: 12/23/20 20:59 Last Admin: 11/25/20 20:41 Dose: 25 mg Documented by: [id number] Admin: 11/25/20 07:20 Dose: 25 mg Documented by: [id number] Admin: 11/24/20 21:08 Dose: 25 mg Documented by: [id number] Admin: 11/24/20 07:17 Dose: 25 mg Documented by: [id number] Admin: 11/23/20 20:25 Dose: 25 mg Documented by: [id number] Prednisone (Prednisone 5 Mg Tab) 5 mg PO DAILY GR[facility]ELDA Stop: 12/22/20 08:59 Last Admin: 11/25/20 07:21 Dose: 5 mg Documented by: [id number] Admin: 11/24/20 07:16 Dose: 5 mg Documented by: [id number] Admin: 11/23/20 08:38 Dose: 5 mg Documented by: [id number] Admin: 11/22/20 08:37 Dose: 5 mg Documented by: [id number] Vitamin D (Cholecalciferol 1,000 Units 25 Mcg Tab) 1,000 units PO DAILY GRISELDA Stop: 12/22/20 08:59 Last Admin: 11/25/20 07:21 Dose: 1,000 units Documented by: [id number] Admin: 11/24/20 07:17 Dose: 1,000 units Documented by: [id number] Admin: 11/23/20 08:37 Dose: 1,000 units Documented by: [id number] Admin: 11/22/20 08:37 Dose: 1,000 units Documented by: [id number] Discontinued Medications Diltiazem HCl (Diltiazem Hcl 5 Mg/Ml 5 Ml Vial) 10 mg IV NOW STA Stop: 11/21/20 13:05 Last Admin: 11/21/20 13:35 Dose: Not Given Documented by: [id number] Diltiazem HCl (Diltiazem Hcl 5 Mg/Ml 5 Ml Vial) 10 mg IV NOW STA Stop: 11/21/20 13:38 Last Admin: 11/21/20 14:02 Dose: 10 mg Documented by: [id number] Cosigned by: [id number] Furosemide (Furosemide 40 Mg/4 Ml Vial) 20 mg IV ONE ONE Stop: 11/21/20 23:54 Last Admin: 11/22/20 00:25 Dose: 20 mg Documented by: [id number] Sodium Chloride (Nss 1000ml) 250 mls @ 999 mls/hr IV .Q16M ONE Stop: 11/21/20 11:25 Last Infusion: 11/21/20 11:29 Dose: 0 mls/hr Documented by: [id number] Admin: 11/21/20 11:13 Dose: 999 mls/hr Documented by: [id number] Diltiazem HCl 125 mg/ Dextrose 125 mls @ 10 mls/hr IV .[id number] GRISELDA; Protocol Stop: 12/21/20 13:44 Last Titration: 11/22/20 14:00 Dose: 0 mg/hr, 0 mls/hr Documented by: [id number] Cosigned by: [id number] Admin: 11/22/20 12:45 Dose: 10 mg/hr, 10 mls/hr Documented by: [id number] Cosigned by: [id number] Titration: 11/22/20 12:21 Dose: 10 mg/hr, 10 mls/hr Documented by: [id number] Cosigned by: [id number] Titration: 11/22/20 06:42 Dose: 10 mg/hr, 10 mls/hr Documented by: [id number] Cosigned by: [id number] Admin: 11/22/20 02:08 Dose: 15 mg/hr, 15 mls/hr Documented by: [id number] Cosigned by: [id number] Titration: 11/22/20 02:08 Dose: 15 mg/hr, 15 mls/hr Documented by: [id number] Cosigned by: [id number] Titration: 11/21/20 21:50 Dose: 15 mg/hr, 15 mls/hr Documented by: [id number] Cosigned by: [id number] Titration: 11/21/20 20:32 Dose: 10 mg/hr, 10 mls/hr Documented by: [id number] Cosigned by: [id number] Titration: 11/21/20 19:08 Dose: 5 mg/hr, 5 mls/hr Documented by: [id number] Cosigned by: [id number] Admin: 11/21/20 14:01 Dose: 5 mg/hr, 5 mls/hr Documented by: [id number] Cosigned by: [id number] Albumin Human (Albumin 25%) 12.5 gm in 50 mls @ 50 mls/hr IV ONE ONE Stop: 11/22/20 00:52 Last Infusion: 11/22/20 01:06 Dose: 0 mls/hr Documented by: [id number] Admin: 11/22/20 00:25 Dose: 50 mls/hr Documented by: [id number] Amiodarone HCl/Dextrose (Nexterone / D5w) 150 mg in 100 mls @ 600 mls/hr IV NOW [facility] Stop: 11/22/20 13:38 Last Infusion: 11/22/20 14:22 Dose: 0 mls/hr Documented by: [id number] Cosigned by: [id number] Admin: 11/22/20 13:59 Dose: 600 mls/hr Documented by: [id number] Cosigned by: [id number] Amiodarone HCl/Dextrose (Nexterone / D5w) 360 mg in 200 mls @ 33.333 mls/hr IV ONE ONE Stop: 11/22/20 19:59 Last Infusion: 11/22/20 21:33 Dose: 0 mls/hr Documented by: [id number] Cosigned by: [id number] Admin: 11/22/20 14:15 Dose: 33.3 mls/hr Documented by: [id number] Cosigned by: [id number] Amiodarone HCl/Dextrose (Nexterone / D5w) 360 mg in 200 mls @ 16.667 mls/hr IV .Q12H [facility] Stop: 12/22/20 19:59 Last Infusion: 11/24/20 09:11 Dose: 0 mg/min, 0 mls/hr Documented by: [id number] Cosigned by: [id number] Infusion: 11/24/20 09:03 Dose: 0.5 mg/min, 16.7 mls/hr Documented by: [id number] Cosigned by: [id number] Admin: 11/23/20 21:12 Dose: 0.5 mg/min, 16.7 mls/hr Documented by: [id number] Cosigned by: [id number] Infusion: 11/23/20 21:12 Dose: 0.5 mg/min, 16.7 mls/hr Documented by: [id number] Cosigned by: [id number] Admin: 11/23/20 10:07 Dose: 0.5 mg/min, 16.7 mls/hr Documented by: [id number] Cosigned by: [id number] Infusion: 11/23/20 08:57 Dose: 0.5 mg/min, 16.7 mls/hr Documented by: [id number] Cosigned by: [id number] Infusion: 11/23/20 07:13 Dose: 0.5 mg/min, 16.7 mls/hr Documented by: [id number] Cosigned by: [id number] Admin: 11/22/20 20:58 Dose: 0.5 mg/min, 16.7 mls/hr Documented by: [id number] Cosigned by: [id number] Furosemide 20 mg/ Syringe 2 mls @ 4 mls/min IV ONE ONE Stop: 11/23/20 12:16 Last Admin: 11/23/20 13:26 Dose: 4 mls/min Documented by: [id number] Furosemide 20 mg/ Syringe 2 mls @ 4 mls/min IV ONE ONE Stop: 11/24/20 10:31 Last Admin: 11/24/20 10:43 Dose: 4 mls/min Documented by: [id number] Metoprolol Tartrate (Metoprolol Tartrate 1 Mg/Ml Vial) 5 mg IV NOW STA Stop: 11/21/20 11:11 Last Admin: 11/21/20 11:17 Dose: 5 mg Documented by: [id number] Metoprolol Tartrate (Metoprolol Tartrate 1 Mg/Ml Vial) 5 mg IV NOW STA Stop: 11/21/20 12:27 Last Admin: 11/21/20 13:35 Dose: Not Given Documented by: [id number] Metoprolol Tartrate (Metoprolol Tartrate 25 Mg Tab) 12.5 mg PO BID GR[facility] Stop: 12/22/20 20:59 Last Admin: 11/23/20 08:37 Dose: 12.5 mg Documented by: [id number] Admin: 11/22/20 20:59 Dose: 12.5 mg Documented by: [id number] Metoprolol Tartrate (Metoprolol Tartrate 25 Mg Tab) 25 mg PO NOW STA Stop: 11/23/20 12:00 Last Admin: 11/23/20 13:26 Dose: 25 mg Documented by: [id number] Potassium Chloride (Potassium Chloride Crtab 20 Meq Tabcr) 40 meq PO NOW STA Stop: 11/21/20 23:54 Last Admin: 11/22/20 00:25 Dose: Not Given Documented by: [id number] Critical Care Time Critical Care Time: Yes (35) I have personally spent 35 minutes of critical care time in the direct management of this patient. This was a life/limb threatening event. This 35 minutes is in excess of all separately billable procedures. Medical Decision Making Differential Diagnosis Premature contractions, electrolyte abnormality, cardiac dysrhythmia, thyroid dysfunction, pulmonary embolism, infection, gastrointestinal, as well as other pathologies. Medical Records Attestation: I reviewed the patient's medical records. Home Medications Current Medication List: was personally reviewed by me Laboratory Data Attestation: I reviewed the patient's lab results. Result diagrams: 11/25/20 08:10 11/25/20 08:10 Lab Results 11/21/20 11/21/20 11/21/20 Range/Units 10:29 10:29 10:29 WBC 10.57 (4.8-10.8) K/uL RBC 3.39 L (4.2-5.4) M/uL Hgb 9.8 L (12.0-16.0) g/dL Hct 32.5 L (37-47) % MCV 95.9 (80-100) fL MCH 28.9 (25-34) pg MCHC 30.2 L (32-36) g/dL RDW Std Deviation 48.1 H (36.4-46.3) fL RDW Coeff of Levi 13.6 (11.5-14.5) % Plt Count 288 (130-400) K/uL MPV 10.4 (7.4-10.4) fL Immature Gran % (Auto) 0.3 % Neut % (Auto) 78.2 % Lymph % (Auto) 8.6 % [place] % (Auto) 12.2 % Eos % (Auto) 0.6 % Baso % (Auto) 0.1 % Neut # (Auto) 8.27 H (1.4-6.5) K/uL Lymph # (Auto) 0.91 L (1.2-3.4) K/uL [place] # (Auto) 1.29 H (0.11-0.59) K/uL Eos # (Auto) 0.06 (0-0.5) K/uL Baso # (Auto) 0.01 (0-0.2) K/uL Immature Gran # (Auto) 0.03 H (0.00-0.02) K/uL PT 11.0 (9.0-12.0) Seconds INR 1.1 (0.9-1.1) APTT 25.9 (21.0-31.0) Seconds PTT Ratio 1.0 Sodium 139 (136-145) mmol/L Potassium 3.8 (3.5-5.1) mmol/L Chloride 102 (98-107) mmol/L Carbon Dioxide 35 H (21-32) mmol/L Anion Gap 2.0 L (3-11) BUN 16 (7-18) mg/dl Creatinine 0.39 L (0.6-1.2) mg/dl Est Cr Clr Drug Dosing 66.8 ml/min Est GFR ( Amer) 111.0 ml/min Est GFR (Non-Af Amer) 95.8 ml/min BUN/Creatinine Ratio 40.7 H (10-20) Glucose 115 H (70-99) mg/dl Calcium 8.8 (8.5-10.1) mg/dl Magnesium (1.8-2.4) mg/dl Total Bilirubin 0.5 (0.2-1) mg/dl AST 16 (15-37) U/L ALT 18 (12-78) U/L Alkaline Phosphatase 98 (45-117) U/L Troponin I 0.083 H* (0-0.045) ng/ml Total Protein 6.6 (6.4-8.2) gm/dl Albumin 2.6 L (3.4-5.0) gm/dl Globulin 4.0 (2.5-4.0) gm/dl Albumin/Globulin Ratio 0.6 L (0.9-2) Urine Color Urine Appearance (Clear) Urine pH (4.5-7.5) Ur Specific [place] (1.000-1.030) Urine Protein (Negative) Urine Glucose (UA) (Negative) Urine Ketones (Negative) Urine Blood (Negative) Urine Nitrite (Negative) Urine Bilirubin (Negative) Urine Urobilinogen (Negative) Ur Leukocyte Esterase (Negative) COVID-19 Eval Order SARS-CoV-2 (PCR) (Negative) 11/21/20 11/21/20 11/21/20 Range/Units 10:29 11:34 12:05 WBC (4.8-10.8) K/uL RBC (4.2-5.4) M/uL Hgb (12.0-16.0) g/dL Hct (37-47) % MCV (80-100) fL MCH (25-34) pg MCHC (32-36) g/dL RDW Std Deviation (36.4-46.3) fL RDW Coeff of Levi (11.5-14.5) % Plt Count (130-400) K/uL MPV (7.4-10.4) fL Immature Gran % (Auto) % Neut % (Auto) % Lymph % (Auto) % [place] % (Auto) % Eos % (Auto) % Baso % (Auto) % Neut # (Auto) (1.4-6.5) K/uL Lymph # (Auto) (1.2-3.4) K/uL [place] # (Auto) (0.11-0.59) K/uL Eos # (Auto) (0-0.5) K/uL Baso # (Auto) (0-0.2) K/uL Immature Gran # (Auto) (0.00-0.02) K/uL PT (9.0-12.0) Seconds INR (0.9-1.1) APTT (21.0-31.0) Seconds PTT Ratio Sodium (136-145) mmol/L Potassium (3.5-5.1) mmol/L Chloride (98-107) mmol/L Carbon Dioxide (21-32) mmol/L Anion Gap (3-11) BUN (7-18) mg/dl Creatinine (0.6-1.2) mg/dl Est Cr Clr Drug Dosing ml/min Est GFR ( Amer) ml/min Est GFR (Non-Af Amer) ml/min BUN/Creatinine Ratio (10-20) Glucose (70-99) mg/dl Calcium (8.5-10.1) mg/dl Magnesium 1.9 (1.8-2.4) mg/dl Total Bilirubin (0.2-1) mg/dl AST (15-37) U/L ALT (12-78) U/L Alkaline Phosphatase (45-117) U/L Troponin I (0-0.045) ng/ml Total Protein (6.4-8.2) gm/dl Albumin (3.4-5.0) gm/dl Globulin (2.5-4.0) gm/dl Albumin/Globulin Ratio (0.9-2) Urine Color Yellow Urine Appearance Clear (Clear) Urine pH 6.0 (4.5-7.5) Ur Specific [place] 1.009 (1.000-1.030) Urine Protein Negative (Negative) Urine Glucose (UA) Negative (Negative) Urine Ketones Negative (Negative) Urine Blood Negative (Negative) Urine Nitrite Negative (Negative) Urine Bilirubin Negative (Negative) Urine Urobilinogen Negative (Negative) Ur Leukocyte Esterase Negative (Negative) COVID-19 Eval Order Covid19 at [facility] SARS-CoV-2 (PCR) (Negative) 11/21/20 Range/Units 12:05 WBC (4.8-10.8) K/uL RBC (4.2-5.4) M/uL Hgb (12.0-16.0) g/dL Hct (37-47) % MCV (80-100) fL MCH (25-34) pg MCHC (32-36) g/dL RDW Std Deviation (36.4-46.3) fL RDW Coeff of Levi (11.5-14.5) % Plt Count (130-400) K/uL MPV (7.4-10.4) fL Immature Gran % (Auto) % Neut % (Auto) % Lymph % (Auto) % [place] % (Auto) % Eos % (Auto) % Baso % (Auto) % Neut # (Auto) (1.4-6.5) K/uL Lymph # (Auto) (1.2-3.4) K/uL [place] # (Auto) (0.11-0.59) K/uL Eos # (Auto) (0-0.5) K/uL Baso # (Auto) (0-0.2) K/uL Immature Gran # (Auto) (0.00-0.02) K/uL PT (9.0-12.0) Seconds INR (0.9-1.1) APTT (21.0-31.0) Seconds PTT Ratio Sodium (136-145) mmol/L Potassium (3.5-5.1) mmol/L Chloride (98-107) mmol/L Carbon Dioxide (21-32) mmol/L Anion Gap (3-11) BUN (7-18) mg/dl Creatinine (0.6-1.2) mg/dl Est Cr Clr Drug Dosing ml/min Est GFR ( Amer) ml/min Est GFR (Non-Af Amer) ml/min BUN/Creatinine Ratio (10-20) Glucose (70-99) mg/dl Calcium (8.5-10.1) mg/dl Magnesium (1.8-2.4) mg/dl Total Bilirubin (0.2-1) mg/dl AST (15-37) U/L ALT (12-78) U/L Alkaline Phosphatase (45-117) U/L Troponin I (0-0.045) ng/ml Total Protein (6.4-8.2) gm/dl Albumin (3.4-5.0) gm/dl Globulin (2.5-4.0) gm/dl Albumin/Globulin Ratio (0.9-2) Urine Color Urine Appearance (Clear) Urine pH (4.5-7.5) Ur Specific [place] (1.000-1.030) Urine Protein (Negative) Urine Glucose (UA) (Negative) Urine Ketones (Negative) Urine Blood (Negative) Urine Nitrite (Negative) Urine Bilirubin (Negative) Urine Urobilinogen (Negative) Ur Leukocyte Esterase (Negative) COVID-19 Eval Order SARS-CoV-2 (PCR) NEGATIVE (Negative) Imaging Data Radiologist's Impression: Chest X-Ray 11/21/20 10:29 XR chest 1V portable HISTORY: Atypical Chest Pain COMPARISON: Chest 09/07/2020. FINDINGS: No pneumothorax. There are low lung volumes. The heart remains enlarged. Mild elevation of the right hemidiaphragm, unchanged. Small bilateral pleural fusions bibasilar densities have improved. There is diffuse chronic interstitial thickening. No new focal lung consolidations. There is a tortuous and calcified thoracic aorta, unchanged. IMPRESSION: 1. Improvement in the bilateral pleural effusions and bibasilar densities. 2. Chronic interstitial thickening persists. ACT 112: Negative or not required by law. Electronically signed by: Herbie Perkins M.D. 11/21/2020 10:56 AM ECG Data Attestation: I personally reviewed and interpreted this ECG as follows: Indication: + tachycardia Rate (beats per minute): 143 Rhythm: + atrial fibrillation ECG Intervals/blocks: + Incomplete right bundle branch block and + Prolonged QT (472) ECG [place]: + Right axis deviation ECG ST segments: + Normal ST segments ECG Findings: + Q waves (Inferior); no PACs or no PVCs Blood Pressure Blood Pressure Findings: Low blood pressure Blood Pressure Disposition: further management by hospitalist MDM Narrative This patient was evaluated and appeared to be in no significant distress. IV access was obtained and laboratory work was drawn. An order for cardiac monitoring was placed and the patient is noted to be in atrial fibrillation with rapid ventricular response at 144 bpm. Patient was hydrated with normal saline solution and 250 mL boluses. She was medicated with IV Cardizem prior to arrival. She was then given IV metoprolol 5 mg with minimal improvement. A second 5 mg dose was administered. Patient then required a second dose of IV Cardizem. The patient stated she preferred to be discharged however I explained I did not feel she was stable for discharge at this time. She agreed with consultation with the hospitalist service due to uncontrolled atrial fibrillation. Patient and and caregiver the + and felt comfortable with this plan and agreed. Patient expressed understanding of the plan. Impression & Plan Elevated troponin, Atrial fibrillation with RVR Discharge Plan Visit Data Chief Complaint: Cardiac Assessment ED Provider: Vivian Seo Discharge Problem: Elevated troponin, Atrial fibrillation with RVR Patient Disposition: Admitted As Inpatient Discharge Instructions Interventions: ED Discharge Assessment Last Done: 11/21/20 15:40
[2020-11-22] MEDS: predniSONE 5 MG TAB PO SCH (08:37)
[2020-11-22] MEDS: CHOLECALCIFEROL 1,000 UNITS 25 MCG TAB PO SCH (08:37)
[2020-11-22] MEDS: APIXABAN 2.5 MG TAB PO SCH ×2 (08:37→20:59)
[2020-11-22] MEDS: FLUTICASONE/VILANTEROL 200/25MCG 14 PUFFS/INHALER INH SCH (08:37)
[2020-11-22] MEDS: FERROUS SULFATE 325 MG TAB PO SCH (08:37)
[2020-11-22] MEDS: DOCUSATE SODIUM 100 MG CAP PO SCH ×2 (08:41→20:59)
--- NOTE | 2020-11-22 09:45 | XRay Report ---
XR chest 1V portable CLINICAL HISTORY: sob COMPARISON STUDY: November 21, 2020 at 10:30 a.m. FINDINGS: No pneumothorax. Stable moderate right pleural effusion. Mild interval worsening/redistribution of the moderate left p leural effusion. Unchanged atelectasis/infiltrates at bilateral bases. Mild interval worsening of diffuse prominence of pulmonary interstitium. Cardiomediastinal silhouette is unchanged since prior and partially obscured by surrounding opacities . Severe calcifications of aortic arch are again seen. Pulmonary vasculature is indistinct. Mild peribronchial cuffing are seen. Right hilum is prominent.. Osseous structures: Osteopenia. Vertebral bodies are poorly seen. IMPRESSION: 1. Mild interval worsening/redistribution of the moderate left pleural effusion. 2. Stable atelectasis/infiltrates at bilateral bases. Possible worsening of pulmonary edema. 3. Atherosclerosis. 4. The rest of findings as above. ACT 112: Negative or not required by law. The above report was generated using voice recognition software. It may contain grammatical, syntax o r spelling errors. Electronically signed by: Alisson Escobar DO 11/22/2020 9:44 AM
[2020-11-22] MEDS ORDERED: AMIODARONE IV BOLUS & DRIP IV STA (13:29)
[2020-11-22] MEDS ORDERED: 0.2 MICRON FILTER SET 1 EA IV ONE (13:29)
[2020-11-22] MEDS ORDERED: AMIODARONE / D5W 150 MG/100 ML BAG IV STA (13:29)
[2020-11-22] MEDS ORDERED: STAT IV Infusion **Titration per Protocol STA (13:29)
--- NOTE | 2020-11-22 13:38 | Cardiology Consultation ---
Date of Consultation November 22, 2020 Assessment & Plan (1) Atrial fibrillation with RVR: EKG performed this morning 11/22/2020 5:44 AM reveals atrial fibrillation 110 bpm, with chronic right bundle branch block. Echocardiogram revealed normal LVEF in the range of 6065%, with moderate to jennifer re mitral regurgitation, mild tricuspid regurgitation, findings relatively unchanged compared to August of this year with exception of newly developed atrial fibrillation. Stroke prophylaxis: The patient is already on Eliquis 2.5 mg twice daily given history of venous thromboembolic disease. We will cautiously add metoprolol tartrate given relatively low blood pressures. Discontinue IV diltiazem in favor of IV amiodarone for rate control and even perhaps rhythm control strategy. We will determine if amiodarone is a reasonable medication for her depend upon her response with noted underlying significant lung disease. I do not feel she is acutely volume overloaded. History of Present Illness Attending Physician: Anmol Timmons DO History of Present Illness Sahra Sheldon is an 85-year-old female seen in cardiology consultation per the request of GENEVA Canales for the evaluation of shortness of breath and newly recognized atrial fibrillation with rapid ventricular response. She has a longstanding history of COPD and is on chronic supplemental oxygen. She also has a history of severe rheumatoid arthritis. Her primary pmo project manager is Dr Ambrocio. She has a history of coronary heart disease with past non-ST segment elevation myocardial infarction, December, for which she underwent cardiac catheterization at [place]. Per available records, a culprit RCA stenosis was observed, but PCI was unsuccessful. She was transferred to [facility] and medical management was pursued. She presented with shortness of breath and was found to be in atrial fibrillation with rapid ventricular response yesterday. A diltiazem infusion was initiated, and titrated to 10 mg/h. Currently, she is comfortable, and has tolerated some mild physical therapy this morning. Atrial fibrillation with a rate of 90 to 105 bpm is noted on telemetry. Allergies Allergy/AdvReac Type Severity Reaction Status Date / Time Penicillins Allergy Unknown RASH Verified 11/21/20 12:08 Home Medications Medication Instructions Recorded Confirmed Type acetaminophen 325 mg tablet 325 mg PO QID PRN 08/24/20 11/21/20 History (Tylenol) atorvastatin 80 mg tablet 40 mg PO QPM 08/24/20 11/21/20 History cholecalciferol (vitamin D3) 25 25 mcg PO DAILY 08/24/20 11/21/20 History mcg (1,000 unit) tablet (Vitamin D3) docusate sodium 100 mg tablet 100 mg PO BID 08/24/20 11/21/20 History ferrous sulfate 325 mg (65 mg 325 mg PO DAILY 08/24/20 11/21/20 History iron) tablet (iron) fluticasone furoate 200 1 ea INHALATION DAILY 08/24/20 11/21/20 History mcg-vilanterol 25 mcg/dose inhalation powder (Breo Ellipta) furosemide 20 mg tablet 20 mg PO DAILY 08/24/20 11/21/20 History ipratropium 0.5 mg-albuterol 3 mg 3 ml INHALATION Q6 PRN 08/24/20 11/21/20 History (2.5 mg base)/3 mL nebulization soln ipratropium bromide 17 2 puff INHALATION QID PRN 08/24/20 11/21/20 History mcg/actuation HFA aerosol inhaler isosorbide mononitrate 30 mg 30 mg PO DAILY 08/24/20 11/21/20 History tablet,extended release 24 hr nitroglycerin 0.4 mg sublingual 0.4 mg SUBLINGUAL UD PRN 08/24/20 11/21/20 History tablet (Nitrostat) polyethylene glycol 3350 17 gram 17 g PO DAILY PRN 08/24/20 11/21/20 History oral powder packet (Miralax) prednisone 5 mg tablet 5 mg PO DAILY 08/24/20 11/21/20 History propranolol 20 mg tablet 20 mg PO BID 08/24/20 11/21/20 History apixaban 2.5 mg tablet (Eliquis) 2.5 mg PO BID 11/21/20 11/21/20 History Patient History Medical History CAD (coronary artery disease) Chronic anticoagulation Chronic respiratory failure with hypoxia, on home O2 therapy COPD (chronic obstructive pulmonary disease) Essential tremor Hearing loss History of COVID-19 History of pulmonary embolism Mitral regurgitation Osteoporosis Overactive bladder PAF (paroxysmal atrial fibrillation) Pulmonary hypertension Rheumatoid arthritis Vitamin D deficiency Family History Brother Diabetes Social History Smoking Status: Former smoker Hx Alcohol Use: No Hx Substance Use: No Preferred Language: Argentine Communication Ability: Effective Expediter Service Order Required: No Beliefs That Will Affect Care: None marital status: / Current Living Situation: Alone Current Living Situation Comment: Has personal care aids current occupational status: retired How many Children do You have: 3 Other Information That Helps Us Care for You: No Feels Safe at Home: Yes Safety Concerns: Feels Safe At This Time Assistive Devices: Oxygen - Continuous Review of Systems Review of Systems: All systems reviewed & are unremarkable except as noted in HPI & below Physical Exam Physical Exam: Temp Pulse Resp BP Pulse Ox 36.5 C 90 19 112/55 L 97 11/22/20 11:49 11/22/20 11:49 11/22/20 11:49 11/22/20 11:49 11/22/20 11:49 Constitutional: + cachectic Chronically ill in appearance Neck: trachea midline, no thyromegaly Respiratory: Mildly decreased breath sounds in the bases Cardiovascular: Rate/Rhythm: not irregularly irregular Heart Sounds: + murmur (1/6 systolic murmur) Vessels: no JVD Extremities: no edema Gastrointestinal (Abdomen): normal bowel sounds, soft, nontender, no hepatosplenomegaly Neurologic: PERRL, EOMI, accommodation nl, no face palsy, no dysarthria Results & Data ([facility]) Vital Signs (Past 12 Hours) Vital Signs Temp Pulse Resp BP BP Pulse Ox 11/22/20 11:49 36.5 C 90 19 112/55 L 97 11/22/20 08:28 36.9 C 107 H 19 113/56 L 95 11/22/20 03:40 36.3 C L 108 H 20 101/63 95 Laboratory Results Cardiac Enzymes 11/21/20 11/21/20 Range/Units 17:26 22:22 Troponin I 0.918 H* 0.728 H* (0-0.045) ng/ml CBC 11/22/20 Range/Units 06:59 WBC 13.07 H (4.8-10.8) K/uL RBC 3.31 L (4.2-5.4) M/uL Hgb 9.4 L (12.0-16.0) g/dL Hct 31.6 L (37-47) % Plt Count 301 (130-400) K/uL Comprehensive Metabolic Panel 11/22/20 Range/Units 06:59 Sodium 137 (136-145) mmol/L Potassium 4.3 (3.5-5.1) mmol/L Chloride 101 (98-107) mmol/L Carbon Dioxide 33 H (21-32) mmol/L BUN 17 (7-18) mg/dl Creatinine 0.44 L (0.6-1.2) mg/dl Glucose 110 H (70-99) mg/dl Calcium 8.7 (8.5-10.1) mg/dl Intake and Output 11/21/20 11/22/20 11/22/20 22:59 06:59 14:59 Intake Total 45.583 / 478.583 183.0 / 478.583 56.5 / 56.5 Output Total 375 / 875 500 / 875 Balance -329.417 / -396.417 -317.0 / -396.417 56.5 / 56.5 Intake: IV 45.583 / 478.583 183.0 / 478.583 56.5 / 56.5 Albumin 25% 12.5 gm In 50 ml @ 50 / 50 50 mls/hr IV ONE ONE Rx#: [id number] dilTIAZem HCL 125 mg In 45.583 / 178.583 133.0 / 178.583 56.5 / 56.5 Dextrose 5% 100 ml @ 15 MG/HR 15 mls/hr IV .[id number] [facility] Rx#: [id number] Oral 0 / 0 0 / 0 Output: Urine 375 / 875 500 / 875 Other: Weight 46.1 kg 46.1 kg Weight Measurement Method [facility]
[2020-11-22] MEDS ORDERED: AMIODARONE / D5W 360 MG/200 ML BAG IV ONE (14:00)
--- NOTE | 2020-11-22 14:18 | Hospitalist Progress Note ---
Date of Service November 22, 2020 Assessment & Plan (1) Atrial fibrillation with RVR: Plan: -Patient presenting from home with reports of worsening shortness of breath and lower extremity edema. Home health nurse found patient's heart rate to be elevated this morning. -In the ED, found to be in atrial fibrillation with RVR, rates in the 120s -Received Cardizem 10 mg IV and adenosine by EMS, metoprolol 5 mg IV x 2 doses in the ED -Heart rates remain elevated with borderline hypotension -Case discussed with cardiology, Dr. Shankar - will give additional Cardizem 10mg IV bolus followed by a drip -Patient anticoagulated on Eliquis -Electrolytes acceptable, check TSH -Echo done-EF normal, Cardizem stopped in favor of Metoprolol and Amio (2) Acute CHF: Plan: -Has lower extremity edema on exam -Likely secondary to A. fib with RVR -Hold on diuresing for now until BP improves -Echo 08/2020-EF 60 to 65%, mild aortic regurgitation, moderate to severe mitral regurgitation, mild tricuspid regurgitation (3) Elevated troponin: (4) CAD (coronary artery disease): Plan: -Appears stable, no reports of chest pain -Plan elevation likely demand ischemia in the setting of A. fib with RVR -Trend troponin -Continue statin -Hold isosorbide due to borderline hypotension (5) History of pulmonary embolism: Plan: -Anticoagulated on Eliquis (6) COPD (chronic obstructive pulmonary disease): (7) Chronic respiratory failure with hypoxia, on home O2 therapy: Plan: -No signs of acute exacerbation -Saturating well on chronic 1.5L O2 -Continue home inhalers (8) Rheumatoid arthritis: Plan: -On chronic prednisone (9) DVT prophylaxis: Plan: -Anticoagulated on Eliquis Labs Checked Plan: ROS-No Headache, No Visual Changes, No Nausea, No Vomiting, No Fever, No Chills, No Neck Pain or Stiffness, No Chest Pain, No Palpitations, No SOB, No HERNANDEZ, No Cough, No Sputum, No Wheezing, No Abdominal Pain, No Diarrhea, No Hematemesis, No Hemoptysis, No Unexpected Weight Loss, No Flank pain, No Melena, No Hematochezia, No Frequency, No Urgency, No Burning, No Hematuria, No Rashes, No Diaphoresis. Appetite is Normal Physical Exam Gen-AAO x 3, NAD, Afebrile, Frail Head-NCAT, EOMI, PERRLA, Anicteric Sclera, No Posterior Pharyngeal Erythema Neck-Supple, No JVD, No Thyromegaly, No Masses, No LAD, No Bruits Lungs-Rales Bilaterally, No Rhonchi, No Wheezing, No Crepitus Chest-No S4, +S1, +S2, No S3, No Murmurs, No Rubs, No Gallops, No Ectopy Abdomen-Soft, Bowel Sounds Present, Non Tender, Non Distended, No Hepatomegaly, No Splenomegaly, No Palpable Masses, No Rebound, No Rigidity, No Guarding Musculoskeletal-Full Range of Motion Bilaterally, No CVAT Extremities-No Cyanosis, No Clubbing, No Edema Nuero-Cranial Nerves II-XII grossly intact, Motor WNL, DTRs WNL, Strength WNL, Non Focal Psych-Normal Mood Admission and Anticipated Discharge Date Admission Date: November 21, 2020 Results & Data Results & Data ([facility]) Vital Signs (Past 12 Hours) Vital Signs Temp Pulse Resp BP BP Pulse Ox 11/22/20 11:49 36.5 C 90 19 112/55 L 97 11/22/20 08:28 36.9 C 107 H 19 113/56 L 95 11/22/20 03:40 36.3 C L 108 H 20 101/63 95 (1) COPD (chronic obstructive pulmonary disease) COPD type: unspecified COPD Qualified Code(s): J44.9 - Chronic obstructive pulmonary disease, unspecified
--- NOTE | 2020-11-22 16:05 | Electrocardiogram Report ---
Test Reason : Blood Pressure : / mmHG Vent. Rate : 143 BPM Atrial Rate : 138 BPM P-R Int : 000 ms QRS Dur : 110 ms QT Int : 306 ms P-R-T Axes : 000 090 -35 degrees QTc Int : 472 ms Poor data quality, interpretation may be adversely affected Atrial fibrillation with rapid ventricular response Rightward axis Incomplete right bundle branch block Inferior infarct (cited on or before 24-AUG-2020) Abnormal ECG When compared with ECG of 07-SEP-2020 20:29, Atrial fibrillation has replaced Sinus rhythm Vent. rate has increased BY [address] now depressed in Anterior leads Confirmed by Ze Wynne ([id number]) on 11/22/2020 4:05:09 PM Referred By: Confirmed By:Ze Wynne
--- NOTE | 2020-11-22 16:28 | Electrocardiogram Report ---
Test Reason : Blood Pressure : / mmHG Vent. Rate : 110 BPM Atrial Rate : 111 BPM P-R Int : 000 ms QRS Dur : 120 ms QT Int : 312 ms P-R-T Axes : 000 091 011 degrees QTc Int : 422 ms Poor data quality, interpretation may be adversely affected Atrial fibrillation with rapid ventricular response with premature ventricular or aberrantly conducte d complexes Low voltage QRS Right bundle branch block Marked ST abnormality, possible anterior subendocardial injury Abnormal ECG When compared with ECG of 21-NOV-2020 10:23, (unconfirmed) T wave inversion less evident in Inferior leads T wave inversion more evident in Anterolateral leads Confirmed by Ze Wynne ([id number]) on 11/22/2020 4:28:07 PM Referred By: REFERRED SELF Confirmed By:Ze Wynne
[2020-11-22] MEDS: AMIODARONE / D5W 360 MG/200 ML BAG IV SCH (20:58)
[2020-11-22] MEDS: METOPROLOL TARTRATE 25 MG TAB PO SCH (20:59)
[2020-11-22] MEDS: ATORVASTATIN 40 MG TAB PO SCH (20:59)
[2020-11-23 07:32] LABS: Hemoglobin 9.4 g/dL (12.0-16.0); Mean Corpuscular Hemoglobin 28.5 pg (25-34); Mean Corpuscular Hgb Conc 30.3 g/dL (32-36); Mean Corpuscular Volume 93.9 fL (80-100); Mean Platelet Volume 10.8 fL (7.4-10.4); Platelet Count 347 K/uL (130-400); RDW Coefficient of Variation 13.7 % (11.5-14.5); RDW Standard Deviation 47.3 fL (36.4-46.3); White Blood Count 16.76 K/uL (4.8-10.8)
[2020-11-23 07:54] LABS: BUN Creatinine Ratio 37.4 (10-20); Calcium 9.1 mg/dl (8.5-10.1); Creatinine Clr Calc Pharmacy 33.6 ml/min; Est GFR (African American) 85.6 ml/min; Est GFR (Non-African American) 73.9 ml/min; Potassium 4.4 mmol/L (3.5-5.1)
[2020-11-23] MEDS: APIXABAN 2.5 MG TAB PO SCH ×2 (08:37→20:24)
[2020-11-23] MEDS: METOPROLOL TARTRATE 25 MG TAB PO SCH ×2 (08:37→20:25)
[2020-11-23] MEDS: FLUTICASONE/VILANTEROL 200/25MCG 14 PUFFS/INHALER INH SCH (08:37)
[2020-11-23] MEDS: DOCUSATE SODIUM 100 MG CAP PO SCH ×2 (08:37→20:24)
[2020-11-23] MEDS: FERROUS SULFATE 325 MG TAB PO SCH (08:37)
[2020-11-23] MEDS: CHOLECALCIFEROL 1,000 UNITS 25 MCG TAB PO SCH (08:37)
[2020-11-23] MEDS: predniSONE 5 MG TAB PO SCH (08:38)
[2020-11-23] MEDS: AMIODARONE / D5W 360 MG/200 ML BAG IV SCH ×2 (10:07→21:12)
--- NOTE | 2020-11-23 11:42 | Hospitalist Progress Note ---
Date of Service November 23, 2020 Assessment & Plan (1) Atrial fibrillation with RVR: Plan: -Patient presenting from home with reports of worsening shortness of breath and lower extremity edema. Home health nurse found patient's heart rate to be elevated this morning. -In the ED, found to be in atrial fibrillation with RVR, rates in the 120s -Received Cardizem 10 mg IV and adenosine by EMS, metoprolol 5 mg IV x 2 doses in the ED -Heart rates remain elevated with borderline hypotension -Patient anticoagulated on Eliquis -Echo done-EF normal, Cardizem stopped in favor of Metoprolol and Amio, HR still in 100s (2) Acute CHF: Plan: -Has lower extremity edema -Likely secondary to A. fib with RVR -Hold on diuresing for now until BP improves -Echo 08/2020-EF 60 to 65%, mild aortic regurgitation, moderate to severe mitral regurgitation, mild tricuspid regurgitation (3) Elevated troponin: (4) CAD (coronary artery disease): Plan: -Appears stable, no reports of chest pain -Plan elevation likely demand ischemia in the setting of A. fib with RVR -Continue statin -Hold isosorbide due to borderline hypotension (5) History of pulmonary embolism: Plan: -Anticoagulated on Eliquis (6) COPD (chronic obstructive pulmonary disease): (7) Chronic respiratory failure with hypoxia, on home O2 therapy: Plan: -No signs of acute exacerbation -Saturating well on chronic 2L O2 -Continue home inhalers (8) Rheumatoid arthritis: Plan: -On chronic prednisone (9) DVT prophylaxis: Plan: -Anticoagulated on Eliquis Labs Checked Plan: labs checked ROS-No Headache, No Visual Changes, No Nausea, No Vomiting, No Fever, No Chills, No Neck Pain or Stiffness, No Chest Pain, No Palpitations, No SOB, No HERNANDEZ, No Cough, No Sputum, No Wheezing, No Abdominal Pain, No Diarrhea, No Hematemesis, No Hemoptysis, No Unexpected Weight Loss, No Flank pain, No Melena, No Hematochezia, No Frequency, No Urgency, No Burning, No Hematuria, No Rashes, No Diaphoresis. Appetite is Normal Physical Exam Gen-AAO x 3, NAD, Afebrile, Frail Head-NCAT, EOMI, PERRLA, Anicteric Sclera, No Posterior Pharyngeal Erythema Neck-Supple, No JVD, No Thyromegaly, No Masses, No LAD, No Bruits Lungs-Rales Bilaterally, No Rhonchi, No Wheezing, No Crepitus Chest-No S4, +S1, +S2, No S3, No Murmurs, No Rubs, No Gallops, No Ectopy Abdomen-Soft, Bowel Sounds Present, Non Tender, Non Distended, No Hepatomegaly, No Splenomegaly, No Palpable Masses, No Rebound, No Rigidity, No Guarding Musculoskeletal-Full Range of Motion Bilaterally, No CVAT Extremities-No Cyanosis, No Clubbing, No Edema Nuero-Cranial Nerves II-XII grossly intact, Motor WNL, DTRs WNL, Strength WNL, Non Focal Psych-Normal Mood Admission and Anticipated Discharge Date Admission Date: November 21, 2020 Results & Data Results & Data ([facility]) Vital Signs (Past 12 Hours) Vital Signs Temp Pulse Pulse Resp BP BP Pulse Ox 11/23/20 10:28 131 H 11/23/20 07:29 36.5 C 135 H 19 117/72 94 11/23/20 04:09 36.4 C L 132 H 22 117/75 94 (1) COPD (chronic obstructive pulmonary disease) COPD type: unspecified COPD Qualified Code(s): J44.9 - Chronic obstructive pulmonary disease, unspecified
[2020-11-23] MEDS ORDERED: METOPROLOL TARTRATE 25 MG TAB PO STA (11:59)
--- NOTE | 2020-11-23 12:06 | Cardiology Progress Note ---
Date of Service November 23, 2020 Assessment & Plan (1) Atrial fibrillation with RVR: Plan: EKG performed this morning 11/23/20 revealed AF with RVR at 125 bpm, RBBB. Rate related repolarization changes noted. Echocardiogram revealed normal LVEF in the range of 60-65%, with moderate to severe mitral regurgitation, mild tricuspid regurgitation, findings relatively unchanged compared to August of this year with exception of newly developed atrial fibrillation. Stroke prophylaxis: The patient is already on Eliquis 2.5 mg twice daily given history of venous thromboembolic disease. Rate control: increase metoprolol tartrate to 25 mg two times per day. Continue amiodarone infusion. Furosemide 20 mg IV x 1. Admission and Anticipated Discharge Date Admission Date: November 21, 2020 Subjective Patient seen in follow up. Patient sitting in bedside chair. Nursing points out new / worsening ankle edema. Denies worsening shortness of breath. Ongoing atrial fibrillation noted with mildly elevate rates , 90-110 bpm at rest, up to 130 bpm with minimal exertion. Review of Systems Review of Systems: All systems reviewed & are unremarkable except as noted in HPI & below Physical Exam Physical Exam: Temp Pulse Resp BP Pulse Ox 36.5 C 90 19 112/55 L 97 11/22/20 11:49 11/22/20 11:49 11/22/20 11:49 11/22/20 11:49 11/22/20 11:49 Constitutional: + cachectic (frail) Neck: trachea midline, no thyromegaly Cardiovascular: Rate/Rhythm: + irregularly irregular Heart Sounds: + murmur (1/6 systolic murmur) Vessels: no JVD Extremities: no edema Gastrointestinal (Abdomen): normal bowel sounds, soft, nontender, no hepatosplenomegaly Musculoskeletal: Spine: + kyphosis Neurologic: PERRL, EOMI, accommodation nl, no face palsy, no dysarthria Results & Data ([facility]) Vital Signs (Past 12 Hours) Vital Signs Temp Pulse Pulse Resp BP BP Pulse Ox 11/23/20 10:28 131 H 11/23/20 07:29 36.5 C 135 H 19 117/72 94 11/23/20 04:09 36.4 C L 132 H 22 117/75 94
[2020-11-23] MEDS ORDERED: FUROSEMIDE 20 MG in SYRINGE 0 ML IV ONE (12:15)
--- NOTE | 2020-11-23 16:55 | Electrocardiogram Report ---
Test Reason : Blood Pressure : / mmHG Vent. Rate : 125 BPM Atrial Rate : 122 BPM P-R Int : 000 ms QRS Dur : 130 ms QT Int : 290 ms P-R-T Axes : 000 098 -34 degrees QTc Int : 418 ms Atrial fibrillation with rapid ventricular response Right bundle branch block Possible Inferior infarct (cited on or before 23-NOV-2020) Abnormal ECG When compared with ECG of 22-NOV-2020 05:44, T wave inversion more evident in Inferior leads T wave inversion no longer evident in Lateral leads Confirmed by Ze Wynne ([id number]) on 11/23/2020 4:54:59 PM Referred By: REFERRED SELF Confirmed By:Ze Wynne
[2020-11-23] MEDS: ATORVASTATIN 40 MG TAB PO SCH (20:24)
[2020-11-24] MEDS: predniSONE 5 MG TAB PO SCH (07:16)
[2020-11-24] MEDS: APIXABAN 2.5 MG TAB PO SCH ×2 (07:16→21:08)
[2020-11-24] MEDS: METOPROLOL TARTRATE 25 MG TAB PO SCH ×2 (07:17→21:08)
[2020-11-24] MEDS: CHOLECALCIFEROL 1,000 UNITS 25 MCG TAB PO SCH (07:17)
[2020-11-24] MEDS: DOCUSATE SODIUM 100 MG CAP PO SCH ×2 (07:17→21:08)
[2020-11-24] MEDS: FERROUS SULFATE 325 MG TAB PO SCH (07:18)
[2020-11-24] MEDS: FLUTICASONE/VILANTEROL 200/25MCG 14 PUFFS/INHALER INH SCH (07:19)
[2020-11-24 07:55] LABS: Hematocrit (blood only) 31.7 % (37-47); Hemoglobin 9.6 g/dL (12.0-16.0); Mean Corpuscular Hemoglobin 28.5 pg (25-34); Mean Corpuscular Hgb Conc 30.3 g/dL (32-36); Mean Corpuscular Volume 94.1 fL (80-100); Platelet Count 347 K/uL (130-400); RDW Standard Deviation 48.7 fL (36.4-46.3); Red Blood Count 3.37 M/uL (4.2-5.4); White Blood Count 14.51 K/uL (4.8-10.8)
[2020-11-24 08:18] LABS: BUN Creatinine Ratio 42.2 (10-20); Calcium 9.5 mg/dl (8.5-10.1); Creatinine Clr Calc Pharmacy 31.5 ml/min; Est GFR (African American) 79.1 ml/min; Est GFR (Non-African American) 68.3 ml/min; Magnesium 2.5 mg/dl (1.8-2.4); Potassium 4.5 mmol/L (3.5-5.1)
[2020-11-24 08:19] LABS: Phosphorus 4.3 mg/dl (2.5-4.9)
[2020-11-24] MEDS ORDERED: METOPROLOL TARTRATE 25 MG TAB PO SCH (09:00)
--- NOTE | 2020-11-24 09:26 | XRay Report ---
SINGLE VIEW CHEST CLINICAL HISTORY: Pleural effusions. FINDINGS: An AP, portable, upright chest radiograph is compared to study dated 11/21/2020. Correlation is made with chest CT dated 09/08/2020. The examination is degraded by portable technique and patient rotation. The heart is enlarged noting atherosclerotic calcification of the thoracic aorta. The pulmo nary vasculature is noncongested. There are layering pleural effusions with bibasilar consolidation. No pneumothorax is seen. The skeletal structures are osteopenic. Degenerative change and scoliosis is noted in the spine. There are numerous compression deformities. IMPRESSION: 1. Layering pleural effusions with bibasilar consolidation. This is similar to the 11/21/2020 examinat ion. 2. Cardiomegaly without radiographic evidence of congestive failure. ACT 112: Negative or not required by law. Electronically signed by: Brown Byers M.D. 11/24/2020 9:25 AM
--- NOTE | 2020-11-24 10:10 | Hospitalist Progress Note ---
Date of Service November 24, 2020 Assessment & Plan (1) Atrial fibrillation with RVR: Plan: -Patient presenting from home with reports of worsening shortness of breath and lower extremity edema. Home health nurse found patient's heart rate to be elevated. -In the ED, found to be in atrial fibrillation with RVR, rates in the 120s -Received Cardizem 10 mg IV and adenosine by EMS, metoprolol 5 mg IV x 2 doses in the ED -Heart rates remained elevated with borderline hypotension -Patient anticoagulated on Eliquis -Echo done-EF normal, Cardizem stopped in favor of Metoprolol and Amio, HR still in 100s -patient converted to sinus rhythm , November 23 p.m. on amnio drip -Start p.o. amiodarone, continue PO metoprolol 25 twice daily Cardiology continues to follow (2) Acute CHF: Plan: -Has mild lower extremity edema -Likely secondary to A. fib with RVR -Received Lasix 20 IV, yesterday, November 23, give 20 mg IV today (11/24) -Echo 08/2020-EF 60 to 65%, mild aortic regurgitation, moderate to severe mitral regurgitation, mild tricuspid regurgitation Current/repeat echo essentially unchanged (3) Elevated troponin: (4) CAD (coronary artery disease): Plan: -Appears stable, no reports of chest pain Troponin peaked at 0.9 - elevation likely demand ischemia in the setting of A. fib with RVR -Continue statin -Hold isosorbide due to borderline hypotension -Cardiology following (5) History of pulmonary embolism: Plan: -Anticoagulated on Eliquis Mild hematuria noted in Cage bag (11/24) Hgb stable (above 9) Continue to closely monitor (6) COPD (chronic obstructive pulmonary disease): (7) Chronic respiratory failure with hypoxia, on home O2 therapy: Plan: -No signs of acute exacerbation -Saturating well on chronic 2L O2 -Continue home inhalers (8) Rheumatoid arthritis: Plan: -On chronic prednisone (9) DVT prophylaxis: Plan: -Anticoagulated on Eliquis Admission and Anticipated Discharge Date Admission Date: November 21, 2020 Subjective Patient seen in follow up of Afib Patient sitting in chair in NAD Converted from AF to sinus rhythm yesterday on amiodarone infusion. Pt without any complain. However patient is very frail, chronically ill-appearing Review of Systems Review of Systems: All systems reviewed & are unremarkable except as noted in Subjective Physical Exam Physical Exam: Gen- frail thin elderly F in NAD on 2 L of NC Head-NCAT, EOMI, PERRLA, Anicteric Sclera Neck-Supple Lungs-decreased breath sounds at the bases bilaterally, No Rhonchi, No Wheezing Chest- +S1, +S2, regular Abdomen- soft, Bowel Sounds Present, Non Tender, Non Distended Musculoskeletal- Full Range of Motion Bilaterally, No CVAT Extremities- moves extremities, lower extremity cool to touch, trace LE edema b/l Neuro-somnolent but easily arousable, answers simple questions appropriately, moves extremities Psych-Normal Mood Results & Data Results & Data ([facility]) Vital Signs (Past 12 Hours) Vital Signs Temp Pulse Pulse Resp BP BP Pulse Ox 11/24/20 08:00 86 11/24/20 07:40 36.3 C L 93 H 16 112/59 L 95 11/24/20 03:57 36.8 C 94 H 24 111/64 99 11/23/20 23:47 36.4 C L 90 20 123/72 96 11/23/20 23:00 86 Laboratory Results 11/24/20 11/24/20 11/24/20 Range/Units 06:41 06:41 06:41 WBC 14.51 H (4.8-10.8) K/uL RBC 3.37 L (4.2-5.4) M/uL Hgb 9.6 L (12.0-16.0) g/dL Hct 31.7 L (37-47) % MCV 94.1 (80-100) fL MCH 28.5 (25-34) pg MCHC 30.3 L (32-36) g/dL RDW Std Deviation 48.7 H (36.4-46.3) fL RDW Coeff of Levi 14.0 (11.5-14.5) % Plt Count 347 (130-400) K/uL MPV 11.0 H (7.4-10.4) fL Sodium 136 (136-145) mmol/L Potassium 4.5 (3.5-5.1) mmol/L Chloride 97 L (98-107) mmol/L Carbon Dioxide 36 H (21-32) mmol/L Anion Gap 3.0 (3-11) BUN 33 H (7-18) mg/dl Creatinine 0.79 (0.6-1.2) mg/dl Est Cr Clr Drug Dosing 31.5 ml/min Est GFR ( Amer) 79.1 ml/min Est GFR (Non-Af Amer) 68.3 ml/min BUN/Creatinine Ratio 42.2 H (10-20) Glucose 132 H (70-99) mg/dl Calcium 9.5 (8.5-10.1) mg/dl Phosphorus 4.3 (2.5-4.9) mg/dl Magnesium 2.5 H (1.8-2.4) mg/dl Procalcitonin 0.37 (0-0.5) ng/ml Medications Administered Current Inpatient Medications Acetaminophen (Acetaminophen 325 Mg Tab) 650 mg PO Q4H PRN PRN Reason: Pain or Fever Stop: 12/21/20 16:12 Apixaban (Apixaban 2.5 Mg Tab) 2.5 mg PO BID GRISELDA Stop: 12/21/20 20:59 Last Admin: 11/24/20 07:16 Dose: 2.5 mg Documented by: Atorvastatin Calcium (Atorvastatin 40 Mg Tab) 40 mg PO QPM GRISELDA Stop: 12/21/20 20:59 Last Admin: 11/23/20 20:24 Dose: 40 mg Documented by: Docusate Sodium (Docusate Sodium 100 Mg Cap) 100 mg PO BID GRISELDA Stop: 12/21/20 20:59 Last Admin: 11/24/20 07:17 Dose: 100 mg Documented by: Ferrous Sulfate (Ferrous Sulfate 325 Mg Tab) 325 mg PO DAILY GRISELDA Stop: 12/22/20 08:59 Last Admin: 11/24/20 07:18 Dose: 325 mg Documented by: Fluticasone/Vilanterol (Fluticasone/Vilanterol 200/25mcg 14 Puffs/Inhaler) 1 puffs INH DAILY GRISELDA Stop: 12/22/20 08:59 Last Admin: 11/24/20 07:19 Dose: 1 puffs Documented by: Amiodarone HCl/Dextrose (Nexterone / D5w) 360 mg in 200 mls @ 16.667 mls/hr IV .Q12H GRISELDA Stop: 12/22/20 19:59 Last Infusion: 11/24/20 09:03 Dose: 0.5 mg/min, 16.7 mls/hr Documented by: Metoprolol Tartrate (Metoprolol Tartrate 25 Mg Tab) 25 mg PO BID GRISELDA Stop: 12/23/20 20:59 Last Admin: 11/24/20 07:17 Dose: 25 mg Documented by: Polyethylene Glycol (Polyethylene (Miralax) 17 Gm Pack) 17 gm PO DAILY PRN PRN Reason: Constipation Stop: 12/21/20 16:12 Prednisone (Prednisone 5 Mg Tab) 5 mg PO DAILY GRISELDA Stop: 12/22/20 08:59 Last Admin: 11/24/20 07:16 Dose: 5 mg Documented by: Vitamin D (Cholecalciferol 1,000 Units 25 Mcg Tab) 1,000 units PO DAILY GRISELDA Stop: 12/22/20 08:59 Last Admin: 11/24/20 07:17 Dose: 1,000 units Documented by: (1) COPD (chronic obstructive pulmonary disease) COPD type: unspecified COPD Qualified Code(s): J44.9 - Chronic obstructive pulmonary disease, unspecified
--- NOTE | 2020-11-24 10:19 | Cardiology Progress Note ---
Date of Service November 24, 2020 Assessment & Plan (1) Atrial fibrillation with RVR: Plan: Stroke prophylaxis: The patient is already on Eliquis 2.5 mg twice daily given history of venous thromboembolic disease. -mild hematuria noted in Cage tubing / bag. Continue to monitor . Rate control: Continue metoprolol tartrate to 25 mg two times per day. Discontinue amiodarone infusion. Start oral amiodarone. Furosemide 20 mg IV x 1. Admission and Anticipated Discharge Date Admission Date: November 21, 2020 Subjective Patient seen in follow up. Patient sitting in bedside chair. Converted from AF to Sr 11/23/20 at 16:02 on amiodarone infusion. Remains in sinus. P without subjective complain. Physical Exam Physical Exam: Temp Pulse Resp BP Pulse Ox 36.5 C 90 19 112/55 L 97 11/22/20 11:49 11/22/20 11:49 11/22/20 11:49 11/22/20 11:49 11/22/20 11:49 Constitutional: + cachectic (frail) Neck: trachea midline, no thyromegaly Cardiovascular: Rate/Rhythm: + irregularly irregular Heart Sounds: + murmur (1/6 systolic murmur) Vessels: no JVD Extremities: no edema Gastrointestinal (Abdomen): normal bowel sounds, soft, nontender, no hepatosplenomegaly Musculoskeletal: Spine: + kyphosis Neurologic: PERRL, EOMI, accommodation nl, no face palsy, no dysarthria Results & Data ([facility]) Vital Signs (Past 12 Hours) Vital Signs Temp Pulse Pulse Resp BP BP Pulse Ox 11/24/20 08:00 86 11/24/20 07:40 36.3 C L 93 H 16 112/59 L 95 11/24/20 03:57 36.8 C 94 H 24 111/64 99 11/23/20 23:47 36.4 C L 90 20 123/72 96 11/23/20 23:00 86
[2020-11-24] MEDS ORDERED: FUROSEMIDE 20 MG in SYRINGE 0 ML IV ONE (10:30)
[2020-11-24] MEDS: AMIODARONE 200 MG TAB PO SCH ×2 (10:44→17:01)
[2020-11-24] MEDS: ADVANCED PROBIOTIC 1250 MG CAPSULE PO SCH (13:54)
[2020-11-24] MEDS: CLINDAMYCIN HCL 150 MG CAP PO SCH (17:01)
--- NOTE | 2020-11-24 17:06 | Electrocardiogram Report ---
Test Reason : Blood Pressure : / mmHG Vent. Rate : 081 BPM Atrial Rate : 081 BPM P-R Int : 180 ms QRS Dur : 132 ms QT Int : 418 ms P-R-T Axes : 010 067 -11 degrees QTc Int : 485 ms Normal sinus rhythm Right bundle branch block Possible Inferior infarct (cited on or before 23-NOV-2020) Abnormal ECG When compared with ECG of 23-NOV-2020 05:17, Sinus rhythm has replaced Atrial fibrillation Vent. rate has decreased BY [address] no longer depressed in Anterior leads Confirmed by Ze Wynne ([id number]) on 11/24/2020 5:06:14 PM Referred By: REFERRED SELF Confirmed By:Ze Wynne
[2020-11-24] MEDS: ATORVASTATIN 40 MG TAB PO SCH (21:08)
[2020-11-25] MEDS: CLINDAMYCIN HCL 150 MG CAP PO SCH ×4 (02:37→23:39)
[2020-11-25] MEDS: AMIODARONE 200 MG TAB PO SCH ×3 (07:19→15:56)
[2020-11-25] MEDS: FERROUS SULFATE 325 MG TAB PO SCH (07:20)
[2020-11-25] MEDS: METOPROLOL TARTRATE 25 MG TAB PO SCH ×2 (07:20→20:41)
[2020-11-25] MEDS: predniSONE 5 MG TAB PO SCH (07:21)
[2020-11-25] MEDS: CHOLECALCIFEROL 1,000 UNITS 25 MCG TAB PO SCH (07:21)
[2020-11-25] MEDS: APIXABAN 2.5 MG TAB PO SCH ×2 (07:21→20:41)
[2020-11-25] MEDS: DOCUSATE SODIUM 100 MG CAP PO SCH ×2 (07:22→20:41)
[2020-11-25] MEDS: FLUTICASONE/VILANTEROL 200/25MCG 14 PUFFS/INHALER INH SCH (07:22)
[2020-11-25] MEDS: ADVANCED PROBIOTIC 1250 MG CAPSULE PO SCH (07:23)
[2020-11-25 08:24] LABS: Hematocrit (blood only) 29.5 % (37-47); Hemoglobin 8.6 g/dL (12.0-16.0); Mean Corpuscular Hgb Conc 29.2 g/dL (32-36); Mean Corpuscular Volume 96.1 fL (80-100); Mean Platelet Volume 10.2 fL (7.4-10.4); Platelet Count 306 K/uL (130-400); RDW Coefficient of Variation 14.2 % (11.5-14.5); RDW Standard Deviation 50.1 fL (36.4-46.3); Red Blood Count 3.07 M/uL (4.2-5.4); White Blood Count 12.78 K/uL (4.8-10.8)
[2020-11-25 08:52] LABS: BUN Creatinine Ratio 41.4 (10-20); Creatinine Clr Calc Pharmacy 24.4 ml/min; Est GFR (African American) 58.1 ml/min; Est GFR (Non-African American) 50.1 ml/min; Magnesium 2.5 mg/dl (1.8-2.4); Potassium 4.3 mmol/L (3.5-5.1)
--- NOTE | 2020-11-25 10:48 | Cardiology Progress Note ---
Date of Service November 25, 2020 Assessment & Plan (1) Atrial fibrillation with RVR: Plan: Stroke prophylaxis: The patient is already on Eliquis 2.5 mg twice daily given history of venous thromboembolic disease, past history of paroxysmal atrial fibrillation. Rate/rhythm control: Continue metoprolol tartrate to 25 mg two times per day. Discontinue amiodarone infusion. Continue amiodarone 200 mg p.o. 3 times daily while hospitalized, transition to 200 mg twice daily at time of discharge. EKG performed yesterday 11/25/2020 reveals sinus rhythm, chronic right bundle branch block. Although amiodarone is not considered an ideal medication for her given her underlying lung disease, I think it is medically necessary at this time given recurrent symptomatic atrial fibrillation with rapid ventricular response and that the benefits outweigh the potential risks. Mild lower extremity edema, trending toward improvement. Hold off on further diuretics at present. Consider discontinuation of Cage catheter. Increase activity, in preparation for discharge hopefully within the next day or 2. Admission and Anticipated Discharge Date Admission Date: November 21, 2020 Subjective Patient seen in follow-up. No cardiac complaints. Once again expresses desire to go home. Physical Exam Physical Exam: Temp Pulse Resp BP Pulse Ox 36.5 C 90 19 112/55 L 97 11/22/20 11:49 11/22/20 11:49 11/22/20 11:49 11/22/20 11:49 11/22/20 11:49 Constitutional: + cachectic (frail) Neck: trachea midline, no thyromegaly Cardiovascular: Rate/Rhythm: + irregularly irregular Heart Sounds: + murmur (1/6 systolic murmur) Vessels: no JVD Extremities: no edema Gastrointestinal (Abdomen): normal bowel sounds, soft, nontender, no hepatosplenomegaly Musculoskeletal: Spine: + kyphosis Neurologic: PERRL, EOMI, accommodation nl, no face palsy, no dysarthria Results & Data ([facility]) Vital Signs (Past 12 Hours) Vital Signs Temp Pulse Pulse Resp BP BP Pulse Ox 11/25/20 10:32 36.6 C 81 18 92/54 L 95 11/25/20 08:00 88 11/25/20 07:30 36.5 C 95 H 17 105/65 90 11/25/20 04:31 36.5 C 92 H 18 118/67 98 11/24/20 23:24 36.5 C 83 18 110/60 99 11/24/20 23:00 83
[2020-11-25] MEDS: ATORVASTATIN 40 MG TAB PO SCH (20:41)
[2020-11-26] MEDS: CLINDAMYCIN HCL 150 MG CAP PO SCH ×2 (05:09→11:14)
--- NOTE | 2020-11-26 07:10 | Hospitalist Progress Note ---
Date of Service November 25, 2020 Assessment & Plan (1) Atrial fibrillation with RVR: Plan: -Patient presenting from home with reports of worsening shortness of breath and lower extremity edema. Home health nurse found patient's heart rate to be elevated. -In the ED, found to be in atrial fibrillation with RVR, rates in the 120s -Received Cardizem 10 mg IV and adenosine by EMS, metoprolol 5 mg IV x 2 doses in the ED -Heart rates remained elevated with borderline hypotension -Patient anticoagulated on Eliquis -Echo done-EF normal, Cardizem stopped in favor of Metoprolol and Amio, HR still in 100s -patient converted to sinus rhythm , November 23 p.m. on amnio drip -Started p.o. amiodarone, continue PO metoprolol 25 twice daily Continue amiodarone 200 mg p.o. 3 times daily while hospitalized, transition to 200 mg twice daily at time of discharge. Cardiology continues to follow (2) Acute CHF: Plan: -Has mild lower extremity edema -Likely secondary to A. fib with RVR -Received Lasix 20 IV on November 23 and -Echo 08/2020-EF 60 to 65%, mild aortic regurgitation, moderate to severe mitral regurgitation, mild tricuspid regurgitation Current/repeat echo essentially unchanged (3) Elevated troponin: (4) CAD (coronary artery disease): Plan: -Appears stable, no reports of chest pain Troponin peaked at 0.9 - elevation likely demand ischemia in the setting of A. fib with RVR -Continue statin -Hold isosorbide due to borderline hypotension -Cardiology following (5) History of pulmonary embolism: Plan: -Anticoagulated on Eliquis Mild hematuria noted in Cage bag (11/24) Hgb stable (above 9) Continue to closely monitor (6) COPD (chronic obstructive pulmonary disease): (7) Chronic respiratory failure with hypoxia, on home O2 therapy: Plan: -No signs of acute exacerbation -Saturating well on chronic 2L O2 -Continue home inhalers (8) Rheumatoid arthritis: Plan: -On chronic prednisone (9) DVT prophylaxis: Plan: -Anticoagulated on Eliquis Admission and Anticipated Discharge Date Admission Date: November 21, 2020 Subjective Patient seen in follow up of Afib Patient sitting in chair in NAD Converted from AF to sinus rhythm on amiodarone infusion. Pt without any complain. However patient is very frail, chronically ill-appearing Switched to PO amio Eager to go home Review of Systems Review of Systems: All systems reviewed & are unremarkable except as noted in Subjective Physical Exam Physical Exam: Gen- frail thin elderly F in NAD Head- NCAT, EOMI, PERRLA, Anicteric Sclera Neck- Supple Lungs- decreased breath sounds at the bases bilaterally, No Rhonchi, No Wheezing Chest- +S1, +S2, regular Abdomen- soft, Bowel Sounds Present, Non Tender, Non Distended Musculoskeletal- Full Range of Motion Bilaterally, No CVAT Extremities- moves extremities, lower extremity cool to touch, 1+ pedal/ LE edema b/l Neuro- awake and alert, answers simple questions appropriately, moves extremities Psych- Normal Mood Results & Data Results & Data ([facility]) Vital Signs (Past 12 Hours) Vital Signs Temp Pulse Pulse Resp BP BP Pulse Ox 11/26/20 06:54 36.6 C 58 L 18 100/56 L 96 11/26/20 04:12 36.5 C 85 20 102/58 L 92 11/26/20 03:28 84 11/25/20 23:00 36.6 C 84 16 111/63 95 11/25/20 20:33 36.8 C 83 16 132/55 L 95 (1) COPD (chronic obstructive pulmonary disease) COPD type: unspecified COPD Qualified Code(s): J44.9 - Chronic obstructive pulmonary disease, unspecified
--- NOTE | 2020-11-26 07:13 | Hospitalist Progress Note ---
Date of Service November 26, 2020 Assessment & Plan (1) Atrial fibrillation with RVR: Plan: -Patient presenting from home with reports of worsening shortness of breath and lower extremity edema. Home health nurse found patient's heart rate to be elevated. -In the ED, found to be in atrial fibrillation with RVR, rates in the 120s -Received Cardizem 10 mg IV and adenosine by EMS, metoprolol 5 mg IV x 2 doses in the ED -Heart rates remained elevated with borderline hypotension -Patient anticoagulated on Eliquis -Echo done-EF normal, Cardizem stopped in favor of Metoprolol and Amio, HR still in 100s -patient converted to sinus rhythm , November 23 p.m. on amnio drip -Started p.o. amiodarone, continue PO metoprolol 25 twice daily Continue amiodarone 200 mg p.o. 3 times daily while hospitalized, transition to 200 mg twice daily at time of discharge. Cardiology continues to follow (2) Acute CHF: Plan: -Has mild lower extremity edema -Likely secondary to A. fib with RVR -Received Lasix 20 IV on November 23 and -Echo 08/2020-EF 60 to 65%, mild aortic regurgitation, moderate to severe mitral regurgitation, mild tricuspid regurgitation Current/repeat echo essentially unchanged (3) Elevated troponin: (4) CAD (coronary artery disease): Plan: -Appears stable, no reports of chest pain Troponin peaked at 0.9 - elevation likely demand ischemia in the setting of A. fib with RVR -Continue statin -Hold isosorbide due to borderline hypotension -Cardiology following (5) History of pulmonary embolism: Plan: -Anticoagulated on Eliquis Mild hematuria noted in Cage bag (11/24) Hgb stable, Cage removed Continue to closely monitor (6) COPD (chronic obstructive pulmonary disease): (7) Chronic respiratory failure with hypoxia, on home O2 therapy: Plan: -No signs of acute exacerbation -Saturating well on chronic 2L O2 -Continue home inhalers (8) Rheumatoid arthritis: Plan: -On chronic prednisone Leukocytosis -Recently admitted in September, at that time pulmonary medicine was also consulted and palliative medicine She had a right lower lobe pneumonia, and it was believed to be a component of aspiration pneumonia she was discharged on Augmentin however it now seems that patient has a rash/allergy to penicillin obtain procalcitonin started clindamycin continue to closely monitor (9) DVT prophylaxis: Plan: -Anticoagulated on Eliquis Admission and Anticipated Discharge Date Admission Date: November 21, 2020 Subjective Patient seen in follow up of Afib Patient sitting in chair in NAD Converted from AF to sinus rhythm on amiodarone infusion, now on PO amio Remains in sinus rhythm Pt without any complain. Eager to go home However patient is very frail, chronically ill-appearing Per family, patient has 24-hour care Review of Systems 2 Review of Systems: All systems reviewed & are unremarkable except as noted in Subjective Physical Exam Physical Exam: Gen- frail thin elderly F in NAD Head- NCAT, EOMI, PERRLA, Anicteric Sclera Neck- Supple Lungs- decreased breath sounds at the bases bilaterally, No Rhonchi, No Wheezing Chest- +S1, +S2, regular Abdomen- soft, Bowel Sounds Present, Non Tender, Non Distended Musculoskeletal- Full Range of Motion Bilaterally, No CVAT Extremities- moves extremities, lower extremity cool to touch, 1+ pedal/ LE edema b/l Neuro- awake and alert, answers simple questions appropriately, moves extremities Psych- Normal Mood Results & Data Results & Data ([facility]) Vital Signs (Past 12 Hours) Vital Signs Temp Pulse Pulse Resp BP BP Pulse Ox 11/26/20 06:54 36.6 C 58 L 18 100/56 L 96 11/26/20 04:12 36.5 C 85 20 102/58 L 92 11/26/20 03:28 84 11/25/20 23:00 36.6 C 84 16 111/63 95 11/25/20 20:33 36.8 C 83 16 132/55 L 95 Laboratory Results 11/25/20 11/25/20 11/25/20 Range/Units 08:10 08:10 08:10 WBC 12.78 H (4.8-10.8) K/uL RBC 3.07 L (4.2-5.4) M/uL Hgb 8.6 L (12.0-16.0) g/dL Hct 29.5 L (37-47) % MCV 96.1 (80-100) fL MCH 28.0 (25-34) pg MCHC 29.2 L (32-36) g/dL RDW Std Deviation 50.1 H (36.4-46.3) fL RDW Coeff of Levi 14.2 (11.5-14.5) % Plt Count 306 (130-400) K/uL MPV 10.2 (7.4-10.4) fL Sodium 135 L (136-145) mmol/L Potassium 4.3 (3.5-5.1) mmol/L Chloride 97 L (98-107) mmol/L Carbon Dioxide 35 H (21-32) mmol/L Anion Gap 3.0 (3-11) BUN 42 H (7-18) mg/dl Creatinine 1.02 (0.6-1.2) mg/dl Est Cr Clr Drug Dosing 24.4 ml/min Est GFR ( Amer) 58.1 ml/min Est GFR (Non-Af Amer) 50.1 ml/min BUN/Creatinine Ratio 41.4 H (10-20) Glucose 163 H (70-99) mg/dl Calcium 9.0 (8.5-10.1) mg/dl Phosphorus 5.0 H (2.5-4.9) mg/dl Magnesium 2.5 H (1.8-2.4) mg/dl Procalcitonin 0.47 (0-0.5) ng/ml Medications Administered Current Inpatient Medications Acetaminophen (Acetaminophen 325 Mg Tab) 650 mg PO Q4H PRN PRN Reason: Pain or Fever Stop: 12/21/20 16:12 Amiodarone HCl (Amiodarone 200 Mg Tab) 200 mg PO TIDM GRISELDA Stop: 12/24/20 11:59 Last Admin: 11/25/20 15:56 Dose: 200 mg Documented by: Apixaban (Apixaban 2.5 Mg Tab) 2.5 mg PO BID GRISELDA Stop: 12/21/20 20:59 Last Admin: 11/25/20 20:41 Dose: 2.5 mg Documented by: Atorvastatin Calcium (Atorvastatin 40 Mg Tab) 40 mg PO QPM GRISELDA Stop: 12/21/20 20:59 Last Admin: 11/25/20 20:41 Dose: 40 mg Documented by: Clindamycin HCl (Clindamycin Hcl 150 Mg Cap) 150 mg PO Q6 GRISELDA Stop: 11/26/20 17:59 Last Admin: 11/26/20 05:09 Dose: Not Given Documented by: Docusate Sodium (Docusate Sodium 100 Mg Cap) 100 mg PO BID GRISELDA Stop: 12/21/20 20:59 Last Admin: 11/25/20 20:41 Dose: 100 mg Documented by: Ferrous Sulfate (Ferrous Sulfate 325 Mg Tab) 325 mg PO DAILY GRISELDA Stop: 12/22/20 08:59 Last Admin: 11/25/20 07:20 Dose: 325 mg Documented by: Fluticasone/Vilanterol (Fluticasone/Vilanterol 200/25mcg 14 Puffs/Inhaler) 1 puffs INH DAILY GRISELDA Stop: 12/22/20 08:59 Last Admin: 11/25/20 07:22 Dose: 1 puffs Documented by: Furosemide (Furosemide 20 Mg Tab) 20 mg PO QAM [facility] Stop: 12/26/20 08:59 Lactobacillus Acidoph/Casei/Rhamnos (Advanced Probiotic 1250 Mg Capsule) 2 cap PO DAILY [facility] Stop: 12/24/20 12:59 Last Admin: 11/25/20 07:23 Dose: 2 cap Documented by: Metoprolol Tartrate (Metoprolol Tartrate 25 Mg Tab) 25 mg PO BID GRISELDA Stop: 12/23/20 20:59 Last Admin: 11/25/20 20:41 Dose: 25 mg Documented by: Polyethylene Glycol (Polyethylene (Miralax) 17 Gm Pack) 17 gm PO DAILY PRN PRN Reason: Constipation Stop: 12/21/20 16:12 Prednisone (Prednisone 5 Mg Tab) 5 mg PO DAILY [facility] Stop: 12/22/20 08:59 Last Admin: 11/25/20 07:21 Dose: 5 mg Documented by: Vitamin D (Cholecalciferol 1,000 Units 25 Mcg Tab) 1,000 units PO DAILY GRISELDA Stop: 12/22/20 08:59 Last Admin: 11/25/20 07:21 Dose: 1,000 units Documented by: (1) COPD (chronic obstructive pulmonary disease) COPD type: unspecified COPD Qualified Code(s): J44.9 - Chronic obstructive pulmonary disease, unspecified
[2020-11-26 08:01] LABS: Magnesium 2.6 mg/dl (1.8-2.4); Phosphorus 3.7 mg/dl (2.5-4.9)
[2020-11-26] MEDS: ADVANCED PROBIOTIC 1250 MG CAPSULE PO SCH (08:14)
[2020-11-26] MEDS: predniSONE 5 MG TAB PO SCH (08:14)
[2020-11-26] MEDS: DOCUSATE SODIUM 100 MG CAP PO SCH (08:14)
[2020-11-26] MEDS: FERROUS SULFATE 325 MG TAB PO SCH (08:14)
[2020-11-26] MEDS: METOPROLOL TARTRATE 25 MG TAB PO SCH (08:14)
[2020-11-26] MEDS: CHOLECALCIFEROL 1,000 UNITS 25 MCG TAB PO SCH (08:14)
[2020-11-26] MEDS: AMIODARONE 200 MG TAB PO SCH ×2 (08:15→11:14)
[2020-11-26] MEDS: APIXABAN 2.5 MG TAB PO SCH (08:15)
[2020-11-26] MEDS: FLUTICASONE/VILANTEROL 200/25MCG 14 PUFFS/INHALER INH SCH (08:15)
[2020-11-26] MEDS ORDERED: FUROSEMIDE 20 MG TAB PO SCH ×2 (09:00→11:15)
[2020-11-26 11:04] LABS: Hematocrit (blood only) 28.1 % (37-47); Hemoglobin 8.3 g/dL (12.0-16.0); Mean Corpuscular Hgb Conc 29.5 g/dL (32-36); Mean Corpuscular Volume 94.9 fL (80-100); Mean Platelet Volume 11.3 fL (7.4-10.4); Platelet Count 317 K/uL (130-400); Red Blood Count 2.96 M/uL (4.2-5.4); White Blood Count 12.71 K/uL (4.8-10.8)
[2020-11-26 11:15] LABS: BUN Creatinine Ratio 43.7 (10-20); Calcium 9.4 mg/dl (8.5-10.1); Creatinine Clr Calc Pharmacy 22.6 ml/min; Est GFR (Non-African American) 45.7 ml/min; Potassium 4.6 mmol/L (3.5-5.1)
--- NOTE | 2020-11-26 11:20 | Cardiology Progress Note ---
Date of Service November 26, 2020 Assessment & Plan (1) Atrial fibrillation with RVR: Plan: Stroke prophylaxis: The patient is already on Eliquis 2.5 mg twice daily given history of venous thromboembolic disease, past history of paroxysmal atrial fibrillation. Rate/rhythm control: Continue metoprolol tartrate to 25 mg two times per day. Continue amiodarone 200 mg p.o. 3 times daily while hospitalized, transition to 200 mg twice daily at time of discharge. Although amiodarone is not considered an ideal medication for her given her underlying lung disease, I think it is medically necessary at this time given recurrent symptomatic atrial fibrillation with rapid ventricular response and that the benefits outweigh the potential risks. Mild lower extremity edema, trending toward improvement. Cage catheter has been removed. Per review of her outpatient record, she has typical that furosemide 20 milligrams daily, and this has been re-initiated. An outpatient cardiology follow-up visit for within a month has been requested in her outpatient chart. Admission and Anticipated Discharge Date Admission Date: November 21, 2020 Subjective Patient without complaints. Either for discharge. Telemetry reveals ongoing sinus rhythm in the 80s. Physical Exam Physical Exam: Temp Pulse Resp BP Pulse Ox 36.5 C 90 19 112/55 L 97 11/22/20 11:49 11/22/20 11:49 11/22/20 11:49 11/22/20 11:49 11/22/20 11:49 Constitutional: + cachectic (frail) Neck: trachea midline, no thyromegaly Cardiovascular: Rate/Rhythm: + irregularly irregular Heart Sounds: + murmur (1/6 systolic murmur) Vessels: no JVD Extremities: + edema (1+ lower leg, ankle edema) Gastrointestinal (Abdomen): normal bowel sounds, soft, nontender, no hepatosplenomegaly Musculoskeletal: Spine: + kyphosis Neurologic: PERRL, EOMI, accommodation nl, no face palsy, no dysarthria Results & Data ([facility]) Vital Signs (Past 12 Hours) Vital Signs Temp Pulse Pulse Resp BP Pulse Ox 11/26/20 07:00 87 11/26/20 06:54 36.6 C 58 L 18 100/56 L 96 11/26/20 04:12 36.5 C 85 20 102/58 L 92 11/26/20 03:28 84
[2020-11-26] MEDS: AMIODARONE / D5W 360 MG/200 ML BAG IV SCH (11:38)
--- NOTE | 2020-11-26 13:35 | Discharge Summary ---
Date of Service November 26, 2020 Admission HPI Per Admitting Provider 85-year-old female with PMH COPD, chronic hypoxic respiratory failure on 1.5L O2, CAD, pulmonary hypertension, regurgitation, rheumatoid arthritis on chronic prednisone, and other problems to below who presents the ED for evaluation of shortness of breath. Patient reports worsening shortness of breath for the past few days. She also has noted increasing lower extremity edema over the past couple of weeks. Patient's home health nurse evaluated her today and found her heart rate to be elevated, EMS was called and patient was brought to the ED for further evaluation. Patient denies chest pain and palpitations. No lightheadedness, dizziness, diaphoresis, syncopal events. She denies abdominal pain, nausea, vomiting, diarrhea. No other recent illnesses, fevers, chills. She denies urinary symptoms. Patient was found to be in atrial fibrillation with RVR. She received adenosine and Cardizem 10 mg IV by EMS. In the ED, she was given metoprolol 5 mg IV 2 doses. Heart rate remains elevated in the 120s. Troponin 0.083. Other labs unremarkable/at patient's baseline. Admission Exam Per Admitting Provider Constitutional: + ill appearing (Chronically) and + frail appearing Vitals as above Eyes: Left eye cataract ENMT: external ear and nose normal, oropharynx normal Ears: + hearing impairment Respiratory: normal respiratory effort; no respiratory distress Auscultation: + diminished lung sounds (Bilaterally) Cardiovascular: Rate/Rhythm: + tachycardic and + irregularly irregular Vessels: normal peripheral pulses Extremities: + edema (+2 pitting edema BLE) Gastrointestinal (Abdomen): normal bowel sounds, soft, nontender, no hepatosplenomegaly Musculoskeletal: no cyanosis or clubbing, extremities motor strength 5/5 Skin: no rashes, warm and dry Neurologic: PERRL, EOMI, accommodation nl, no face palsy, no dysarthria Psychiatric: A+Ox3, euthymic affect Principal Diagnosis Atrial fibrillation with RVR Mild CHF exacerbation Discharge Exam Gen- frail thin elderly F in NAD Head- NCAT, EOMI, PERRLA, Anicteric Sclera Neck- Supple Lungs- decreased breath sounds at the bases bilaterally, No Rhonchi, No Wheezing Chest- +S1, +S2, regular Abdomen- soft, Bowel Sounds Present, Non Tender, Non Distended Musculoskeletal- Full Range of Motion Bilaterally, No CVAT Extremities- moves extremities, lower extremity cool to touch, 1+ pedal/ LE edema b/l Neuro- awake and alert, answers simple questions appropriately, moves extremities Psych- Normal Mood Discharge Data Allergies Allergy/AdvReac Type Severity Reaction Status Date / Time Penicillins Allergy Unknown RASH Verified 11/21/20 12:08 Consultations 11/21/20 12:54 ED Decision to Admit Stat 11/21/20 16:13 Consult Cardiology Routine Hospital Course (1) Atrial fibrillation with RVR: -Patient presenting from home with reports of worsening shortness of breath and lower extremity edema. Home health nurse found patient's heart rate to be elevated. -In the ED, found to be in atrial fibrillation with RVR, rates in the 120s -Received Cardizem 10 mg IV and adenosine by EMS, metoprolol 5 mg IV x 2 doses in the ED -Heart rates remained elevated with borderline hypotension -Patient anticoagulated on Eliquis -Echo done-EF normal, Cardizem stopped in favor of Metoprolol and Amio, HR still in 100s -patient converted to sinus rhythm , November 23 p.m. on amnio drip -Started p.o. amiodarone, continue PO metoprolol 25 twice daily Continue amiodarone 200 mg p.o. 3 times daily while hospitalized, transition to 200 mg twice daily at time of discharge. Cardiology continues to follow (2) Acute CHF: -Has mild lower extremity edema -Likely secondary to A. fib with RVR -Received Lasix 20 IV on November 23 and -Echo 08/2020-EF 60 to 65%, mild aortic regurgitation, moderate to severe mitral regurgitation, mild tricuspid regurgitation Current/repeat echo essentially unchanged Daily home furosemide 20 mg daily resumed (3) Elevated troponin: (4) CAD (coronary artery disease): -Appears stable, no reports of chest pain Troponin peaked at 0.9 - elevation likely demand ischemia in the setting of A. fib with RVR -Continue statin -Hold isosorbide due to borderline hypotension -Cardiology following (5) History of pulmonary embolism: -Anticoagulated on Eliquis Mild hematuria noted in Cage bag (11/24) Hgb stable, Cage removed Continue to closely monitor (6) COPD (chronic obstructive pulmonary disease): (7) Chronic respiratory failure with hypoxia, on home O2 therapy: -No signs of acute exacerbation -Saturating well on chronic 2L O2 -Continue home inhalers (8) Rheumatoid arthritis: -On chronic prednisone Leukocytosis -Recently admitted in September, at that time pulmonary medicine was also consulted and palliative medicine She had a right lower lobe pneumonia, and it was believed to be a component of aspiration pneumonia she was discharged on Augmentin however it now seems that patient has a rash/allergy to penicillin obtain procalcitonin started clindamycin continue to closely monitor (9) DVT prophylaxis: -Anticoagulated on Eliquis Total Time Total Time Spent Total Time Spent (In Minutes): 40 Discharge Plan Discharge Items Patient Disposition: Home - Home Health Services Reason For Visit: AFIB RVR Discharge Diagnosis: Atrial fibrillation with RVR Mild CHF exacerbation Activity: Per Instructions section Non-emergency contact: Primary Care Provider and [employer] Call non-emergency contact if: you have any medication questions and your symptoms worsen Follow-up/Referrals: Ezequiel Kelly DO [[employer]] - Brandy Camejo MD [Primary Care Provider] - (Date & Time 12/02/2020 1:40 PM Provider Ej Monsalve MD Department Family [facility] ) Diet: Heart Healthy and Low Sodium (2gm) Diet Texture: Pureed (blended smooth) Addtl Attending Provider Instructions: Follow-up with your primary care doctor and health information internship. Primary care doctor appointment was scheduled for you as above. You will be contacted about your appointment with cardiology. You were started on a new medication, called amiodarone, take it as prescribed - 200 mg twice a day. Also take metoprolol as prescribed -25 mg twice a day. Do not take propanolol and isosorbide mononitrate anymore unless further instructed by your doctor. For mild lower extremity edema, recommend compression stockings to wear when you are out of bed. Elevation of your lower extremities will also help with that. In addition, finish antibiotic course and recommend taking probiotics while you are taking antibiotic to prevent any abdominal discomfort. Addtl Cigarette Making Examiner Provider Instructions: Call your Primary Care doctor if any of the following symptoms or problems start or get worse: * Shortness of breath or difficulty breathing * Wake up at night short of breath * Chest pain * Cough * Swelling of your hands, feet, or legs * More fatigued or tired with your normal activity * Palpitations - sudden fast heart beats WEIGHT * Weigh yourself every morning after using the bathroom. * Use the same scale. * Wear the same amount of clothing. * Write your weight down on a chart. * Call your Primary Care doctor if you gain more than 2-3 pounds in 1-2 days. MEDICATIONS * Use this discharge instruction sheet for medication instructions. * Take your medications at the time your doctor ordered. * Do not skip a dose of your medicines. * If you miss a dose of medicine, take it as soon as possible, but DO NOT DOUBLE A DOSE. * Read your medicine information when you get home. * Know all of the side effects of your medicine. If in doubt, ask your pharmacist * Call your Primary Care doctor's office if you have any side effects. * Be sure all of your doctors know what medicine and herbs you take (including cold, flu, and herbal medicine). Take the following with you to your follow-up doctor appointments: * Weight Chart * Medication List * List of questions Do not drink excessive alcohol, beer or wine. Pending Studies at Discharge: No Stand-Alone Forms: My [facility] [place], Smoking Cessation Medications and DC Order Prescriptions: New clindamycin HCl 150 mg Capsule 150 mg PO Q6 4 Days Qty: 16 RF: 0 metoprolol tartrate 25 mg Tablet 25 mg PO BID 30 Days Qty: 60 RF: 0 amiodarone 200 mg Tablet 200 mg PO BID 30 Days Qty: 60 RF: 0 Advanced Probiotic 625 mg (10 billion cell) Capsule 2 cap PO DAILY Qty: 14 RF: 0 Continued acetaminophen [Tylenol] 325 mg Tablet 325 mg PO QID PRN (Reason: MOD PAIN) RF: 0 ipratropium-albuterol 0.5 mg-3 mg(2.5 mg base)/3 mL solution for nebulization 3 ml INHALATION Q6 PRN (Reason: Shortness Of Breath Or Wheezing) RF: 0 prednisone 5 mg tablet 5 mg PO DAILY RF: 0 ferrous sulfate [iron] 325 mg (65 mg iron) Tablet 325 mg PO DAILY RF: 0 atorvastatin 80 mg tablet 40 mg PO QPM RF: 0 polyethylene glycol 3350 [Miralax] 17 gram Powder In Packet 17 g PO DAILY PRN (Reason: Constipation) RF: 0 nitroglycerin [Nitrostat] 0.4 mg Tablet, Sublingual 0.4 mg sublingual UD PRN (Reason: Chest Pain) RF: 0 docusate sodium 100 mg Tablet 100 mg PO BID RF: 0 ipratropium bromide 17 mcg/actuation Hfa Aerosol Inhaler 2 puff INHALATION QID PRN (Reason: Shortness Of Breath Or Wheezing) RF: 0 cholecalciferol (vitamin D3) [Vitamin D3] 25 mcg (1,000 unit) Tablet 25 mcg PO DAILY RF: 0 Breo Ellipta 200-25 mcg/dose blister with device 1 ea INHALATION DAILY RF: 0 furosemide 20 mg tablet 20 mg PO DAILY RF: 0 Eliquis 2.5 mg tablet 2.5 mg PO BID RF: 0 Discontinued isosorbide mononitrate 30 mg tablet extended release 24 hr 30 mg PO DAILY RF: 0 propranolol 20 mg tablet 20 mg PO BID RF: 0 Discharge Orders: Discharge Order (Routine); Ordered 11/26/20 Ordered By: Abraham Rothman Admission Data Admit Date/Time: 11/21/20 13:11 Attending Provider: Abraham Rothman Admit Provider: Dora Fitzgerald Primary Care Provider: Brandy Camejo Other Providers: Angelito Amos ; Dora Fitzgerald ; Bigg Shankar Other Interventions: Discharge Summary Assessment (RN) Last Done: 11/26/20 13:16
--- NOTE | 2020-12-08 08:15 | Coding Query ---
CONGESTIVE HEART FAILURE To Promote full compliance with coding requirements relating to patient care, physician participation is requested in all cases of tumbler operator uncertainty. Please assist us with the following questions. A diagnosis of Congestive Heart Failure is documented in the patient's medical record. To accurately code this diagnosis and to compare patient severity, we ask that you specify the type of heart failure by placing an X within the parenthesis (x). SYSTOLIC HEART FAILURE ( ) Acute ( ) Chronic ( ) Acute on Chronic ( ) Rheumatic ( ) Unknown DIASTOLIC HEART FAILURE ( x ) Acute ( ) Chronic ( ) Acute on Chronic ( ) Rheumatic ( ) Unknown COMBINED SYSTOLIC AND DIASTOLIC HEART FAILURE ( ) Acute ( ) Chronic ( ) Acute on Chronic ( ) Rheumatic ( ) Unknown Was the CHF Present On Admission? Please check the appropriate box: ( ) Present on Admission ( ) Not Present On Admission ( ) Clinically undetermined Thank you Romina WHITTEN
== END 2020-11-26 16:32 | disposition home health service (06) | DRG 308 ==
LOC: ED 10:15 → SUATTDRO 13:11 → 2S 13:11 → 2N 11-25 22:44